=== PATIENT | female | born 2000 | race Caucasian/White ===

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

== ENCOUNTER 2019-01-04 22:24 | Emergency (ER) | payer MEDICAID ==
--- NOTE | 2019-01-04 22:30 | ER Document Report ---
ED Medical Screen (RME) - General Stated Complaint: ABDOMINAL PAIN Time Seen by Provider: 01/04/19 22:28 Primary Care Provider: JENNIFER NIÑO MD [EMERITUS] - Follow up as needed Notes: PT IN EXTREME PAIN, LEFT SIDE, HURTS TO BREATH, TALK WALK, CANNOT TOLERATE FEEDING TUBE, CLAMMY HX OF J AND G TUBE, GASTROPRESIS, CROHNS, I have greeted and performed a rapid initial assessment of this patient. A comprehensive ED assessment and evaluation of the patient, analysis of test results and completion of the medical decision making process will be conducted by additional ED providers. TRAVEL OUTSIDE OF THE [place] IN LAST 30 DAYS: No - Related Data Allergies/Adverse Reactions: chlorhexidine [Chlorhexidine] Allergy (Verified 01/05/19 00:34) Urticaria erythromycin base Allergy (Verified 01/05/19 00:34) lactose [Lactose] Allergy (Verified 01/05/19 00:34) Urticaria lactulose Allergy (Verified 01/05/19 00:34) melatonin Allergy (Verified 01/05/19 00:34) morphine Adverse Reaction (Verified 01/05/19 00:34) vancomycin [Vancomycin] Adverse Reaction (Verified 01/05/19 00:34) Amy Syndrome silk tape Allergy (Uncoded 01/05/19 00:34) Past Medical History Pulmonary Medical History: Reports: Hx Asthma Endocrine Medical History: Reports: Hx Hypothyroidism - Carolyn's Renal/ Medical History: Denies: Hx Peritoneal Dialysis GI Medical History: Reports: Hx Crohn's Disease, Hx Gastroesophageal Reflux Disease, Hx Ulcer - pyloric stenosis, chrons, Past Surgical History: Reports: Hx Abdominal Surgery - J tube placement, Hx Cholecystectomy, Hx Oral Surgery, Hx Urinary Tract Surgery - Stretched urethra, pediatric, Jtube placement - Immunizations Immunizations up to date: Yes Hx Diphtheria, Pertussis, Tetanus Vaccination: Yes Course - Laboratory Result Diagrams: 01/05/19 00:17 01/05/19 00:17 Laboratory results interpreted by me: 01/05/19 01/05/19 00:17 00:17 Hct 34.6 L RDW 14.5 H AST 53 H Doctor's Discharge - Discharge Referrals: JENNIFER NIÑO MD [EMERITUS] - Follow up as needed
[2019-01-04 22:54] LABS: APPEARANCE,URINE CLEAR; BILIRUBIN,URINE NEGATIVE (NEGATIVE); COLOR,URINE COLORLESS; GLUCOSE, URINE NEGATIVE (NEGATIVE); KETONES,URINE NEGATIVE (NEGATIVE); LEUKOCYTE ESTERASE,URINE NEGATIVE (NEGATIVE); NITRITE,URINE NEGATIVE (NEGATIVE); PROTEIN,URINE NEGATIVE (NEGATIVE); URINE SPECIFIC GRAVITY 1.001; UROBILINOGEN,URINE NEGATIVE mg/dL (<2.0)
[2019-01-05 00:29] LABS: ABSOLUTE EOSINOPHILS # (AUTO) 0.1 10^3/uL (0.0-0.6); ABSOLUTE MONOCYTES (AUTO) 0.7 10^3/uL (0.1-1.4); ABSOLUTE NEUT (AUTO) 5.2 10^3/uL (1.7-8.2); BASOPHILS % (AUTO) 0.6 % (0-2); EOSINOPHILS % (AUTO) 1.1 % (0-6); HEMATOCRIT 34.6 % (36.0-47.0); LYMPHOCYTES % (AUTO) 25.2 % (13-45); MEAN CORPUSCULAR HEMOGLOBIN 31.5 pg (27.0-33.4); MEAN CORPUSCULAR HGB CONC 34.7 g/dL (32.0-36.0); MEAN CORPUSCULAR VOLUME 91 fl (80-97); MONOCYTES % (AUTO) 8.8 % (3-13); PLATELET COUNT 289 10^3/uL (150-450); RED BLOOD COUNT 3.81 10^6/uL (3.72-5.28); RED CELL DISTRIBUTION WIDTH 14.5 % (11.5-14.0); SEGMENTED NEUTROPHILS % (AUTO) 64.3 % (42-78); TOTAL CELLS COUNTED % (AUTO) 100 %; WHITE BLOOD COUNT 8.1 10^3/uL (4.0-10.5)
[2019-01-05 00:41] LABS: ALANINE AMINOTRANSFERASE 18 U/L (5-35); ALBUMIN 4.6 g/dL (3.7-5.6); ALKALINE PHOSPHATASE 89 U/L (50-135); ANION GAP 10 (5-19); ASPARTATE AMINO TRANSFERASE 53 U/L (5-30); BILIRUBIN,DIRECT 0.3 mg/dL (0.0-0.4); BILIRUBIN,TOTAL 0.6 mg/dL (0.2-1.3); BLOOD UREA NITROGEN 12 mg/dL (7-20); CALCIUM 9.5 mg/dL (8.4-10.2); CARBON DIOXIDE 30 mmol/L (22-30); CHLORIDE 99 mmol/L (98-107); GLUCOSE 86 mg/dL (75-110); SODIUM 138.8 mmol/L (137-145); TOTAL PROTEIN 8.2 g/dL (6.3-8.2)
[2019-01-05 00:44] LABS: INTERNATIONAL RATION (INR) 0.92; PROTHROMBIN TIME 12.8 SEC (11.4-15.4)
[2019-01-05] MEDS ORDERED: HYDROMORPHONE HCL INJ/PF 2 MG/ML AMPULE IV ONE ×2 (00:54→03:10)
[2019-01-05] MEDS ORDERED: ONDANSETRON HCL INJ/PF 4 MG/2 ML SDV IV ONE ×2 (01:13→03:10)
[2019-01-05] MEDS ORDERED: ONDANSETRON HCL INJ/PF 4 MG/2 ML SDV ONE (01:14)
--- NOTE | 2019-01-05 03:33 | RADIOLOGY REPORT (SQ) ---
EXAM DESCRIPTION: CT ABDOMEN PELVIS WITH IV CONTRAST COMPLETED DATE/TME: 01/05/2019 00:33 CLINICAL HISTORY: 18 years, Female, abd pain, bloody stool, G-J tube, crohns Comparison: January 13, 2018 TECHNIQUE: Contiguous axial CT images of the abdomen and pelvis were obtained. Sagittal and coronal reformats were reviewed. This exam was performed according to our departmental dose-optimization program, which includes automated exposure control, adjustment of the mA and/or kV according to patient size and/or use of iterative reconstruction technique. FINDINGS: Lung bases: Clear. Liver:Unremarkable. No focal liver lesion. Gallbladder:Cholecystectomy clips seen in gallbladder fossa. Spleen:Unremarkable Pancreas: Pancreas is unremarkable. Adrenal glands:Within normal limits. Kidneys/ureters:Within normal limits Stomach/small bowel/colon: Gastrostomy tube terminates within the gastric lumen. Jejunostomy tube terminates in the mid jejunum. The balloon on the J-tube is partially inflated and positioned at the level of the abdominal wall musculature. Colon is unremarkable. Appendix: No evidence of appendicitis. Peritoneum: Small amount of pelvic fluid. Vascular structures: within normal limits Lymph nodes: No abnormal lymph nodes. Bladder:Unremarkable. Pelvic organs: No acute abnormality Bones: No acute osseous abnormality. Soft tissues: Unremarkable.. IMPRESSION: No acute intra-abdominal abnormality.
[2019-01-05] MEDS ORDERED: METRONIDAZOLE 500 MG/NS RTU 500 MG/100 ML RTUPB IV ONE (05:17)
[2019-01-05] MEDS ORDERED: HYDROCOD/ACETAMIN 7.5-325 MG/15 ML ORAL SOLN UDCUP PO ONE (05:27)
[2019-01-05] MEDS ORDERED: CIPROFLOXACIN 400 MG/D5W RTU 400 MG/200 ML RTUPB IV SCH ×2 (05:30→18:00)
--- NOTE | 2019-01-05 05:38 | PDOC CONSULTATION ---
History of Present Illness Admission Date/PCP: RAE ALCARAZ NP Patient complains of: pains around the J-tube History of Present Illness: GOLDY WALLACE is a 18 year old female with history of Crohn's Disease on Humira and gastroparesis. Has a G-tube and a J-tube. C/o pains around J-tube past few days with inability to tolerate regular rate of 75 ccs/hr thru the J-tube. Last dose of Humira was 2 days ago. Yesterday started more pains around the J-tube with difficulty getting comfortable with any position and more pains with walking straight up that she has to stoop with associated chills/clammy sensation which prompted her to go to the ED. She had a CT scan of abdomen/pelvis which was essentially normal and a WBC of 8,000. I was asked by ED physician Dr Barron because of pains and tenderness around the J-tube with work-up essentially normal. Patient and mother claim this is exactly the same situation she was in where she was noted to have abscess around the J-tybe catheter. This was only noted when the catheter was pulled out followed by pus coming out of the catheter tract. Mother claimed her WBC then was initially 8,000 then went up to 12,000. Past Medical History Pulmonary Medical History: Reports: Asthma Endocrine Medical History: Reports: Hypothyroidism - Carol[facility] GI Medical History: Reports: Crohn's Disease, Gastroesophageal Reflux Disease Hematology: Reports: Anemia Past Surgical History Past Surgical History: Reports: Cholecystectomy, Other - G-tube and J-tube pl acement for gastroparesis Social History Smoking Status: Never Smoker Family History Family History: Reviewed & Not Pertinent Parental Family History Reviewed: Yes Children Family History Reviewed: No Sibling(s) Family History Reviewed.: No Medication/Allergy Home Medications: Adalimumab [Humira(Cf) Pen] 40 mg SQ WE 11/25/18 Dicyclomine HCl [Bentyl 10 mg Capsule] 10 mg PEG PRN PRN 11/25/18 Lansoprazole [Prevacid 30 mg Odt Tablet] 30 mg PO BID 11/25/18 Levothyroxine Sodium [Synthroid 0.025 mg Tablet] 0.5 tab PEG DAILY 11/25/18 Midodrine HCl 2.5 mg PEG TID 11/25/18 Mupirocin [Bactroban 2% Ointment 22 gm] 1 applic TOP ASDIR PRN 11/25/18 Nut.tx.impaired Digest Fxn [Vivonex] 11/25/18 Ondansetron [Zofran Odt 4 mg Tablet] 4 mg PO PRN PRN 11/25/18 Promethazine HCl/Codeine [Prometh-Codein 6.25-10 mg/5 ml] 10 ml PEG BID PRN 11/25/18 Selenium [Selenimin] 50 mcg PEG DAILY 11/25/18 Zinc Oxide [Zinc Oxide 20% Ointment 28.35 gm] 1 applic TOP ASDIR PRN 11/25/18 Metronidazole [Flagyl 500 mg Tablet] 500 mg PO Q6H #40 tablet 11/26/18 Allergies/Adverse Reactions: chlorhexidine [Chlorhexidine] Allergy (Verified 01/05/19 00:34) Urticaria erythromycin base Allergy (Verified 01/05/19 00:34) lactose [Lactose] Allergy (Verified 01/05/19 00:34) Urticaria lactulose Allergy (Verified 01/05/19 00:34) melatonin Allergy (Verified 01/05/19 00:34) morphine Adverse Reaction (Verified 01/05/19 00:34) vancomycin [Vancomycin] Adverse Reaction (Verified 01/05/19 00:34) Amy Syndrome silk tape Allergy (Uncoded 01/05/19 00:34) Review of Systems Constitutional: PRESENT: as per HPI Gastrointestinal: PRESENT: abdominal pain - around the J-tube catheter Physical Exam Vital Signs: Temp Pulse Resp BP Pulse Ox 98.3 F 96 H 18 97/59 L 98 01/04/19 22:35 01/04/19 22:35 01/04/19 22:35 01/04/19 22:35 01/04/19 22:35 Intake & Output 01/03/19 01/04/19 01/05/19 06:59 06:59 06:59 Weight 53.977 kg General appearance: PRESENT: mild distress Head exam: PRESENT: atraumatic Eye exam: PRESENT: conjunctiva pink Mouth exam: PRESENT: moist Neck exam: PRESENT: full ROM Respiratory exam: PRESENT: clear to auscultation martine Cardiovascular exam: PRESENT: RRR Pulses: PRESENT: normal radial pulses Vascular exam: PRESENT: normal capillary refill GI/Abdominal exam: PRESENT: soft, tenderness - around the J-tube with some prominence around catheter. Has some granulation tissue around catheter Rectal exam: PRESENT: deferred Extremities exam: PRESENT: full ROM Musculoskeletal exam: PRESENT: ambulatory Neurological exam: PRESENT: alert, oriented to person, oriented to place, oriented to time, oriented to situation Psychiatric exam: PRESENT: appropriate affect Skin exam: PRESENT: normal color, warm Results Laboratory Results: 01/05/19 00:17 01/05/19 00:17 01/04/19 01/05/19 01/05/19 22:30 00:17 00:17 WBC 8.1 RBC 3.81 Hgb 12.0 Hct 34.6 L MCV 91 MCH 31.5 MCHC 34.7 RDW 14.5 H Plt Count 289 Seg Neutrophils % 64.3 Lymphocytes % 25.2 Monocytes % 8.8 Eosinophils % 1.1 Basophils % 0.6 Absolute Neutrophils 5.2 Absolute Lymphocytes 2.0 Absolute Monocytes 0.7 Absolute Eosinophils 0.1 Absolute Basophils 0.0 Sodium 138.8 Potassium 4.0 Chloride 99 Carbon Dioxide 30 Anion Gap 10 BUN 12 Creatinine 0.72 Est GFR ( Amer) > 60 Est GFR (Non-Af Amer) > 60 Glucose 86 Calcium 9.5 Total Bilirubin 0.6 AST 53 H ALT 18 Alkaline Phosphatase 89 Total Protein 8.2 Albumin 4.6 Urine Color COLORLESS Urine Appearance CLEAR Urine pH 8.0 Ur Specific [place] 1.001 Urine Protein NEGATIVE Urine Glucose (UA) NEGATIVE Urine Ketones NEGATIVE Urine Blood NEGATIVE Urine Nitrite NEGATIVE Ur Leukocyte Esterase NEGATIVE Urine WBC (Auto) 0 Blood Type Antibody Screen 01/05/19 00:17 WBC RBC Hgb Hct MCV MCH MCHC RDW Plt Count Seg Neutrophils % Lymphocytes % Monocytes % Eosinophils % Basophils % Absolute Neutrophils Absolute Lymphocytes Absolute Monocytes Absolute Eosinophils Absolute Basophils Sodium Potassium Chloride Carbon Dioxide Anion Gap BUN Creatinine Est GFR ( Amer) Est GFR (Non-Af Amer) Glucose Calcium Total Bilirubin AST ALT Alkaline Phosphatase Total Protein Albumin Urine Color Urine Appearance Urine pH Ur Specific [place] Urine Protein Urine Glucose (UA) Urine Ketones Urine Blood Urine Nitrite Ur Leukocyte Esterase Urine WBC (Auto) Blood Type O POSITIVE Antibody Screen NEGATIVE Impressions: Abdomen/Pelvis CT 01/05/19 00:33 IMPRESSION: No acute intra-abdominal abnormality. Assessment & Plan - Diagnosis (1) Developing abscess J-tube site Is this a current diagnosis for this admission?: Yes (2) pains around J-tube Is this a current diagnosis for this admission?: Yes (3) Crohn's disease Is this a current diagnosis for this admission?: Yes (4) Gastroparesis Is this a current diagnosis for this admission?: Yes - Time Time Spent: 30 to 50 Minutes - Plan Summary Plan Summary: [facility] her Chrons' Disease . They can change/evaluate the J-tube catheter for possible developing abscess. Patient on Humira and may have abnormal inflammatory response. Patient and mother feels patient has the same scenario when she had the abscess around her J-tube in 2017 and [facility].
[2019-01-05] MEDS ORDERED: PROMETHAZINE HCL INJ 25 MG/1 ML VIAL IV ONE (06:47)
--- NOTE | 2019-01-05 06:51 | ER Document Report ---
Entered by ANN ESPINAL SCRIBE 01/05/19 0059 Acting as scribe for:SHELLY RIVERA DO ED GI/ - General Stated Complaint: ABDOMINAL PAIN Time Seen by Provider: 01/04/19 22:28 Primary Care Provider: JENNIFER NIÑO MD [EMERITUS] - Follow up as needed Mode of Arrival: Ambulatory Notes: 18 year old female with history of Chrohn's disease status post G-J tube placement that presents to the emergency department today with complaints of abdominal pain. Mom and patient state that around x10 days ago the patient began having left lower quadrant abdominal pain located around the G-J tube. Mom states the patient was sent for an ultrasound to rule out intussusception x10 days ago but the ultrasound "did not show the area needed to rule out intussusception". Mom states they have tried magnesium citrate twice over the last x10 days which provided mild relief initially but no real change overall. Patient was started back on kira one week ago. Patient states she has noticed swelling around her G-J tube when trying to feed. Patient states the feeding goes into the tube without difficulty however she is unable to complete feeding secondary to pain. Patient states she has noticed blood in her tube intermittently as well as an odor coming from it. Patient states she is nauseated with chills but denies any dark black stool, fevers, or trauma to the abdomen. TRAVEL OUTSIDE OF THE [place] IN LAST 30 DAYS: No - Related Data Allergies/Adverse Reactions: chlorhexidine [Chlorhexidine] Allergy (Verified 01/05/19 00:34) Urticaria erythromycin base Allergy (Verified 01/05/19 00:34) lactose [Lactose] Allergy (Verified 01/05/19 00:34) Urticaria lactulose Allergy (Verified 01/05/19 00:34) melatonin Allergy (Verified 01/05/19 00:34) morphine Adverse Reaction (Verified 01/05/19 00:34) vancomycin [Vancomycin] Adverse Reaction (Verified 01/05/19 00:34) Amy Syndrome silk tape Allergy (Uncoded 01/05/19 00:34) Past Medical History - General Information source: Patient - Social History Smoking Status: Never Smoker Cigarette use (# per day): No Frequency of alcohol use: None Drug Abuse: None Lives with: Family Family History: Reviewed & Not Pertinent Pulmonary Medical History: Reports: Hx Asthma Endocrine Medical History: Reports: Hx Hypothyroidism - [facility] Medical History: Reports: Hx Crohn's Disease, Hx Gastroesophageal Reflux Disease, Hx Ulcer - pyloric stenosis Past Surgical History: Reports: Hx Abdominal Surgery - GJ tube placement, Hx Cholecystectomy, Hx Oral Surgery, Hx Urinary Tract Surgery - Stretched urethra, pediatric, Jtube placement - Immunizations Immunizations up to date: Yes Hx Diphtheria, Pertussis, Tetanus Vaccination: Yes Review of Systems - Review of Systems Constitutional: See HPI, Chills. denies: Fever EENT: No symptoms reported Cardiovascular: No symptoms reported Respiratory: No symptoms reported Gastrointestinal: See HPI, Abdomen distended, Abdominal pain, Diarrhea, Nausea. denies: Vomiting Genitourinary: No symptoms reported Female Genitourinary: No symptoms reported Musculoskeletal: No symptoms reported Skin: No symptoms reported Hematologic/Lymphatic: No symptoms reported Neurological/Psychological: No symptoms reported -: Yes All other systems reviewed and negative Physical Exam - Vital signs Vitals: Temp Pulse Resp BP Pulse Ox 98.3 F 96 H 18 97/59 L 98 01/04/19 22:35 01/04/19 22:35 01/04/19 22:35 01/04/19 22:35 01/04/19 22:35 - Notes Notes: PHYSICAL EXAM GENERAL: Alert, interacts well. No acute distress. HEAD: Normocephalic, atraumatic. EYES: Pupils equal, round, and reactive to light. Extraocular movements intact. ENT: Oral mucosa moist, tongue midline. NECK: Full range of motion. Supple. Trachea midline. LUNGS: Clear to auscultation bilaterally, no wheezes, rales, or rhonchi. No respiratory distress. HEART: Regular rate and rhythm. No murmurs, gallops, or rubs. ABDOMEN: Soft, mild suprapubic tenderness with palpation, severe tenderness with palpation surrounding the GJ tube with a small amount blood in the tube via backflow. Non-distended. Bowel sounds present in all 4 quadrants. No guarding, rigidity, or rebound. EXTREMITIES: Moves all 4 extremities spontaneously. No edema, radial and dorsalis pedis pulses 2/4 bilaterally. No cyanosis. NEUROLOGICAL: Alert and oriented x3. Normal speech. PSYCH: Normal affect, normal mood. SKIN: Warm, dry, normal turgor. No rashes or lesions noted. Pale. Course - Re-evaluation Re-evalutation: 01/05/19 05:26 CBC is unremarkable, coags normal, CMP grossly unremarkable, test negative, urinalysis unremarkable. There is no evidence of significant GI bleed. There is no anemia. There is a small amount of blood in the J-tube. Given the market tenderness palpation patient had on her physical examination I did perform a CT scan of the abdomen pelvis, patient was only able to get a small amount of Gastrografin in through the J-tube, she had to stop giving it to herself due to pain. CT scan of the abdomen pelvis shows gastrostomy tube terminating within the gastric lumen and a jejunostomy tube terminating in the mid jejunum, the balloon on the J-tube is partially inflated in position at the level of the abdominal wall musculature. Colon is unremarkable. Given the continuing pain that the patient has, the inability to tolerate her tube feeds and the difficulty with tolerating the Gastrografin through the G-tube I did have Dr. Youssef her surgeon on-call, and physically evaluate the patient. He is concerned that there is significant tenderness to palpation around the GJ tube insertion site and he is concerned that there may be a developing abscess at this point. He would like us to discuss the patient with her treating gastro enterologist and possibly the surgeon in place the tube. I spoke with Dr. Stein from [facility] who agrees with the concern for possible abscess at the insertion site, recommend speaking with the surgeon who placed the GJ tube at [facility]. Also recommend starting Cipro and Flagyl. Would prefer to transfer the patient back to the primary surgeon rather than accepting the patient to [facility] if the primary surgeon is available. I did call and put in a consult with the [facility] transfer line, they stated that they have no beds available and there is an extensive wait list however they are going to try and connect me to the surgeon so I can consult with him for discussion of keeping the patient here for IV antibiotics until they have a bed versus transferring to [facility]. 01/05/19 05:[address] Burciaga the surgeon on-call for [facility], states that they do not have any beds, agrees with giving IV antibiotics, suggest discussing with another surgeon, suggest discussing again with our local surgeon versus the other surgeons to follow her at [facility]. I do have a repeat phone call out to Dr. Stein. 01/05/19 06:[address] Stein who agrees that it is appropriate to transfer the patient to [facility] rather than keeping the patient here as she is quite complex and he would prefer to keep continuity of care. He does not admit there, recommends that I speak with the hospitalist team to arrange admission. 01/05/19 06:[address] Mccrary who agrees to admit the patient to his service. We are awaiting bed assignment and then [facility] will arrange transport. Family is aware of this plan. 01/05/19 06:49 Dr. Mccrary did request a lactic acid be added on. This is been added. - Vital Signs Vital signs: Temp Pulse Resp BP Pulse Ox 98.3 F 96 H 18 97/59 L 98 01/04/19 22:35 01/04/19 22:35 01/04/19 22:35 01/04/19 22:35 01/04/19 22:35 - Laboratory Result Diagrams: 01/05/19 00:17 01/05/19 00:17 Laboratory results interpreted by me: 01/05/19 01/05/19 00:17 00:17 Hct 34.6 L RDW 14.5 H AST 53 H - Consults Dr. Youssef Time consulted: 04:01 Reason for consultation: 01/05/19 04:01 Abdominal pain 01/05/19 04:[address] Youssef that patient is still having moderate pain despite negative CT scan and normal white blood cell count. Requested that he come to the patient to see and evaluate the patient, perform a repeat abdominal exam on this patient with continuing pain. Agrees to come and evaluate the patient. Consulted provider: will come to ER Discharge - Discharge Clinical Impression: Developing abscess J-tube site, pains around J-tube Crohn's disease Qualifiers: Gastrointestinal tract location: small intestine Digestive disease complication type: with abscess Qualified Code(s): K50.014 - Crohn's disease of small intestine with abscess Condition: Fair Disposition: [facility] Referrals: JENNIFER NIÑO MD [EMERITUS] - Follow up as needed I personally performed the services described in the documentation, reviewed and edited the documentation which was dictated to the scribe in my presence, and it accurately records my words and actions.
[2019-01-05] MEDS ORDERED: HYDROCOD/ACETAMIN 7.5-325 MG/15 ML ORAL SOLN UDCUP PO PRN (11:28)
[2019-01-05] MEDS: HYDROMORPHONE HCL INJ/PF 2 MG/ML AMPULE IV PRN ×3 (11:44→19:15)
[2019-01-05] MEDS ORDERED: DEXTROSE 5%-1/2 NORMAL SALINE 1,000 ML IV ONE (13:43)
[2019-01-05] MEDS ORDERED: ONDANSETRON HCL INJ/PF 4 MG/2 ML SDV IV PRN (16:27)
--- NOTE | 2019-01-05 19:59 | ER Document Report ---
Doctor's Note Notes: 01/05/19 19:59 Patient evaluated and is hemodynamically stable for transportation.
[2019-01-05 20:04] VITALS: BP 103/53
== END 2019-01-05 20:02 | disposition short-term general hospital (02) ==
LOC: ER 22:24
DX: K50.014 Crohn's disease of small intestine with abscess (principal); R10.9 Unspecified abdominal pain; R68.83 Chills (without fever); Z93.4 Other artificial openings of gastrointestinal tract status; Z88.3 Allergy status to other anti-infective agents; Z88.9 Allergy status to unspecified drugs, medicaments and biological substances; Z88.6 Allergy status to analgesic agent; Z90.49 Acquired absence of other specified parts of digestive tract
CPT/HCPCS: 96376; 99285; 96361; 96375; 96365; 96366; 96367; 86900; 86901; 36415; 87040; 86850; 85025; 85610; 81025; 80053; 81001; 83605; 74177; J1170; J2550; J2405; J0744

== ENCOUNTER → 2019-01-15 | Outpatient (CLI) | payer MEDICAID ==
[2019-01-15 14:14] LABS: HEMATOCRIT 31.8 % (36.0-47.0); HEMOGLOBIN 11.2 g/dL (12.0-15.5); MEAN CORPUSCULAR HEMOGLOBIN 31.8 pg (27.0-33.4); MEAN CORPUSCULAR HGB CONC 35.1 g/dL (32.0-36.0); MEAN CORPUSCULAR VOLUME 91 fl (80-97); PLATELET COUNT 366 10^3/uL (150-450); RED BLOOD COUNT 3.51 10^6/uL (3.72-5.28); RED CELL DISTRIBUTION WIDTH 13.7 % (11.5-14.0); WHITE BLOOD COUNT 4.1 10^3/uL (4.0-10.5)
== END ==
LOC: OD 13:35
PROVIDERS: ATTEND Nurse Practitioner Family
DX: K94.21 Gastrostomy hemorrhage (principal)
CPT/HCPCS: 36415; 85027

== ENCOUNTER → 2019-01-30 | Outpatient (CLI) | payer MEDICAID | LOC: OD 12:02 | PROVIDERS: ATTEND Nurse Practitioner Family | DX: E87.6 Hypokalemia (principal) | CPT/HCPCS: 36415; 84132 ==

== ENCOUNTER → 2019-02-02 | Outpatient (CLI) | payer MEDICAID ==
[2019-02-02 14:49] LABS: ARTERIAL BLOOD H2CO3 1.19 mmol/L (1.05-1.35); ARTERIAL BLOOD O2 SATURATION 97.8 % (94-98); ARTERIAL BLOOD PCO2 39.7 mmHg (35-45); ARTERIAL BLOOD PH 7.47 (7.35-7.45); ARTERIAL BLOOD PO2 98.6 mmHg (80-100); ARTERIAL BLOOD TOTAL CO2 29.2 mmol/L (21-25)
[2019-02-02 14:50] LABS: ARTERIAL BLOOD FIO2 ROOM AIR
[2019-02-02 15:23] LABS: POTASSIUM 3.7 mmol/L (3.6-5.0)
--- NOTE | 2019-02-03 23:47 | EKG REPORT ---
SEVERITY:- BORDERLINE ECG - SINUS RHYTHM PROBABLE LEFT ATRIAL ABNORMALITY CONSIDER RIGHT VENTRICULAR HYPERTROPHY : Confirmed by: Nikia Curry 03-Feb-2019 23:47:06
[2019-02-04 13:17] LABS: ANION GAP 9 (5-19); BLOOD UREA NITROGEN 9 mg/dL (7-20); CALCIUM 9.4 mg/dL (8.4-10.2); CARBON DIOXIDE 28 mmol/L (22-30); CHLORIDE 101 mmol/L (98-107); GLUCOSE 75 mg/dL (75-110); SODIUM 138.3 mmol/L (137-145)
== END ==
LOC: LAB 14:21
PROVIDERS: ATTEND Nurse Practitioner Family
DX: K50.111 Crohn's disease of large intestine with rectal bleeding (principal); E87.6 Hypokalemia
CPT/HCPCS: 36415; 80048; 82803; 84132; 93005; 93010

== ENCOUNTER 2019-02-07 11:21 | Day surgery (SDC) | payer MEDICAID ==
[~2019-02-07 11:21] MED LIST: ACETAMINOPHEN 325 MG TABLET PO PRN; CEFAZOLIN 1 GM/D5W RTU 1 GM/50 ML RTUPB IV PRN; CLINDAMYCIN 600 MG/D5W RTU 600 MG/50 ML RTUPB IV PRN
[2019-02-07] MEDS ORDERED: CLINDAMYCIN 600 MG/D5W RTU 600 MG/50 ML RTUPB IV ONE (11:38)
[2019-02-07] MEDS ORDERED: BUPIVACAINE HCL 0.5%-EPI 1:200000 INJ/PF 30 ML VIAL ONE (12:36)
[2019-02-07 12:49] LABS: HEMOGLOBIN 11.6 g/dL (12.0-15.5); MEAN CORPUSCULAR HEMOGLOBIN 31.8 pg (27.0-33.4); MEAN CORPUSCULAR HGB CONC 35.1 g/dL (32.0-36.0); MEAN CORPUSCULAR VOLUME 91 fl (80-97); PLATELET COUNT 230 10^3/uL (150-450); RED BLOOD COUNT 3.64 10^6/uL (3.72-5.28); RED CELL DISTRIBUTION WIDTH 13.2 % (11.5-14.0)
[2019-02-07] MEDS ORDERED: ONDANSETRON HCL INJ/PF 4 MG/2 ML SDV ONE (13:04)
[2019-02-07] MEDS ORDERED: MIDAZOLAM 2 MG/2 ML INJ ONE ×2 (13:05→15:40)
[2019-02-07] MEDS ORDERED: PROPOFOL INJ 200 MG/20 ML VIAL IV ONE (15:40)
[2019-02-07] MEDS ORDERED: FENTANYL CITRATE INJ/PF 100 MCG/2 ML AMPUL ONE (15:40)
[2019-02-07] MEDS ORDERED: DIPHENHYDRAMINE HCL 50 MG/ML VIAL IV PRN (16:09)
[2019-02-07] MEDS ORDERED: FENTANYL CITRATE INJ/PF 100 MCG/2 ML AMPUL IV PRN ×3 (16:09)
--- NOTE | 2019-02-07 16:52 | Operative Report ---
Nonrecallable Operative Report DATE OF SURGERY: 02/07/19 PREOPERATIVE DIAGNOSIS: gastroparesis POSTOPERATIVE DIAGNOSIS: gastroparesis OPERATION: dual lumen portacath placement SURGEON: NORIS OLIVA ANESTHESIA: Moderate Sedation TISSUE REMOVED OR ALTERED: none COMPLICATIONS: none ESTIMATED BLOOD LOSS: 2cc. INTRAOPERATIVE FINDINGS: see dictatin PROCEDURE: see dictation
[2019-02-07] MEDS ORDERED: OXYCODONE-ACETAMINOPHEN 5-325 MG TABLET PO PRN (16:54)
[2019-02-07] MEDS: FENTANYL CITRATE INJ/PF 100 MCG/2 ML AMPUL ONE ×2 (16:56→17:01)
--- NOTE | 2019-02-07 17:49 | OPERATIVE REPORT E ---
Operative Report NAME: GOLDY WALLACE : 2000 AGE: 18Y DATE OF SURGERY: 02/07/2019 ROOM: PREOPERATIVE DIAGNOSIS: GASTROPARESIS, CROHN DISEASE. POSTOPERATIVE DIAGNOSIS: GASTROPARESIS, CROHN DISEASE. OPERATION: DUAL LUMEN PORTACATH PLACEMENT LEFT CHEST. SURGEON: NORIS OLIVA M.D. PROCEDURE: The patient was brought to the operating room in awake, alert, and stable condition, and placed on the operating table in supine position and given IV sedation. The left neck and chest were prepped and draped in usual sterile manner for the procedure. After an appropriate timeout, the left subclavian area was anesthetized with 1% lidocaine with epinephrine. A left subclavian puncture was accomplished with a 16-gauge needle and a wire was placed into the subclavian vein into the vena cava via the subclavian vein. It was confirmed with fluoroscopy. After this, a dilator introducer was placed over the wire into the superior vena cava, also confirmed on fluoroscopy. The dual lumen Portacath catheter was then placed in through the tearaway introducer, which was torn away. Good position of the tip of the catheter was confirmed with fluoroscopy. The left chest wall was then again anesthetized with 1% lidocaine with epinephrine, and a transverse incision was made. A pocket was fashioned with Bovie cautery for the dual lumen port. The catheter was then tunneled from the subclavian stick site to the port site using the tunnel maker supplied with the kit. It was then attached to the port and placed into the subcutaneous pocket. It was confirmed in good position by fluoroscopy and then heparinized with heparinized saline solution. The subcutaneous tissue was then reapproximated over the port with interrupted 3-0 Vicryl suture, and the skin was reapproximated with intracuticular 4-0 Biosyn. Steri-Strips completed the procedure. Estimated blood loss was less than 5 mL. Sponge and needle counts were correct x2. The patient was then transferred to recovery in stable condition. DICTATING PHYSICIAN: NORIS OLIVA M.D. [id number] PHY#: [id number] ID: [id number] JOB#: [id number] ACCT: [id number] cc:NORIS OLIVA M.D. >
--- NOTE | 2019-02-07 18:45 | RADIOLOGY REPORT (SQ) ---
EXAM DESCRIPTION: CHEST SINGLE VIEW COMPLETED DATE/TIME: 02/07/2019 5:24 pm REASON FOR STUDY: portacath placement COMPARISON: 02/07/2019 EXAM PARAMETERS: NUMBER OF VIEWS: One view. TECHNIQUE: Single frontal radiographic view of the chest acquired. RADIATION DOSE: NA LIMITATIONS: None. FINDINGS: LUNGS AND PLEURA: No opacities, masses or pneumothorax. No pleural effusion. MEDIASTINUM AND HILAR STRUCTURES: No masses. Contour normal. HEART AND VASCULAR STRUCTURES: Heart normal in size. Normal vasculature. BONES: No acute findings. HARDWARE: Injection port on the left. Tip of the catheter is in the superior vena cava. OTHER: No other significant finding. IMPRESSION: Port-A-Cath placement. TECHNICAL DOCUMENTATION: JOB ID: [id number] [employer]- All Rights Reserved Reading location - IP/workstation name: [email or web address]
[2019-02-07 18:54] VITALS: BP 101/62
--- NOTE | 2019-02-08 08:30 | RADIOLOGY REPORT (SQ) ---
EXAM DESCRIPTION: FLUORO/CV PLACEMENT COMPLETE DATE/TIME: 02/07/2019 5:28 pm REASON FOR STUDY: PORT A CATH D64.9 ANEMIA, UNSPECIFIED K50.90 CROHN'S DISEASE, UNSPECIFIED, WITHO UT COMPLICATIONS FINDINGS: Please see combined report for performance of procedure and radiologic supervision and int erpretation. Total fluoro time 1.8 minutes IMPRESSION: Please see combined report for performance of procedure and radiologic supervision and i nterpretation. Reading location - IP/workstation name: [email or web address]
--- NOTE | 2019-02-13 07:40 | Discharge Summary ---
Discharge Summary (SDC) - Discharge Final Diagnosis: hemorrhoids Date of Surgery: 02/07/19 Discharge Date: 02/07/19 Condition: Good Forms: ASU Anesthesia D/C Instruction, Discharge POC-Surgical Service Treatment or Instructions: FOLLOW UP DIRECTED BY YOUR MD Referrals: NORIS OLIVA MD [ACTIVE STAFF] - Respiratory Treatments at Home: Deep Breathing/Coughing Discharge Activity: Activity As Tolerated, Balance Activity w/Rest, No Driving, Slowly Increase Activity Home Care Assistance: None Needed Report the Following to Your Physician Immediately: Shortness of Breath, Nausea, Vomiting, Increase in Pain, Fever over 101 Degrees, Unusual Bleeding, Redness, S welling, Warmth, Increased Soreness, Drainage-Yellow, Drainage-[place], Drainage- Green, Drainage-Foul Smelling, Large Clots, Numbness, Tingling Sensation, Wheezing, Seizure, IV Site Infection Signs, Urinary Infection Signs
== END 2019-02-07 18:45 | disposition home or self-care (01) ==
LOC: OROUT 11:21
PROVIDERS: ATTEND Surgery
DX: K50.90 Crohn's disease, unspecified, without complications (principal); K31.84 Gastroparesis; D64.9 Anemia, unspecified; J45.909 Unspecified asthma, uncomplicated; E03.9 Hypothyroidism, unspecified; R01.1 Cardiac murmur, unspecified; Z78.9 Other specified health status; Q79.6 Ehlers-Danlos syndromes; E06.3 Autoimmune thyroiditis; R00.0 Tachycardia, unspecified; Z87.19 Personal history of other diseases of the digestive system; Z79.899 Other long term (current) drug therapy; Z01.818 Encounter for other preprocedural examination
CPT/HCPCS: 36415; 36600; 532; 71045; 77001; 81025; 84132; 85027; C1788; J1642; J2250; J2405; J2704; J3010; J3490; Q9967

== ENCOUNTER → 2019-03-06 | Outpatient (CLI) | payer MEDICAID ==
[2019-03-06 16:24] LABS: ABSOLUTE BASOPHILS # (AUTO) 0.1 10^3/uL (0.0-0.2); ABSOLUTE EOSINOPHILS # (AUTO) 0.3 10^3/uL (0.0-0.6); ABSOLUTE LYMPHOCYTES (AUTO) 1.9 10^3/uL (0.5-4.7); ABSOLUTE MONOCYTES (AUTO) 0.6 10^3/uL (0.1-1.4); ABSOLUTE NEUT (AUTO) 4.8 10^3/uL (1.7-8.2); BASOPHILS % (AUTO) 1.3 % (0-2); EOSINOPHILS % (AUTO) 3.9 % (0-6); HEMATOCRIT 37.4 % (36.0-47.0); HEMOGLOBIN 12.8 g/dL (12.0-15.5); LYMPHOCYTES % (AUTO) 24.1 % (13-45); MEAN CORPUSCULAR HEMOGLOBIN 30.8 pg (27.0-33.4); MEAN CORPUSCULAR HGB CONC 34.2 g/dL (32.0-36.0); MEAN CORPUSCULAR VOLUME 90 fl (80-97); MONOCYTES % (AUTO) 8.2 % (3-13); PLATELET COUNT 315 10^3/uL (150-450); RED BLOOD COUNT 4.17 10^6/uL (3.72-5.28); RED CELL DISTRIBUTION WIDTH 12.9 % (11.5-14.0); SEGMENTED NEUTROPHILS % (AUTO) 62.5 % (42-78); TOTAL CELLS COUNTED % (AUTO) 100 %; WHITE BLOOD COUNT 7.8 10^3/uL (4.0-10.5)
[2019-03-06 16:48] LABS: ALANINE AMINOTRANSFERASE 27 U/L (5-35); ALBUMIN 4.7 g/dL (3.7-5.6); ALKALINE PHOSPHATASE 108 U/L (50-135); ANION GAP 10 (5-19); ASPARTATE AMINO TRANSFERASE 39 U/L (5-30); BILIRUBIN,DIRECT 0.2 mg/dL (0.0-0.4); BILIRUBIN,TOTAL 0.2 mg/dL (0.2-1.3); BLOOD UREA NITROGEN 8 mg/dL (7-20); CALCIUM 9.8 mg/dL (8.4-10.2); CARBON DIOXIDE 37 mmol/L (22-30); CHLORIDE 93 mmol/L (98-107); GLUCOSE 93 mg/dL (75-110); PHOSPHORUS 4.2 mg/dL (2.5-4.5); POTASSIUM 4.2 mmol/L (3.6-5.0); SODIUM 140.4 mmol/L (137-145); TOTAL PROTEIN 8.7 g/dL (6.3-8.2); TRIGLYCERIDES 207 mg/dL (<150)
== END ==
LOC: OD 16:03
PROVIDERS: ATTEND Nurse Practitioner Family
DX: E87.5 Hyperkalemia (principal); R73.09 Other abnormal glucose; E87.6 Hypokalemia; K50.111 Crohn's disease of large intestine with rectal bleeding; Z93.4 Other artificial openings of gastrointestinal tract status; Z95.828 Presence of other vascular implants and grafts
CPT/HCPCS: 36415; 80053; 83036; 83735; 84100; 84478; 85025

== ENCOUNTER 2019-03-23 23:05 | Emergency (ER) | payer MEDICAID ==
[2019-03-24] MEDS ORDERED: ONDANSETRON HCL INJ/PF 4 MG/2 ML SDV IV ONE ×2 (02:20→04:52)
[2019-03-24] MEDS ORDERED: HYDROMORPHONE HCL INJ/PF 2 MG/ML AMPULE IV PRN ×2 (02:20→03:04)
--- NOTE | 2019-03-24 03:07 | ER Document Report ---
ED General - General Chief Complaint: Abdominal Pain Stated Complaint: ABDOMINAL PAIN Time Seen by Provider: 03/24/19 02:01 Primary Care Provider: RAE ALCARAZ NP [Primary Care Provider] - Follow up as needed Notes: Patient is a 18-year-old female with a past medical history of Crohn's disease, connective tissue disorder, Carolyn's thyroiditis, severe gastroparesis, presents with approximately 5 days of progressively worsening generalized abdominal pain worsened by use of her J-tube. Patient states that she is still able to flush medicines through her J-tube including medications and believes that it is functioning but states that it has pulled back somewhat and that anytime she uses it is extremely painful. She also notes generalized, cramping, severe, abdominal pain. Mildly improved by her home medications, worsened by any use of the J-tube. Has a history of similar symptoms many times in the past including a recent hospitalization in January. Has not had fever or vomiting. Has had loose stools. TRAVEL OUTSIDE OF THE [place] IN LAST 30 DAYS: No - Related Data Allergies/Adverse Reactions: cefoxitin Allergy (Verified 02/14/19 18:44) chlorhexidine [Chlorhexidine] Allergy (Verified 02/07/19 11:52) Urticaria erythromycin base Allergy (Verified 02/07/19 11:52) lactose [Lactose] Allergy (Verified 02/07/19 11:52) Urticaria lactulose Allergy (Verified 02/07/19 11:52) melatonin Allergy (Verified 02/07/19 11:52) metoclopramide Allergy (Verified 02/14/19 18:44) morphine Adverse Reaction (Verified 02/07/19 11:52) vancomycin [Vancomycin] Adverse Reaction (Verified 02/07/19 11:52) Amy Syndrome silk tape Allergy (Uncoded 02/07/19 11:52) Past Medical History - General Information source: Patient - Social History Smoking Status: Never Smoker Frequency of alcohol use: None Drug Abuse: None Lives with: Family Family History: Reviewed & Not Pertinent Patient has suicidal ideation: No Patient has homicidal ideation: No - Past Medical History Cardiac Medical History: Denies: Hx Coronary Artery Disease, Hx Heart Attack, Hx Hypertension Pulmonary Medical History: Reports: Hx Asthma - A CHILD, Hx Pneumonia Denies: Hx Bronchitis, Hx COPD Neurological Medical History: Denies: Hx Cerebrovascular Accident, Hx Seizures Endocrine Medical History: Reports: Hx Hypothyroidism - Carolyn's Renal/ Medical History: Denies: Hx Peritoneal Dialysis GI Medical History: Reports: Hx Crohn's Disease, Hx Gastroesophageal Reflux Disease, Hx Ulcer - pyloric stenosis Musculoskeletal Medical History: 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 HENT: Negative for sore throat. Eyes: Negative for visual changes. Cardiovascular: Negative for chest pain. Respiratory: Negative for shortness of breath. Gastrointestinal: Positive for abdominal pain and nausea Genitourinary: Negative for dysuria. Musculoskeletal: Negative for back pain. Skin: Negative for rash. Neurological: Negative for headaches, weakness or numbness. 10 point ROS negative except as marked above and in HPI. Physical Exam - Vital signs Vitals: Temp Pulse Resp BP Pulse Ox 97.4 F 96 H 18 116/66 98 03/23/19 23:32 03/23/19 23:32 03/23/19 23:32 03/23/19 23:32 03/23/19 23:32 Interpretation: Normal Notes: PHYSICAL EXAMINATION: GENERAL: Appears moderately uncomfortable but in no acute distress HEAD: Atraumatic, normocephalic. EYES: Pupils equal round and reactive to light, extraocular movements intact, sclera anicteric, conjunctiva are normal. ENT: nares patent, oropharynx clear without exudates. Moist mucous membranes. NECK: Normal range of motion, supple without lymphadenopathy LUNGS: Breath sounds clear to auscultation bilaterally and equal. No wheezes rales or rhonchi. HEART: Regular rate and rhythm without murmurs ABDOMEN: Soft, diffuse generalized tenderness without localization, J-tube in place, normoactive bowel sounds. No guarding, no rebound. No masses appreciated. EXTREMITIES: Normal range of motion, no pitting or edema. No cyanosis. NEUROLOGICAL: No focal neurological deficits. Moves all extremities spontaneously and on command. PSYCH: Moderately anxious, tearful SKIN: Warm, Dry, normal turgor, no rashes or lesions noted. Course - Re-evaluation Re-evalutation: 03/24/19 03:06 Patient presents with a history of recurrent abdominal pain, particularly with putting flushes and medications through J-tube, has had similar issues repeatedly in the past including 2 visits to the emergency department within the past 2 to 3 months. She has a history of complicated G and J-tube change at and her current tube is a Tomlin catheter which is in place for the past 2 mon ths. On abdominal exam she has no focal tenderness rebound or guarding although is crying out in pain. Labs pending. Gastrografin will be administered through KUB to ensure that the J-tube is in appropriate location. 03/24/19 05:40 CT scan was obtained due to initial concern that there could have been a possible leak on KUB and CT is noted to be normal. I have discussed at length this patient's care with the GI physician on-call from [facility]. We have reviewed the patient's work-up today and he has advised adding Levsin, hydrocodone and Phenergan to the patient's regimen and discharge home. I am in agreement with this plan as the patient does not have any obvious diagnosis at this point that would benefit from hospitalization. At this time will discharge with return precautions and follow-up recommendations. Verbal discharge instructions given a the bedside and opportunity for questions given. Medication warnings reviewed. Patient is in agreement with this plan and has verbalized understanding of return precautions and the need for primary care follow-up in the next 24-72 hours. - Vital Signs Vital signs: Temp Pulse Resp BP Pulse Ox 97.7 F 97 H 18 118/78 95 03/24/19 00:24 03/24/19 00:24 03/23/19 23:32 03/24/19 00:24 03/24/19 00:24 - Laboratory Result Diagrams: 03/24/19 03:17 03/24/19 03:17 Laboratory results interpreted by me: 03/24/19 03/24/19 03:17 03:17 WBC 11.6 H Hct 34.2 L Potassium 3.5 L Chloride 96 L AST 45 H ALT 53 H - Diagnostic Test Radiology reviewed: Image reviewed, Reports reviewed Radiology results interpreted by me: 03/24/19 05:41 KUB: Gastrografin located within the jejunum Discharge - Discharge Clinical Impression: Gastroparesis, pains around J-tube, Chronic abdominal pain Crohn's disease Qualifiers: Gastrointestinal tract location: unspecified location Digestive disease complication type: without complication Qualified Code(s): K50.90 - Crohn's disease, unspecified, without complications Condition: Stable Disposition: HOME, SELF-CARE Additional Instructions: I have spoken to who is asked that you continue your current medications and we will also be adding Levsin and hydrocodone for pain relief. Please take as prescribed. He states that you have been approved for the new treatment and will see you in the office on the sixth. He does not advise admission at this time. The CT scan and x-rays show that your tube is in place without any complication or issues. Your labs are otherwise normal. Please return if you have worsening pain, fever greater than 101 F, persistent vomiting, or any other symptoms that are worrisome to you. Prescriptions: Hydrocodone Bit/Acetaminophen [Hydrocodon-Acetaminophen 5-325] 1 tab PO Q4HP PRN #6 tablet PRN Reason: Hyoscyamine Sulfate [Levsin 0.125 Tablet] 0.125 mg PO TID PRN #30 tablet PRN Reason: Promethazine HCl [Phenergan 25 mg Tablet] 1 - 2 tab PO Q6H PRN #15 tablet PRN Reason: Referrals: RAE ALCARAZ NP [Primary Care Provider] - Follow up as needed
[2019-03-24 03:30] LABS: ABSOLUTE BASOPHILS # (AUTO) 0.1 10^3/uL (0.0-0.2); ABSOLUTE EOSINOPHILS # (AUTO) 0.3 10^3/uL (0.0-0.6); ABSOLUTE LYMPHOCYTES (AUTO) 2.3 10^3/uL (0.5-4.7); ABSOLUTE MONOCYTES (AUTO) 0.9 10^3/uL (0.1-1.4); BASOPHILS % (AUTO) 0.6 % (0-2); HEMATOCRIT 34.2 % (36.0-47.0); HEMOGLOBIN 12.1 g/dL (12.0-15.5); LYMPHOCYTES % (AUTO) 19.5 % (13-45); MEAN CORPUSCULAR HEMOGLOBIN 30.9 pg (27.0-33.4); MEAN CORPUSCULAR HGB CONC 35.2 g/dL (32.0-36.0); MEAN CORPUSCULAR VOLUME 88 fl (80-97); MONOCYTES % (AUTO) 8.1 % (3-13); PLATELET COUNT 329 10^3/uL (150-450); RED BLOOD COUNT 3.91 10^6/uL (3.72-5.28); RED CELL DISTRIBUTION WIDTH 12.9 % (11.5-14.0); SEGMENTED NEUTROPHILS % (AUTO) 68.8 % (42-78); TOTAL CELLS COUNTED % (AUTO) 100 %; WHITE BLOOD COUNT 11.6 10^3/uL (4.0-10.5)
[2019-03-24 03:49] LABS: ALANINE AMINOTRANSFERASE 53 U/L (5-35); ALBUMIN 4.5 g/dL (3.7-5.6); ALKALINE PHOSPHATASE 105 U/L (50-135); ANION GAP 14 (5-19); ASPARTATE AMINO TRANSFERASE 45 U/L (5-30); BILIRUBIN,DIRECT 0.3 mg/dL (0.0-0.4); BILIRUBIN,TOTAL 0.3 mg/dL (0.2-1.3); BLOOD UREA NITROGEN 14 mg/dL (7-20); CALCIUM 9.5 mg/dL (8.4-10.2); CARBON DIOXIDE 30 mmol/L (22-30); CHLORIDE 96 mmol/L (98-107); GLUCOSE 83 mg/dL (75-110); POTASSIUM 3.5 mmol/L (3.6-5.0); SODIUM 139.9 mmol/L (137-145); TOTAL PROTEIN 8.1 g/dL (6.3-8.2)
[2019-03-24] MEDS ORDERED: METHYLPREDNISOLONE INJ 125 MG/2 ML SDV IV ONE (04:14)
[2019-03-24] MEDS ORDERED: ONDANSETRON HCL INJ/PF 4 MG/2 ML SDV ONE (04:17)
--- NOTE | 2019-03-24 04:38 | RADIOLOGY REPORT (SQ) ---
EXAM DESCRIPTION: XR ABDOMEN 1 VIEW (KUB) COMPLETED DATE/TME: 03/24/2019 02:20 CLINICAL HISTORY: 18 years Female, Abd Pain, J-Tube placement (Use Gastrografin) COMPARISON: 02/13/19 TECHNIQUE/LIMITATION: Targeted exam for enteric tube assessment. Reported 30 mL of Gastrografin administered by enteric tube. FINDINGS: Enteric tube tip associated with intraluminal contrast at the left paracentral abdomen. Small radiopaque material at the at the left paracentral upper pelvis; cannot exclude leakage/perforation. Consider further evaluation with noncontrast CT of the abdomen and pelvis. Right upper abdominal clips. IMPRESSION: Small radiopaque material at the at the left paracentral upper pelvis; cannot exclude leakage/perforation from this patient's known J-tube. Substantial intraluminal small bowel contrast is also identified. Consider further evaluation with noncontrast CT of the abdomen and pelvis.
[2019-03-24] MEDS ORDERED: HYDROCODONE/ACETAMINOPHEN 5-325 MG TABLET PO ONE (05:29)
[2019-03-24] MEDS ORDERED: HYOSCYAMINE SULFATE 0.125 MG TABLET PO ONE (05:29)
[2019-03-24] MEDS ORDERED: HYDROCODONE/ACETAMINOPHEN 5-325 MG (6 TAB/ER DISP) PO PRN (05:29)
--- NOTE | 2019-03-24 05:30 | RADIOLOGY REPORT (SQ) ---
EXAM DESCRIPTION: CT ABDOMEN PELVIS WITHOUT IV CONTRAST COMPLETED DATE/TME: 03/24/2019 00:00 CLINICAL HISTORY: 18 years Female, Pain, J-tube placement (Per Rad) Comparison: 02/15/19 Technique: No contrast. Previous J-tube administer contrast. Coronal and sagittal reformat. This exam was performed according to our departmental dose-optimization program, which includes automated exposure control, adjustment of the mA and/or kV according to patient size and/or use of iterative reconstruction technique.[facility]: Dose Right [facility]: CareDose [facility]: Dose Right [facility]: Teradose 4D [facility]: Contatta LIMITATIONS: None Findings: J-tube administered contrast is present throughout the small bowel and colon. No evidence of contrast extravasation. Percutaneous G tube appears uncomplicated. Cholecystectomy. Percutaneous J-tube catheter tip is at the level of the abdominal wall with moderate low attenuation surrounding fluid and fat inflammation obscuring the fat plane between the left rectus abdominis and left internal obliques. No drainable fluid collection/abscess. No ascites. No pneumoperitoneum. No bowel obstruction. Normal appendix. Unenhanced lower thorax, abdominopelvic structures, and musculoskeleton appear otherwise grossly unremarkable. Impression: 1. Jejunostomy with jejunal catheter tip at the level of the left paracentral abdominal musculature with surrounding low attenuation fluid-inflammation of the abdominal wall. 2. G-tube appears uncomplicated. 3. No intraperitoneal extravasation.
[2019-03-24] MEDS ORDERED: HYOSCYAMINE SULFATE 0.125 MG TABLET ONE (05:53)
[2019-03-24] MEDS ORDERED: PROMETHAZINE HCL 25 MG TABLET GT ONE (06:09)
[2019-03-24 06:36] VITALS: BP 145/72
== END 2019-03-24 06:35 | disposition home or self-care (01) ==
LOC: ER 23:05
DX: K31.84 Gastroparesis (principal); Z93.4 Other artificial openings of gastrointestinal tract status; G89.29 Other chronic pain; R10.9 Unspecified abdominal pain; K50.90 Crohn's disease, unspecified, without complications; Z88.6 Allergy status to analgesic agent; Z88.3 Allergy status to other anti-infective agents; Z90.49 Acquired absence of other specified parts of digestive tract
CPT/HCPCS: 96376; 99284; 96374; 96375; 36415; 84703; 85025; 80053; 74018; 74176; J3490 ×2; J1170; J2405

== ENCOUNTER → 2019-06-18 | Outpatient (CLI) | payer MEDICAID ==
--- NOTE | 2019-06-18 14:02 | RADIOLOGY REPORT (SQ) ---
EXAM DESCRIPTION: CHEST 2 VIEWS COMPLETED DATE/TIME: 06/18/2019 1:48 pm REASON FOR STUDY: ENCOUNTER FOR ADJUSTMENT AND MANAGEMENT OF VAD COMPARISON: 02/07 19 EXAM PARAMETERS: NUMBER OF VIEWS: two views TECHNIQUE: Digital Frontal and Lateral radiographic views of the chest acquired. RADIATION DOSE: NA LIMITATIONS: none FINDINGS: LUNGS AND PLEURA: No opacities, masses or pneumothorax. No pleural effusion. MEDIASTINUM AND HILAR STRUCTURES: No masses or contour abnormalities. HEART AND VASCULAR STRUCTURES: Heart normal size. No evidence for failure. BONES: No acute findings. HARDWARE: None in the chest. OTHER: No other significant finding. IMPRESSION: NO ACUTE RADIOGRAPHIC FINDING IN THE CHEST. TECHNICAL DOCUMENTATION: JOB ID: [id number] [employer]- All Rights Reserved Reading location - IP/workstation name: [email or web address]
== END ==
LOC: RAD 12:57
PROVIDERS: ATTEND Nurse Practitioner Family
DX: Z45.2 Encounter for adjustment and management of vascular access device (principal)
CPT/HCPCS: 71046

== ENCOUNTER → 2019-06-25 | Outpatient (CLI) | payer MEDICAID ==
[2019-06-25 16:08] LABS: ANION GAP 11 (5-19); BLOOD UREA NITROGEN 21 mg/dL (7-20); CALCIUM 9.3 mg/dL (8.4-10.2); CARBON DIOXIDE 32 mmol/L (22-30); CHLORIDE 93 mmol/L (98-107); GLUCOSE 97 mg/dL (75-110); POTASSIUM 3.7 mmol/L (3.6-5.0)
== END ==
LOC: OD 14:33
PROVIDERS: ATTEND Nurse Practitioner Family
DX: E16.2 Hypoglycemia, unspecified (principal); E87.6 Hypokalemia
CPT/HCPCS: 36415; 80048

== ENCOUNTER 2019-07-22 19:04 | Inpatient (IN) | payer MEDICAID ==
--- NOTE | 2019-07-22 19:15 | ER Document Report ---
ED Medical Screen (RME) - General Chief Complaint: Weakness Stated Complaint: WEAKNESS Time Seen by Provider: 07/22/19 19:11 Primary Care Provider: RAE ALCARAZ NP [Primary Care Provider] - Follow up as needed Mode of Arrival: Wheelchair Information source: Patient, Parent TRAVEL OUTSIDE OF THE [place] IN LAST 30 DAYS: No - HPI Notes: 07/22/19 19:14 Patient is a 18-year-old female with a history of Crohn's disease. Patient has a PICC line in place. Patient is currently receiving vancomycin for a C. difficile infection. Patient was contacted earlier today and told to return to the emergency department for further evaluation because she had a blood culture drawn from her PICC line which showed gram-negative rods. 07/22/19 19:29 Patient's mother states that patient has tolerated Pipracil and in the past. Patient's mother provides most of the history. Patient's mother states that patient was seen here last night and was contacted earlier today because of a positive blood culture that was drawn from her PICC line. Blood culture positive for gram-negative rods per report dated 07/22/2019. Patient states she has a history of Crohn's disease, Carl-Danlos syndrome, Carolyn's thyroiditis. I have treated and performed a rapid initial assessment of this patient. [place] to the ED assessment and evaluation of the patient, analysis of the test results, and completion of medical decision making process will be conducted by additional ED providers. - Related Data Allergies/Adverse Reactions: cefoxitin Allergy (Verified 02/14/19 18:44) chlorhexidine [Chlorhexidine] Allergy (Verified 02/07/19 11:52) Urticaria erythromycin base Allergy (Verified 02/07/19 11:52) lactose [Lactose] Allergy (Verified 02/07/19 11:52) Urticaria lactulose Allergy (Verified 02/07/19 11:52) melatonin Allergy (Verified 02/07/19 11:52) metoclopramide Allergy (Verified 02/14/19 18:44) morphine Adverse Reaction (Verified 02/07/19 11:52) vancomycin [Vancomycin] Adverse Reaction (Verified 02/07/19 11:52) Amy Syndrome silk tape Allergy (Uncoded 02/07/19 11:52) Past Medical History - Past Medical History Cardiac Medical History: Denies: Hx Coronary Artery Disease, Hx Heart Attack, Hx Hypertension Pulmonary Medical History: Reports: Hx Asthma - A CHILD, Hx Pneumonia Denies: Hx Bronchitis, Hx COPD Neurological Medical History: Denies: Hx Cerebrovascular Accident, Hx Seizures Endocrine Medical History: Reports: Hx Hypothyroidism - Carolyn's Renal/ Medical History: Denies: Hx Peritoneal Dialysis GI Medical History: Reports: Hx Crohn's Disease, Hx Gastroesophageal Reflux Disease, Hx Ulcer - pyloric stenosis Musculoskeltal Medical History: 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 Past Surgical History: Reports: Hx Abdominal Surgery - GJ tube placement, Hx Cholecystectomy, Hx Oral Surgery, Hx Urinary Tract Surgery - Stretched urethra, pediatric, Jtube placement, Other - G-tube and J-tube placement for gastroparesis - Immunizations Immunizations up to date: Yes Hx Diphtheria, Pertussis, Tetanus Vaccination: Yes Physical Exam - Vital signs Vitals: Temp Pulse Resp BP Pulse Ox 99.1 F 107 H 18 104/49 L 98 07/22/19 19:14 07/22/19 19:14 07/22/19 19:14 07/22/19 19:14 07/22/19 19:14 - General General appearance: Alert Notes: Patient appears fatigued and pale but is in no acute distress - Respiratory Respiratory status: No respiratory distress Chest status: Nontender Breath sounds: Normal - Cardiovascular Rhythm: Tachycardia Heart sounds: Normal auscultation Course - Vital Signs Vital signs: Temp Pulse Resp BP Pulse Ox 99.1 F 107 H 18 104/49 L 98 07/22/19 19:14 07/22/19 19:14 07/22/19 19:14 07/22/19 19:14 07/22/19 19:14 Doctor's Discharge - Discharge Referrals: RAE ALCARAZ, MANAGER [employer] [Primary Care Provider] - Follow up as needed
[2019-07-22] MEDS ORDERED: PIPERACILLIN/TAZOBACTAM 3.375 GM VIAL IV ONE (19:26)
[2019-07-22 19:50] LABS: ABSOLUTE LYMPHOCYTES (AUTO) 0.5 10^3/uL (0.5-4.7); ABSOLUTE MONOCYTES (AUTO) 0.2 10^3/uL (0.1-1.4); ABSOLUTE NEUT (AUTO) 3.6 10^3/uL (1.7-8.2); BASOPHILS % (AUTO) 0.5 % (0-2); EOSINOPHILS % (AUTO) 0.4 % (0-6); HEMATOCRIT 33.9 % (36.0-47.0); HEMOGLOBIN 11.8 g/dL (12.0-15.5); LYMPHOCYTES % (AUTO) 12.1 % (13-45); MEAN CORPUSCULAR HEMOGLOBIN 31.4 pg (27.0-33.4); MEAN CORPUSCULAR HGB CONC 34.9 g/dL (32.0-36.0); MEAN CORPUSCULAR VOLUME 90 fl (80-97); MONOCYTES % (AUTO) 4.2 % (3-13); PLATELET COUNT 235 10^3/uL (150-450); RED BLOOD COUNT 3.78 10^6/uL (3.72-5.28); RED CELL DISTRIBUTION WIDTH 14.2 % (11.5-14.0); SEGMENTED NEUTROPHILS % (AUTO) 82.8 % (42-78); TOTAL CELLS COUNTED % (AUTO) 100 %; WHITE BLOOD COUNT 4.3 10^3/uL (4.0-10.5)
[2019-07-22] MEDS: NORMAL SALINE 1000 ML 1,000 ML IV PRN ×2 (20:06→20:08)
[2019-07-22 20:13] LABS: ALBUMIN 4.2 g/dL (3.7-5.6); ALKALINE PHOSPHATASE 112 U/L (50-135); ANION GAP 8 (5-19); ASPARTATE AMINO TRANSFERASE 148 U/L (5-30); BILIRUBIN,DIRECT 0.2 mg/dL (0.0-0.4); BILIRUBIN,TOTAL 0.4 mg/dL (0.2-1.3); BLOOD UREA NITROGEN 8 mg/dL (7-20); CALCIUM 9.1 mg/dL (8.4-10.2); CARBON DIOXIDE 28 mmol/L (22-30); CHLORIDE 100 mmol/L (98-107); GLUCOSE 89 mg/dL (75-110)
--- NOTE | 2019-07-22 20:16 | ER Document Report ---
ED General - General Chief Complaint: Weakness Stated Complaint: WEAKNESS Time Seen by Provider: 07/22/19 20:16 Primary Care Provider: RAE ALCARAZ NP [Primary Care Provider] - Follow up as needed Mode of Arrival: Wheelchair Information source: Patient, Parent Notes: HISTORY OF PRESENT ILLNESS: Patient is a 18-year-old female with a past medical history of Crohn's disease, Carl-Danlos syndrome, and thyroiditis who presents with continued back and abdominal pain that is been going on chronically for "some time now." Patient also was called by this facility to return to the emergency department after she had positive blood cultures, both of which grew gram-negative rods. Patient had recent treatment for C. difficile colitis with vancomycin, and reports finishing that yesterday. Patient currently has PICC line in place. Location: Abdomen Onset: Chronic Alleviation: None Provocation: Movement Quality: Aching, bloating Radiation: None Severity: Severe Timing: Constant History of abdominal surgery: Yes Associated symptoms: Reports fevers prior to arrival, no cough or congestion, reports continued back and abdomen pain Last bowel movement: Today and normal for the patient Last menstrual period: Earlier this month REVIEW OF SYSTEMS: CONSTITUTIONAL : Positive for fever but no chills. Positive for recent treatment for C. difficile colitis. EENT: Denies eye, ear, throat, or mouth pain or symptoms. Denies nasal or sinus congestion. CARDIOVASCULAR: Denies chest pain. Denies swelling of the legs. RESPIRATORY: Denies cough, cold, or chest congestion. Denies shortness of breath or difficulty breathing. Denies wheezing. GASTROINTESTINAL: Positive for abdominal pain. Positive for nausea but no vomiting, positive for intermittent diarrhea. Denies constipation. GENITOURINARY: Denies difficulty urinating, painful urination, burning, patti quency, or blood in urine. FEMALE GENITOURINARY: Denies vaginal bleeding, abnormal or irregular periods. MUSCULOSKELETAL: Positive for back pain. Denies joint pain or swelling. SKIN: Denies rash or skin lesions. HEMATOLOGIC : Denies easy bruising or bleeding. LYMPHATIC: Denies swollen, enlarged glands. NEUROLOGICAL: Denies altered mental status or loss of consciousness. Denies headache. Denies weakness or paralysis or loss of use of either side. Denies problems with gait or speech. Denies sensory or motor loss. PSYCHIATRIC: Denies anxiety or stress or depression. All other systems reviewed and negative. PHYSICAL EXAMINATION: GENERAL: Frail-appearing, appears malnourished and in no acute distress. HEAD: Atraumatic, normocephalic. No scalp deformity, depression, or crepitance. EYES: Pupils are 3 mm and equal/round/reactive to light, extraocular movements intact, sclera anicteric, conjunctiva are normal. ENT: Nares patent bilaterally, oropharynx. Moist mucous membranes. No tonsil hypertrophy. NECK: Normal range of motion, supple without lymphadenopathy. LUNGS: Breath sounds present, equal, and clear to auscultation bilaterally. No wheezes, rales, or rhonchi. HEART: Regular rate and rhythm without murmurs, rubs, or gallops. 2+ peripheral pulses. Normal capillary refill. ABDOMEN: Soft, diffusely tender, nondistended. GJ tube in place. Hypoactive bowel sounds. No guarding, no rebound. No masses appreciated. BACK: Normal contour, no midline tenderness. Rectal exam deferred. GENITAL/PELVIC: Deferred. EXTREMITIES: Normal range of motion, no pitting or edema. No cyanosis. NEUROLOGICAL: No focal neurological deficits. Moves all extremities spontaneously and on command. PSYCH: Normal mood, normal affect. No suicidal thoughts/ideations. No homicidal thoughts/ideations. No hallucinations. SKIN: Warm, dry, normal turgor, no rashes or lesions noted. ASSESSMENT AND PLAN: This patient is a 18-year-old chronically ill-appearing female who presents with continued pain from chronic disease but also to positive blood culture results growing gram-negative rods. 1. Will obtain septic work-up and give the patient empiric antibiotics. 2. Will likely transfer to tertiary center. TRAVEL OUTSIDE OF THE [place] IN LAST 30 DAYS: No - HPI Onset: Just prior to arrival Onset/Duration: Gradual Quality of pain: Achy Severity: Moderate Pain Level: 3 Associated symptoms: Diarrhea, Nausea, Other - Abdominal pain Exacerbated by: Sitting, Standing, Movement, Walking Relieved by: Denies Similar symptoms previously: Yes Recently seen / treated by doctor: Yes - Related Data Allergies/Adverse Reactions: cefoxitin Allergy (Verified 02/14/19 18:44) chlorhexidine [Chlorhexidine] Allergy (Verified 02/07/19 11:52) Urticaria erythromycin base Allergy (Verified 02/07/19 11:52) lactose [Lactose] Allergy (Verified 02/07/19 11:52) Urticaria lactulose Allergy (Verified 02/07/19 11:52) melatonin Allergy (Verified 02/07/19 11:52) metoclopramide Allergy (Verified 02/14/19 18:44) morphine Adverse Reaction (Verified 02/07/19 11:52) vancomycin [Vancomycin] Adverse Reaction (Verified 02/07/19 11:52) Amy Syndrome silk tape Allergy (Uncoded 02/07/19 11:52) Past Medical History - General Information source: Patient, Parent - Social History Smoking Status: Never Smoker Chew tobacco use (# tins/day): No Frequency of alcohol use: None Drug Abuse: None Lives with: Family Family History: Reviewed & Not Pertinent Patient has suicidal ideation: No Patient has homicidal ideation: No - Past Medical History Cardiac Medical History: Reports: None Denies: Hx Coronary Artery Disease, Hx Heart Attack, Hx Hypertension Pulmonary Medical History: Reports: Hx Asthma - A CHILD, Hx Pneumonia Denies: Hx Bronchitis, Hx COPD EENT Medical History: Reports: None Neurological Medical History: Reports: None. Denies: Hx Cerebrovascular Accident, Hx Seizures Endocrine Medical History: Reports: Hx Hypothyroidism - Carolyn's Renal/ Medical History: Reports: None. 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 Skin Medical History: Reports None Psychiatric Medical History: Reports: None Traumatic Medical History: Reports: None Infectious Medical History: Reports: Hx C-Diff Past Surgical History: Reports: Hx Abdominal Surgery - GJ tube placement, Hx Cholecystectomy, Hx Oral Surgery, Hx Urinary Tract Surgery - Stretched urethra, pediatric, Jtube placement, Other - G-tube and J-tube placement for gastroparesis - Immunizations Immunizations up to date: Yes Hx Diphtheria, Pertussis, Tetanus Vaccination: Yes Review of Systems - Review of Systems Constitutional: No symptoms reported EENT: No symptoms reported Cardiovascular: No symptoms reported Respiratory: No symptoms reported Gastrointestinal: See HPI, Abdominal pain, Nausea, Poor appetite Genitourinary: No symptoms reported Female Genitourinary: No symptoms reported Musculoskeletal: See HPI, Back pain Skin: No symptoms reported Hematologic/Lymphatic: No symptoms reported Neurological/Psychological: No symptoms reported -: Yes All other systems reviewed and negative Physical Exam - Vital signs Vitals: Temp Pulse Resp BP Pulse Ox 99.1 F 107 H 18 104/49 L 98 07/22/19 19:14 07/22/19 19:14 07/22/19 19:14 07/22/19 19:14 07/22/19 19:14 Interpretation: Normal Course - Re-evaluation Re-evalutation: 07/23/19 00:18 Labs are grossly unremarkable. Patient has been empirically covered with vancomycin and Zosyn. She will be transferred to tertiary center who has accepted the patient. - Vital Signs Vital signs: Temp Pulse Resp BP Pulse Ox 99.1 F 107 H 15 89/48 L 99 07/22/19 19:14 07/22/19 19:14 07/23/19 00:01 07/23/19 00:01 07/23/19 00:01 - Laboratory Result Diagrams: 07/22/19 19:30 07/22/19 19:30 Laboratory results interpreted by me: 07/22/19 07/22/19 19:30 19:30 Hgb 11.8 L Hct 33.9 L RDW 14.2 H Lymph % (Auto) 12.1 L Seg Neutrophils % 82.8 H Sodium 135.7 L AST 148 H - Diagnostic Test Radiology reviewed: Reports reviewed - EKG Interpretation by Me EKG shows normal: Sinus rhythm Rate: Normal Rhythm: NSR [place]/QRS: No: Right axis deviation, Left axis deviation, RBBB, LBBB, IVCD, LAHB/LAFB, LPHB/LPFB, Bifasicular block Voltage: No: Increased voltage, Consistant with LVH, Decreased voltage, Throughout, Limb leads P Waves: No: DILAN, LAE, Absent, AV Dissociation, Other Heart block present: No: 1st Degree, Mobitz 1, Mobitz 2, CHB (3rd degree block) When compared to previous EKG there are: No significant change - Consults Dr. Salomon ([facility] [place]) Time consulted: 00:18 - will accept in transfer Discharge - Discharge Clinical Impression: Bacteremia, Positive blood culture Condition: Stable Disposition: [facility] Referrals: RAE ALCARAZ, COMMER[employer] L[employer]ATION ATTORNEY [Primary Care Provider] - Follow up as needed
[2019-07-22 20:22] LABS: INTERNATIONAL RATION (INR) 1.03; PROTHROMBIN TIME 13.5 SEC (11.4-15.4)
[2019-07-22] MEDS ORDERED: VANCOMYCIN HCL INJ 500 MG VIAL PEG ONE (20:58)
[2019-07-22] MEDS ORDERED: DIPHENHYDRAMINE HCL 50 MG/ML VIAL IV ONE (21:04)
--- NOTE | 2019-07-22 21:33 | RADIOLOGY REPORT (SQ) ---
XR CHEST 1 VIEW CLINICAL STATEMENT: + blood culture, tachycardia COMPARISON: 06/18/2019 FINDINGS: Cardiomediastinal silhouette is within normal limits. There is no focal lung consolidation or pleural effusion. No evidence of pulmonary edema or pneumothorax. Right arm PICC is in place. IMPRESSION: No acute cardiopulmonary disease.
[2019-07-22] MEDS ORDERED: FENTANYL CITRATE INJ/PF 100 MCG/2 ML AMPUL IV ONE (21:55)
[2019-07-22 22:34] LABS: APPEARANCE,URINE SLIGHTLY-CLOUDY; BILIRUBIN,URINE NEGATIVE (NEGATIVE); COLOR,URINE YELLOW; GLUCOSE, URINE NEGATIVE (NEGATIVE); KETONES,URINE NEGATIVE (NEGATIVE); LEUKOCYTE ESTERASE,URINE NEGATIVE (NEGATIVE); NITRITE,URINE NEGATIVE (NEGATIVE); PROTEIN,URINE NEGATIVE (NEGATIVE); URINE SPECIFIC GRAVITY 1.009; UROBILINOGEN,URINE NEGATIVE mg/dL (<2.0)
[2019-07-23] MEDS ORDERED: DEXTROSE 5%-LACTATED RINGERS 1,000 ML IV ONE (00:24)
--- NOTE | 2019-07-23 00:31 | EKG REPORT ---
SEVERITY:- NORMAL ECG - SINUS RHYTHM : Confirmed by: Ashley Toth MD 23-Jul-2019 00:31:06
[2019-07-23] MEDS ORDERED: FENTANYL CITRATE INJ/PF 100 MCG/2 ML AMPUL IV ONE ×3 (04:06→10:10)
[2019-07-23] MEDS ORDERED: ONDANSETRON HCL INJ/PF 4 MG/2 ML SDV IV ONE (06:58)
[2019-07-23] MEDS ORDERED: PIPERACILLIN/TAZOBACTAM 3.375 GM VIAL IV SCH ×2 (07:30→12:00)
[2019-07-23] MEDS ORDERED: DIPHENHYDRAMINE HCL 50 MG/ML VIAL IV ONE (08:49)
--- NOTE | 2019-07-23 09:56 | ER Document Report ---
Doctor's Note Notes: 07/23/19 09:54 Received this patient in signout from Dr. Oviedo, patient was pending possible transfer to [facility] with bacteremia. Briefly, complicated patient with history of enteral feeding, Crohn's, PICC line and current TPN. Was seen here late Monday night early Monday morning and had blood cultures drawn as part of her work-up. Was called back Monday afternoon and evening to come in due to positive blood culture showing gram-negative rods. Patient had fever here. Laboratory evaluation was unremarkable including white count and UA. Received a single dose of vancomycin and IV Zosyn. On signout was pending possible transfer. After investigation, there are no available beds and no beds in available in the near future at [facility]. We are going to proceed with admission to the hospital here, I have scheduled additional antibiotic doses. Cultures were obtained today. We will try and place 2 peripheral IVs and remove her PICC line and culture that. On reevaluation, she is comfortable, resting easily, clear breath sounds, benign abdomen, normal blood pressure and heart rate. I did speak with the patient's primary care provider who indicated that she tested positive for C. difficile on the . Of note, no current diarrhea. Apparently she was inadvertently prescribed IV vancomycin instead of oral vancomycin.
--- NOTE | 2019-07-23 09:58 | ER Document Report ---
Doctor's Note Notes: 07/23/19 09:57 Note that the patient has two record nukbers: They are [id number] and [id number]
[2019-07-23] MEDS: VANCOMYCIN HCL INJ 1000 MG VIAL IV SCH ×2 (09:59→10:49)
[2019-07-23] MEDS ORDERED: DEXTROSE 40% GEL 15 GM TUBE PO PRN ×2 (10:22)
[2019-07-23] MEDS ORDERED: GLUCAGON,HUMAN RECOMB 1 MG INJ SUBCUT PRN (10:22)
[2019-07-23] MEDS ORDERED: DEXTROSE 50%-WATER 25 GM/50 ML DISP.SYRIN IV PRN ×2 (10:22)
--- NOTE | 2019-07-23 10:37 | PDOC H&P ---
History of Present Illness Admission Date/PCP: 07/23/19 10:13 RAE ALCARAZ NP Patient complains of: Came in with fever and abdominal pain of 1 day duration History of Present Illness: GOLDY WALLACE is a 18 year old female history of Crohn's disease with PICC line, J-tube and G-tube came to the emergency room with complaints of abdominal pain loose stool yesterday does not have any loose stools for the last 18 hours. Came with complaints of high fever temperature is 103 this morning. Actually patient was called to come back to the ER because blood cultures coming back positive for gram-negative rods. Chest x-ray was negative the ER physician thinks source of infection probably from the PICC line PICC line is going to be removed and that she is getting 2 peripheral lines. Patient usually go to [facility] to prefer to go to [facility] but unfortunately [facility] is on diversion. I spoke to the transfer center in [place] they are going to make arrangements for the beds for her as soon as possible. In the meantime family reluctantly agreed to stay in the hospital here for further management. Past Medical History Cardiac Medical History: Reports: None Denies: Coronary Artery Disease, Myocardial Infarction, Hypertension Pulmonary Medical History: Reports: Asthma - A CHILD, Pneumonia Denies: Bronchitis, Chronic Obstructive Pulmonary Disease (COPD) EENT Medical History: Reports: None Neurological Medical History: Reports: None Denies: Seizures Endocrine Medical History: Reports: Hypothyroidism - Carolyn's Renal/ Medical History: Reports: None Malignancy Medical History: Reports: None GI Medical History: Reports: Crohn's Disease, Gastroesophageal Reflux Disease Musculoskeltal Medical History: 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 Skin Medical History: Reports: None Psychiatric Medical History: Reports: None Traumatic Medical History: Reports: None Hematology: Reports: Anemia - AUTO IMMUNE "" ANEMIA Infectious Medical History: Reports: Clostridium Difficile Past Surgical History Past Surgical History: Reports: Cholecystectomy, Other - G-tube and J-tube placement for gastroparesis Social History Lives with: Family Smoking Status: Never Smoker Frequency of Alcohol Use: None Hx Recreational Drug Use: No Hx Prescription Drug Abuse: No - Advance Directive Resuscitation Status: Full Code Family History Family History: Reviewed & Not Pertinent Parental Family History Reviewed: Yes - Mother has precancerous polyps in the colon dad has history of hypertension Children Family History Reviewed: No Sibling(s) Family History Reviewed.: No Medication/Allergy Home Medications: Adalimumab [Humira(Cf) Pen] 40 mg SQ SA 11/25/18 Lansoprazole [Prevacid 30 mg Odt Tablet] 30 mg PO BID 11/25/18 Levothyroxine Sodium [Synthroid 0.025 mg Tablet] 62.5 mcg PEG DAILY 11/25/18 Midodrine HCl 5 mg PEG TID 11/25/18 Mupirocin [Bactroban 2% Ointment 22 gm] 1 applic TOP ASDIR PRN 11/25/18 Ondansetron [Zofran Odt 4 mg Tablet] 8 mg PO TIDP PRN 11/25/18 Selenium [Selenimin] 50 mcg PEG DAILY 11/25/18 Zinc Oxide [Zinc Oxide 20% Ointment 28.35 gm] 1 applic TOP ASDIR PRN 11/25/18 Diphenhydramine HCl [Benadryl] 25 mg PEG DAILY 02/07/19 Promethazine HCl 6.25 mg PEG DAILY 02/07/19 Dicyclomine HCl 20 ml PO BIDP PRN 02/13/19 Potassium Chloride 40 meq PO ASDIR PRN 02/13/19 Acetaminophen [Tylenol 325 mg Tablet] 650 mg PEG Q4HP PRN tablet 02/17/19 Bisacodyl [Dulcolax 10 mg Supp.rect] 10 mg CA DAILYP PRN supp.rect 02/17/19 Docusate Sodium [Colace Udc 100 mg/10 ml Oral Soln] 100 mg PO BID #60 udc 02/17/19 Hydrocodone/Acetaminophen [Paron 7.5-325 mg Tablet] 1 tab PO Q4HP PRN #12 tablet 02/17/19 Metronidazole [Flagyl 250 mg Tablet] 250 mg PO Q8 #30 tablet 02/17/19 Promethazine HCl [Phenergan 6.25 mg/5 ml Syrup] 6.25 mg JT Q8HP PRN #75 ml 02/17/19 Hydrocodone Bit/Acetaminophen [Hydrocodon-Acetaminophen 5-325] 1 tab PO Q4HP PRN #6 tablet 03/24/19 Hyoscyamine Sulfate [Levsin 0.125 Tablet] 0.125 mg PO TID PRN #30 tablet 03/24/19 Promethazine HCl [Phenergan 25 mg Tablet] 1 - 2 tab PO Q6H PRN #15 tablet 03/24/19 Allergies/Adverse Reactions: cefoxitin Allergy (Verified 02/14/19 18:44) chlorhexidine [Chlorhexidine] Allergy (Verified 02/07/19 11:52) Urticaria erythromycin base Allergy (Verified 02/07/19 11:52) lactose [Lactose] Allergy (Verified 02/07/19 11:52) Urticaria lactulose Allergy (Verified 02/07/19 11:52) melatonin Allergy (Verified 02/07/19 11:52) metoclopramide Allergy (Verified 02/14/19 18:44) morphine Adverse Reaction (Verified 02/07/19 11:52) vancomycin [Vancomycin] Adverse Reaction (Verified 02/07/19 11:52) Amy Syndrome silk tape Allergy (Uncoded 02/07/19 11:52) Review of Systems Constitutional: PRESENT: chills, fatigue, fever(s), night sweats, weakness. ABSENT: headache(s) Eyes: PRESENT: visual disturbances Ears: PRESENT: hearing changes Nose, Mouth, and Throat: PRESENT: sore throat Cardiovascular: PRESENT: palpitations Respiratory: ABSENT: cough, hemoptysis Gastrointestinal: PRESENT: abdominal pain, diarrhea, nausea Musculoskeletal: ABSENT: joint swelling Integumentary: ABSENT: rash, wounds Neurological: ABSENT: abnormal gait, abnormal speech, confusion, dizziness, focal weakness, syncope Psychiatric: ABSENT: anxiety, depression, homidical ideation, suicidal ideation Physical Exam Vital Signs: Temp Pulse Resp BP Pulse Ox 101.2 F H 107 H 24 102/54 L 98 07/23/19 09:05 07/22/19 19:14 07/23/19 09:00 07/23/19 09:00 07/23/19 09:00 Intake & Output 07/22/19 07/23/19 07/24/19 06:59 06:59 06:59 Intake Total 1999 1000 Balance 1999 1000 Weight 54.431 kg General appearance: PRESENT: other - Moderate distress Head exam: PRESENT: atraumatic Eye exam: PRESENT: PERRLA Mouth exam: PRESENT: moist, tongue midline Neck exam: ABSENT: carotid bruit, JVD, lymphadenopathy, thyromegaly Respiratory exam: PRESENT: clear to auscultation martine. ABSENT: rales, rhonchi, wheezes Cardiovascular exam: PRESENT: tachycardia GI/Abdominal exam: PRESENT: other - And has a G-tube and J-tube. J-tube for medication use. Rectal exam: PRESENT: deferred Extremities exam: PRESENT: other - She has a PICC line in the right upper arm. Neurological exam: PRESENT: alert, awake, oriented to person, oriented to place, oriented to time, oriented to situation, CN II-XII grossly intact. ABSENT: motor sensory deficit Psychiatric exam: PRESENT: appropriate affect, normal mood. ABSENT: homicidal ideation, suicidal ideation Results Laboratory Results: 07/22/19 19:30 07/22/19 19:30 07/22/19 07/22/19 07/22/19 19:30 19:30 19:30 WBC 4.3 RBC 3.78 Hgb 11.8 L Hct 33.9 L MCV 90 MCH 31.4 MCHC 34.9 RDW 14.2 H Plt Count 235 Seg Neutrophils % 82.8 H Sodium 135.7 L Potassium 4.0 Chloride 100 Carbon Dioxide 28 Anion Gap 8 BUN 8 Creatinine 1.06 Est GFR ( Amer) > 60 Glucose 89 Lactic Acid 0.8 Calcium 9.1 Total Bilirubin 0.4 AST 148 H Alkaline Phosphatase 112 Total Protein 8.0 Albumin 4.2 Serum HCG, Qual Urine Color Urine Appearance Urine pH Ur Specific [place] Urine Protein Urine Glucose (UA) Urine Ketones Urine Blood Urine Nitrite Ur Leukocyte Esterase Urine WBC (Auto) Urine RBC (Auto) 07/22/19 07/22/19 19:30 22:16 WBC RBC Hgb Hct MCV MCH MCHC RDW Plt Count Seg Neutrophils % Sodium Potassium Chloride Carbon Dioxide Anion Gap BUN Creatinine Est GFR ( Amer) Glucose Lactic Acid Calcium Total Bilirubin AST Alkaline Phosphatase Total Protein Albumin Serum HCG, Qual NEGATIVE Urine Color YELLOW Urine Appearance SLIGHTLY-CLOUDY Urine pH 6.0 Ur Specific [place] 1.009 Urine Protein NEGATIVE Urine Glucose (UA) NEGATIVE Urine Ketones NEGATIVE Urine Blood NEGATIVE Urine Nitrite NEGATIVE Ur Leukocyte Esterase NEGATIVE Urine WBC (Auto) 1 Urine RBC (Auto) 1 Impressions: Chest X-Ray 07/22/19 19:23 IMPRESSION: No acute cardiopulmonary disease. Assessment and Plan - Diagnosis (1) Sepsis Is this a current diagnosis for this admission?: Yes Plan: 07/23/2019-patient was called to come back to the emergency room because of blood cultures coming back positive for gram-negative rods she has a fever of 103. Chest x-ray was normal PICC line is going to be removed in the ER today. Patient is opted to [facility] waiting for the bed availability. In the meantime we are going to put her in IMCU give IV fluids normal saline, IV Zosyn and IV vancomycin. GI prophylaxis DVT prophylaxis initiated. Blood cultures urine cultures are pending. (2) Positive blood culture Is this a current diagnosis for this admission?: Yes Plan: 07/23/2019-blood cultures came back positive for gram-negative rods started on IV vancomycin and Zosyn in the emergency room. Patient to repeat the blood cultures today. Patient is in contact isolation because of recent history of C. difficile. Any loose stools from yesterday. (3) Abdominal pain Qualifiers: Abdominal location: unspecified location Qualified Code(s): R10.9 - Unspecified abdominal pain Is this a current diagnosis for this admission?: Yes Plan: 07/23/2019-patient complaining of severe abdominal pain associated nausea loose stools yesterday CT abdominal was requested for further investigation. Abdominal pain most likely secondary to Crohn's disease and she has history of gastroparesis. (4) Crohn's disease Qualifiers: Gastrointestinal tract location: unspecified location Digestive disease complication type: without complication Qualified Code(s): K50.90 - Crohn's disease, unspecified, without complications Is this a current diagnosis for this admission?: No Plan: 10/2018-patient has history of Crohn's disease with a J-tube and G-tube. She is receiving TPN through the PICC line because of the possibility of infection of the PICC line TPN is on hold. (5) Gastroparesis Is this a current diagnosis for this admission?: No Plan: 07/23/2019-patient has history of gastroparesis most likely secondary to Crohn's disease. Denies any nausea at the time of admission. - Time Time Spent with patient: 25-34 minutes Medications reviewed and adjusted accordingly: Yes Anticipated discharge: Home
--- NOTE | 2019-07-23 12:19 | RADIOLOGY REPORT (SQ) ---
EXAM DESCRIPTION: CT ABD/PELVIS NO ORAL OR IV COMPLETED DATE/TIME: 07/23/2019 11:51 am REASON FOR STUDY: sepsis COMPARISON: CT of the abdomen and pelvis without contrast from 03/24/[address] of the abdomen and pe lvis with contrast from 07/22/2019. TECHNIQUE: CT scan of the abdomen and pelvis performed without intravenous or oral contrast. Images reviewed with lung, soft tissue, and bone windows. Reconstructed coronal and sagittal MPR images revi ewed. All images stored on PACS. All CT scanners at this facility use dose modulation, iterative reconstruction, and/or weight based d osing when appropriate to reduce radiation dose to as low as reasonably achievable (ALARA). [facility]: Dose Right [facility]: CareDose [facility]: Dose Right [facility]: Teradose 4D [facility]: Smart CompassMed RADIATION DOSE: CT Rad equipment meets quality standard of care and radiation dose reduction techniq ues were employed. CTDIvol: 4.8 mGy. DLP: 276 mGy-cm.mGy. LIMITATIONS: None. FINDINGS: LOWER CHEST: Mild bibasilar atelectasis. There is no basilar consolidation, pleural effus ion, cardiomegaly or pericardial effusion. NON-CONTRASTED LIVER, SPLEEN, ADRENALS: Evaluation is limited due to the absence of intravenous contr ast. The liver morphology is non cirrhotic. The spleen is normal in size. There is no abnormality of the adrenal glands. PANCREAS: There is no acute abnormality of the pancreas. GALLBLADDER: The gallbladder is surgically absent RIGHT KIDNEY AND URETER: Evaluation is limited due to the absence of intravenous contrast. There is no hydronephrosis, nephrolithiasis, hydroureter or ureterolithiasis LEFT KIDNEY AND URETER: Evaluation is limited due to the absence of intravenous contrast. There is n o hydronephrosis, nephrolithiasis, hydroureter or ureterolithiasis. AORTA AND RETROPERITONEUM: No aneurysmal dilatation of the abdominal aorta or retroperitoneal adenopa thy. BOWEL AND PERITONEAL CAVITY: There are gastrostomy and jejunostomy tubes in place. The bowel is norm al in caliber. There is no evidence of bowel wall thickening or obstruction. There is no pericoloni c or perienteric inflammation. There is trace amount of free fluid in the cul-de-sac ; the fluid tuyet sures less than 20 Hounsfield units. There is no mesenteric adenopathy, free intraperitoneal air, or portal venous gas. APPENDIX: Unable to identify the appendix but there is no pericecal inflammation to suggest an acute appendicitis PELVIS, BLADDER, AND ABDOMINAL WALL:Dominant follicle or cyst in the left adnexa. The uterus is norm al in size and contour. The urinary bladder is distended and normal in appearance. As stated above, there is a trace amount of free fluid in the cul-de-sac. There is no pelvic adenopathy. There is no abdominal wall mass or hernia. BONES: No significant findings. OTHER: No other finding. IMPRESSION: 1. No acute intra-abdominal abnormality. 2. Gastrostomy and jejunostomy tubes in place ; it was described on the prior CT report that the jej unostomy tube appeared to lie outside of the bowel lumen ; if there is concern for malposition of the tube a fluoroscopic-guided contrast injection could be performed. COMMENT: Quality ID # [id number]: Final reports with documentation of one or more dose reduction techniques (e.g., Automated exposure control, adjustment of the mA and/or kV according to patient size, use of iterative reconstruction technique) TECHNICAL DOCUMENTATION: JOB ID: [id number] [employer]- All Rights Reserved Reading location - IP/workstation name: [email or web address]
[2019-07-23] MEDS: NORMAL SALINE 1000 ML 1,000 ML IV PRN ×2 (15:53→20:59)
[2019-07-23] MEDS: PIPERACILLIN SODIUM/TAZOBACTAM 3.375 GM in NORMAL SALINE 100 ML IV SCH ×2 (15:59→20:59)
[2019-07-23] MEDS ORDERED: NORMAL SALINE 1000 ML 2,000 ML IV ONE (16:30)
[2019-07-23] MEDS ORDERED: ONDANSETRON HCL INJ/PF 4 MG/2 ML SDV IV PRN (16:30)
[2019-07-23] MEDS: HYDROMORPHONE HCL INJ/PF 2 MG/ML AMPULE IV PRN ×2 (17:23→21:12)
[2019-07-23] MEDS ORDERED: VANCOMYCIN HCL INJ 1000 MG VIAL IV SCH (18:00)
[2019-07-23] MEDS: FAMOTIDINE INJ/PF 20 MG/2 ML SDV IV SCH (21:12)
[2019-07-23] MEDS: DIPHENHYDRAMINE HCL 50 MG/ML VIAL IV PRN (22:08)
[2019-07-23] MEDS: VANCOMYCIN HCL 750 MG in DEXTROSE 5%-WATER 250 ML IV SCH (22:52)
[2019-07-23] MEDS: ONDANSETRON HCL INJ/PF 4 MG/2 ML SDV IV PRN (22:52)
[2019-07-24] MEDS: PROMETHAZINE HCL INJ 25 MG/1 ML VIAL IV PRN ×2 (02:21→22:49)
[2019-07-24] MEDS: HYDROMORPHONE HCL INJ/PF 2 MG/ML AMPULE IV PRN ×6 (02:21→23:23)
[2019-07-24] MEDS: PIPERACILLIN SODIUM/TAZOBACTAM 3.375 GM in NORMAL SALINE 100 ML IV SCH ×4 (02:22→20:06)
[2019-07-24 05:46] LABS: ABSOLUTE EOSINOPHILS # (AUTO) 0.1 10^3/uL (0.0-0.6); ABSOLUTE MONOCYTES (AUTO) 0.3 10^3/uL (0.1-1.4); ABSOLUTE NEUT (AUTO) 2.2 10^3/uL (1.7-8.2); EOSINOPHILS % (AUTO) 1.8 % (0-6); HEMATOCRIT 27.3 % (36.0-47.0); LYMPHOCYTES % (AUTO) 27.5 % (13-45); MEAN CORPUSCULAR HEMOGLOBIN 31.4 pg (27.0-33.4); MEAN CORPUSCULAR HGB CONC 34.6 g/dL (32.0-36.0); MEAN CORPUSCULAR VOLUME 91 fl (80-97); MONOCYTES % (AUTO) 8.2 % (3-13); PLATELET COUNT 161 10^3/uL (150-450); RED BLOOD COUNT 3.01 10^6/uL (3.72-5.28); RED CELL DISTRIBUTION WIDTH 13.9 % (11.5-14.0); SEGMENTED NEUTROPHILS % (AUTO) 61.5 % (42-78); TOTAL CELLS COUNTED % (AUTO) 100 %; WHITE BLOOD COUNT 3.5 10^3/uL (4.0-10.5)
[2019-07-24 05:54] LABS: HEMOGLOBIN 9.4 g/dL (12.0-15.5)
[2019-07-24 06:00] LABS: ALBUMIN 2.9 g/dL (3.7-5.6); ALKALINE PHOSPHATASE 97 U/L (50-135); ANION GAP 9 (5-19); ASPARTATE AMINO TRANSFERASE 72 U/L (5-30); BILIRUBIN,DIRECT 0.2 mg/dL (0.0-0.4); BILIRUBIN,TOTAL 0.5 mg/dL (0.2-1.3); BLOOD UREA NITROGEN 8 mg/dL (7-20); CALCIUM 8.1 mg/dL (8.4-10.2); CARBON DIOXIDE 20 mmol/L (22-30); CHLORIDE 105 mmol/L (98-107); TOTAL PROTEIN 5.9 g/dL (6.3-8.2)
[2019-07-24 06:05] LABS: GLUCOSE 59 mg/dL (75-110)
[2019-07-24] MEDS: ONDANSETRON HCL INJ/PF 4 MG/2 ML SDV IV PRN ×4 (07:35→21:06)
[2019-07-24] MEDS: NORMAL SALINE 1000 ML 1,000 ML IV PRN (07:35)
[2019-07-24] MEDS ORDERED: INFLUENZA QUAD (6MOS+) 2019-20 VAC 0.5 ML SYR IM ONE (08:00)
[2019-07-24] MEDS ORDERED: MIDODRINE HCL 5 MG TABLET PEG PRN (08:39)
--- NOTE | 2019-07-24 08:46 | PDOC PROGRESS REPORT ---
Subjective Progress Note for:: 07/24/19 Subjective:: 07/24/2019-continue generalized pain. Diarrhea. Reason For Visit: SEPSIS Physical Exam Vital Signs: Temp Pulse Resp BP Pulse Ox 98.5 F 86 20 114/62 99 07/24/19 04:00 07/24/19 07:17 07/24/19 07:17 07/24/19 07:17 07/24/19 07:17 Intake & Output 07/23/19 07/24/19 07/25/19 06:59 06:59 06:59 Intake Total 1999 5188 Output Total 1400 Balance 1999 3788 Weight 54.431 kg 60.6 kg General appearance: PRESENT: no acute distress, well-developed, well-nourished Neck exam: ABSENT: carotid bruit, JVD, lymphadenopathy, thyromegaly Respiratory exam: PRESENT: clear to auscultation martine. ABSENT: rales, rhonchi, wheezes Cardiovascular exam: PRESENT: RRR. ABSENT: diastolic murmur, rubs, systolic murmur Pulses: PRESENT: normal dorsalis pedis pul Vascular exam: PRESENT: normal capillary refill GI/Abdominal exam: PRESENT: hyperactive bowel sounds, soft, other - G and J-tube present. ABSENT: distended, guarding, mass, organolmegaly, rebound, tenderness Extremities exam: PRESENT: full ROM. ABSENT: calf tenderness, clubbing, pedal edema Neurological exam: PRESENT: alert, awake, oriented to person, oriented to place, oriented to time, oriented to situation, CN II-XII grossly intact. ABSENT: motor sensory deficit Psychiatric exam: PRESENT: appropriate affect, normal mood. ABSENT: homicidal ideation, suicidal ideation Skin exam: PRESENT: dry, intact, warm. ABSENT: cyanosis, rash Results Laboratory Results: 07/24/19 04:47 07/24/19 04:47 07/24/19 07/24/19 04:47 04:47 WBC 3.5 L RBC 3.01 L Hgb 9.4 L D Hct 27.3 L MCV 91 MCH 31.4 MCHC 34.6 RDW 13.9 Plt Count 161 Seg Neutrophils % 61.5 Sodium 134.4 L Potassium 4.0 Chloride 105 Carbon Dioxide 20 L Anion Gap 9 BUN 8 Creatinine 0.95 Est GFR ( Amer) > 60 Glucose 59 L Calcium 8.1 L Total Bilirubin 0.5 AST 72 H Alkaline Phosphatase 97 Total Protein 5.9 L Albumin 2.9 L Impressions: Chest X-Ray 07/22/19 19:23 IMPRESSION: No acute cardiopulmonary disease. Abdomen/Pelvis CT 07/23/19 00:00 IMPRESSION: 1. No acute intra-abdominal abnormality. 2. Gastrostomy and jejunostomy tubes in place ; it was described on the prior CT report that the jejunostomy tube appeared to lie outside of the bowel lumen ; if there is concern for malposition of the tube a fluoroscopic-guided contrast injection could be performed. Assessment and Plan - Diagnosis (1) Sepsis Is this a current diagnosis for this admission?: Yes (2) Positive blood culture Is this a current diagnosis for this admission?: Yes (3) Abdominal pain Qualifiers: Abdominal location: unspecified location Qualified Code(s): R10.9 - Unspecified abdominal pain Is this a current diagnosis for this admission?: Yes (4) Crohn's disease Qualifiers: Gastrointestinal tract location: unspecified location Digestive disease complication type: without complication Qualified Code(s): K50.90 - Crohn's disease, unspecified, without complications Is this a current diagnosis for this admission?: No (5) Gastroparesis Is this a current diagnosis for this admission?: No - Summary Assessment: 07/24/2019- Sepsis-patient was admitted yesterday to me a call back to the ER with positive blood cultures with gram-negative rods. She had a fever of 103 at that time. Chest x-ray showed a PICC line which was removed to tip cath cultured. Patient was placed on IV vancomycin and Zosyn. Patient also tested positive for C. difficile several weeks ago and was inadvertently put on IV vancomycin. At this time I have started p.o. vancomycin 250 mg per her J-tube every 6 hours. Awaiting stool for C. difficile. Await sensitivity on cultures. Positive blood cultures-see #1 Abdominal pain-Place patient on Dilaudid 1 mg IV every 3 hours as needed yesterday. Patient states pain has improved. Patient does have history of Crohn's and gastroparesis. Crohn's disease-patient will require nutrition in the form of PPN most likely until we can have negative blood cultures. Her PICC line was removed. We will reassess in the a.m. and if needed start TPN at that time. Gastroparesis-no nausea at this time. Patient does have PRN Zofran ordered. Hypoglycemia-I have added D5 to normal saline at 125 an hour. We will continue to follow - Time Time Spent with patient: 15-24 minutes - Inpatient Certification Based on my medical assessment, after consideration of the patient's comorbidities, presenting symptoms, or acuity I expect that the services needed warrant INPATIENT care.: Yes I certify that my determination is in accordance with my understanding of Medicare's requirements for reasonable and necessary INPATIENT services [42 CFR 412.3e].: Yes Medical Necessity: Other - IV fluids, IV advice, IV pain control
[2019-07-24] MEDS: DEXTROSE 5%-1/2 NORMAL SALINE 1,000 ML IV PRN ×2 (09:18→19:56)
[2019-07-24] MEDS: DIPHENHYDRAMINE HCL 50 MG/ML VIAL IV PRN ×2 (09:18→21:18)
[2019-07-24] MEDS: FAMOTIDINE INJ/PF 20 MG/2 ML SDV IV SCH ×2 (09:19→21:05)
[2019-07-24] MEDS ORDERED: ENOXAPARIN SODIUM INJ 40 MG/0.4 ML DISP.SYRIN SUBCUT SCH (10:00)
[2019-07-24] MEDS: VANCOMYCIN HCL 750 MG in DEXTROSE 5%-WATER 250 ML IV SCH ×2 (11:33→21:04)
[2019-07-24] MEDS: VANCOMYCIN HCL INJ 500 MG VIAL PO SCH ×3 (12:31→23:11)
[2019-07-25 00:05] VITALS: BP 105/46
--- NOTE | 2019-07-25 00:33 | PDOC TRANSFER SUMMARY ---
General Admission Date/PCP: 07/23/19 10:13 RAE ALCARAZ NP Admission Date: 07/23/19 Transfer Date: 07/25/19 Accepting Facility: [facility] Resuscitation Status: Full Code - Transfer Diagnosis (1) Sepsis Is this a current diagnosis for this admission?: Yes Diagnosis Summary: On 07/23/2019: GOLDY WALLACE is a 18 year old female history of Crohn's disease with PICC line, J-tube and G-tube came to the emergency room with complaints of abdominal pain loose stool yesterday does not have any loose stools for the last 18 hours. Came with complaints of high fever temperature is 103 this morning. Actually patient was called to come back to the ER because blood cultures coming back positive for gram-negative rods. Chest x-ray was negative the ER physician thinks source of infection probably from the PICC line PICC line is going to be removed and that she is getting 2 peripheral lines. Patient was treated with Zosyn and vancomycin. A sepsis protocol was initiated. (2) Positive blood culture Is this a current diagnosis for this admission?: Yes Diagnosis Summary: On 07/23/2019: The patient came to the ER with complaints of high fever temperature is 103 this morning. Actually patient was called to come back to the ER because blood cultures coming back positive for gram-negative rods. Chest x-ray was negative the ER physician thinks source of infection probably from the PICC line PICC line is going to be removed and that she is getting 2 peripheral lines. Patient was initiated on IV antibiotic therapy with Zosyn and vancomycin. (3) Abdominal pain Is this a current diagnosis for this admission?: Yes Diagnosis Summary: Patient's abdominal pain was treated with IV Dilaudid during her hospital course. (4) Crohn's disease Is this a current diagnosis for this admission?: No (5) Gastroparesis Is this a current diagnosis for this admission?: No - Transfer Medications Home Medications: Midodrine HCl 5 mg PEG TIDP PRN 11/25/18 Dicyclomine HCl 20 ml PO BIDP PRN 02/13/19 Levothyroxine Sodium [Synthroid 0.05 mg Tablet] 0.05 mg JT Q6AM 07/23/19 Transfer Medications: Current Medications Dextrose (Dextrose Inj 50% Syringe (25 Gm/50 Ml)) 12.5 gm IV PRN PRN; Protocol PRN Reason: FOR BG 50-69 IN ALERT PATIENT Stop: 08/22/19 10:21 Last Admin: 07/24/19 06:17 Dose: 12.5 gm Documented by: Dextrose (Dextrose Inj 50% Syringe (25 Gm/50 Ml)) 25 gm IV PRN PRN; Protocol PRN Reason: See Label Comments Stop: 08/22/19 10:21 Diphenhydramine HCl (Benadryl Inj 50 Mg/1 Ml Vial) 25 mg IV Q12HP PRN PRN Reason: PRIOR TO VANC Stop: 08/22/19 21:29 Last Admin: 07/24/19 21:18 Dose: 25 mg Documented by: Enoxaparin Sodium (Lovenox Inj 40 Mg/0.4 Ml Disp.Syrin) 40 mg SUBCUT DAILY ROSANNE Stop: 08/23/19 09:59 Last Admin: 07/24/19 09:19 Dose: 40 mg Documented by: Famotidine (Pepcid Inj/Pf 20 Mg/2 Ml Sdv) 20 mg IV Q12 ROSANNE Stop: 08/22/19 21:59 Last Admin: 07/24/19 21:05 Dose: 20 mg Documented by: Glucagon (Glucagen Inj 1 Mg Vial) 1 mg SUBCUT PRN PRN; Protocol PRN Reason: Evaluate for BG < 70 Stop: 08/22/19 10:21 Glucose (Glutose 40% Gel 15 Gm Tube) 15 gm PO PRN PRN; Protocol PRN Reason: For BG 50-69 in Alert Patient Stop: 08/22/19 10:21 Glucose (Glutose 40% Gel 15 Gm Tube) 30 gm PO PRN PRN; Protocol PRN Reason: FOR BG < 50 IN ALERT PATIENT Stop: 08/22/19 10:21 Hydromorphone HCl (Dilaudid Inj/Pf 2 Mg/Ml Ampule) 1 mg IV Q3HP PRN PRN Reason: FOR PAIN Stop: 07/30/19 15:52 Last Admin: 07/24/19 23:23 Dose: 1 mg Documented by: Piperacillin Sod/Tazobactam (Sod 3.375 gm/ Sodium Chloride) 100 mls @ 200 mls/hr IV Q6A ROSANNE Stop: 07/30/19 14:59 Last Infusion: 07/24/19 20:37 Dose: Infused Documented by: Vancomycin HCl 750 mg/ (Dextrose) 250 mls @ 166.667 mls/hr IV Q12 ROSANNE Stop: 07/30/19 21:59 Last Infusion: 07/24/19 22:42 Dose: Infused Documented by: Dextrose/Sodium Chloride (D5-1/2ns 1000 Ml Iv Soln) 1,000 mls @ 125 mls/hr IV CONTINUOUS PRN PRN Reason: THIS MED IS NOT "PRN" Stop: 08/23/19 08:26 Last Infusion: 07/24/19 22:42 Dose: 125 mls/hr Documented by: Levothyroxine Sodium (Synthroid 0.05 Mg Tablet) 0.05 mg JT Q6AM ROSANNE Stop: 08/24/19 05:59 Midodrine (Proamatine 5 Mg Tablet) 5 mg PEG TIDP PRN PRN Reason: LOW BLOOD PRESSURE Stop: 08/23/19 08:38 Ondansetron HCl (Zofran Inj/Pf 4 Mg/2 Ml Sdv) 4 mg IV Q4HP PRN PRN Reason: FOR NAUSEA/VOMITING Stop: 08/22/19 22:32 Last Admin: 07/24/19 21:06 Dose: 4 mg Documented by: Promethazine HCl (Phenergan Inj 25 Mg/1 Ml Vial) 12.5 mg IV Q4HP PRN PRN Reason: N/V NOT RELIEVED BY ZOFRAN Stop: 08/22/19 22:32 Last Admin: 07/24/19 22:49 Dose: 12.5 mg Documented by: Sodium Chloride (Saline Flush 2.5 Ml Monoject Prefil Syrin) 2.5 ml IV Q8 ROSANNE Stop: 08/22/19 13:59 Last Admin: 07/24/19 21:05 Dose: 2.5 ml Documented by: Vancomycin HCl (Vancocin Inj 500 Mg Vial) 250 mg PO Q6 ROSANNE Stop: 07/31/19 11:59 Last Admin: 07/24/19 23:11 Dose: 250 mg Documented by: - Allergies Allergies/Adverse Reactions: cefoxitin Allergy (Verified 02/14/19 18:44) chlorhexidine [Chlorhexidine] Allergy (Verified 02/07/19 11:52) Urticaria erythromycin base Allergy (Verified 02/07/19 11:52) lactose [Lactose] Allergy (Verified 02/07/19 11:52) Urticaria lactulose Allergy (Verified 02/07/19 11:52) melatonin Allergy (Verified 02/07/19 11:52) metoclopramide Allergy (Verified 02/14/19 18:44) morphine Adverse Reaction (Verified 02/07/19 11:52) vancomycin [Vancomycin] Adverse Reaction (Verified 02/07/19 11:52) Amy Syndrome silk tape Allergy (Uncoded 02/07/19 11:52) - Diet/Activity Discharge Diet: As Tolerated Discharge Activity: Activity As Tolerated Hospital Course Hospital Course: On 07/23/2019: GOLDY WALLACE is a 18 year old female history of Crohn's disease with PICC line, J-tube and G-tube came to the emergency room with complaints of abdominal pain loose stool yesterday does not have any loose stools for the last 18 hours. Came with complaints of high fever temperature is 103 this morning. Actually patient was called to come back to the ER because blood cultures coming back positive for gram-negative rods. Chest x-ray was negative the ER physician thinks source of infection probably from the PICC line PICC line is going to be removed and that she is getting 2 peripheral lines. Patient usually goes to [place] but unfortunately [place] was on diversion. Dr. Simon spoke to the transfer center in [place], and they are going to make arrangements for a bed for her as soon as possible. In the meantime family reluctantly agreed to stay in the hospital here for further management. On 07/24/2019: The patient's symptoms continued unchanged with generalized abdom inal pain and diarrhea. Late in the evening on 07/24/2019 a bed was available for the patient in [place] at the [facility]. Transfer arrangements were completed and the patient will be transferred as soon as possible. On 07/25/2019: Patient will be transferred to [facility] in stable condition. Physical Exam Vital Signs: Temp Pulse Resp BP Pulse Ox 97.4 F 79 18 118/59 L 99 07/24/19 19:50 07/24/19 19:50 07/24/19 19:50 07/24/19 19:50 07/24/19 19:50 Intake & Output 07/23/19 07/24/19 07/25/19 23:59 23:59 23:59 Intake Total 4838 4236 Output Total 3900 Balance 4838 336 Weight 60.6 kg General appearance: PRESENT: no acute distress, cooperative Head exam: PRESENT: atraumatic, normocephalic Eye exam: PRESENT: conjunctiva pink. ABSENT: conjunctival injection, scleral icterus Ear exam: PRESENT: normal external ear exam. ABSENT: bleeding, drainage Mouth exam: PRESENT: dry mucosa, neck supple Neck exam: ABSENT: thyromegaly, tracheal deviation Respiratory exam: PRESENT: clear to auscultation martine, symmetrical, unlabored Cardiovascular exam: PRESENT: RRR. ABSENT: clicks, gallop, rubs Vascular exam: PRESENT: normal capillary refill. ABSENT: pallor GI/Abdominal exam: PRESENT: normal bowel sounds, soft, tenderness - Generalized moderate tenderness on palpation Rectal exam: PRESENT: deferred Extremities exam: ABSENT: joint swelling, pedal edema Musculoskeletal exam: ABSENT: deformity, dislocation Neurological exam: PRESENT: alert, oriented to person, oriented to place, marianne ented to time, CN II-XII grossly intact Psychiatric exam: PRESENT: appropriate affect, normal mood Skin exam: PRESENT: dry, warm. ABSENT: jaundice Results Laboratory Results: 07/24/19 04:47 07/24/19 04:47 07/24/19 07/24/19 04:47 04:47 WBC 3.5 L RBC 3.01 L Hgb 9.4 L D Hct 27.3 L MCV 91 MCH 31.4 MCHC 34.6 RDW 13.9 Plt Count 161 Seg Neutrophils % 61.5 Sodium 134.4 L Potassium 4.0 Chloride 105 Carbon Dioxide 20 L Anion Gap 9 BUN 8 Creatinine 0.95 Est GFR ( Amer) > 60 Glucose 59 L Calcium 8.1 L Total Bilirubin 0.5 AST 72 H Alkaline Phosphatase 97 Total Protein 5.9 L Albumin 2.9 L Impressions: Chest X-Ray 07/22/19 19:23 IMPRESSION: No acute cardiopulmonary disease. Abdomen/Pelvis CT 07/23/19 00:00 IMPRESSION: 1. No acute intra-abdominal abnormality. 2. Gastrostomy and jejunostomy tubes in place ; it was described on the prior CT report that the jejunostomy tube appeared to lie outside of the bowel lumen ; if there is concern for malposition of the tube a fluoroscopic-guided contrast injection could be performed. Plan Discharge Plan: Transfer to [facility] via ground transport when bed available. Time Spent: Greater than 30 Minutes
[2019-07-25] MEDS ORDERED: LEVOTHYROXINE SODIUM 0.05 MG TABLET JT SCH (06:00)
== END 2019-07-25 00:59 | disposition short-term general hospital (02) | DRG 872 ==
LOC: ER 19:04 → EH 07-23 10:13 → 3N 07-23 15:43
PROVIDERS: ADMIT Internal Medicine; ATTEND Internal Medicine
DX: A41.9 Sepsis, unspecified organism (principal); K50.90 Crohn's disease, unspecified, without complications; E06.3 Autoimmune thyroiditis; K21.9 Gastro-esophageal reflux disease without esophagitis; K31.84 Gastroparesis; Z75.1 Person awaiting admission to adequate facility elsewhere; Z93.4 Other artificial openings of gastrointestinal tract status; Z93.1 Gastrostomy status
CPT/HCPCS: 36415; 71045; 74176; 80053; 81001; 82962; 83605; 84703; 85025; 85610; 87040; 87070; 87077; 87086; 87186; 93005; 93010; 96361; 96365; 96367; 96375; 99285; J1170; J1200; J1650; J2405; J2543; J2550; J3010; J3370; J3490; J7030; J7050; J7060; J7121; S0028

== ENCOUNTER 2019-08-19 00:58 | Emergency (ER) | payer MEDICAID ==
[2019-08-19] MEDS ORDERED: RINGERS SOLUTION,LACTATED 1,000 ML IV ONE (01:32)
--- NOTE | 2019-08-19 01:33 | ER Document Report ---
ED General - General Chief Complaint: Fever Stated Complaint: ABDOMINAL PAIN Time Seen by Provider: 08/19/19 01:06 Primary Care Provider: RAE ALCARAZ NP [Primary Care Provider] - Follow up as needed TRAVEL OUTSIDE OF THE [place] IN LAST 30 DAYS: No - HPI Notes: 19-year-old female with a history of chronic abdominal pain, Crohn's disease, on TPN who has a gastrostomy and jejunostomy tube presents with loose stools, back pain. Patient of note was discharged home from [facility] on Monday. Shortly after developed some loose stools, no blood. She had chronic diffuse and left lower quadrant abdominal pain that is unchanged when she was admitted. She and her mother state that during that admission she had a CT scan which showed a possible intussusception that subsequently had resolved on a repeat scan with contrast. She had a PICC line placed during that visit. She been seen several weeks ago at which time she had unexplained fever, had a PICC line pulmonary cultures drawn and was transferred. She now developed fever over 102 again at night, states she has some chills and increased back pain over her chronic back pain. Moderate intensity, gradual onset, nonradiating. No other modifying factors, no other associated symptoms, no other provocative or palliative factors. - Related Data Allergies/Adverse Reactions: adhesive Allergy (Verified 07/30/19 08:35) azithromycin Allergy (Verified 07/30/19 08:35) cefoxitin Allergy (Verified 07/30/19 08:35) chlorhexidine [Chlorhexidine] Allergy (Verified 07/30/19 08:35) Urticaria erythromycin base Allergy (Verified 07/30/19 08:35) lactose [Lactose] Allergy (Verified 07/30/19 08:35) Urticaria lactulose Allergy (Verified 07/30/19 08:35) melatonin Allergy (Verified 07/30/19 08:35) metoclopramide Allergy (Verified 07/30/19 08:35) morphine Adverse Reaction (Verified 07/30/19 08:35) vancomycin [Vancomycin] Adverse Reaction (Verified 07/30/19 08:35) Amy Syndrome silk tape Allergy (Uncoded 07/30/19 08:35) Past Medical History - Social History Smoking Status: Unknown if Ever Smoked Family History: Reviewed & Not Pertinent - Medical History Notes: Includes jejunostomy and gastrostomy tube, Crohn's disease, other medical problems as described. 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 Physical Exam - Vital signs Vitals: Resp Pulse Ox 14 100 08/19/19 01:30 08/19/19 01:30 - Notes Notes: General: Chronically ill in appearance HEENT: Normocephalic, atraumatic. Pupils equal round reactive to light. No JVD. Chest: No trauma. Respiratory: Good air exchange, normal excursion. Cardiac: Regular rhythm. No murmurs or gallops. Abdomen: Soft, nondistended, no guarding rigidity or rebound. Jejunostomy gastrostomy tube site clean dry and intact. Diffuse mild tenderness, more pronounced in the left lower quadrant. Back: No asymmetry or gross abnormality. Motor: Grossly normal power and tone. Neurologic: Alert, nonfocal. Cranial nerves II-12 are intact. Sensation intact. Vascular: Well perfused. Normal peripheral pulses. Skin: No petechiae or purpura. Course - Re-evaluation Re-evalutation: 08/19/19 01:31 19-year-old female the after mentioned symptoms, stated history of fever which is of concern given her underlying TPN use. Her abdominal pain appears to be chronic with an exam consistent with her baseline. Consider underlying bact eremia, pyelonephritis, less likely pneumonia, doubt intra-abdominal source such as abscess. Plan to proceed with serial exams, laboratory evaluation, cultures, reevaluate. 08/19/19 04:11 Labs reviewed, CBC unremarkable. Chemistries unremarkable. Urinalysis unremarkable. Patient does have tachypnea, tachycardia and fever, certainly concerning for line infection. There is been difficulty obtaining additional peripheral access in light of this we will leave her PICC line in this time. Family is requested transfer to [facility]. She has been transferred there in the past due to the increased available resources including ID and the complexity of her presentation. I spoken with Dr. Bowling and is accepted her in transfer. She has been treated with Zosyn and vancomycin, analgesics and antiemetics as well as IV fluid resuscitation. Patient evaluated just prior to transfer, pain improved. Heart rate is down to 106. Blood pressure stable. Transferred as discussed. - Vital Signs Vital signs: Temp Pulse Resp BP Pulse Ox 102.9 F H 120 H 18 101/54 L 99 08/19/19 03:16 08/19/19 03:16 08/19/19 03:16 08/19/19 03:01 08/19/19 03:16 - Laboratory Result Diagrams: 08/19/19 01:20 08/19/19 01:20 Laboratory results interpreted by me: 08/19/19 08/19/19 08/19/19 01:20 01:20 01:20 RBC 3.59 L Hgb 11.1 L Hct 32.0 L [place] % (Auto) 0.6 L Absolute Monos (auto) 0.0 L Seg Neutrophils % 81.0 H VBG pH Lactic Acid 4.3 H AST 56 H Alkaline Phosphatase 130 H 08/19/19 01:30 RBC Hgb Hct [place] % (Auto) Absolute Monos (auto) Seg Neutrophils % VBG pH 7.46 H Lactic Acid AST Alkaline Phosphatase Discharge - Discharge Clinical Impression: Sepsis Qualifiers: Sepsis type: sepsis due to unspecified organism Sepsis acute organ dysfunction status: unspecified Qualified Code(s): A41.9 - Sepsis, unspecified organism Condition: Serious Disposition: [facility] Referrals: RAE ALCARAZ NP [Primary Care Provider] - Follow up as needed
[2019-08-19] MEDS ORDERED: ACETAMINOPHEN SUSP 160 MG/5 ML ORAL SYRING GT ONE (01:34)
[2019-08-19] MEDS ORDERED: ONDANSETRON HCL INJ/PF 4 MG/2 ML SDV IV ONE (01:35)
[2019-08-19 01:46] LABS: ABSOLUTE EOSINOPHILS # (AUTO) 0.2 10^3/uL (0.0-0.6); ABSOLUTE LYMPHOCYTES (AUTO) 0.6 10^3/uL (0.5-4.7); ABSOLUTE NEUT (AUTO) 3.6 10^3/uL (1.7-8.2); BASOPHILS % (AUTO) 0.2 % (0-2); HEMOGLOBIN 11.1 g/dL (12.0-15.5); LYMPHOCYTES % (AUTO) 14.2 % (13-45); MEAN CORPUSCULAR HEMOGLOBIN 30.9 pg (27.0-33.4); MEAN CORPUSCULAR HGB CONC 34.6 g/dL (32.0-36.0); MEAN CORPUSCULAR VOLUME 89 fl (80-97); MONOCYTES % (AUTO) 0.6 % (3-13); PLATELET COUNT 259 10^3/uL (150-450); RED BLOOD COUNT 3.59 10^6/uL (3.72-5.28); RED CELL DISTRIBUTION WIDTH 13.2 % (11.5-14.0); TOTAL CELLS COUNTED % (AUTO) 100 %; WHITE BLOOD COUNT 4.4 10^3/uL (4.0-10.5)
[2019-08-19 02:04] LABS: VENOUS BLOOD BASE EXCESS 2.5 mmol/L; VENOUS BLOOD HCO3 26.2 mmol/L (20-32); VENOUS BLOOD PCO2 37.8 mmHg (35-63); VENOUS BLOOD PH 7.46 (7.30-7.42)
--- NOTE | 2019-08-19 02:06 | RADIOLOGY REPORT (SQ) ---
Chest single view on 08/19/2019 at 1:41 AM CLINICAL INDICATION: Fever COMPARISON: 07/22/2019 FINDINGS: Right-sided PICC line tip is near the cavoatrial junction. There are multiple wires projecting over the chest. The lungs are clear. Cardiac, hilar and mediastinal contours are within normal limits. Pulmonary vascularity is within normal limits. No bony abnormality is noted. IMPRESSION: No acute disease.
[2019-08-19 02:17] LABS: APPEARANCE,URINE CLEAR; BILIRUBIN,URINE NEGATIVE (NEGATIVE); COLOR,URINE STRAW; GLUCOSE, URINE NEGATIVE (NEGATIVE); KETONES,URINE NEGATIVE (NEGATIVE); LEUKOCYTE ESTERASE,URINE NEGATIVE (NEGATIVE); NITRITE,URINE NEGATIVE (NEGATIVE); PROTEIN,URINE NEGATIVE (NEGATIVE); URINE SPECIFIC GRAVITY 1.005; UROBILINOGEN,URINE NEGATIVE mg/dL (<2.0)
[2019-08-19 02:21] LABS: ALKALINE PHOSPHATASE 130 U/L (38-126); ANION GAP 13 (5-19); ASPARTATE AMINO TRANSFERASE 56 U/L (14-36); BILIRUBIN,DIRECT 0.2 mg/dL (0.0-0.4); BILIRUBIN,TOTAL 0.4 mg/dL (0.2-1.3); BLOOD UREA NITROGEN 7 mg/dL (7-20); CALCIUM 8.9 mg/dL (8.4-10.2); CARBON DIOXIDE 25 mmol/L (22-30); CHLORIDE 99 mmol/L (98-107); GLUCOSE 96 mg/dL (75-110); POTASSIUM 3.8 mmol/L (3.6-5.0); TOTAL PROTEIN 7.7 g/dL (6.3-8.2)
[2019-08-19] MEDS ORDERED: PIPERACILLIN/TAZOBACTAM 3.375 GM VIAL IV ONE (02:24)
[2019-08-19] MEDS ORDERED: VANCOMYCIN HCL INJ 1000 MG VIAL IV ONE (02:24)
[2019-08-19] MEDS ORDERED: DIPHENHYDRAMINE HCL 50 MG/ML VIAL IV ONE (02:26)
[2019-08-19] MEDS ORDERED: ACETAMINOPHEN 1,000 MG/100 ML RTUPB IV ONE (02:30)
[2019-08-19] MEDS ORDERED: HYDROMORPHONE HCL INJ/PF 2 MG/ML AMPULE IV ONE (03:04)
[2019-08-19] MEDS ORDERED: PROMETHAZINE HCL INJ 25 MG/1 ML VIAL IV ONE (03:23)
[2019-08-19 04:14] VITALS: BP 97/49
--- NOTE | 2019-08-19 07:49 | EKG REPORT ---
SEVERITY:- ABNORMAL ECG - SINUS TACHYCARDIA DIFFUSE NONSPECIFIC ST-T CHANGES : Confirmed by: Fredi Olmstead MD 19-Aug-2019 07:48:10
== END 2019-08-19 04:25 | disposition short-term general hospital (02) ==
LOC: ER 00:58
DX: A41.9 Sepsis, unspecified organism (principal); K50.90 Crohn's disease, unspecified, without complications; K31.84 Gastroparesis; R50.9 Fever, unspecified; R00.0 Tachycardia, unspecified; R06.82 Tachypnea, not elsewhere classified; M54.9 Dorsalgia, unspecified; R19.4 Change in bowel habit; Z93.4 Other artificial openings of gastrointestinal tract status; Z93.1 Gastrostomy status; Z91.018 Allergy to other foods; Z88.1 Allergy status to other antibiotic agents; Z88.3 Allergy status to other anti-infective agents; Z88.8 Allergy status to other drugs, medicaments and biological substances
CPT/HCPCS: 93005; 36415; 87040; 82962; 83690; 85025; 81025; 87077; 80053; 81001; 82803; 83605; 87150 ×26; 71045; 93010; J1200; J1170; J2550; J2405; J7120; J3370; J2543; J0131; 96361; 96365; 96367; 96375; 99285

== ENCOUNTER 2019-09-15 01:08 | Emergency (ER) | payer MEDICAID ==
[2019-09-15] MEDS ORDERED: NORMAL SALINE 1000 ML 1,000 ML IV ONE ×2 (01:30→05:53)
[2019-09-15] MEDS ORDERED: HYDROMORPHONE HCL INJ/PF 2 MG/ML AMPULE IV ONE ×2 (01:30→05:35)
[2019-09-15] MEDS ORDERED: ONDANSETRON HCL INJ/PF 4 MG/2 ML SDV IV ONE ×2 (01:30→05:35)
--- NOTE | 2019-09-15 01:37 | ER Document Report ---
ED General - General Stated Complaint: FEVER,ABDOMINAL AND LOWER BACK PAIN Time Seen by Provider: 09/15/19 01:13 Primary Care Provider: RAE ALCARAZ NP [Primary Care Provider] - Follow up as needed TRAVEL OUTSIDE OF THE [place] IN LAST 30 DAYS: No - HPI Notes: 19-year-old female with a complex medical history significant for Crohn's disease, abdominal surgeries, G-tube, J-tube, TPN line, Carl-Danlos syndrome, reported recent history of intussusception presents to the emergency department for evaluation of abdominal pain, nausea and fever as well as lower back pain. Patient's mother is in the room. She states that the symptoms have been present for the past 2 days. - Related Data Allergies/Adverse Reactions: cefoxitin Allergy (Verified 09/15/19 02:10) chlorhexidine [Chlorhexidine] Allergy (Verified 09/15/19 02:10) Urticaria erythromycin base Allergy (Verified 09/15/19 02:10) lactose [Lactose] Allergy (Verified 09/15/19 02:10) Urticaria lactulose Allergy (Verified 09/15/19 02:10) melatonin Allergy (Verified 09/15/19 02:10) metoclopramide Allergy (Verified 09/15/19 02:10) adhesive Adverse Reaction (Intermediate, Verified 09/15/19 02:10) morphine Adverse Reaction (Verified 09/15/19 02:10) vancomycin [Vancomycin] Adverse Reaction (Verified 09/15/19 02:10) Amy Syndrome silk tape Allergy (Uncoded 09/15/19 02:10) Past Medical History - General Information source: Patient, Parent - Social History Smoking Status: Never Smoker Family History: Reviewed & Not Pertinent - Past Medical History Cardiac Medical History: Denies: Hx Coronary Artery Disease, Hx Heart Attack, Hx Hypertension Pulmonary Medical History: Reports: Hx Asthma - A CHILD, Hx Pneumonia Denies: Hx Bronchitis, Hx COPD Neurological Medical History: Denies: Hx Cerebrovascular Accident, Hx Seizures Endocrine Medical History: Reports: Hx Hypothyroidism - Carolyn's Renal/ Medical History: Denies: Hx Peritoneal Dialysis GI Medical History: Reports: Hx Crohn's Disease, Hx Gastroesophageal Reflux Disease, Hx Ulcer - pyloric stenosis Musculoskeletal Medical History: 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 Infectious Medical History: Reports: Hx C-Diff Past Surgical History: Reports: Hx Abdominal Surgery - GJ tube placement, Hx Cholecystectomy, Hx Oral Surgery, Hx Urinary Tract Surgery - Stretched urethra, pediatric, Jtube placement, Other - G-tube and J-tube placement for gastroparesis - Immunizations Immunizations up to date: Yes Hx Diphtheria, Pertussis, Tetanus Vaccination: Yes Review of Systems - Review of Systems Constitutional: See HPI, Fever EENT: No symptoms reported Cardiovascular: No symptoms reported Respiratory: No symptoms reported Gastrointestinal: Abdominal pain, Nausea Genitourinary: No symptoms reported Female Genitourinary: No symptoms reported Musculoskeletal: Back pain Skin: No symptoms reported Hematologic/Lymphatic: No symptoms reported Neurological/Psychological: No symptoms reported -: Yes All other systems reviewed and negative Physical Exam - Vital signs Vitals: Temp Pulse Resp BP Pulse Ox 102.7 F H 109 H 17 114/77 98 09/15/19 01:08 09/15/19 01:08 09/15/19 01:08 09/15/19 01:08 09/15/19 01:08 - Notes Notes: PHYSICAL EXAMINATION: GENERAL: Thin appearing, positive pallor, appears to be in mild distress secondary to pain. HEAD: Atraumatic, normocephalic. EYES: Pupils equal round and reactive to light, extraocular movements intact, sclera anicteric, conjunctiva are normal. ENT: nares patent, oropharynx clear without exudates. Moist mucous membranes. NECK: Normal range of motion, supple without lymphadenopathy LUNGS: Breath sounds clear to auscultation bilaterally and equal. No wheezes rales or rhonchi. HEART: Regular rate and rhythm without murmurs ABDOMEN: Soft, mildly tender in all 4 quadrants to light palpation, normoactive bowel sounds. No guarding, no rebound. No masses appreciated. EXTREMITIES: Normal range of motion, no pitting or edema. No cyanosis. NEUROLOGICAL: No focal neurological deficits. Moves all extremities spontaneously and on command. PSYCH: Normal mood, normal affect. SKIN: Warm, Dry, normal turgor, no rashes or lesions noted. Course - Re-evaluation Re-evalutation: 09/15/19 06:26 Patient's temperature is gone up to 102.1 - Vital Signs Vital signs: Temp Pulse Resp BP Pulse Ox 102 F H 109 H 17 117/57 L 96 09/15/19 05:49 09/15/19 01:08 09/15/19 06:01 09/15/19 06:01 09/15/19 06:01 All signs reviewed by this MD. - Laboratory Result Diagrams: 09/15/19 01:50 09/15/19 01:50 Laboratory results interpreted by me: 09/15/19 09/15/19 01:50 05:11 Chloride 96 L AST 39 H Total Protein 9.5 H Urine Protein 30 H Urine Urobilinogen 4.0 H Urine Ascorbic Acid 40 H Labs reviewed by this MD. - Diagnostic Test Radiology reviewed: Reports reviewed - Consults dr. dru howard Time consulted: 06:26 Reason for consultation: 09/15/19 06:27 Patient has a history of sepsis and her infectious disease care team is at [facility] 09/15/19 06:[address] Howard at 0626 hrs. She accepted the patient for transfer to her facility. Discharge - Discharge Clinical Impression: Fever, Abdominal pain, History of sepsis Condition: Good Disposition: [facility] Referrals: RAE ALCARAZ, [employer] REPAIRER APPRENTICE [Primary Care Provider] - Follow up as needed
[2019-09-15 02:11] LABS: ABSOLUTE EOSINOPHILS # (AUTO) 0.1 10^3/uL (0.0-0.6); ABSOLUTE LYMPHOCYTES (AUTO) 1.4 10^3/uL (0.5-4.7); ABSOLUTE MONOCYTES (AUTO) 0.8 10^3/uL (0.1-1.4); ABSOLUTE NEUT (AUTO) 5.3 10^3/uL (1.7-8.2); BASOPHILS % (AUTO) 0.4 % (0-2); EOSINOPHILS % (AUTO) 1.7 % (0-6); HEMATOCRIT 36.4 % (36.0-47.0); HEMOGLOBIN 12.7 g/dL (12.0-15.5); LYMPHOCYTES % (AUTO) 18.5 % (13-45); MEAN CORPUSCULAR VOLUME 89 fl (80-97); MONOCYTES % (AUTO) 10.6 % (3-13); PLATELET COUNT 285 10^3/uL (150-450); RED CELL DISTRIBUTION WIDTH 13.5 % (11.5-14.0); SEGMENTED NEUTROPHILS % (AUTO) 68.8 % (42-78); TOTAL CELLS COUNTED % (AUTO) 100 %; WHITE BLOOD COUNT 7.7 10^3/uL (4.0-10.5)
[2019-09-15 02:44] LABS: ALBUMIN 4.8 g/dL (3.5-5.0); ALKALINE PHOSPHATASE 123 U/L (38-126); ANION GAP 16 (5-19); ASPARTATE AMINO TRANSFERASE 39 U/L (14-36); BILIRUBIN,DIRECT 0.3 mg/dL (0.0-0.4); BILIRUBIN,TOTAL 0.5 mg/dL (0.2-1.3); BLOOD UREA NITROGEN 10 mg/dL (7-20); CALCIUM 9.6 mg/dL (8.4-10.2); CARBON DIOXIDE 29 mmol/L (22-30); CHLORIDE 96 mmol/L (98-107); GLUCOSE 84 mg/dL (75-110); POTASSIUM 3.6 mmol/L (3.6-5.0); TOTAL PROTEIN 9.5 g/dL (6.3-8.2)
--- NOTE | 2019-09-15 03:46 | RADIOLOGY REPORT (SQ) ---
EXAM DESCRIPTION: CT ABDOMEN PELVIS WITH IV CONTRAST COMPLETED DATE/TME: 09/15/2019 01:31 CLINICAL HISTORY: 19 years Female, abdominal pain and fever Comparison: 07/23/19 Technique: IV contrast. Coronal and sagittal reformat. This exam was performed according to our departmental dose-optimization program, which includes automated exposure control, adjustment of the mA and/or kV according to patient size and/or use of iterative reconstruction technique. [facility]: Dose Right [facility]: CareDose [facility]: Dose Right [facility]: Teradose 4D [facility]: Anteryon LIMITATIONS: None Findings: Cholecystectomy. Percutaneous gastrostomy and jejunostomy tubes present not definitively characterized. Possible lead-central line motion artifact at the right atrium. Colonic fluid retention. No ascites.No pneumoperitoneum. Normal appendix. No bowel obstruction. No hydronephrosis or hydroureter. No renal/ureteral stone. No evidence of abdominal aortic aneurysm. No gross evidence of thecal sac/cord or nerve root compression. Inferior thorax, liver, gallbladder, pancreas, spleen, adrenals, renal system, gastrointestinal tract, pelvic organs, lymphatics, vasculature, and musculoskeleton appear otherwise unremarkable. IMPRESSION: No acute findings.
[2019-09-15 05:38] LABS: APPEARANCE,URINE CLEAR; BILIRUBIN,URINE NEGATIVE (NEGATIVE); COLOR,URINE YELLOW; GLUCOSE, URINE NEGATIVE (NEGATIVE); KETONES,URINE NEGATIVE (NEGATIVE); LEUKOCYTE ESTERASE,URINE NEGATIVE (NEGATIVE); NITRITE,URINE NEGATIVE (NEGATIVE); PROTEIN,URINE 30 mg/dL (NEGATIVE); URINE SPECIFIC GRAVITY > 1.060
[2019-09-15 08:11] VITALS: BP 104/46
== END 2019-09-15 08:15 | disposition short-term general hospital (02) ==
LOC: ER 01:08
DX: R50.9 Fever, unspecified (principal); R10.9 Unspecified abdominal pain; M54.5 Low back pain; K50.90 Crohn's disease, unspecified, without complications; Z93.1 Gastrostomy status; Z93.4 Other artificial openings of gastrointestinal tract status; Z88.3 Allergy status to other anti-infective agents; Z88.6 Allergy status to analgesic agent
CPT/HCPCS: 96376; 99285; 96361; 96374; 96375; 36415; 87040; 83690; 85025; 80053; 81001; 83605; 74177; J1170; J2405; J7030; J1642

== ENCOUNTER 2020-01-30 07:35 | Emergency (ER) | payer MEDICAID ==
--- NOTE | 2020-01-30 08:11 | ER Document Report ---
ED General - General Stated Complaint: ABDOMINAL PAIN Time Seen by Provider: 01/30/20 08:10 Primary Care Provider: RAE ALCARAZ NP [Primary Care Provider] - Follow up tomorrow TRAVEL OUTSIDE OF THE [place] IN LAST 30 DAYS: No - HPI Notes: 19-year-old female with a history of gastroparesis and Crohn's disease with a J- tube G-tube presents to the emergency room by private car for complaints of lower abdominal pain for the last week with new onset fever that started this morning of 102 F. patient states she does have some nausea but denies any vomiting diarrhea, dry cough, body aches. Patient reports she did have a telehealth appointment yesterday with her primary care and put her on oral antibiotics for redness around her G-tube that patient states was causing her some pain and had some "smelly discharge" from it. Patient has had 1 dose of oral Bactrim antibiotic from her PCP. denies any previous abdominal surgeries, no history of kidney stones. Denies fevers, chills, chest pain,palpitations, shortness of breath, dyspnea, vomiting, diarrhea, hematuria,blurred vision, double vision, loss of vision, speech changes, LH, dizziness, syncope, headaches, wheezing, ST, URI, neck pain, weakness, bowel or bladder dysfunction, saddle anesthesia, numbness or tingling in bilateral upper or lower extremities equally, muscle paralysis, weakness in bilateral upper or lower extremities equally or rash. - Related Data Allergies/Adverse Reactions: cefoxitin Allergy (Verified 09/15/19 02:10) chlorhexidine [Chlorhexidine] Allergy (Verified 09/15/19 02:10) Urticaria erythromycin base Allergy (Verified 09/15/19 02:10) lactose [Lactose] Allergy (Verified 09/15/19 02:10) Urticaria lactulose Allergy (Verified 09/15/19 02:10) melatonin Allergy (Verified 09/15/19 02:10) metoclopramide Allergy (Verified 09/15/19 02:10) adhesive Adverse Reaction (Intermediate, Verified 09/15/19 02:10) morphine Adverse Reaction (Verified 09/15/19 02:10) vancomycin [Vancomycin] Adverse Reaction (Verified 09/15/19 02:10) Amy Syndrome silk tape Allergy (Uncoded 09/15/19 02:10) Past Medical History - General Information source: Patient - Social History Smoking Status: Unknown if Ever Smoked Family History: Reviewed & Not Pertinent - Past Medical History Cardiac Medical History: Denies: Hx Coronary Artery Disease, Hx Heart Attack, Hx Hypertension Pulmonary Medical History: Reports: Hx Asthma - A CHILD, Hx Pneumonia Denies: Hx Bronchitis, Hx COPD Neurological Medical History: Denies: Hx Cerebrovascular Accident, Hx Seizures Endocrine Medical History: Reports: Hx Hypothyroidism - Carolyn's Renal/ Medical History: Denies: Hx Peritoneal Dialysis GI Medical History: Reports: Hx Crohn's Disease, Hx Gastroesophageal Reflux Disease, Hx Ulcer - pyloric stenosis Musculoskeletal Medical History: 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 Infectious Medical History: Reports: Hx C-Diff Past Surgical History: Reports: Hx Abdominal Surgery - GJ tube placement, Hx Cholecystectomy, Hx Oral Surgery, Hx Urinary Tract Surgery - Stretched urethra, pediatric, Jtube placement, Other - G-tube and J-tube placement for gastroparesis - Immunizations Immunizations up to date: Yes Hx Diphtheria, Pertussis, Tetanus Vaccination: Yes Review of Systems - Review of Systems Constitutional: No symptoms reported EENT: No symptoms reported Cardiovascular: No symptoms reported Respiratory: No symptoms reported Gastrointestinal: See HPI Genitourinary: No symptoms reported Female Genitourinary: No symptoms reported Musculoskeletal: No symptoms reported Skin: No symptoms reported Hematologic/Lymphatic: No symptoms reported Neurological/Psychological: No symptoms reported Physical Exam - Vital signs Vitals: Temp Pulse BP Pulse Ox 99.1 F 100 95/52 L 98 01/30/20 07:39 01/30/20 07:39 01/30/20 07:39 01/30/20 07:39 - Notes Notes: PHYSICAL EXAMINATION: reviewed vital signs by RN GENERAL: Well-appearing, well-nourished and in no acute distress. HEAD: Atraumatic, normocephalic. EYES: Pupils equal round and reactive to light, extraocular movements intact, conjunctiva are normal. ENT: Nares patent, oropharynx clear without exudates. Moist mucous membranes. NECK: Normal range of motion, supple without lymphadenopathy LUNGS: Breath sounds clear to auscultation bilaterally and equal. No wheezes rales or rhonchi. HEART: Regular rate and rhythm without murmurs ABDOMEN: Soft, tenderness to periumbilical left lower quadrant nondistended abdomen. No guarding, no rebound. No masses appreciated. No CVA tenderness appreciated. G-tube and J-tube without any erythema induration or warmth to touch. Female : deferred Musculoskeletal: Normal range of motion, no pitting or edema. No cyanosis. NEUROLOGICAL: Cranial nerves grossly intact. Normal speech, normal gait. Normal sensory, motor exams PSYCH: Normal mood, normal affect. SKIN: Warm, Dry, normal turgor, no rashes or lesions noted. Course - Re-evaluation Re-evalutation: 01/30/20 17:01 Afebrile vital stable no distress. Nurses notes reviewed. CBC negative for leukocytosis, CMP negative for hepatic or renal dysfunction, no electrolyte disturbances, CT abdomen pelvis with IV contrast negative for any acute fi ndings. Urinalysis unremarkable. Lactic is normal. Discussed the patient that blood cultures are pending. After performing a Medical Screening Examination, I estimate there is LOW risk for ACUTE APPENDICITIS, BOWEL OBSTRUCTION, ACUTE CHOLECYSTITIS, PERFORATED DIVERTICULITIS, INCARCERATED HERNIA, PANCREATITIS, PELVIC INFLAMMATORY DISEASE, PERFORATED ULCER, ECTOPIC , or TUBO- OVARIAN ABSCESS, thus I consider the discharge disposition reasonable. Also, there is no evidence or peritonitis, sepsis, or toxicity. I have reevaluated this patient multiple times and no significant life threatening changes are noted. The patient and I have discussed the diagnosis and risks, and we agree with discharging home with close follow-up with the understanding that symptoms and presentations can change. We also discussed returning to the Emergency Department immediately if new or worsening symptoms occur. We have discussed the symptoms which are most concerning (e.g., bloody stool, fever, changing or worsening pain, vomiting) that necessitate immediate return. - Vital Signs Vital signs: Temp Pulse Resp BP Pulse Ox 101.9 F H 100 23 H 120/76 98 01/30/20 10:00 01/30/20 07:39 01/30/20 11:00 01/30/20 11:00 01/30/20 11:01 - Laboratory Result Diagrams: 01/30/20 07:55 01/30/20 07:55 Laboratory results interpreted by me: 01/30/20 01/30/20 01/30/20 07:55 07:55 08:35 RBC 3.71 L Hgb 11.7 L Hct 32.8 L Lymph % (Auto) 11.8 L Seg Neutrophils % 79.6 H Sodium 133.2 L Lactic Acid 0.5 L Urine Ascorbic Acid 01/30/20 09:35 RBC Hgb Hct Lymph % (Auto) Seg Neutrophils % Sodium Lactic Acid Urine Ascorbic Acid 40 H Discharge - Discharge Clinical Impression: Abdominal pain, redness around G tube Condition: Stable Disposition: HOME, SELF-CARE Instructions: Abdominal Pain ([facility]) Additional Instructions: All of your labs today were normal. Urinalysis was normal. CT of your abdomen pelvis did not show any infection and was completely normal. Your chest x-ray was normal as well. You do have pending blood cultures, will call you with results if they are positive. Please continue taking your oral antibiotics as directed, clean around insertion site of the G-tube and J-tube. Please follow- up with your primary care provider within the next 24 hours. Return if you experience any worsening pain, fevers, vomiting, worsening symptoms. Return immediately for any new or worsening symptoms. Follow up with primary care provider, call tomorrow to make followup appointment. Referrals: RAE ALCARAZ NP [Primary Care Provider] - Follow up tomorrow
[2020-01-30 08:19] LABS: ABSOLUTE LYMPHOCYTES (AUTO) 0.5 10^3/uL (0.5-4.7); ABSOLUTE MONOCYTES (AUTO) 0.3 10^3/uL (0.1-1.4); ABSOLUTE NEUT (AUTO) 3.4 10^3/uL (1.7-8.2); BASOPHILS % (AUTO) 0.9 % (0-2); EOSINOPHILS % (AUTO) 0.7 % (0-6); HEMATOCRIT 32.8 % (36.0-47.0); HEMOGLOBIN 11.7 g/dL (12.0-15.5); LYMPHOCYTES % (AUTO) 11.8 % (13-45); MEAN CORPUSCULAR HEMOGLOBIN 31.4 pg (27.0-33.4); MEAN CORPUSCULAR HGB CONC 35.6 g/dL (32.0-36.0); MEAN CORPUSCULAR VOLUME 88 fl (80-97); PLATELET COUNT 201 10^3/uL (150-450); RED BLOOD COUNT 3.71 10^6/uL (3.72-5.28); RED CELL DISTRIBUTION WIDTH 12.3 % (11.5-14.0); SEGMENTED NEUTROPHILS % (AUTO) 79.6 % (42-78); TOTAL CELLS COUNTED % (AUTO) 100 %; WHITE BLOOD COUNT 4.3 10^3/uL (4.0-10.5)
[2020-01-30 08:38] LABS: ALKALINE PHOSPHATASE 87 U/L (38-126); ANION GAP 8 (5-19); ASPARTATE AMINO TRANSFERASE 36 U/L (14-36); BILIRUBIN,TOTAL 0.2 mg/dL (0.2-1.3); BLOOD UREA NITROGEN 13 mg/dL (7-20); CALCIUM 8.6 mg/dL (8.4-10.2); CARBON DIOXIDE 26 mmol/L (22-30); CHLORIDE 99 mmol/L (98-107); GLUCOSE 103 mg/dL (75-110); POTASSIUM 3.9 mmol/L (3.6-5.0); TOTAL PROTEIN 7.4 g/dL (6.3-8.2)
--- NOTE | 2020-01-30 09:04 | RADIOLOGY REPORT (SQ) ---
EXAM DESCRIPTION: CHEST SINGLE VIEW IMAGES COMPLETED DATE/TIME: 01/30/2020 8:54 am REASON FOR STUDY: fever COMPARISON: 08/19/2019. EXAM PARAMETERS: NUMBER OF VIEWS: One view. TECHNIQUE: Single frontal radiographic view of the chest acquired. RADIATION DOSE: NA LIMITATIONS: None. FINDINGS: LUNGS AND PLEURA: No opacities, masses or pneumothorax. No pleural effusion. MEDIASTINUM AND HILAR STRUCTURES: No masses. Contour normal. HEART AND VASCULAR STRUCTURES: Heart normal in size. Normal vasculature. BONES: No acute findings. HARDWARE: Central line. OTHER: No other significant finding. IMPRESSION: NO ACUTE RADIOGRAPHIC FINDING IN THE CHEST. TECHNICAL DOCUMENTATION: JOB ID: [id number] 2010 [employer]- All Rights Reserved Reading location - IP/workstation name: [email or web address]
[2020-01-30 09:52] LABS: APPEARANCE,URINE CLEAR; BILIRUBIN,URINE NEGATIVE (NEGATIVE); COLOR,URINE YELLOW; GLUCOSE, URINE NEGATIVE (NEGATIVE); KETONES,URINE NEGATIVE (NEGATIVE); LEUKOCYTE ESTERASE,URINE NEGATIVE (NEGATIVE); NITRITE,URINE NEGATIVE (NEGATIVE); PROTEIN,URINE NEGATIVE (NEGATIVE); URINE SPECIFIC GRAVITY 1.009; UROBILINOGEN,URINE NEGATIVE mg/dL (<2.0)
--- NOTE | 2020-01-30 10:32 | RADIOLOGY REPORT (SQ) ---
EXAM DESCRIPTION: CT ABD/PELVIS WITH IV ONLY IMAGES COMPLETED DATE/TIME: 01/30/2020 10:18 am REASON FOR STUDY: LLQ/periumbilical pain with hx of fever 102 COMPARISON: 09/15/2019. TECHNIQUE: CT scan of the abdomen and pelvis performed using helical scanning technique with dynamic intravenous contrast injection. No oral contrast. Images reviewed with lung, soft tissue, and bone windows. Reconstructed coronal and sagittal MPR images reviewed. Delayed images for evaluation of the urinary system also acquired. All images stored on PACS. All CT scanners at this facility use dose modulation, iterative reconstruction, and/or weight based d osing when appropriate to reduce radiation dose to as low as reasonably achievable (ALARA). [facility]: Dose Right [facility]: CareDose [facility]: Dose Right [facility]: Teradose 4D [facility]: [employer] Media CONTRAST TYPE AND DOSE: contrast/concentration: Isovue 350.00 mg/ml; Total Contrast Delivered: 61.0 ml; Total Saline Delivered: 65.0 ml RENAL FUNCTION: None required. The patient is less than 50 years old. RADIATION DOSE: CT Rad equipment meets quality standard of care and radiation dose reduction techniq ues were employed. CTDIvol: NaN - NaN mGy. DLP: 0 mGy-cm.. LIMITATIONS: None. FINDINGS: LOWER CHEST: No significant findings. No nodules or infiltrates. LIVER: Normal size. No masses. No dilated ducts. SPLEEN: Normal size. No focal lesions. PANCREAS: No masses. No significant calcifications. No adjacent inflammation or peripancreatic fluid collections. Pancreatic duct not dilated. GALLBLADDER: Surgically absent. ADRENAL GLANDS: No significant masses or asymmetry. RIGHT KIDNEY AND URETER: No solid masses. No significant calcifications. No hydronephrosis or hyd roureter. LEFT KIDNEY AND URETER: No solid masses. No significant calcifications. No hydronephrosis or hydr oureter. AORTA AND VESSELS: No aneurysm. No dissection. Renal arteries, SMA, celiac without stenosis. RETROPERITONEUM: No retroperitoneal adenopathy, hemorrhage or masses. BOWEL AND PERITONEAL CAVITY: Gastrostomy tube and jejunostomy tube. No masses or inflammatory change s. No free fluid or peritoneal masses. APPENDIX: Normal. PELVIS: No mass. Fluid in the endometrial cavity. Small ovarian cysts No free fluid. Normal bladde r. ABDOMINAL WALL: No masses. No hernias. BONES: No significant or acute findings. OTHER: No other significant finding. IMPRESSION: NO SIGNIFICANT OR ACUTE FINDING IN THE ABDOMEN OR PELVIS ON CT SCAN WITH IV CONTRAST. I NCIDENTAL SMALL OVARIAN CYSTS. TECHNICAL DOCUMENTATION: JOB ID: [id number] Quality ID # [id number]: Final reports with documentation of one or more dose reduction techniques (e.g., Au tomated exposure control, adjustment of the mA and/or kV according to patient size, use of iterative reconstruction technique) 2010 [employer]- All Rights Reserved Reading location - IP/workstation name: [email or web address]
[2020-01-30 11:08] VITALS: BP 120/76
== END 2020-01-30 11:15 | disposition home or self-care (01) ==
LOC: ER 07:35
DX: K94.20 Gastrostomy complication, unspecified (principal); R10.9 Unspecified abdominal pain; R10.30 Lower abdominal pain, unspecified; R50.9 Fever, unspecified; R11.0 Nausea; Z88.1 Allergy status to other antibiotic agents; Z88.8 Allergy status to other drugs, medicaments and biological substances; J45.909 Unspecified asthma, uncomplicated
CPT/HCPCS: 36415; 71045; 74177; 80053; 81001; 81025; 83605; 83690; 85025; 87040; 87077; 87150; 99284

== ENCOUNTER → 2020-03-27 | Outpatient (CLI) | payer MEDICAID ==
--- NOTE | 2020-03-27 16:10 | RADIOLOGY REPORT (SQ) ---
EXAM DESCRIPTION: CHEST PA/LATERAL IMAGES COMPLETED DATE/TIME: 03/27/2020 3:54 pm REASON FOR STUDY: PRESENCE OF OTHER VASCULAR IMPLANTS AND GRAFTS COMPARISON: AP view of the chest from 01/30/2020. EXAM PARAMETERS: NUMBER OF VIEWS: Two views. TECHNIQUE: PA and lateral views of the chest were obtained. RADIATION DOSE: NA. LIMITATIONS: None. FINDINGS: LUNGS AND PLEURA: No consolidation, pleural effusion or pneumothorax. MEDIASTINUM AND HILAR STRUCTURES: No mediastinal or hilar contour abnormality. HEART AND VASCULAR STRUCTURES: The cardiac silhouette and pulmonary vasculature are within normal kessler its. BONES: No acute findings. HARDWARE: The tip of the right-sided tunneled central venous catheter projects at the level of the ca voatrial junction. There is a gastrostomy tube in place. OTHER: No other finding. IMPRESSION: No acute cardiopulmonary process. TECHNICAL DOCUMENTATION: JOB ID: [id number] 2010 [employer]- All Rights Reserved Reading location - IP/workstation name: [email or web address]
== END ==
LOC: OD 15:40
PROVIDERS: ATTEND Nurse Practitioner Family
DX: Z48.812 Encounter for surgical aftercare following surgery on the circulatory system (principal); Z95.828 Presence of other vascular implants and grafts
CPT/HCPCS: 71046

== ENCOUNTER → 2020-04-07 | Outpatient (CLI) | payer MEDICAID ==
--- NOTE | 2020-04-07 19:49 | XCELERA REPORT ---
[address] [address] Transthoracic Echocardiogram Report Name: GOLDY WALLACE Age: 19 yrs Gender: Female : 2000 Patient Status: Preadmit Patient Location: Study Date: 04/07/2020 10:26 AM Height: 65 in Weight: 116 lb BSA: 1.6 m2 Reason For Study: ENDOCARDITIS Ordering Physician: RAE ALCARAZ Performed By: Leonidas Prabhakar Interpretation Summary No significant posterior pericardial effusion. No aortic root calcification, no enlargement. No aortic valvular disease, 3 cusps AV, No /, no AR, a thickening seen along commissure of the Non-coronary cusp adjacent to the Left cor. cusp, cannot r/o vegetation. Mild mitral annular calcification with normal anterior and posterior mitral leaflets, no stenosis, trace mitral regurgitation. No MVP. No left atrial enlargement. LV shows no LVH, no LV apical clot, LVEF is 65% with no L ventricular diastolic dysfunction. No segmental regional wall motion abnormality. There is no LV enlargement. No LVOT obstruction. No RV or RA enlargement, TAPSE suggests normal RE function. Within the RA, a 2.7mm freely mobile echogenic mass is seen, could be related to a central venous catheter or vegetation. Mild TR, no velocity captured to extrapolate RVSP. Trace pulm. regurgitation. No ASD. No typical L heart valvular vegetation seen. May consider TAMMIE to investigate the thickening on the L cor cusp commissure if positive blood culture. Correlate with patient if she has an indwell catheter in her central vein. MMode/2D Measurements & Calculations RVDd: 2.6 cm LVIDd: 4.0 cm FS: 43.9 % Ao root diam: 2.5 cm IVSd: 0.81 cm LVIDs: 2.3 cm EDV(Teich): Ao root area: LVPWd: 0.80 cm 71.3 ml ESV(Teich): 5.0 cm2 17.4 ml LA dimension: 3.0 cm EF(Teich): 75.6 % LVLd ap4: 7.2 cm SV(MOD-sp4): EDV(MOD-sp4): 51.0 ml 74.0 ml LVLs ap4: 5.9 cm ESV(MOD-sp4): 23.0 ml EF(MOD-sp4): 68.9 % Doppler Measurements & Calculations MV E max annika: MV P1/2t max annika: Ao V2 max: LV V1 max P.7 cm/sec 75.7 cm/sec 98.2 cm/sec 2.6 mmHg MV A max annika: MV P1/2t: 59.8 msec Ao max PG: LV V1 max: 59.0 cm/sec 3.9 mmHg 79.9 cm/sec MV E/A: 1.2 MVA(P1/2t): 3.7 cm2 MV dec slope: 370.8 cm/sec2 MV dec time: 0.14 sec PA V2 max: MV P1/2t-pr_phl: 85.9 cm/sec 59.8 msec PA max P.0 mmHg I WMSI = 1.00 % Normal = 100 Segments Size X - Cannot 1 - Normal 2 - 3 - Akinetic4 - 1-2 small Interpret Hypokinetic Dyskinetic 3-5 moderate 5 - 6-14 large Aneurysmal 15-16 diffuse : RAE ALCARAZ Andre
== END ==
LOC: SP 10:11
PROVIDERS: ATTEND Nurse Practitioner Family
DX: I33.0 Acute and subacute infective endocarditis (principal)
CPT/HCPCS: 93306

== ENCOUNTER 2020-05-04 22:10 | Inpatient (IN) | payer MEDICAID ==
[2020-05-04] MEDS ORDERED: FLUCONAZOLE 400 MG/NS RTU 400 MG/200 ML RTUPB IV ONE (23:23)
[2020-05-04] MEDS ORDERED: NORMAL SALINE 1000 ML 1,000 ML IV ONE (23:24)
--- NOTE | 2020-05-04 23:45 | ER Document Report ---
Entered by ANN ESPINAL SCRIBE 05/04/20 [id number] Acting as scribe for:DIANA NARANJO DO ED General - General Chief Complaint: Fever Stated Complaint: FEVER/PAIN CHEST NECK AND BACK/NAUSEA Time Seen by Provider: 05/04/20 22:57 Primary Care Provider: MARILIN NIÑO MD [Primary Care Provider] - Follow up as needed Mode of Arrival: Ambulatory Information source: Patient Notes: This 19 year old female patient presents to the emergency department today with complaints of fevers. This patient was tested for COVID and was positive in March, stating that she was "cleared by the health department on April 22". Patient has a very complicated medical history and has been in and out of the hospital most of her life. Patient was admitted to this facility from 04/18-05/01 for a "blood fungal infection". TRAVEL OUTSIDE OF THE [place] IN LAST 30 DAYS: No - Related Data Allergies/Adverse Reactions: cefoxitin Allergy (Verified 04/17/20 21:42) chlorhexidine [Chlorhexidine] Allergy (Verified 04/17/20 21:42) Urticaria erythromycin base Allergy (Verified 04/17/20 21:42) lactose [Lactose] Allergy (Verified 04/17/20 21:42) Urticaria lactulose Allergy (Verified 04/17/20 21:42) melatonin Allergy (Verified 04/17/20 21:42) metoclopramide Allergy (Verified 04/17/20 21:42) adhesive Adverse Reaction (Intermediate, Verified 04/17/20 21:42) morphine Adverse Reaction (Verified 04/17/20 21:42) vancomycin [Vancomycin] Adverse Reaction (Verified 04/17/20 21:42) Amy Syndrome silk tape Allergy (Uncoded 09/15/19 02:10) Past Medical History - General Information source: Patient - Social History Smoking Status: Never Smoker Cigarette use (# per day): No Chew tobacco use (# tins/day): No Drug Abuse: None Lives with: Family Family History: Reviewed & Not Pertinent, Hypertension, Other - Colonic polyposis Patient has homicidal ideation: No Pulmonary Medical History: Reports: Hx Asthma - Childhood asthma, Hx Pneumonia Endocrine Medical History: Reports: Hx Hypothyroidism - Carolyn's GI Medical History: Reports: Hx Crohn's Disease, Hx Gastroesophageal Reflux Disease, Hx Ulcer - pyloric stenosis Musculoskeletal Medical History: 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 Infectious Medical History: Reports: Hx C-Diff Past Surgical History: Reports: Hx Abdominal Surgery - G-tube and J tube placement for gastroparesis, Hx Cholecystectomy, Hx Oral Surgery, Hx Urinary Tract Surgery - Stretched urethra, pediatric, Hx Vascular Surgery - PICC line p lacement, Other - G-tube and J-tube placement for gastroparesis - Immunizations Immunizations up to date: Yes Hx Diphtheria, Pertussis, Tetanus Vaccination: Yes Review of Systems - Review of Systems Constitutional: See HPI, Fever EENT: No symptoms reported Cardiovascular: No symptoms reported Respiratory: No symptoms reported Gastrointestinal: No symptoms reported Genitourinary: No symptoms reported Female Genitourinary: No symptoms reported Musculoskeletal: No symptoms reported Skin: No symptoms reported Hematologic/Lymphatic: No symptoms reported Neurological/Psychological: No symptoms reported -: Yes All other systems reviewed and negative Physical Exam - Vital signs Vitals: Temp Pulse Resp BP Pulse Ox 99.2 F 119 H 16 111/67 99 05/04/20 22:13 05/04/20 22:13 05/04/20 22:13 05/04/20 22:13 05/04/20 22:13 - Notes Notes: Physical Exam: General: Alert, chronically ill appearing. HEENT: Normocephalic. Atraumatic. PERRL. Extraocular movements intact. Oropharynx clear. Dry mucous membranes. Neck: Supple. Non-tender. Respiratory: No respiratory distress. Decreased air movement bilaterally. Cardiovascular: Tachycardic, regular rhythm. Abdominal: Mild diffuse abdominal tenderness to palpation. No distension. Normal Bowel Sounds. Back: No gross abnormalities. Extremities: Moves all four extremities. Upper extremities: Normal inspection. Normal ROM. Lower extremities: Normal inspection. No edema. Normal ROM. Neurological: Normal cognition. AAOx4. Normal speech. Psychological: Normal affect. Normal Mood. Skin: Warm. Dry. Normal color. Course - Vital Signs Vital signs: Temp Pulse Resp BP Pulse Ox 101 F H 119 H 24 H 122/77 97 05/04/20 22:20 05/04/20 22:20 05/04/20 22:20 05/04/20 22:20 05/04/20 22:20 - Laboratory Result Diagrams: 05/04/20 23:17 05/05/20 00:02 Laboratory results interpreted by me: 05/04/20 05/05/20 05/05/20 23:17 00:02 00:34 Hct 35.8 L AST 55 H Alkaline Phosphatase 199 H Lipase 538.5 H Urine Ascorbic Acid 40 H - EKG Interpretation by Me EKG shows normal: Sinus rhythm Rate: Tachycardia Rhythm: NSR - Sinus Tachy nl axis Repol Ab no st elevation or depression my interpretation. Discharge - Discharge Clinical Impression: Acute febrile illness, Jejunostomy tube present Crohn's disease Qualifiers: Gastrointestinal tract location: unspecified location Digestive disease compli cation type: unspecified complication Qualified Code(s): K50.919 - Crohn's disease, unspecified, with unspecified complications Condition: Stable Disposition: ADMITTED INPATIENT Admitting Provider: Swathi (Hospitalist) Unit Admitted: Medical Floor Referrals: MARILIN NIÑO MD [Primary Care Provider] - Follow up as needed I personally performed the services described in the documentation, reviewed and edited the documentation which was dictated to the scribe in my presence, and it accurately records my words and actions.
[2020-05-04] MEDS ORDERED: HYDROMORPHONE HCL INJ/PF 2 MG/ML AMPULE IV ONE (23:52)
[2020-05-04] MEDS ORDERED: PROMETHAZINE HCL INJ 25 MG/1 ML VIAL IV ONE (23:53)
[2020-05-04 23:57] LABS: ABSOLUTE EOSINOPHILS # (AUTO) 0.2 10^3/uL (0.0-0.6); ABSOLUTE MONOCYTES (AUTO) 0.5 10^3/uL (0.1-1.4); ABSOLUTE NEUT (AUTO) 2.8 10^3/uL (1.7-8.2); BASOPHILS % (AUTO) 0.4 % (0-2); HEMATOCRIT 35.8 % (36.0-47.0); LYMPHOCYTES % (AUTO) 21.6 % (13-45); MEAN CORPUSCULAR HEMOGLOBIN 30.2 pg (27.0-33.4); MEAN CORPUSCULAR HGB CONC 34.3 g/dL (32.0-36.0); MEAN CORPUSCULAR VOLUME 88 fl (80-97); MONOCYTES % (AUTO) 10.9 % (3-13); PLATELET COUNT 255 10^3/uL (150-450); RED BLOOD COUNT 4.07 10^6/uL (3.72-5.28); RED CELL DISTRIBUTION WIDTH 13.3 % (11.5-14.0); SEGMENTED NEUTROPHILS % (AUTO) 62.1 % (42-78); TOTAL CELLS COUNTED % (AUTO) 100 %; WHITE BLOOD COUNT 4.5 10^3/uL (4.0-10.5)
--- NOTE | 2020-05-04 23:58 | RADIOLOGY REPORT (SQ) ---
EXAM DESCRIPTION: XR CHEST 1 VIEW COMPLETED DATE/TME: 05/04/2020 23:16 CLINICAL HISTORY: 19 years Female, fever COMPARISON: 03/27/20 NUMBER OF VIEWS/TECHNIQUE: 1/AP FINDINGS: Clear lung feliciano. Normal cardiac silhouette size. No pneumothorax. Stable bony thorax.Adequate appearing left subclavian central line. Cardiac/mediastinal hardware/clips/artifact. IMPRESSION: Interval line/tube modification.
[2020-05-04 23:59] LABS: HEMOGLOBIN 12.3 g/dL (12.0-15.5)
[2020-05-05 00:46] LABS: ALBUMIN 3.9 g/dL (3.5-5.0); ALKALINE PHOSPHATASE 199 U/L (38-126); ANION GAP 9 (5-19); ASPARTATE AMINO TRANSFERASE 55 U/L (14-36); BILIRUBIN,TOTAL 0.5 mg/dL (0.2-1.3); BLOOD UREA NITROGEN 11 mg/dL (7-20); CALCIUM 8.6 mg/dL (8.4-10.2); CARBON DIOXIDE 26 mmol/L (22-30); CHLORIDE 103 mmol/L (98-107); GLUCOSE 98 mg/dL (75-110); POTASSIUM 4.2 mmol/L (3.6-5.0); TOTAL PROTEIN 7.8 g/dL (6.3-8.2)
[2020-05-05 00:54] LABS: APPEARANCE,URINE SLIGHTLY-CLOUDY; BILIRUBIN,URINE NEGATIVE (NEGATIVE); COLOR,URINE YELLOW; GLUCOSE, URINE NEGATIVE (NEGATIVE); KETONES,URINE NEGATIVE (NEGATIVE); LEUKOCYTE ESTERASE,URINE NEGATIVE (NEGATIVE); NITRITE,URINE NEGATIVE (NEGATIVE); PROTEIN,URINE NEGATIVE (NEGATIVE); URINE SPECIFIC GRAVITY 1.021; UROBILINOGEN,URINE NEGATIVE mg/dL (<2.0)
[2020-05-05] MEDS ORDERED: MAGNESIUM HYDROXIDE SUSP 30 ML UDCUP JT PRN (02:26)
[2020-05-05] MEDS ORDERED: LEVALBUTEROL HCL NEB 1.25 MG/3 ML AMPUL NEB PRN (02:26)
[2020-05-05] MEDS ORDERED: ACETAMINOPHEN 325 MG TABLET JT PRN (02:33)
[2020-05-05] MEDS ORDERED: LORAZEPAM INJ 2 MG/1 ML VIAL IV PRN (02:33)
[2020-05-05] MEDS: HYDROMORPHONE HCL INJ/PF 2 MG/ML AMPULE IV PRN ×6 (03:05→23:18)
--- NOTE | 2020-05-05 05:51 | PDOC H&P ---
History of Present Illness Admission Date/PCP: 05/05/20 01:46 RAE ALCARAZ NP Patient complains of: Fever History of Present Illness: SHANI WALLACE is a 19 year old female who presented to the emergency room with an acute fever. She admits developing a fever, with chills, earlier in the day on 05/04/2020 with her temperature being as high as 102.5 F at home. Her fever has been accompanied by nausea and associated with generalized moderate to severe achy pain in her chest, neck and back. She expresses her belief that she is developing an infection around her jejunostomy tube site and this is the source of her fever, also she has a new IV access that she thinks may be infected. She denies other associated or accompanying signs and symptoms. She admits prior similar episodes, often associated with intravenous or GI access sites. She denies identification of any aggravating or ameliorating factors for her fever. She is noted to be on chronic TPN at home. In the emergency room she was found to have a temperature of 101 F and an essentially unremarkable evaluation with the exception of a modestly elevated serum lipase. Past Medical History Cardiac Medical History: Denies: Coronary Artery Disease, Myocardial Infarction, Hypertension Pulmonary Medical History: Reports: Asthma - Childhood asthma, Pneumonia Denies: Bronchitis, Chronic Obstructive Pulmonary Disease (COPD) EENT Medical History: Denies: Cataracts, Ears - Hearing aids Neurological Medical History: Denies: Multiple Sclerosis, Seizures Endocrine Medical History: Reports: Hypothyroidism - Carolyn's Denies: Diabetes Mellitus Type 1, Hyperthyroidism, Obesity Renal/ Medical History: Denies: Chronic Kidney Disease, Nephrolithiasis Malignancy Medical History: Reports: None GI Medical History: Reports: Crohn's Disease, Gastroesophageal Reflux Disease Denies: Cirrhosis, Hepatitis, Peptic Ulcer Disease, Ulcerative Colitis Musculoskeltal Medical History: 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 Denies: Gout Skin Medical History: Denies: Eczema, Psoriasis Psychiatric Medical History: Denies: Alcohol Dependency, Depression, Substance Abuse, Tobacco Dependency Traumatic Medical History: Reports: None Hematology: 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 Denies: Bleeding Tendencies Infectious Medical History: Reports: Clostridium Difficile, Other Infectious History Note: Patient had COVID-19 in March and has re-tested negative with the health department. Past Surgical History Past Surgical History: Reports: Cholecystectomy, Vascular Surgery - Numerous central venous access line placements, Other - G-tube and J-tube placement for gastroparesis Social History Information Source: Patient Lives with: Family Smoking Status: Never Smoker Electronic Cigarette use?: No Frequency of Alcohol Use: None Hx Recreational Drug Use: No Drugs: None Hx Prescription Drug Abuse: No - Advance Directive Resuscitation Status: Full Code Surrogate healthcare decision maker:: Shani Wallace (mother) Family History Family History: Hypertension, Other - Colonic polyposis Parental Family History Reviewed: Yes Children Family History Reviewed: No Sibling(s) Family History Reviewed.: Yes Medication/Allergy Home Medications: Dicyclomine HCl 20 ml GT BIDP PRN 02/13/19 Promethazine HCl [Phenergan 6.25 mg/5 ml Syrup] 40 mg JT Q6HP PRN 09/15/19 Sodium/Pot/Mag/Calc/Chlor/Acet [TPN Electrolytes II IV Soln] 20 ml IV ASDIR PRN 09/15/19 Tramadol HCl [Ultram] 50 mg PO BIDP PRN 01/30/20 Cetirizine HCl 10 ml GT DAILY 04/18/20 Diphenhydramine HCl [Benadryl Inj 50 mg/1 ml Vial] 25 mg IV BID 04/18/20 Hyoscyamine Sulfate 0.125 mg SL TIDP PRN 04/18/20 Lansoprazole [Prevacid 30 mg Odt Tablet] 30 mg PO BID 04/18/20 Levothyroxine Sodium [Tirosint-Kaelyn] 50 mcg PO DAILY 04/18/20 Mupirocin [Bactroban 2% Ointment 22 gm] 1 applic TP TID 04/18/20 Nystatin [Nystop] 1 applic TP TID 04/18/20 Ondansetron [Zofran Odt 4 mg Tablet] 4 mg SL Q8HP PRN 04/18/20 Sucralfate [Carafate Susp 1 gm/10 ml Udcup] 1 gm PO TID 04/18/20 Ascorbic Acid [Vitamin C 500 mg Tablet] 2,000 mg PO DAILY 10 Days 05/01/20 Oxycodone HCl/Acetaminophen [Percocet 5-325 mg Tablet] 1 - 2 tab PO Q6HP PRN #15 tablet 05/01/20 Zinc Sulfate [Zinc-220 Capsule] 220 mg PO DAILY #10 capsule 05/01/20 Allergies/Adverse Reactions: cefoxitin Allergy (Verified 04/17/20 21:42) chlorhexidine [Chlorhexidine] Allergy (Verified 04/17/20 21:42) Urticaria erythromycin base Allergy (Verified 04/17/20 21:42) lactose [Lactose] Allergy (Verified 04/17/20 21:42) Urticaria lactulose Allergy (Verified 04/17/20 21:42) melatonin Allergy (Verified 04/17/20 21:42) metoclopramide Allergy (Verified 04/17/20 21:42) adhesive Adverse Reaction (Intermediate, Verified 04/17/20 21:42) morphine Adverse Reaction (Verified 04/17/20 21:42) vancomycin [Vancomycin] Adverse Reaction (Verified 04/17/20 21:42) Amy Syndrome silk tape Allergy (Uncoded 09/15/19 02:10) Review of Systems Constitutional: PRESENT: as per HPI, chills, fever(s) Eyes: ABSENT: visual disturbances, other - Eye pain Ears: ABSENT: hearing changes, other - Ear pain Nose, Mouth, and Throat: ABSENT: headache(s), sore throat Cardiovascular: PRESENT: as per HPI, chest pain. ABSENT: palpitations Respiratory: ABSENT: cough, dyspnea Gastrointestinal: PRESENT: nausea. ABSENT: abdominal pain, constipation, diarrhea, vomiting Genitourinary: ABSENT: dysuria, hematuria Musculoskeletal: PRESENT: as per HPI, back pain, other - Generalized achiness of the chest, back and neck. Integumentary: ABSENT: pruritus, rash Neurological: ABSENT: confusion, convulsions, focal weakness, memory loss, syncope Psychiatric: ABSENT: anxiety, depression Endocrine: ABSENT: cold intolerance, heat intolerance Hematologic/Lymphatic: ABSENT: easy bleeding, easy bruising Allergic/Immunologic: ABSENT: seasonal rhinorrhea Physical Exam Vital Signs: Temp Pulse Resp BP Pulse Ox 101 F H 119 H 24 H 122/77 97 05/04/20 22:20 05/04/20 22:20 05/04/20 22:20 05/04/20 22:20 05/04/20 22:20 Intake & Output 05/03/20 05/04/20 05/05/20 23:59 23:59 23:59 Intake Total 200 Balance 200 Weight 53.07 kg General appearance: PRESENT: no acute distress, other - Passive-aggressive Head exam: PRESENT: atraumatic, normocephalic Eye exam: PRESENT: conjunctiva pink. ABSENT: conjunctival injection, scleral icterus Ear exam: PRESENT: normal external ear exam. ABSENT: bleeding, drainage Mouth exam: PRESENT: dry mucosa, neck supple Neck exam: ABSENT: thyromegaly, tracheal deviation Respiratory exam: PRESENT: clear to auscultation martine, symmetrical, unlabored Cardiovascular exam: PRESENT: RRR. ABSENT: clicks, gallop, rubs Pulses: PRESENT: normal radial pulses, normal dorsalis pedis pul Vascular exam: PRESENT: normal capillary refill. ABSENT: pallor GI/Abdominal exam: PRESENT: normal bowel sounds, soft, tenderness - Mild generalized tenderness with minimal palpation, dramatically tender in the area of her jejunostomy tube insertion. Rectal exam: PRESENT: deferred Extremities exam: ABSENT: joint swelling, pedal edema Musculoskeletal exam: ABSENT: deformity, dislocation Neurological exam: PRESENT: alert, oriented to person, oriented to place, oriented to time, oriented to situation, CN II-XII grossly intact. ABSENT: motor sensory deficit Psychiatric exam: PRESENT: appropriate affect, normal mood, other - Easily irritated, passive-aggressive Skin exam: PRESENT: dry, intact, warm. ABSENT: jaundice, rash, urticaria Results Laboratory Results: 05/04/20 23:17 05/05/20 00:02 05/04/20 05/04/20 05/04/20 23:17 23:17 23:17 WBC 4.5 RBC 4.07 Hgb 12.3 D Hct 35.8 L MCV 88 MCH 30.2 MCHC 34.3 RDW 13.3 Plt Count 255 Seg Neutrophils % 62.1 Sodium Cancelled Potassium Cancelled Chloride Cancelled Carbon Dioxide Cancelled Anion Gap Cancelled BUN Cancelled Creatinine Cancelled Est GFR ( Amer) Cancelled Est GFR (Non-Af Amer) Cancelled Glucose Cancelled Calcium Cancelled Magnesium Cancelled Total Bilirubin Cancelled AST Cancelled Alkaline Phosphatase Cancelled Total Protein Cancelled Albumin Cancelled Lipase Cancelled TSH Cancelled Urine Color Urine Appearance Urine pH Ur Specific Lester Urine Protein Urine Glucose (UA) Urine Ketones Urine Blood Urine Nitrite Ur Leukocyte Esterase Urine WBC (Auto) Urine RBC (Auto) 05/05/20 05/05/20 05/05/20 00:02 00:02 00:34 WBC RBC Hgb Hct MCV MCH MCHC RDW Plt Count Seg Neutrophils % Sodium 137.5 Potassium 4.2 Chloride 103 Carbon Dioxide 26 Anion Gap 9 BUN 11 Creatinine 0.73 Est GFR ( Amer) > 60 Est GFR (Non-Af Amer) Glucose 98 Calcium 8.6 Magnesium 1.7 Total Bilirubin 0.5 AST 55 H Alkaline Phosphatase 199 H Total Protein 7.8 Albumin 3.9 Lipase 538.5 H TSH 0.57 Urine Color YELLOW Urine Appearance SLIGHTLY-CLOUDY Urine pH 5.0 Ur Specific Lester 1.021 Urine Protein NEGATIVE Urine Glucose (UA) NEGATIVE Urine Ketones NEGATIVE Urine Blood NEGATIVE Urine Nitrite NEGATIVE Ur Leukocyte Esterase NEGATIVE Urine WBC (Auto) 0 Urine RBC (Auto) 1 Impressions: Chest X-Ray 05/04/20 23:16 IMPRESSION: Interval line/tube modification. Assessment and Plan - Diagnosis (1) Fever and chills Is this a current diagnosis for this admission?: Yes (2) Nausea Is this a current diagnosis for this admission?: Yes (3) Malaise Is this a current diagnosis for this admission?: Yes (4) Crohn's disease Qualifiers: Gastrointestinal tract location: unspecified location Digestive disease complication type: unspecified complication Qualified Code(s): K50.919 - Crohn's disease, unspecified, with unspecified complications Is this a current diagnosis for this admission?: Yes (5) Gastroparesis Is this a current diagnosis for this admission?: Yes - Plan Summary Summary: Patient will be admitted to the medical floor where she will receive routine supportive and symptomatic cares. Serial amylase and lipase levels will be obtained and if levels are climbing a CT scan of the abdomen pelvis would be appropriate to evaluate for possible acute pancreatitis. The patient was given an empiric dose of intravenous Diflucan in the emergency room. This will not be continued at this time. I have elected to await culture and sensitivity results prior to initiation of antibiotic therapy due to the patient's numerous antibiotic allergies and no obvious source of infection. If a fever greater than 101.5 F persists or evidence of a site of infection is found appropriate empiric antibiotic therapy can be initiated. Patient will use Dilaudid 0.5 to 2 mg IV every 3 hours as needed for pain. She will use Ativan 1 mg IV every 4 h ours as needed for anxiety or restlessness. She will be continued on total parenteral nutrition when her TPN feeding and administration information is available. She will be continued on her usual medications, as appropriate, as soon as her medication list has been verified and reconciled. - Time Time Spent with patient: Less than 15 minutes Medications reviewed and adjusted accordingly: Yes Anticipated discharge: Home - Inpatient Certification Based on my medical assessment, after consideration of the patient's comorbidities, presenting symptoms, or acuity I expect that the services needed warrant INPATIENT care.: Yes I certify that my determination is in accordance with my understanding of Medicare's requirements for reasonable and necessary INPATIENT services [42 CFR 412.3e].: Yes Medical Necessity: Significant Comorbidiites Make Outpatient Treatment Too Risky, Need Close Monitoring Due to Risk of Patient Decompensation, Need for Pain Control, Risk of Complication if Not Cared For in Hospital, Risk of Diagnosis Which Will Require Inpatient Eval/Care/Monitoring
[2020-05-05] MEDS: PROMETHAZINE HCL INJ 25 MG/1 ML VIAL IV PRN ×4 (06:11→23:17)
[2020-05-05] MEDS: HEPARIN SOD (PORCINE) 5,000 UNIT/ML 1 ML VIAL SUBCUT SCH ×3 (06:12→22:06)
[2020-05-05 07:45] LABS: APPEARANCE,URINE SLIGHTLY-CLOUDY; BILIRUBIN,URINE NEGATIVE (NEGATIVE); COLOR,URINE YELLOW; GLUCOSE, URINE NEGATIVE (NEGATIVE); KETONES,URINE 20 mg/dL (NEGATIVE); PROTEIN,URINE NEGATIVE (NEGATIVE); URINE SPECIFIC GRAVITY 1.019; UROBILINOGEN,URINE NEGATIVE mg/dL (<2.0)
[2020-05-05] MEDS: FAMOTIDINE INJ/PF 20 MG/2 ML SDV IV SCH ×2 (10:13→22:07)
[2020-05-05] MEDS: DOCUSATE SODIUM 100 MG/10 ML UDC JT SCH ×2 (10:20→17:45)
[2020-05-05] MEDS: DEXTROSE 5%-LACTATED RINGERS 1,000 ML IV PRN (10:34)
--- NOTE | 2020-05-05 14:34 | EKG REPORT ---
SEVERITY:- OTHERWISE NORMAL ECG - SINUS TACHYCARDIA : Confirmed by: Guero Lees MD 05-May-2020 14:33:26
[2020-05-06] MEDS: DEXTROSE 5%-LACTATED RINGERS 1,000 ML IV PRN (03:24)
[2020-05-06] MEDS: HYDROMORPHONE HCL INJ/PF 2 MG/ML AMPULE IV PRN ×4 (04:29→20:11)
[2020-05-06] MEDS: PROMETHAZINE HCL INJ 25 MG/1 ML VIAL IV PRN ×4 (04:29→20:11)
[2020-05-06] MEDS: HEPARIN SOD (PORCINE) 5,000 UNIT/ML 1 ML VIAL SUBCUT SCH ×3 (05:08→21:10)
[2020-05-06 05:50] LABS: ALBUMIN 3.4 g/dL (3.5-5.0); ALKALINE PHOSPHATASE 152 U/L (38-126); AMYLASE 176 U/L (30-110); ANION GAP 5 (5-19); ASPARTATE AMINO TRANSFERASE 45 U/L (14-36); BILIRUBIN,TOTAL 0.3 mg/dL (0.2-1.3); BLOOD UREA NITROGEN 4 mg/dL (7-20); CALCIUM 8.6 mg/dL (8.4-10.2); GLUCOSE 92 mg/dL (75-110); POTASSIUM 3.8 mmol/L (3.6-5.0); TOTAL PROTEIN 6.9 g/dL (6.3-8.2)
[2020-05-06 05:55] LABS: CARBON DIOXIDE 30 mmol/L (22-30); CHLORIDE 102 mmol/L (98-107)
[2020-05-06 06:23] LABS: HEMATOCRIT 27.2 % (36.0-47.0); MEAN CORPUSCULAR HEMOGLOBIN 30.1 pg (27.0-33.4); MEAN CORPUSCULAR HGB CONC 34.7 g/dL (32.0-36.0); MEAN CORPUSCULAR VOLUME 87 fl (80-97); PLATELET COUNT 169 10^3/uL (150-450); RED BLOOD COUNT 3.14 10^6/uL (3.72-5.28); RED CELL DISTRIBUTION WIDTH 12.7 % (11.5-14.0); WHITE BLOOD COUNT 4.7 10^3/uL (4.0-10.5)
[2020-05-06 06:27] LABS: HEMOGLOBIN 9.5 g/dL (12.0-15.5)
[2020-05-06] MEDS ORDERED: NAFCILLIN SODIUM INJ 2 GM VIAL IV SCH (07:45)
[2020-05-06] MEDS ORDERED: NAFCILLIN SODIUM 2 GM in DEXTROSE 5%-WATER 100 ML IV SCH (09:00)
[2020-05-06] MEDS: DOCUSATE SODIUM 100 MG/10 ML UDC JT SCH ×2 (09:09→19:52)
[2020-05-06] MEDS: CEFTRIAXONE 2 GM/D5W RTU 2 GM/50 ML RTUPB IV SCH (09:21)
[2020-05-06] MEDS: FAMOTIDINE INJ/PF 20 MG/2 ML SDV IV SCH ×2 (09:22→21:57)
[2020-05-06] MEDS ORDERED: FLUCONAZOLE 400 MG/NS RTU 400 MG/200 ML RTUPB IV SCH (10:00)
--- NOTE | 2020-05-06 11:21 | PDOC PROGRESS REPORT ---
Subjective Progress Note for:: 05/06/20 Subjective:: Patient still having some abdominal pain today. Requiring pain medications. She has some oozing from her J-tube site which is loose. Denies any chills. Did have fever earlier today. Blood cultures are now positive. Reason For Visit: FEVER AND CHILLS,NAUSEA,MALAISE Physical Exam Vital Signs: Temp Pulse Resp BP Pulse Ox 98.2 F 74 16 102/54 L 100 05/06/20 04:00 05/06/20 04:00 05/06/20 04:00 05/06/20 04:00 05/06/20 04:00 Intake & Output 05/05/20 05/06/20 05/07/20 06:59 06:59 06:59 Intake Total 200 1450 Output Total 600 Balance 200 850 Weight 58.7 kg 58 kg General appearance: PRESENT: no acute distress, hard of hearing Respiratory exam: ABSENT: tachypnea Cardiovascular exam: PRESENT: RRR. ABSENT: bradycardia, irregular rhythm, tachycardia Neurological exam: PRESENT: alert, awake Psychiatric exam: ABSENT: agitated Focused psych exam: ABSENT: pressured speech Skin exam: ABSENT: jaundice Additional comments: Exam done today via phone&tele given risk of provider exposure to infectious pathogen Results Laboratory Results: 05/06/20 06:05 05/06/20 05:00 05/06/20 05/06/20 05/06/20 05:00 05:00 06:05 WBC Cancelled 4.7 RBC Cancelled 3.14 L Hgb Cancelled 9.5 L D Hct Cancelled 27.2 L MCV Cancelled 87 MCH Cancelled 30.1 MCHC Cancelled 34.7 RDW Cancelled 12.7 Plt Count Cancelled 169 Sodium 137.2 Potassium 3.8 Chloride 102 Carbon Dioxide 30 Anion Gap 5 BUN 4 L Creatinine 0.68 Est GFR ( Amer) > 60 Glucose 92 Calcium 8.6 Magnesium 1.6 Total Bilirubin 0.3 AST 45 H Alkaline Phosphatase 152 H Total Protein 6.9 Albumin 3.4 L Amylase 176 H Lipase 694.6 H 05/05/20 16:51 Blood Blood Culture (PCR) - Final Staphylococcus Species 05/05/20 00:02 Blood Blood Culture (PCR) - Final Staphylococcus Species Impressions: Chest X-Ray 05/04/20 23:16 IMPRESSION: Interval line/tube modification. Assessment and Plan - Diagnosis (1) Coag negative Staphylococcus bacteremia Is this a current diagnosis for this admission?: Yes (2) COVID-19 in immunocompromised patient Is this a current diagnosis for this admission?: Yes (3) Jejunostomy tube leak Is this a current diagnosis for this admission?: Yes (4) Crohn's disease Qualifiers: Gastrointestinal tract location: unspecified location Digestive disease complication type: unspecified complication Qualified Code(s): K50.919 - Crohn's disease, unspecified, with unspecified complications Is this a current diagnosis for this admission?: Yes (5) Fever and chills Is this a current diagnosis for this admission?: Yes (6) Gastroparesis Is this a current diagnosis for this admission?: Yes (7) On total parenteral nutrition Is this a current diagnosis for this admission?: Yes - Plan Summary Summary: 05/06/2020 Patient's blood cultures have become positive for coagulase-negative Staphylococcus. Suspected sites of infection include loose J-tube or possibly from around the site of the Luna catheter placement. Given that this coagulase-negative staph, central venous catheter removal is not indicated and I will administer ceftriaxone IV 2 g daily via Luna catheter to complete a 14-day duration. We will await sensitivities of blood culture. We will repeat blood cultures after 2 days of IV antibiotics. I have asked surgery to evaluate loose J-tube which is having some drainage There is no purulence around the site of the Luna catheter. Dietitian will be consulted and TPN will be initiated Pain control as needed Patient's candidal infection from the prior admission seems to have completely resolved at this point. I will discontinue antifungals. - Time Time Spent with patient: Less than 15 minutes
--- NOTE | 2020-05-06 11:50 | PDOC CONSULTATION ---
Consultation Consult Date: 05/06/20 Provider Consulted: ELAINE YOUNG Consult reason:: oosing around jejunostomy tube History of Present Illness Admission Date/PCP: 05/05/20 01:46 RAE ALCARAZ NP History of Present Illness: GOLDY WALLACE is a 19 year old female admitted for fever noted to have some oozing around the jejunostomy tube. The she had a jejunostomy and gastrostomy tube placed for gastroparesis. These were placed several months ago. Past Medical History Cardiac Medical History: Denies: Coronary Artery Disease, Myocardial Infarction, Hypertension Pulmonary Medical History: Reports: Asthma - Childhood asthma, Pneumonia Denies: Bronchitis, Chronic Obstructive Pulmonary Disease (COPD) EENT Medical History: Denies: Cataracts, Ears - Hearing aids Neurological Medical History: Denies: Multiple Sclerosis, Seizures Endocrine Medical History: Reports: Hypothyroidism - Carolyn's Denies: Diabetes Mellitus Type 1, Hyperthyroidism, Obesity Renal/ Medical History: Denies: Chronic Kidney Disease, Nephrolithiasis Malignancy Medical History: Reports: None GI Medical History: Reports: Crohn's Disease, Gastroesophageal Reflux Disease Denies: Cirrhosis, Hepatitis, Peptic Ulcer Disease, Ulcerative Colitis Musculoskeltal Medical History: 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 Denies: Gout Skin Medical History: Denies: Eczema, Psoriasis Psychiatric Medical History: Denies: Alcohol Dependency, Depression, Substance Abuse, Tobacco Dependency Traumatic Medical History: Reports: None Hematology: 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 Denies: Bleeding Tendencies Infectious Medical History: Reports: Clostridium Difficile, Other Past Surgical History Past Surgical History: Reports: Cholecystectomy, Vascular Surgery - Numerous central venous access line placements, Other - G-tube and J-tube placement for gastroparesis Social History Lives with: Family Smoking Status: Never Smoker Electronic Cigarette use?: No Frequency of Alcohol Use: None Hx Recreational Drug Use: No Drugs: None Hx Prescription Drug Abuse: No - Advance Directive Resuscitation Status: Full Code Family History Family History: Hypertension, Other - Colonic polyposis Parental Family History Reviewed: Yes Children Family History Reviewed: No Sibling(s) Family History Reviewed.: No Medication/Allergy Home Medications: Dicyclomine HCl 20 ml GT BIDP PRN 02/13/19 Promethazine HCl [Phenergan 6.25 mg/5 ml Syrup] 40 mg JT Q6HP PRN 09/15/19 Sodium/Pot/Mag/Calc/Chlor/Acet [TPN Electrolytes II IV Soln] 20 ml IV ASDIR PRN 09/15/19 Tramadol HCl [Ultram] 50 mg PO BIDP PRN 01/30/20 Cetirizine HCl 10 ml GT DAILY 04/18/20 Diphenhydramine HCl [Benadryl Inj 50 mg/1 ml Vial] 25 mg IV BID 04/18/20 Hyoscyamine Sulfate 0.125 mg SL TIDP PRN 04/18/20 Lansoprazole [Prevacid 30 mg Odt Tablet] 30 mg PO BID 04/18/20 Levothyroxine Sodium [Tirosint-Kaelyn] 50 mcg PO DAILY 04/18/20 Mupirocin [Bactroban 2% Ointment 22 gm] 1 applic TP TID 04/18/20 Nystatin [Nystop] 1 applic TP TID 04/18/20 Ondansetron [Zofran Odt 4 mg Tablet] 4 mg SL Q8HP PRN 04/18/20 Sucralfate [Carafate Susp 1 gm/10 ml Udcup] 1 gm PO TID 04/18/20 Ascorbic Acid [Vitamin C 500 mg Tablet] 2,000 mg PO DAILY 10 Days 05/01/20 Zinc Sulfate [Zinc-220 Capsule] 220 mg PO DAILY #10 capsule 05/01/20 Allergies/Adverse Reactions: cefoxitin Allergy (Verified 04/17/20 21:42) chlorhexidine [Chlorhexidine] Allergy (Verified 04/17/20 21:42) Urticaria erythromycin base Allergy (Verified 04/17/20 21:42) lactose [Lactose] Allergy (Verified 04/17/20 21:42) Urticaria lactulose Allergy (Verified 04/17/20 21:42) melatonin Allergy (Verified 04/17/20 21:42) metoclopramide Allergy (Verified 04/17/20 21:42) adhesive Adverse Reaction (Intermediate, Verified 04/17/20 21:42) morphine Adverse Reaction (Verified 04/17/20 21:42) vancomycin [Vancomycin] Adverse Reaction (Verified 04/17/20 21:42) Amy Syndrome silk tape Allergy (Uncoded 09/15/19 02:10) Review of Systems Constitutional: PRESENT: as per HPI Gastrointestinal: PRESENT: other - Mild abdominal pains. Oozing around jejunostomy tube primarily on the dressing Physical Exam Vital Signs: Temp Pulse Resp BP Pulse Ox 98.2 F 74 16 102/54 L 100 05/06/20 04:00 05/06/20 04:00 05/06/20 04:00 05/06/20 04:00 05/06/20 04:00 Intake & Output 05/05/20 05/06/20 05/07/20 06:59 06:59 06:59 Intake Total 200 1450 Output Total 600 Balance 200 850 Weight 58.7 kg 58 kg General appearance: PRESENT: no acute distress GI/Abdominal exam: PRESENT: other - Has hypertrophic granulation tissue around the J-tube with small amount of bloody drainage. J-tube itself appears to be functioning well. Results Laboratory Results: 05/06/20 06:05 05/06/20 05:00 05/06/20 05/06/20 05/06/20 05:00 05:00 06:05 WBC Cancelled 4.7 RBC Cancelled 3.14 L Hgb Cancelled 9.5 L D Hct Cancelled 27.2 L MCV Cancelled 87 MCH Cancelled 30.1 MCHC Cancelled 34.7 RDW Cancelled 12.7 Plt Count Cancelled 169 Sodium 137.2 Potassium 3.8 Chloride 102 Carbon Dioxide 30 Anion Gap 5 BUN 4 L Creatinine 0.68 Est GFR ( Amer) > 60 Glucose 92 Calcium 8.6 Magnesium 1.6 Total Bilirubin 0.3 AST 45 H Alkaline Phosphatase 152 H Total Protein 6.9 Albumin 3.4 L Amylase 176 H Lipase 694.6 H 05/05/20 16:51 Blood Blood Culture (PCR) - Final Staphylococcus Species 05/05/20 00:02 Blood Blood Culture (PCR) - Final Staphylococcus Species Impressions: Chest X-Ray 05/04/20 23:16 IMPRESSION: Interval line/tube modification. Assessment & Plan - Diagnosis (1) Hypertrophic granulation tissue around J Is this a current diagnosis for this admission?: Yes - Time Time Spent: 30 to 50 Minutes - Plan Summary Plan Summary: 19-year-old female post gastrostomy and J-tube placement for gastroparesis. Admitted yesterday for fever and noted to have oozing around the J-tube. Noted to have hypertrophic granulation tissue around the J-tube. J-tube itself appears to be functioning well. Impression is hypertrophic granulation tissue around the J-tube. The plan is to cauterize the granulation tissue with silver nitrate 3 times a day. Nurses were informed about this plan as well as the patient and and her mother. Surgery will sign off and call for any other questions.
[2020-05-06] MEDS: DEXTROSE 5%-NORMAL SALINE 1,000 ML IV PRN ×2 (15:19→21:57)
[2020-05-06] MEDS: SILVER NITRATE APPLICATOR 1 APPLIC STICK..EA. 10/PACKAGE TOP SCH ×3 (15:29→20:13)
--- NOTE | 2020-05-07 00:19 | CDI QUERY ---
CDI Query CDI Review: We are seeking further clarification of documentation to reflect the severity of illness of your patient. Per Surgical Consult Note: admitted for fever noted to have some oozing around the jejunostomy tube. Hypertrophic granulation tissue around the J-tube Per Progress Note: 05/05/20 16:51 Blood Blood Culture (PCR) - Final Staphylococcus Species 05/05/20 00:02 Blood Blood Culture (PCR) - Final Staphylococcus Species Coag negative Staphylococcus bacteremia COVID-19 in immunocompromised patient Vitals from H&P Notes: 05/04/20 22:20 Temp Pulse Resp BP Pulse Ox 101 F H 119 H 24 H 122/77 97 Based on your medical judgement, can you further clarify in the Progress Notes Sepsis due to Jejunostomy tube Sepsis due to COVID-19 in immunocompromised patient Sepsis due to unknown cause Sepsis ruled out Unable to determine Thank you for your consideration. GREG SalmeronN RN [employer] Supervisor Physician Advisor
[2020-05-07] MEDS: HYDROMORPHONE HCL INJ/PF 2 MG/ML AMPULE IV PRN ×5 (01:45→21:24)
[2020-05-07] MEDS: PROMETHAZINE HCL INJ 25 MG/1 ML VIAL IV PRN ×5 (01:45→21:24)
[2020-05-07 05:30] LABS: HEMATOCRIT 26.8 % (36.0-47.0); HEMOGLOBIN 9.5 g/dL (12.0-15.5); MEAN CORPUSCULAR HEMOGLOBIN 30.5 pg (27.0-33.4); MEAN CORPUSCULAR HGB CONC 35.3 g/dL (32.0-36.0); MEAN CORPUSCULAR VOLUME 87 fl (80-97); PLATELET COUNT 179 10^3/uL (150-450); RED CELL DISTRIBUTION WIDTH 12.6 % (11.5-14.0); WHITE BLOOD COUNT 4.8 10^3/uL (4.0-10.5)
[2020-05-07] MEDS: HEPARIN SOD (PORCINE) 5,000 UNIT/ML 1 ML VIAL SUBCUT SCH ×3 (06:10→21:25)
[2020-05-07] MEDS: FAMOTIDINE INJ/PF 20 MG/2 ML SDV IV SCH ×2 (10:37→21:25)
[2020-05-07] MEDS: CEFTRIAXONE 2 GM/D5W RTU 2 GM/50 ML RTUPB IV SCH (10:54)
[2020-05-07] MEDS: SILVER NITRATE APPLICATOR 1 APPLIC STICK..EA. 10/PACKAGE TOP SCH ×3 (10:56→18:33)
[2020-05-07] MEDS: DOCUSATE SODIUM 100 MG/10 ML UDC JT SCH ×2 (10:56→18:34)
--- NOTE | 2020-05-07 17:53 | PDOC PROGRESS REPORT ---
Subjective Progress Note for:: 05/07/20 Subjective:: Patient still c/o abdominal pain. Reason For Visit: FEVER AND CHILLS,NAUSEA,MALAISE Physical Exam Vital Signs: Temp Pulse Resp BP Pulse Ox 98.6 F 81 17 101/59 L 96 05/07/20 11:23 05/07/20 11:23 05/07/20 11:23 05/07/20 11:23 05/07/20 11:23 Intake & Output 05/06/20 05/07/20 05/08/20 06:59 06:59 06:59 Intake Total 1450 713 Output Total 600 Balance 850 713 Weight 58 kg 58.2 kg General appearance: PRESENT: cooperative Respiratory exam: ABSENT: tachypnea Cardiovascular exam: PRESENT: RRR. ABSENT: irregular rhythm, tachycardia Neurological exam: PRESENT: alert, awake, oriented to person, oriented to place, oriented to time, oriented to situation Additional comments: in person physical exam deferred given risk of exposure to infectious pathogen. Assessment done via phone and with tele monitor. Results Laboratory Results: 05/07/20 04:50 05/06/20 05:00 05/07/20 05/07/20 04:50 04:50 WBC 4.8 RBC 3.10 L Hgb 9.5 L Hct 26.8 L MCV 87 MCH 30.5 MCHC 35.3 RDW 12.6 Plt Count 179 Amylase 192 H Lipase 671.3 H 05/05/20 00:02 Blood Blood Culture (PCR) - Final Staphylococcus Species 05/05/20 16:53 Blood Blood Culture (PCR) - Final Staphylococcus Species 05/05/20 16:51 Blood Blood Culture (PCR) - Final Staphylococcus Species Impressions: Chest X-Ray 05/04/20 23:16 IMPRESSION: Interval line/tube modification. Assessment and Plan - Diagnosis (1) Coag negative Staphylococcus bacteremia Is this a current diagnosis for this admission?: Yes (2) COVID-19 in immunocompromised patient Is this a current diagnosis for this admission?: Yes (3) Jejunostomy tube leak Is this a current diagnosis for this admission?: Yes (4) Crohn's disease Qualifiers: Gastrointestinal tract location: unspecified location Digestive disease complication type: unspecified complication Qualified Code(s): K50.919 - C rohn's disease, unspecified, with unspecified complications Is this a current diagnosis for this admission?: Yes (5) Fever and chills Is this a current diagnosis for this admission?: Yes (6) Gastroparesis Is this a current diagnosis for this admission?: Yes (7) On total parenteral nutrition Is this a current diagnosis for this admission?: Yes - Plan Summary Summary: 05/06/2020 Patient's blood cultures have become positive for coagulase-negative Staphylococcus. Suspected sites of infection include loose J-tube or possibly from around the site of the Luna catheter placement. Given that this coagulase-negative staph, central venous catheter removal is not indicated and I will administer ceftriaxone IV 2 g daily via Luna catheter to complete a 14-day duration. We will await sensitivities of blood culture. We will repeat blood cultures after 2 days of IV antibiotics. I have asked surgery to evaluate loose J-tube which is having some drainage There is no purulence around the site of the Luna catheter. Dietitian will be consulted and TPN will be initiated Pain control as needed Patient's candidal infection from the prior admission seems to have completely resolved at this point. I will discontinue antifungals. 05/07/2020 Continue ceftriaxone 2 g daily. Order placed for discharge planning to set patient up for outpatient therapy. Patient will require about 14 days of therapy. I have sent repeat blood cultures this afternoon. If negative at 24-hour nick, will likely discharge. Luna cath already in place. Continue COVID isolation Surgery has evaluated patient's leaky J-tube and notes hypertrophic granulation tissue around J-tube but G-tube is functioning well. Has recommended chemical cauterization with silver nitrate. Incentive spirometer Ambulation within room encouraged - Time Time Spent with patient: Less than 15 minutes
[2020-05-07] MEDS: DEXTROSE 5%-NORMAL SALINE 1,000 ML IV PRN (21:24)
[2020-05-08] MEDS: PROMETHAZINE HCL INJ 25 MG/1 ML VIAL IV PRN ×3 (02:44→13:03)
[2020-05-08] MEDS: HYDROMORPHONE HCL INJ/PF 2 MG/ML AMPULE IV PRN ×3 (02:44→13:05)
[2020-05-08] MEDS: HEPARIN SOD (PORCINE) 5,000 UNIT/ML 1 ML VIAL SUBCUT SCH ×2 (05:16→13:02)
[2020-05-08] MEDS: DEXTROSE 5%-NORMAL SALINE 1,000 ML IV PRN (08:14)
[2020-05-08] MEDS: DOCUSATE SODIUM 100 MG/10 ML UDC JT SCH ×2 (09:32→17:15)
[2020-05-08] MEDS: FAMOTIDINE INJ/PF 20 MG/2 ML SDV IV SCH (10:00)
[2020-05-08] MEDS: CEFTRIAXONE 2 GM/D5W RTU 2 GM/50 ML RTUPB IV SCH (10:00)
[2020-05-08] MEDS: SILVER NITRATE APPLICATOR 1 APPLIC STICK..EA. 10/PACKAGE TOP SCH ×3 (10:01→17:15)
[2020-05-08] MEDS ORDERED: DIPHENHYDRAMINE HCL 50 MG/ML VIAL IV ONE (10:15)
--- NOTE | 2020-05-08 16:52 | PDOC DISCHARGE SUMMARY ---
Impression - Admit/DC Date/PCP Admission Date/Primary Care Provider: 05/05/20 01:46 RAE ALCARAZ NP Discharge Date: 05/08/20 - Discharge Diagnosis (1) Coag negative Staphylococcus bacteremia Is this a current diagnosis for this admission?: Yes (2) COVID-19 in immunocompromised patient Is this a current diagnosis for this admission?: Yes (3) Jejunostomy tube leak Is this a current diagnosis for this admission?: Yes (4) Crohn's disease Is this a current diagnosis for this admission?: Yes (5) Fever and chills Is this a current diagnosis for this admission?: Yes (6) Gastroparesis Is this a current diagnosis for this admission?: Yes (7) On total parenteral nutrition Is this a current diagnosis for this admission?: Yes - Assessment Summary: 05/06/2020 Patient's blood cultures have become positive for coagulase-negative Staphylococcus. Suspected sites of infection include loose J-tube or possibly from around the site of the Luna catheter placement. Given that this coagulase-negative staph, central venous catheter removal is not indicated and I will administer ceftriaxone IV 2 g daily via Luna catheter to complete a 14-day duration. We will await sensitivities of blood culture. We will repeat blood cultures after 2 days of IV antibiotics. I have asked surgery to evaluate loose J-tube which is having some drainage There is no purulence around the site of the Luna catheter. Dietitian will be consulted and TPN will be initiated Pain control as needed Patient's candidal infection from the prior admission seems to have completely resolved at this point. I will discontinue antifungals. 05/07/2020 Continue ceftriaxone 2 g daily. Order placed for discharge planning to set patient up for outpatient therapy. Patient will require about 14 days of therapy. I have sent repeat blood cultures this afternoon. If negative at 24-hour nick, will likely discharge. Luna cath already in place. Continue COVID isolation Surgery has evaluated patient's leaky J-tube and notes hypertrophic granulation tissue around J-tube but G-tube is functioning well. Has recommended chemical cauterization with silver nitrate. Incentive spirometer Ambulation within room encouraged - Additional Information Resuscitation Status: Full Code Discharge Diet: Other (Comments) - TPN Referrals: MARILIN NIÑO MD [EMERITUS] - Follow up as needed Home Medications: Dicyclomine HCl 20 ml GT BIDP PRN 02/13/19 Promethazine HCl [Phenergan 6.25 mg/5 ml Syrup] 40 mg JT Q6HP PRN 09/15/19 Sodium/Pot/Mag/Calc/Chlor/Acet [TPN Electrolytes II IV Soln] 20 ml IV ASDIR PRN 09/15/19 Tramadol HCl [Ultram] 50 mg PO BIDP PRN 01/30/20 Cetirizine HCl 10 ml GT DAILY 04/18/20 Diphenhydramine HCl [Benadryl Inj 50 mg/1 ml Vial] 25 mg IV BID 04/18/20 Hyoscyamine Sulfate 0.125 mg SL TIDP PRN 04/18/20 Lansoprazole [Prevacid 30 mg Odt Tablet] 30 mg PO BID 04/18/20 Levothyroxine Sodium [Tirosint-Kaelyn] 50 mcg PO DAILY 04/18/20 Mupirocin [Bactroban 2% Ointment 22 gm] 1 applic TP TID 04/18/20 Nystatin [Nystop] 1 applic TP TID 04/18/20 Ondansetron [Zofran Odt 4 mg Tablet] 4 mg SL Q8HP PRN 04/18/20 Sucralfate [Carafate Susp 1 gm/10 ml Udcup] 1 gm PO TID 04/18/20 Ascorbic Acid [Vitamin C 500 mg Tablet] 2,000 mg PO DAILY 10 Days 05/01/20 Zinc Sulfate [Zinc-220 Capsule] 220 mg PO DAILY #10 capsule 05/01/20 History of Present Illiness History of Present Illness: According to admitting provider: GOLDY WALLACE is a 19 year old female who presented to the emergency room with an acute fever. She admits developing a fever, with chills, earlier in the day on 05/04/2020 with her temperature being as high as 102.5 F at home. Her fever has been accompanied by nausea and associated with generalized moderate to severe achy pain in her chest, neck and back. She expresses her belief that she is developing an infection around her jejunostomy tube site and this is the source of her fever, also she has a new IV access that she thinks may be infected. She denies other associated or accompanying signs and symptoms. She admits prior similar episodes, often associated with intravenous or GI access sites. She denies identification of any aggravating or ameliorating factors for her fever. She is noted to be on chronic TPN at home. In the emergency room she was found to have a temperature of 101 F and an essentially unremarkable evaluation with the exception of a modestly elevated serum lipase. Hospital Course Hospital Course: 05/06/2020 Patient's blood cultures have become positive for coagulase-negative Staphylo coccus. Suspected sites of infection include loose J-tube or possibly from around the site of the Luna catheter placement. Given that this coagulase-negative staph, central venous catheter removal is not indicated and I will administer ceftriaxone IV 2 g daily via Luna catheter to complete a 14-day duration. We will await sensitivities of blood culture. We will repeat blood cultures after 2 days of IV antibiotics. I have asked surgery to evaluate loose J-tube which is having some drainage There is no purulence around the site of the Luna catheter. Dietitian will be consulted and TPN will be initiated Pain control as needed Patient's candidal infection from the prior admission seems to have completely resolved at this point. I will discontinue antifungals. 05/07/2020 Continue ceftriaxone 2 g daily. Order placed for discharge planning to set patient up for outpatient therapy. Patient will require about 14 days of therapy. I have sent repeat blood cultures this afternoon. If negative at 24-hour nick, will likely discharge. Luna cath already in place. Continue COVID isolation Surgery has evaluated patient's leaky J-tube and notes hypertrophic granulation tissue around J-tube but G-tube is functioning well. Has recommended chemical cauterization with silver nitrate. Incentive spirometer Ambulation within room encouraged 05/08/2020 Patient blood culture is negative at the 24-hour nick. I will go ahead and discharge patient with plans for 14 days of antibiotic therapy. Ceftriaxone 2 g daily until May 22, 2020. I have coordinated with discharge planning who has set patient up for antibiotic therapy which will be delivered to patient's home today. Patient will also be giving TPN delivery as well today. Patient will be retested for COVID-19 to see if the infection has resolved and she will follow-up for results with medical records. Patient given prescription for silver nitrate to apply to the J tube site. Physical Exam Vital Signs: Temp Pulse Resp BP Pulse Ox 97.8 F 77 15 110/62 98 05/08/20 11:39 05/08/20 14:00 05/08/20 11:39 05/08/20 11:39 05/08/20 11:39 Intake & Output 05/07/20 05/08/20 05/09/20 06:59 06:59 06:59 Intake Total 713 1050 1050 Balance 713 1050 1050 Weight 58.2 kg 58.2 kg General appearance: PRESENT: no acute distress, cooperative Results Laboratory Results: WBC 4.8 10^3/uL (4.0-10.5) 05/07/20 04:50 RBC 3.10 10^6/uL (3.72-5.28) L 05/07/20 04:50 Hgb 9.5 g/dL (12.0-15.5) L 05/07/20 04:50 Hct 26.8 % (36.0-47.0) L 05/07/20 04:50 MCV 87 fl (80-97) 05/07/20 04:50 MCH 30.5 pg (27.0-33.4) 05/07/20 04:50 MCHC 35.3 g/dL (32.0-36.0) 05/07/20 04:50 RDW 12.6 % (11.5-14.0) 05/07/20 04:50 Plt Count 179 10^3/uL (150-450) 05/07/20 04:50 Lymph % (Auto) 21.6 % (13-45) 05/04/20 23:17 [place] % (Auto) 10.9 % (3-13) 05/04/20 23:17 Eos % (Auto) 5.0 % (0-6) 05/04/20 23:17 Baso % (Auto) 0.4 % (0-2) 05/04/20 23:17 Absolute Neuts (auto) 2.8 10^3/uL (1.7-8.2) 05/04/20 23:17 Absolute Lymphs (auto) 1.0 10^3/uL (0.5-4.7) 05/04/20 23:17 Absolute Monos (auto) 0.5 10^3/uL (0.1-1.4) 05/04/20 23:17 Absolute Eos (auto) 0.2 10^3/uL (0.0-0.6) 05/04/20 23:17 Absolute Basos (auto) 0.0 10^3/uL (0.0-0.2) 05/04/20 23:17 Seg Neutrophils % 62.1 % (42-78) 05/04/20 23:17 Platelet Estimate Cancelled 05/06/20 05:00 Sodium 137.2 mmol/L (137-145) 05/06/20 05:00 Potassium 3.8 mmol/L (3.6-5.0) 05/06/20 05:00 Chloride 102 mmol/L (98-107) 05/06/20 05:00 Carbon Dioxide 30 mmol/L (22-30) 05/06/20 05:00 Anion Gap 5 (5-19) 05/06/20 05:00 BUN 4 mg/dL (7-20) L 05/06/20 05:00 Creatinine 0.68 mg/dL (0.52-1.25) 05/06/20 05:00 Est GFR ( Amer) > 60 (>60) 05/06/20 05:00 Est GFR (Non-Af Amer) Cancelled 05/04/20 23:17 Est GFR (MDRD) Non-Af > 60 (>60) 05/06/20 05:00 Glucose 92 mg/dL (75-110) 05/06/20 05:00 Calcium 8.6 mg/dL (8.4-10.2) 05/06/20 05:00 Magnesium 1.6 mg/dL (1.6-2.3) 05/06/20 05:00 Total Bilirubin 0.3 mg/dL (0.2-1.3) 05/06/20 05:00 Direct Bilirubin 0.0 mg/dL (0.0-0.4) 05/06/20 05:00 Neonat Total Bilirubin Not Reportable 05/06/20 05:00 Neonat Direct Bilirubin Not Reportable 05/06/20 05:00 Neonat Indirect Bili Not Reportable 05/06/20 05:00 AST 45 U/L (14-36) H 05/06/20 05:00 ALT 28 U/L (<35) 05/06/20 05:00 Alkaline Phosphatase 152 U/L (38-126) H 05/06/20 05:00 Total Protein 6.9 g/dL (6.3-8.2) 05/06/20 05:00 Albumin 3.4 g/dL (3.5-5.0) L 05/06/20 05:00 Amylase 192 U/L (30-110) H 05/07/20 04:50 Lipase 671.3 U/L (23-300) H 05/07/20 04:50 EGFR Cancelled 05/04/20 23:17 TSH 0.57 uIU/mL (0.47-4.68) 05/05/20 00:02 Urine Color YELLOW 05/05/20 07:00 Urine Appearance SLIGHTLY-CLOUDY 05/05/20 07:00 Urine pH 5.0 (5.0-9.0) 05/05/20 07:00 Ur Specific [place] 1.019 05/05/20 07:00 Urine Protein NEGATIVE mg/dL (NEGATIVE) 05/05/20 07:00 Urine Glucose (UA) NEGATIVE mg/dL (NEGATIVE) 05/05/20 07:00 Urine Ketones 20 mg/dL (NEGATIVE) H 05/05/20 07:00 Urine Blood NEGATIVE (NEGATIVE) 05/05/20 07:00 Urine Nitrite NEGATIVE (NEGATIVE) 05/05/20 00:34 Urine Nitrite (Reflex) NEGATIVE (NEGATIVE) 05/05/20 07:00 Urine Bilirubin NEGATIVE (NEGATIVE) 05/05/20 07:00 Urine Urobilinogen NEGATIVE mg/dL (<2.0) 05/05/20 07:00 Ur Leukocyte Esterase NEGATIVE (NEGATIVE) 05/05/20 00:34 Leukocyte Esterase Rfl NEGATIVE (NEGATIVE) 05/05/20 07:00 Urine WBC (Auto) 0 /HPF 05/05/20 00:34 Urine RBC (Auto) 0 /HPF 05/05/20 07:00 Urine WBC (Reflex) 1 /HPF 05/05/20 07:00 Squamous Epi Cells Auto 3 /HPF 05/05/20 07:00 Urine Mucus (Auto) FEW /LPF 05/05/20 07:00 Urine Ascorbic Acid 40 (NEGATIVE) H 05/05/20 07:00 Urine HCG, Qual NEGATIVE (NEGATIVE) 05/05/20 00:34 Slides for Path Review Cancelled 05/06/20 05:00 Impressions: Chest X-Ray 05/04/20 23:16 IMPRESSION: Interval line/tube modification. Plan Time Spent: Less than 30 Minutes Stroke Is this a Stroke Patient?: No Acute Heart Failure - Is this a Heart Failure Patient?: No
[2020-05-08 16:56] VITALS: BP 103/47
== END 2020-05-08 18:25 | disposition home health service (06) | DRG 872 ==
LOC: ER 22:10 → EH 05-05 01:46 → 4S 05-05 02:35 → 3N 05-05 09:29
PROVIDERS: ADMIT Emergency Medicine; ATTEND Internal Medicine
DX: R78.81 Bacteremia (principal); K94.19 Other complications of enterostomy; K50.90 Crohn's disease, unspecified, without complications; D89.9 Disorder involving the immune mechanism, unspecified; Y83.2 Surgical operation with anastomosis, bypass or graft as the cause of abnormal reaction of the patient, or of later complication, without mention of misadventure at the time of the procedure; D64.89 Other specified anemias; E06.3 Autoimmune thyroiditis; K21.9 Gastro-esophageal reflux disease without esophagitis; B95.8 Unspecified staphylococcus as the cause of diseases classified elsewhere; K31.84 Gastroparesis; R50.9 Fever, unspecified; K63.89 Other specified diseases of intestine; Z88.6 Allergy status to analgesic agent; Z88.1 Allergy status to other antibiotic agents; Z88.3 Allergy status to other anti-infective agents; Z88.8 Allergy status to other drugs, medicaments and biological substances; Z91.048 Other nonmedicinal substance allergy status; Z79.899 Other long term (current) drug therapy
CPT/HCPCS: 36415; 71045; 80053; 81001; 81025; 82150; 83690; 83735; 84443; 85027; 87040; 87070; 87077; 87150; 87186; 93005; 93010; 96365; 99285; J0696; J1170; J1200; J1450; J1642; J1644; J2550; J3490; J7030; J7042; J7121; S0028

== ENCOUNTER 2020-05-17 14:50 | Inpatient (IN) | payer MEDICAID ==
--- NOTE | 2020-05-17 15:18 | ER Document Report ---
ED Medical Screen (RME) - General Chief Complaint: Abnormal Lab Results Stated Complaint: FAST HEART RATE,FEVER Time Seen by Provider: 05/17/20 15:13 Primary Care Provider: JENNIFER NIÑO MD [Primary Care Provider] - Follow up as needed Mode of Arrival: Ambulatory Information source: Patient, Parent Notes: Patient is a 1-year-old female was brought into emergency room by mom with complaint of elevated temperatures and recent history of positive blood cultures. Patient was released from the hospital a week ago this past Monday on 08 May she has had a central line in because she receives 24 hours a day TPN. She was recently just released from the hospital at that time on the and it was found that she had a positive culture at the time before discharge they put her on Rocephin awaiting the outcome of the cultures and sensitivities. She has been receiving Rocephin daily since then. And had been doing well until couple of days ago when she started spiking fevers again. Last night she spiked a fever up to 100.0. Her primary care doctor felt that she needed to return to the ER for evaluation of that port which most likely is contaminated and there is supposed to be a culture and sensitivity back currently that will be used to treat the cultures that are positive. Physical examination: Patient is a frail-appearing 19-year-old female who is in no apparent distress on examination setting. Lungs: Bilateral breath sounds breath sounds increased clear auscultation. Cardiac: Regular rate and rhythm no murmurs noted. Abdomen: Bowel sounds present all 4 quads. Patient has a central line on the left side of the chest difficult to evaluate at this time. I have greeted and performed a rapid initial assessment of this patient. A comprehensive ED assessment and evaluation of the patient, analysis of test results and completion of the medical decision making process will be conducted by additional ED providers. Dictation of this chart was performed using voice recognition software; therefore, there may be some unintended grammatical errors. TRAVEL OUTSIDE OF THE [place] IN LAST 30 DAYS: No - Related Data Allergies/Adverse Reactions: cefoxitin Allergy (Verified 05/17/20 15:01) chlorhexidine [Chlorhexidine] Allergy (Verified 05/17/20 15:01) Urticaria erythromycin base Allergy (Verified 05/17/20 15:01) lactose [Lactose] Allergy (Verified 05/17/20 15:01) Urticaria lactulose Allergy (Verified 05/17/20 15:01) melatonin Allergy (Verified 05/17/20 15:01) metoclopramide Allergy (Verified 05/17/20 15:01) adhesive Adverse Reaction (Intermediate, Verified 05/17/20 15:01) morphine Adverse Reaction (Verified 05/17/20 15:01) vancomycin [Vancomycin] Adverse Reaction (Verified 05/17/20 15:01) Amy Syndrome silk tape Allergy (Uncoded 05/17/20 15:01) Past Medical History - Social History Chew tobacco use (# tins/day): No Frequency of alcohol use: None Drug Abuse: None - Past Medical History Cardiac Medical History: Denies: Hx Coronary Artery Disease, Hx Heart Attack, Hx Hypertension Pulmonary Medical History: Reports: Hx Asthma - Childhood asthma, Hx Pneumonia Denies: Hx Bronchitis, Hx COPD Neurological Medical History: Denies: Hx Cerebrovascular Accident, Hx Seizures Endocrine Medical History: Reports: Hx Hypothyroidism - Carolyn's. Denies: Hx Diabetes Mellitus Type 1, Hx Hyperthyroidism Renal/ Medical History: Denies: Hx Peritoneal Dialysis GI Medical History: Reports: Hx Crohn's Disease, Hx Gastroesophageal Reflux Disease, Hx Ulcer - pyloric stenosis. 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 Denies: Hx Hepatitis Past Surgical History: Reports: Hx Abdominal Surgery - G-tube and J tube placement for gastroparesis, Hx Cholecystectomy, Hx Oral Surgery, Hx Urinary Tract Surgery - Stretched urethra, pediatric, Hx Vascular Surgery - Numerous luis f tral venous access line placements, Other - G-tube and J-tube placement for gastroparesis - Immunizations Immunizations up to date: Yes Hx Diphtheria, Pertussis, Tetanus Vaccination: Yes Physical Exam - Vital signs Vitals: Temp Pulse Resp BP Pulse Ox 98.2 F 96 16 105/65 100 05/17/20 14:56 05/17/20 14:56 05/17/20 14:56 05/17/20 14:56 05/17/20 14:56 Course - Vital Signs Vital signs: Temp Pulse Resp BP Pulse Ox 98.2 F 96 16 105/65 100 05/17/20 14:56 05/17/20 14:56 05/17/20 14:56 05/17/20 14:56 05/17/20 14:56 Doctor's Discharge - Discharge Referrals: JENNIFER NIÑO MD [Primary Care Provider] - Follow up as needed
[2020-05-17 16:55] LABS: ABSOLUTE BASOPHILS # (AUTO) 0.1 10^3/uL (0.0-0.2); ABSOLUTE EOSINOPHILS # (AUTO) 1.1 10^3/uL (0.0-0.6); ABSOLUTE MONOCYTES (AUTO) 0.6 10^3/uL (0.1-1.4); ABSOLUTE NEUT (AUTO) 4.7 10^3/uL (1.7-8.2); BASOPHILS % (AUTO) 0.6 % (0-2); EOSINOPHILS % (AUTO) 12.8 % (0-6); HEMATOCRIT 34.4 % (36.0-47.0); HEMOGLOBIN 11.9 g/dL (12.0-15.5); LYMPHOCYTES % (AUTO) 24.2 % (13-45); MEAN CORPUSCULAR HEMOGLOBIN 30.2 pg (27.0-33.4); MEAN CORPUSCULAR HGB CONC 34.6 g/dL (32.0-36.0); MEAN CORPUSCULAR VOLUME 87 fl (80-97); MONOCYTES % (AUTO) 7.2 % (3-13); PLATELET COUNT 332 10^3/uL (150-450); RED BLOOD COUNT 3.95 10^6/uL (3.72-5.28); RED CELL DISTRIBUTION WIDTH 13.2 % (11.5-14.0); SEGMENTED NEUTROPHILS % (AUTO) 55.2 % (42-78); TOTAL CELLS COUNTED % (AUTO) 100 %; WHITE BLOOD COUNT 8.4 10^3/uL (4.0-10.5)
[2020-05-17 17:22] LABS: ALBUMIN 4.6 g/dL (3.5-5.0); ALKALINE PHOSPHATASE 161 U/L (38-126); ANION GAP 11 (5-19); ASPARTATE AMINO TRANSFERASE 58 U/L (14-36); BILIRUBIN,TOTAL 0.3 mg/dL (0.2-1.3); BLOOD UREA NITROGEN 11 mg/dL (7-20); CALCIUM 9.2 mg/dL (8.4-10.2); CARBON DIOXIDE 27 mmol/L (22-30); CHLORIDE 99 mmol/L (98-107); GLUCOSE 90 mg/dL (75-110); POTASSIUM 4.6 mmol/L (3.6-5.0); TOTAL PROTEIN 9.1 g/dL (6.3-8.2)
[2020-05-17] MEDS ORDERED: NORMAL SALINE 1000 ML 1,000 ML IV ONE (17:33)
--- NOTE | 2020-05-17 19:21 | EKG REPORT ---
SEVERITY:- OTHERWISE NORMAL ECG - SINUS TACHYCARDIA : Confirmed by: Nikia Curry 17-May-2020 19:21:15
[2020-05-17 19:31] LABS: APPEARANCE,URINE CLEAR; BILIRUBIN,URINE NEGATIVE (NEGATIVE); COLOR,URINE STRAW; GLUCOSE, URINE NEGATIVE (NEGATIVE); KETONES,URINE NEGATIVE (NEGATIVE); LEUKOCYTE ESTERASE,URINE NEGATIVE (NEGATIVE); NITRITE,URINE NEGATIVE (NEGATIVE); PROTEIN,URINE NEGATIVE (NEGATIVE); URINE SPECIFIC GRAVITY 1.005; UROBILINOGEN,URINE NEGATIVE mg/dL (<2.0)
[2020-05-17] MEDS ORDERED: HYDROMORPHONE HCL INJ/PF 2 MG/ML AMPULE IV ONE (20:50)
[2020-05-17] MEDS ORDERED: DIPHENHYDRAMINE HCL 50 MG/ML VIAL IV ONE (20:51)
[2020-05-17] MEDS ORDERED: VANCOMYCIN HCL INJ 1000 MG VIAL IV ONE (20:51)
--- NOTE | 2020-05-17 22:02 | ER Document Report ---
ED General - General Chief Complaint: Abnormal Lab Results Stated Complaint: FAST HEART RATE,FEVER Time Seen by Provider: 05/17/20 15:13 Mode of Arrival: Ambulatory TRAVEL OUTSIDE OF THE [place] IN LAST 30 DAYS: No - HPI Notes: 19-year-old female history of Crohn's, eating disorder NOS, [place] with chronic TPN, G-tube, and J-tube presents with positive blood cultures taken at home. Patient was admitted and discharged approximately 1 week ago for infection that was attributed to her tunnel catheter. She was on antibiotics in the hospital and was discharged with home antibiotics (ceftriaxone) and home nursing. Decision was made to see if the catheter can be salvaged that was not removed during her previous admission. Patient had measured fever yesterday and has been feeling all over pain aching that she has had several times before when she has had infections. Patient denies any change in her chronic abdominal pain, vomiting, change in bowel movements, chest pain, shortness of breath, cough, urinary symptoms, vaginal symptoms - Related Data Allergies/Adverse Reactions: cefoxitin Allergy (Verified 05/17/20 15:01) chlorhexidine [Chlorhexidine] Allergy (Verified 05/17/20 15:01) Urticaria erythromycin base Allergy (Verified 05/17/20 15:01) lactose [Lactose] Allergy (Verified 05/17/20 15:01) Urticaria lactulose Allergy (Verified 05/17/20 15:01) melatonin Allergy (Verified 05/17/20 15:01) metoclopramide Allergy (Verified 05/17/20 15:01) adhesive Adverse Reaction (Intermediate, Verified 05/17/20 15:01) morphine Adverse Reaction (Verified 05/17/20 15:01) vancomycin [Vancomycin] Adverse Reaction (Verified 05/17/20 15:01) Amy Syndrome silk tape Allergy (Uncoded 05/17/20 15:01) Past Medical History - General Information source: Patient, Parent, [facility] Records - Social History Smoking Status: Never Smoker Chew tobacco use (# tins/day): No Frequency of alcohol use: None Drug Abuse: None Family History: Hypertension, Other - Colonic polyposis Patient has homicidal ideation: No - Past Medical History Cardiac Medical History: Denies: Hx Coronary Artery Disease, Hx Heart Attack, Hx Hypertension Pulmonary Medical History: Reports: Hx Asthma - Childhood asthma, Hx Pneumonia Denies: Hx Bronchitis, Hx COPD Neurological Medical History: Denies: Hx Cerebrovascular Accident, Hx Seizures Endocrine Medical History: Reports: Hx Hypothyroidism - Carolyn's. Denies: Hx Diabetes Mellitus Type 1, Hx Hyperthyroidism Renal/ Medical History: Denies: Hx Peritoneal Dialysis GI Medical History: Reports: Hx Crohn's Disease, Hx Gastroesophageal Reflux Disease, Hx Ulcer - pyloric stenosis. 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 Denies: Hx Hepatitis Past Surgical History: Reports: Hx Abdominal Surgery - G-tube and J tube placement for gastroparesis, Hx Cholecystectomy, Hx Oral Surgery, Hx Urinary Tract Surgery - Stretched urethra, pediatric, Hx Vascular Surgery - Numerous central venous access line placements, Other - G-tube and J-tube placement for gastroparesis - Immunizations Immunizations up to date: Yes Hx Diphtheria, Pertussis, Tetanus Vaccination: Yes Review of Systems - Review of Systems Notes: REVIEW OF SYSTEMS: CONSTITUTIONAL : + fever, chills, or sweats. EENT: Denies recent cold/sinus symptoms, denies throat pain CARDIOVASCULAR: Denies chest pain, GRACIELA RESPIRATORY: Denies cough, denies shortness of breath. GASTROINTESTINAL: +abdominal pain, +nausea -vomiting. GENITOURINARY: Denies difficulty urinating, painful urination. FEMALE GENITOURINARY: Denies abnormal vaginal bleeding, vaginal discharge. MUSCULOSKELETAL: Denies neck pain, +back pain. SKIN: Denies rash or skin lesions. HEMATOLOGIC : Denies easy bruising or bleeding. LYMPHATIC: Denies swollen, enlarged glands. NEUROLOGICAL: Denies headache, denies change in gait. PSYCHIATRIC: Denies anxiety or stress or depression. Physical Exam - Vital signs Vitals: Temp Pulse Resp BP Pulse Ox 98.2 F 96 16 105/65 100 05/17/20 14:56 05/17/20 14:56 05/17/20 14:56 05/17/20 14:56 05/17/20 14:56 - Notes Notes: PHYSICAL EXAMINATION: GENERAL: Chronically ill-appearing young adult female lying in stretcher in no acute distress HEAD: Atraumatic, normocephalic. EYES: Pupils equal round and appropriate constriction, sclera anicteric, conjunctiva are normal. ENT: nares patent, moist mucous membranes. NECK: Normal range of motion, supple without lymphadenopathy LUNGS: Breath sounds clear to auscultation bilaterally and equal. No wheezes rales or rhonchi. HEART: Regular rate and rhythm without murmurs CHEST: Left chest tunneled catheter with normal overlying skin, nontender ABDOMEN: Soft, nontender, no guarding, no masses, no CVAT, G-tube and J-tube present EXTREMITIES: Normal range of motion, no pitting or edema. No cyanosis. BACK: Endorses discomfort over paraspinal lower back diffusely and sacrum but no focal tenderness, no midline spinal tenderness, no CVA tenderness, no deformities NEUROLOGICAL: Awake, alert, conversing appropriately, moves all extremities spontaneously. PSYCH: Normal mood, normal affect. SKIN: Warm, Dry, normal turgor, no rashes or lesions noted. Course - Re-evaluation Re-evalutation: 05/17/20 22:02 Measured fever and positive cultures with chronic indwelling line and home TPN highly concerning for bacteremia. Patient well-appearing, no other signs of other sources of infection, no urinary no [employer] symptoms and back pain is similar to her chronic back pain without any midline symptoms or neuro deficits or symptoms. Will send COVID test, as per hospitalist patient was positive at the beginning of the month. No respiratory symptoms. Patient has felt nauseous but no vomiting and is not significantly dehydrated clinically. Gave vancomycin as per her most recent cultures available and analgesia for her diffuse chronic pain to facilitate patient care. Discussed case with hospitalist who has accepted patient to medicine floor. - Vital Signs Vital signs: Temp Pulse Resp BP Pulse Ox 97.8 F 76 19 113/71 99 05/18/20 06:11 05/18/20 06:11 05/18/20 10:01 05/18/20 10:01 05/18/20 11:01 - Laboratory Result Diagrams: 05/17/20 16:40 05/17/20 16:40 Laboratory results interpreted by me: 05/17/20 05/17/20 16:40 16:40 Hgb 11.9 L Hct 34.4 L Eos % (Auto) 12.8 H Absolute Eos (auto) 1.1 H AST 58 H ALT 41 H Alkaline Phosphatase 161 H Total Protein 9.1 H - EKG Interpretation by Me Additional EKG results interpreted by me: 05/17/20 16:00 Hr 101, sinus tachycardia, no significant ST elevations or depressions, QTc 441 Discharge - Discharge Clinical Impression: Bacteremia Fever Qualifiers: Fever type: unspecified Qualified Code(s): R50.9 - Fever, unspecified Central line complication Qualifiers: Encounter type: sequela Qualified Code(s): T82.9XXS - Unspecified complication of cardiac and vascular prosthetic device, implant and graft, sequela Disposition: ADMITTED INPATIENT Admitting Provider: Swathi (Hospitalist) Unit Admitted: Medical Floor
[2020-05-18] MEDS ORDERED: HYDROMORPHONE HCL INJ/PF 2 MG/ML AMPULE IV PRN ×2 (03:14→04:12)
[2020-05-18] MEDS ORDERED: ACETAMINOPHEN 325 MG TABLET PO PRN (03:14)
[2020-05-18] MEDS ORDERED: GUAIFENESIN SYRP 200 MG/10 ML UDC PO PRN (03:14)
[2020-05-18] MEDS ORDERED: MAGNESIUM HYDROXIDE SUSP 30 ML UDCUP PO PRN (03:14)
[2020-05-18] MEDS ORDERED: MAG HYDROX/AL HYDROX/SIMETH SUSP 30 ML UDCUP PO PRN (03:14)
[2020-05-18] MEDS ORDERED: PROMETHAZINE HCL INJ 25 MG/1 ML VIAL IV PRN (03:14)
[2020-05-18] MEDS ORDERED: LORAZEPAM INJ 2 MG/1 ML VIAL IV PRN (03:14)
[2020-05-18] MEDS ORDERED: LINEZOLID 600 MG/300 ML RTUPB IV SCH ×2 (04:00→18:00)
[2020-05-18] MEDS: DEXTROSE 5%-LACTATED RINGERS 1,000 ML IV PRN ×3 (04:49→20:19)
[2020-05-18] MEDS ORDERED: LINEZOLID 600 MG/300 ML RTUPB IV ONE (05:02)
[2020-05-18] MEDS: HEPARIN SOD (PORCINE) 5,000 UNIT/ML 1 ML VIAL SUBCUT SCH ×3 (06:15→22:40)
--- NOTE | 2020-05-18 08:12 | PDOC H&P ---
History of Present Illness Admission Date/PCP: 05/17/20 22:29 RAE ALCARAZ NP Patient complains of: Fever History of Present Illness: SHANI WALLACE is a 19 year old female who presented the emergency room with a one-day history of fever. She admits developing a fever yesterday which has been persistent, accompanied by chills, malaise and ague, and associated with palpitations (rapid heartbeat). She denies other associated or accompanying signs and symptoms. She admits prior similar episodes due to infected IV and enteral access catheters. She was recently discharged from the hospital on IV Rocephin administered by home health for a suspected tunnel catheter infection. A blood culture was obtained 4 days ago and the results were growth present and 1 of 2 bottles reported as a coagulase-negative Staphylococcus epidermidis resistant to Rocephin, with the other blood culture bottles showing no growth. She has not identified any aggravating or ameliorating factors for her fever. In the emergency room she was found to have an unremarkable evaluation, however due to the positive blood culture and the patient's report of fever she was admitted to the hospital for further evaluation and treatment. Past Medical History Cardiac Medical History: Denies: Coronary Artery Disease, Myocardial Infarction, Hypertension Pulmonary Medical History: Reports: Asthma - Childhood asthma, Pneumonia Denies: Bronchitis, Chronic Obstructive Pulmonary Disease (COPD) EENT Medical History: Denies: Cataracts, Ears - Hearing aids Neurological Medical History: Denies: Multiple Sclerosis, Seizures Endocrine Medical History: Reports: Hypothyroidism - Carolyn's Denies: Diabetes Mellitus Type 1, Hyperthyroidism Renal/ Medical History: Denies: Chronic Kidney Disease, Nephrolithiasis Malignancy Medical History: Reports: None GI Medical History: Reports: Crohn's Disease, Gastroesophageal Reflux Disease, Other - Chronic abdominal pain Denies: Cirrhosis, Hepatitis, Ulcerative Colitis Musculoskeltal Medical History: 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 Denies: Gout Skin Medical History: Reports: Other - Ehler Danlos syndrome Denies: Eczema, Psoriasis Psychiatric Medical History: Denies: Alcohol Dependency, Depression, Substance Abuse, Tobacco Dependency Traumatic Medical History: Reports: None Hematology: 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 Denies: Bleeding Tendencies Infectious Medical History: Reports: Clostridium Difficile Past Surgical History Past Surgical History: Reports: Cholecystectomy, Vascular Surgery - Numerous central venous access line placements, Other - G-tube and J-tube placement for gastroparesis Social History Information Source: Patient Lives with: Family Smoking Status: Never Smoker Electronic Cigarette use?: No Frequency of Alcohol Use: None Hx Recreational Drug Use: No Drugs: None Hx Prescription Drug Abuse: No - Advance Directive Resuscitation Status: Full Code Surrogate healthcare decision maker:: Shani Wallace (mother) Family History Family History: Hypertension, Other - Colonic polyposis Parental Family History Reviewed: Yes Children Family History Reviewed: No Sibling(s) Family History Reviewed.: Yes Medication/Allergy Home Medications: Dicyclomine HCl 20 ml GT BIDP PRN 02/13/19 Promethazine HCl [Phenergan 6.25 mg/5 ml Syrup] 40 mg JT Q6HP PRN 09/15/19 Sodium/Pot/Mag/Calc/Chlor/Acet [TPN Electrolytes II IV Soln] 20 ml IV ASDIR PRN 09/15/19 Tramadol HCl [Ultram] 50 mg PO BIDP PRN 01/30/20 Cetirizine HCl 10 ml GT DAILY 04/18/20 Diphenhydramine HCl [Benadryl Inj 50 mg/1 ml Vial] 25 mg IV BID 04/18/20 Hyoscyamine Sulfate 0.125 mg SL TIDP PRN 04/18/20 Lansoprazole [Prevacid 30 mg Odt Tablet] 30 mg PO BID 04/18/20 Levothyroxine Sodium [Tirosint-Kaelyn] 50 mcg PO DAILY 04/18/20 Mupirocin [Bactroban 2% Ointment 22 gm] 1 applic TP TID 04/18/20 Nystatin [Nystop] 1 applic TP TID 04/18/20 Ondansetron [Zofran Odt 4 mg Tablet] 4 mg SL Q8HP PRN 04/18/20 Sucralfate [Carafate Susp 1 gm/10 ml Udcup] 1 gm PO TID 04/18/20 Ascorbic Acid [Vitamin C 500 mg Tablet] 2,000 mg PO DAILY 10 Days 05/01/20 Ceftriaxone 2 gm/D5w RTU [Rocephin RTU 2 gm/D5w 50 ml Premix Bag] 2 gm IV DAILY 14 Days rtupb 05/08/20 Silver Nitrate Applicator [Silver Nitrate Applicator 10 Stick/Package] 1 applic TOP TID #2 packet 05/08/20 Allergies/Adverse Reactions: cefoxitin Allergy (Verified 05/17/20 15:01) chlorhexidine [Chlorhexidine] Allergy (Verified 05/17/20 15:01) Urticaria erythromycin base Allergy (Verified 05/17/20 15:01) lactose [Lactose] Allergy (Verified 05/17/20 15:01) Urticaria lactulose Allergy (Verified 05/17/20 15:01) melatonin Allergy (Verified 05/17/20 15:01) metoclopramide Allergy (Verified 05/17/20 15:01) adhesive Adverse Reaction (Intermediate, Verified 05/17/20 15:01) morphine Adverse Reaction (Verified 05/17/20 15:01) vancomycin [Vancomycin] Adverse Reaction (Verified 05/17/20 15:01) Amy Syndrome silk tape Allergy (Uncoded 05/17/20 15:01) Review of Systems Constitutional: PRESENT: as per HPI, chills, fever(s) Eyes: ABSENT: visual disturbances, other - Eye pain Ears: ABSENT: hearing changes, other - Ear pain Nose, Mouth, and Throat: ABSENT: headache(s), sore throat Cardiovascular: PRESENT: palpitations. ABSENT: chest pain, dyspnea on exertion, edema, orthropnea Respiratory: ABSENT: cough, dyspnea Gastrointestinal: PRESENT: abdominal pain - Chronic. ABSENT: constipation, diarrhea, nausea, vomiting Genitourinary: ABSENT: dysuria, hematuria Musculoskeletal: ABSENT: back pain, joint swelling, muscle weakness Integumentary: ABSENT: pruritus, rash Neurological: ABSENT: confusion, convulsions, focal weakness, memory loss, syncope Endocrine: ABSENT: cold intolerance, heat intolerance Hematologic/Lymphatic: ABSENT: easy bleeding, easy bruising Allergic/Immunologic: ABSENT: seasonal rhinorrhea Physical Exam Vital Signs: Temp Pulse Resp BP Pulse Ox 97.6 F 75 14 101/54 L 100 05/17/20 22:02 05/17/20 22:02 05/17/20 22:02 05/17/20 22:02 05/17/20 22:02 Intake & Output 05/15/20 05/16/20 05/17/20 23:59 23:59 23:59 Intake Total 1000 Balance 1000 Weight 54.431 kg General appearance: PRESENT: no acute distress, cooperative Head exam: PRESENT: atraumatic, normocephalic Eye exam: PRESENT: conjunctiva pink. ABSENT: conjunctival injection, scleral icterus Ear exam: PRESENT: normal external ear exam. ABSENT: bleeding, drainage Mouth exam: PRESENT: dry mucosa, neck supple Neck exam: ABSENT: thyromegaly, tracheal deviation Respiratory exam: PRESENT: clear to auscultation martine, symmetrical, unlabored Cardiovascular exam: PRESENT: RRR. ABSENT: clicks, gallop, rubs Pulses: PRESENT: normal radial pulses, normal dorsalis pedis pul Vascular exam: PRESENT: normal capillary refill, pallor GI/Abdominal exam: PRESENT: normal bowel sounds, soft, tenderness Rectal exam: PRESENT: deferred Extremities exam: ABSENT: joint swelling, pedal edema Musculoskeletal exam: ABSENT: deformity, dislocation Neurological exam: PRESENT: alert, oriented to person, oriented to place, oriented to time, oriented to situation, CN II-XII grossly intact. ABSENT: motor sensory deficit Psychiatric exam: PRESENT: normal mood, other - Passive-aggressive affect Skin exam: PRESENT: dry, intact, warm. ABSENT: jaundice, rash, urticaria Results Laboratory Results: 05/17/20 16:40 05/17/20 16:40 05/17/20 05/17/20 05/17/20 16:40 16:40 16:40 WBC 8.4 RBC 3.95 Hgb 11.9 L Hct 34.4 L MCV 87 MCH 30.2 MCHC 34.6 RDW 13.2 Plt Count 332 Seg Neutrophils % 55.2 Sodium 137.3 Potassium 4.6 Chloride 99 Carbon Dioxide 27 Anion Gap 11 BUN 11 Creatinine 0.75 Est GFR ( Amer) > 60 Glucose 90 Lactic Acid 0.7 Calcium 9.2 Total Bilirubin 0.3 AST 58 H Alkaline Phosphatase 161 H Total Protein 9.1 H Albumin 4.6 Urine Color Urine Appearance Urine pH Ur Specific [place] Urine Protein Urine Glucose (UA) Urine Ketones Urine Blood Urine Nitrite Ur Leukocyte Esterase Urine WBC (Auto) Urine RBC (Auto) 05/17/20 19:05 WBC RBC Hgb Hct MCV MCH MCHC RDW Plt Count Seg Neutrophils % Sodium Potassium Chloride Carbon Dioxide Anion Gap BUN Creatinine Est GFR ( Amer) Glucose Lactic Acid Calcium Total Bilirubin AST Alkaline Phosphatase Total Protein Albumin Urine Color STRAW Urine Appearance CLEAR Urine pH 8.0 Ur Specific [place] 1.005 Urine Protein NEGATIVE Urine Glucose (UA) NEGATIVE Urine Ketones NEGATIVE Urine Blood NEGATIVE Urine Nitrite NEGATIVE Ur Leukocyte Esterase NEGATIVE Urine WBC (Auto) 0 Urine RBC (Auto) 0 Assessment and Plan - Diagnosis (1) Positive blood culture Is this a current diagnosis for this admission?: Yes (2) Fever and chills Is this a current diagnosis for this admission?: Yes (3) Crohn's disease Qualifiers: Gastrointestinal tract location: unspecified location Digestive disease complication type: unspecified complication Qualified Code(s): K50.919 - Crohn's disease, unspecified, with unspecified complications Is this a current diagnosis for this admission?: Yes (4) Gastroparesis Is this a current diagnosis for this admission?: Yes (5) Abdominal pain Qualifiers: Abdominal location: generalized Qualified Code(s): R10.84 - Generalized abdominal pain Is this a current diagnosis for this admission?: Yes - Plan Summary Summary: Patient will be admitted to the medical floor where she will receive routine supportive and symptomatic cares. She will be treated with IV antibiotics utilizing Zyvox 600 mg every 12 hours. She will receive Dilaudid 0.5 to 2 mg IV every 3 hours as needed for pain. She will use Ativan 1 mg IV every 4 hours as needed for anxiety or restlessness. Her usual home medications will be resumed, as appropriate, once her medication list has been verified and rec onciled. Her usual home TPN feedings will be continued with consultation by the registered dietitian. Further evaluations and consultations will be left to her daytime hospitalist as they are not of an emergent nature. - Time Time Spent with patient: Less than 15 minutes Medications reviewed and adjusted accordingly: Yes Anticipated Discharge Disposition: Home with Home Health Anticipated Discharge: Other - Uncertain
[2020-05-18] MEDS ORDERED: VANCOMYCIN HCL INJ 1000 MG VIAL IV SCH (08:15)
[2020-05-18] MEDS: DIPHENHYDRAMINE HCL 50 MG/ML VIAL IV SCH ×2 (09:10→20:18)
[2020-05-18] MEDS: FAMOTIDINE 20 MG TABLET PO SCH ×5 (09:10→22:40)
[2020-05-18] MEDS: PROMETHAZINE HCL INJ 25 MG/1 ML VIAL IV PRN ×2 (09:46→16:07)
[2020-05-18] MEDS: HYDROMORPHONE HCL INJ/PF 2 MG/ML AMPULE IV PRN ×3 (09:47→20:18)
[2020-05-18] MEDS: DOCUSATE SODIUM 100 MG CAPSULE PO SCH ×2 (09:59→18:07)
[2020-05-18] MEDS ORDERED: VANCOMYCIN HCL 1,000 MG in DEXTROSE 5%-WATER 250 ML IV SCH (10:00)
--- NOTE | 2020-05-18 19:38 | PDOC PROGRESS REPORT ---
Subjective Progress Note for:: 05/18/20 Subjective:: No complaints offered at the time of exam Reason For Visit: POSITIVE BLOOD CULTURE (1 OF 2), FEVER AND CHILLS Physical Exam Vital Signs: Temp Pulse Resp BP Pulse Ox 97.8 F 76 12 98/51 L 99 05/18/20 06:11 05/18/20 06:11 05/18/20 19:01 05/18/20 19:01 05/18/20 19:01 Intake & Output 05/17/20 05/18/20 05/19/20 06:59 06:59 06:59 Intake Total 1030 1250 Balance 1030 1250 Weight 54.431 kg General appearance: PRESENT: no acute distress, cooperative, thin Head exam: PRESENT: atraumatic, normocephalic Eye exam: PRESENT: conjunctiva pink Mouth exam: PRESENT: moist, tongue midline Neck exam: ABSENT: JVD Respiratory exam: PRESENT: clear to auscultation martine, symmetrical, unlabored Cardiovascular exam: PRESENT: RRR, +S1, +S2 Vascular exam: PRESENT: normal capillary refill GI/Abdominal exam: PRESENT: hypoactive bowel sounds, soft, other - PEG and PEJ tube insertion sites free of erythema/exudate. ABSENT: distended, tenderness Rectal exam: PRESENT: deferred Extremities exam: ABSENT: calf tenderness Neurological exam: PRESENT: alert, awake, oriented to person, oriented to place, oriented to time, oriented to situation, CN II-XII grossly intact Psychiatric exam: ABSENT: agitated, anxious Skin exam: PRESENT: dry, normal color, warm Results Laboratory Results: 05/17/20 16:40 05/17/20 16:40 05/17/20 05/18/20 05/18/20 19:05 03:40 08:44 Lactic Acid < 0.5 L < 0.5 L Urine Color STRAW Urine Appearance CLEAR Urine pH 8.0 Ur Specific [place] 1.005 Urine Protein NEGATIVE Urine Glucose (UA) NEGATIVE Urine Ketones NEGATIVE Urine Blood NEGATIVE Urine Nitrite NEGATIVE Ur Leukocyte Esterase NEGATIVE Urine WBC (Auto) 0 Urine RBC (Auto) 0 05/18/20 15:50 Lactic Acid < 0.5 L Urine Color Urine Appearance Urine pH Ur Specific [place] Urine Protein Urine Glucose (UA) Urine Ketones Urine Blood Urine Nitrite Ur Leukocyte Esterase Urine WBC (Auto) Urine RBC (Auto) Assessment and Plan - Diagnosis (1) Positive blood culture Is this a current diagnosis for this admission?: Yes Plan: Patient had a positive blood culture (outpatient) Blood culture 05/11/20 16:40: NG at 24 hours Blood culture 05/17/20 21:00: Pending Urine culture 05/17/20: NG at 1 day Continue vancomycin 1000 mg IV q8h (2) Fever and chills Is this a current diagnosis for this admission?: Yes Plan: As noted above (3) Crohn's disease Qualifiers: Gastrointestinal tract location: unspecified location Digestive disease complication type: unspecified complication Qualified Code(s): K50.919 - Crohn's disease, unspecified, with unspecified complications Is this a current diagnosis for this admission?: Yes Plan: She is currently on no treatment (4) Abdominal pain Qualifiers: Abdominal location: generalized Qualified Code(s): R10.84 - Generalized abdominal pain Is this a current diagnosis for this admission?: Yes Plan: Continue opioid analgesics and antiemetics (5) Gastroparesis Is this a current diagnosis for this admission?: Yes Plan: Patient has a gastrostomy tube which is clamped. She states that she can tolerate absolutely nothing in her stomach Patient has a J-tube however she states that she also has nausea when medicatio ns are giving via J-tube and that she cannot tolerate tube feedings To new current IV fluids (D5 LR) - Plan Summary Summary: Patient will be admitted to the medical floor where she will receive routine supportive and symptomatic cares. She will be treated with IV antibiotics utilizing Zyvox 600 mg every 12 hours. She will receive Dilaudid 0.5 to 2 mg IV every 3 hours as needed for pain. She will use Ativan 1 mg IV every 4 hours as needed for anxiety or restlessness. Her usual home medications will be resumed, as appropriate, once her medication list has been verified and reconciled. Her usual home TPN feedings will be continued with consultation by the registered dietitian. Further evaluations and consultations will be left to her daytime hospitalist as they are not of an emergent nature. - Time Time Spent with patient: 25-34 minutes Medications reviewed and adjusted accordingly: Yes Anticipated Discharge Disposition: Home, Self Care Anticipated Discharge: Other
[2020-05-18] MEDS: VANCOMYCIN HCL 1,000 MG in DEXTROSE 5%-WATER 250 ML IV SCH (22:39)
[2020-05-19] MEDS: PROMETHAZINE HCL INJ 25 MG/1 ML VIAL IV PRN ×4 (01:57→21:49)
[2020-05-19] MEDS: HYDROMORPHONE HCL INJ/PF 2 MG/ML AMPULE IV PRN ×4 (02:00→21:07)
[2020-05-19] MEDS: HEPARIN SOD (PORCINE) 5,000 UNIT/ML 1 ML VIAL SUBCUT SCH ×3 (05:25→21:07)
[2020-05-19] MEDS: DIPHENHYDRAMINE HCL 50 MG/ML VIAL IV SCH ×3 (05:27→21:07)
[2020-05-19] MEDS: VANCOMYCIN HCL 1,000 MG in DEXTROSE 5%-WATER 250 ML IV SCH ×3 (05:38→21:37)
[2020-05-19 07:25] LABS: HEMATOCRIT 26.9 % (36.0-47.0); MEAN CORPUSCULAR HGB CONC 34.5 g/dL (32.0-36.0); MEAN CORPUSCULAR VOLUME 87 fl (80-97); PLATELET COUNT 233 10^3/uL (150-450); RED BLOOD COUNT 3.08 10^6/uL (3.72-5.28); RED CELL DISTRIBUTION WIDTH 13.3 % (11.5-14.0); WHITE BLOOD COUNT 5.1 10^3/uL (4.0-10.5)
[2020-05-19 07:50] LABS: ANION GAP 6 (5-19); BLOOD UREA NITROGEN 4 mg/dL (7-20); CALCIUM 8.4 mg/dL (8.4-10.2); CARBON DIOXIDE 26 mmol/L (22-30); CHLORIDE 104 mmol/L (98-107); GLUCOSE 102 mg/dL (75-110); POTASSIUM 3.8 mmol/L (3.6-5.0)
[2020-05-19 07:54] LABS: HEMOGLOBIN 9.3 g/dL (12.0-15.5)
[2020-05-19] MEDS: FAMOTIDINE 20 MG TABLET PO SCH ×6 (08:04→23:14)
[2020-05-19] MEDS ORDERED: PHARMACY COMMUNICATION ORDER MC SCH (09:30)
[2020-05-19] MEDS: DEXTROSE 5%-LACTATED RINGERS 1,000 ML IV PRN ×2 (14:12→20:15)
[2020-05-19] MEDS: DOCUSATE SODIUM 100 MG CAPSULE PO SCH ×2 (17:52→18:00)
[2020-05-19] MEDS: LEVOTHYROXINE SODIUM 0.05 MG TABLET PEG SCH (17:54)
--- NOTE | 2020-05-19 18:16 | PDOC PROGRESS REPORT ---
Subjective Subjective:: Patient moved for positive blood cultures in setting of indwelling long-term IV for chronic TPN. Long discussion with patient and her mother regarding previous course of events that led her to this point. Mother and patient are highly concerned that patient is missing doses of her antibiotics and other medications as her IV has recently blown and her Luna catheter has not been accessed since admission when it was used a few times for meds. They requested that we use this line to provide the patient with her necessary medications including antibiotics rather than waiting for an IV to be placed given nurses have been unable to get an effective IV in this patient after many attempts over several hours today. I discussed with nursing to start using the patient's long-term IV again at least until we get ID opinion on whether this line should be removed or not. No other than chronic nausea and generalized fatigue and weakness, patient has no new complaints. Blood cultures from admission are negative and urine cultures negative. Reason For Visit: POSITIVE BLOOD CULTURE (1 OF 2), FEVER AND CHILLS Physical Exam Vital Signs: Temp Pulse Resp BP Pulse Ox 98.2 F 78 18 102/55 L 99 05/19/20 14:58 05/19/20 14:58 05/19/20 14:58 05/19/20 14:58 05/19/20 14:58 Intake & Output 05/18/20 05/19/20 05/20/20 06:59 06:59 06:59 Intake Total 1030 3500 250 Balance 1030 3500 250 Weight 54.431 kg 54.2 kg General appearance: PRESENT: no acute distress, well-developed, well-nourished Head exam: PRESENT: atraumatic, normocephalic Eye exam: PRESENT: conjunctiva pink Mouth exam: PRESENT: moist Respiratory exam: PRESENT: clear to auscultation martine. ABSENT: rales, rhonchi, wheezes Cardiovascular exam: PRESENT: RRR. ABSENT: diastolic murmur, rubs, systolic murmur GI/Abdominal exam: PRESENT: normal bowel sounds, soft. ABSENT: distended, guarding, mass, organolmegaly, rebound, tenderness Neurological exam: PRESENT: alert, awake, oriented to person, oriented to place, oriented to time, oriented to situation Psychiatric exam: PRESENT: appropriate affect, normal mood Skin exam: PRESENT: dry, intact, warm Results Laboratory Results: 05/19/20 07:03 05/19/20 07:03 05/19/20 05/19/20 07:03 07:03 WBC 5.1 RBC 3.08 L Hgb 9.3 L D Hct 26.9 L MCV 87 MCH 30.0 MCHC 34.5 RDW 13.3 Plt Count 233 Sodium 135.9 L Potassium 3.8 Chloride 104 Carbon Dioxide 26 Anion Gap 6 BUN 4 L Creatinine 0.63 Est GFR ( Amer) > 60 Glucose 102 Calcium 8.4 05/17/20 19:05 Clean Catch Midstream Urine Culture - Final NO GROWTH 2 DAYS Assessment and Plan - Diagnosis (1) Positive blood culture Is this a current diagnosis for this admission?: Yes Plan: Patient had a positive blood culture (outpatient) Blood culture 05/11/20 16:40: NG at 24 hours Blood culture 05/17/20 21:00: No growth Urine culture 05/17/20: NG Continue vancomycin 1000 mg IV q8h 05/19/2020 Infectious disease consult placed Okay to use long-term IV as unable to get IV access after many hours and multiple attempts by nursing; patient will continue getting her IV antibiotics through that line unless ID states otherwise in her consult (2) Abdominal pain Qualifiers: Abdominal location: generalized Qualified Code(s): R10.84 - Generalized abdominal pain Is this a current diagnosis for this admission?: Yes Plan: Opioid analgesics and antiemetics (3) Crohn's disease Qualifiers: Gastrointestinal tract location: unspecified location Digestive disease complication type: unspecified complication Qualified Code(s): K50.919 - Crohn's disease, unspecified, with unspecified complications Is this a current diagnosis for this admission?: Yes Plan: Followed by GI outpatient (4) Gastroparesis Is this a current diagnosis for this admission?: Yes Plan: gastrostomy tube which is clamped. She states that she can tolerate absolutely nothing in her stomach -J-tube however she states that she also has nausea when medications are giving via J-tube and that she cannot tolerate tube feedings -IV fluids (D5 LR) - Plan Summary Summary: Patient will be admitted to the medical floor where she will receive routine supportive and symptomatic cares. She will be treated with IV antibiotics utilizing Zyvox 600 mg every 12 hours. She will receive Dilaudid 0.5 to 2 mg IV every 3 hours as needed for pain. She will use Ativan 1 mg IV every 4 hours as needed for anxiety or restlessness. Her usual home medications will be resumed, as appropriate, once her medication list has been verified and reconciled. Her usual home TPN feedings will be continued with consultation by the registered dietitian. Further evaluations and consultations will be left to her daytime hospitalist as they are not of an emergent nature. - Time Time Spent with patient: 25-34 minutes Medications reviewed and adjusted accordingly: Yes Anticipated Discharge Disposition: Home with Home Health Anticipated Discharge: within 72 hours - Inpatient Certification Based on my medical assessment, after consideration of the patient's comorbidities, presenting symptoms, or acuity I expect that the services needed warrant INPATIENT care.: Yes I certify that my determination is in accordance with my understanding of Medicare's requirements for reasonable and necessary INPATIENT services [42 CFR 412.3e].: Yes Medical Necessity: Significant Comorbidiites Make Outpatient Treatment Too Risky, Need Close Monitoring Due to Risk of Patient Decompensation, Need for IV Antibiotics, Risk of Complication if Not Cared For in Hospital, Risk of Diagnosis Which Will Require Inpatient Eval/Care/Monitoring
[2020-05-19 21:29] LABS: VANCOMYCIN,TROUGH 35.3 ug/mL (5.0-20.0)
[2020-05-20] MEDS: PROMETHAZINE HCL INJ 25 MG/1 ML VIAL IV PRN ×4 (02:03→18:11)
[2020-05-20] MEDS: HYDROMORPHONE HCL INJ/PF 2 MG/ML AMPULE IV PRN ×5 (02:03→19:59)
[2020-05-20 06:12] LABS: HEMATOCRIT 29.9 % (36.0-47.0); HEMOGLOBIN 10.4 g/dL (12.0-15.5); MEAN CORPUSCULAR HEMOGLOBIN 30.5 pg (27.0-33.4); MEAN CORPUSCULAR HGB CONC 34.9 g/dL (32.0-36.0); MEAN CORPUSCULAR VOLUME 88 fl (80-97); PLATELET COUNT 240 10^3/uL (150-450); RED BLOOD COUNT 3.41 10^6/uL (3.72-5.28); RED CELL DISTRIBUTION WIDTH 13.6 % (11.5-14.0); WHITE BLOOD COUNT 6.3 10^3/uL (4.0-10.5)
[2020-05-20] MEDS: DIPHENHYDRAMINE HCL 50 MG/ML VIAL IV SCH ×3 (06:12→21:44)
[2020-05-20] MEDS: HEPARIN SOD (PORCINE) 5,000 UNIT/ML 1 ML VIAL SUBCUT SCH ×2 (06:12→16:15)
[2020-05-20] MEDS: DEXTROSE 5%-LACTATED RINGERS 1,000 ML IV PRN ×3 (06:17→16:30)
[2020-05-20] MEDS: VANCOMYCIN HCL 1,000 MG in DEXTROSE 5%-WATER 250 ML IV SCH (07:03)
[2020-05-20] MEDS: FAMOTIDINE 20 MG TABLET PO SCH ×4 (08:00→21:44)
[2020-05-20] MEDS: DOCUSATE SODIUM 100 MG CAPSULE PO SCH ×2 (10:00→21:45)
[2020-05-20] MEDS: LEVOTHYROXINE SODIUM 0.05 MG TABLET PEG SCH (11:57)
--- NOTE | 2020-05-20 17:17 | Progress Note ---
Provider Note Provider Note: [facility] ID Telephone Advice Consultation Chart reviewed. Patient is a 19-year-old female with Crohn's Disease who had a gastrostomy and J tube placed. She also has a Luna catheter for TPN which was last exchanged on 04/18 after she had Caroline tropicalis fungemia in March 2020. She was treated at that time and recovered without complications. In May 05, she had CoNS bacteremia associated to the catheter and she was recommended 14 days of ceftriaxone with EOT 05/20 (MSSE and Staphylococcus capitis). She was receiving ceftriaxone but spiked a fever at home and outside cultures grew MRSE (per notes, culture report not available). Cultures on admission 05/17 are negative without adequate antibiotic coverage as linezolid was started after cultures were done and now vancomycin. She has been afebrile and HD stable. She is difficult to stick for peripheral lines, for which the catheter will be accessed. ID consulted for recommendations. PMH: Crohn's Disease Gastroparesis Asthma Carolyn's Thyroiditis Pyloric Stenosis GERD C diff infection Caroline fungemia 03/2020 PSH: G tube J tube Cholecystectomy ALlergies: cefoxitin Allergy (Verified 05/17/20 15:01) chlorhexidine [Chlorhexidine] Allergy (Verified 05/17/20 15:01) Urticaria erythromycin base Allergy (Verified 05/17/20 15:01) actose [Lactose] Allergy (Verified 05/17/20 15:01) Urticaria lactulose Allergy (Verified 05/17/20 15:01) melatonin Allergy (Verified 05/17/20 15:01) metoclopramide Allergy (Verified 05/17/20 15:01) adhesive Adverse Reaction (Intermediate, Verified 05/17/20 15:01) morphine Adverse Reaction (Verified 05/17/20 15:01) vancomycin [Vancomycin] Adverse Reaction (Verified 05/17/20 15:01) Amy Syndrome silk tape Allergy (Uncoded 05/17/20 15:01) Medications: Dicyclomine HCl 20 ml GT BIDP PRN 02/13/19 Promethazine HCl [Phenergan 6.25 mg/5 ml Syrup] 40 mg JT Q6HP PRN 09/15/19 Sodium/Pot/Mag/Calc/Chlor/Acet [TPN Electrolytes II IV Soln] 20 ml IV ASDIR PRN 09/15/19 Tramadol HCl [Ultram] 50 mg PO BIDP PRN 01/30/20 Cetirizine HCl 10 ml GT DAILY 04/18/20 Diphenhydramine HCl [Benadryl Inj 50 mg/1 ml Vial] 25 mg IV BID 04/18/20 Hyoscyamine Sulfate 0.125 mg SL TIDP PRN 04/18/20 Lansoprazole [Prevacid 30 mg Odt Tablet] 30 mg PO BID 04/18/20 Levothyroxine Sodium [Tirosint-Kaelyn] 50 mcg PO DAILY 04/18/20 Mupirocin [Bactroban 2% Ointment 22 gm] 1 applic TP TID 04/18/20 Nystatin [Nystop] 1 applic TP TID 04/18/20 Ondansetron [Zofran Odt 4 mg Tablet] 4 mg SL Q8HP PRN 04/18/20 Sucralfate [Carafate Susp 1 gm/10 ml Udcup] 1 gm PO TID 04/18/20 Ascorbic Acid 2,000 gm JT DAILY 05/18/20 Vital Signs: Temp Pulse Resp BP Pulse Ox 97.8 F 64 16 98/46 L 92 05/20/20 08:00 05/20/20 08:00 05/20/20 08:00 05/20/20 08:00 05/20/20 08:00 Intake & Output 05/19/20 05/20/20 05/21/20 06:59 06:59 06:59 Intake Total 3500 2950 1128 Balance 3500 2950 1128 Weight 54.2 kg 49.7 kg Weight/Height Weight 49.7 kg Height 5 ft 5 in Laboratories: 05/20/20 05:29 05/19/20 20:45 MCV 88 fl (80-97) 05/20/20 05:29 MCH 30.5 pg (27.0-33.4) 05/20/20 05:29 MCHC 34.9 g/dL (32.0-36.0) 05/20/20 05:29 RDW 13.6 % (11.5-14.0) 05/20/20 05:29 Seg Neutrophils % 55.2 % (42-78) 05/17/20 16:40 Chloride 104 mmol/L (98-107) 05/19/20 07:03 Carbon Dioxide 26 mmol/L (22-30) 05/19/20 07:03 Anion Gap 6 (5-19) 05/19/20 07:03 Est GFR ( Amer) > 60 (>60) 05/19/20 20:45 Glucose 102 mg/dL (75-110) 05/19/20 07:03 Lactic Acid < 0.5 mmol/L (0.7-2.1) L 05/18/20 15:50 Calcium 8.4 mg/dL (8.4-10.2) 05/19/20 07:03 Total Bilirubin 0.3 mg/dL (0.2-1.3) 05/17/20 16:40 AST 58 U/L (14-36) H 05/17/20 16:40 Alkaline Phosphatase 161 U/L (38-126) H 05/17/20 16:40 Total Protein 9.1 g/dL (6.3-8.2) H 05/17/20 16:40 Albumin 4.6 g/dL (3.5-5.0) 05/17/20 16:40 Urine Color STRAW 05/17/20 19:05 Urine Appearance CLEAR 05/17/20 19:05 Urine pH 8.0 (5.0-9.0) 05/17/20 19:05 Ur Specific [place] 1.005 05/17/20 19:05 Urine Protein NEGATIVE mg/dL (NEGATIVE) 05/17/20 19:05 Urine Glucose (UA) NEGATIVE mg/dL (NEGATIVE) 05/17/20 19:05 Urine Ketones NEGATIVE mg/dL (NEGATIVE) 05/17/20 19:05 Urine Blood NEGATIVE (NEGATIVE) 05/17/20 19:05 Urine Nitrite NEGATIVE (NEGATIVE) 05/17/20 19:05 Ur Leukocyte Esterase NEGATIVE (NEGATIVE) 05/17/20 19:05 Urine WBC (Auto) 0 /HPF 05/17/20 19:05 Urine RBC (Auto) 0 /HPF 05/17/20 19:05 Microbiology: Blood cultures 05/05/20 MSSE 05/05 Staoh capitis (peripheral) 05/05 Staph capitis (line) 05/07 Negative 05/17 Negative to date 05/20 In process Assessment and Recommendations: Patient evaluated for catheter related bacteremia. She was previously treated for Candidemia for 14 days with removal of catheter. She is definitely at risk of recurrent fungemia due to TPN and Crohn's disease. There is no evidence of that so far. She did spike a fever prior to admission and blood cultures grew MRSE. This is the 2nd time she grows CoNS from blood cultures since the catheter was exchanged, and this happened while on ceftriaxone for oxacillin susceptible Staphylococcus capitis. For CoNS bacteremia we can salvage the catheter if we do 14 days of systemic antibiotic therapy together with lock therapy. Blood cultures from admission are negative, and this was before vancomycin or linezolid, if this was a true CLABSI due to MRSE, cultures would've been positive. There are 2 options at this point: we could complete the 2 weeks of therapy already established for Staphylococcus capitis with EOT 05/20 and do surveillance cultures off antibiotics 4 days and 7 days post antibiotic therapy or we can remove the catheter and observe. A TTE would be recommended before this to rule out any vascular complications from this. Would wait until cultures are finalized to make sure she is not fungemic again as Caroline may take few more days to grow. Please call if questions. Linn Krishnamurthy MD [facility] ID [phone]
--- NOTE | 2020-05-20 18:44 | PDOC PROGRESS REPORT ---
Subjective Progress Note for:: 05/20/20 Subjective:: Patient moved for positive blood cultures in setting of indwelling long-term IV for chronic TPN. Long discussion with patient and her mother regarding previous course of events that led her to this point. Mother and patient are highly concerned that patient is missing doses of her antibiotics and other medications as her IV has recently blown and her Luna catheter has not been accessed since admission when it was used a few times for meds. They requested that we use this line to provide the patient with her necessary medications including antibiotics rather than waiting for an IV to be placed given nurses have been unable to get an effective IV in this patient after many attempts over several hours today. I discussed with nursing to start using the patient's long-term IV again at least until we get ID opinion on whether this line should be removed or not. No other than chronic nausea and generalized fatigue and weakness, patient has no new complaints. Blood cultures from admission are negative and urine cultures negative. 05/20/2020 I had another long discussion with the patient and her mother today regarding her clinical course and all the events that led up to this admission. I have ordered blood cultures to be drawn 1 peripherally and 1 through her Luna catheter that is still in place. Mother states that home health did not draw a culture from her line and I agreed that this would be recommended if we are intending to hopefully keep this line in place rather than pull it. Infectious disease been consulted but has not commented on anything yet. We will continue current antibiotics and we will continue using patient's central access. Reason For Visit: POSITIVE BLOOD CULTURE (1 OF 2), FEVER AND CHILLS Physical Exam Vital Signs: Temp Pulse Resp BP Pulse Ox 97.8 F 64 16 98/46 L 92 05/20/20 08:00 05/20/20 08:00 05/20/20 08:00 05/20/20 08:00 05/20/20 08:00 Intake & Output 05/19/20 05/20/20 05/21/20 06:59 06:59 06:59 Intake Total 3500 2950 1128 Balance 3500 2950 1128 Weight 54.2 kg 49.7 kg General appearance: PRESENT: no acute distress, well-developed, well-nourished Head exam: PRESENT: atraumatic, normocephalic Eye exam: PRESENT: conjunctiva pink Mouth exam: PRESENT: moist Respiratory exam: PRESENT: clear to auscultation martine. ABSENT: rales, rhonchi, wheezes Cardiovascular exam: PRESENT: RRR. ABSENT: diastolic murmur, rubs, systolic murmur GI/Abdominal exam: PRESENT: normal bowel sounds, soft, tenderness - Chronic mild tenderness. ABSENT: distended, guarding, mass, organolmegaly, rebound Extremities exam: ABSENT: pedal edema Neurological exam: PRESENT: alert, awake, oriented to person, oriented to place, oriented to time, oriented to situation Skin exam: PRESENT: dry, intact, warm, other - Central line and left chest well- appearing with some mild skin irritation adjacent to this from the tape that was used to attach it Results Laboratory Results: 05/20/20 05:29 05/19/20 20:45 05/19/20 05/20/20 20:45 05:29 WBC 6.3 RBC 3.41 L Hgb 10.4 L Hct 29.9 L MCV 88 MCH 30.5 MCHC 34.9 RDW 13.6 Plt Count 240 Creatinine 0.63 Est GFR ( Amer) > 60 Assessment and Plan - Diagnosis (1) Positive blood culture Is this a current diagnosis for this admission?: Yes Plan: Patient had a positive blood culture (outpatient) Blood culture 05/11/20 16:40: NG at 24 hours Blood culture 05/17/20 21:00: No growth Urine culture 05/17/20: NG Continue vancomycin 1000 mg IV q8h 05/19/2020 Infectious disease consult placed Okay to use long-term IV as unable to get IV access after many hours and multiple attempts by nursing; patient will continue getting her IV antibiotics through that line unless ID states otherwise in her consult 05/20/2020 Home health blood culture 1/2 growing coag negative staph with different sensitivities from prior culture Blood culture on admission no growth to date Blood culture 1/2 drawn peripherally today and blood culture 2/2 drawn from central line today, follow-up results (2) Abdominal pain Qualifiers: Abdominal location: generalized Qualified Code(s): R10.84 - Generalized abdominal pain Is this a current diagnosis for this admission?: Yes (3) Crohn's disease Qualifiers: Gastrointestinal tract location: unspecified location Digestive disease complication type: unspecified complication Qualified Code(s): K50.919 - Crohn's disease, unspecified, with unspecified complications Is this a current diagnosis for this admission?: Yes (4) Gastroparesis Is this a current diagnosis for this admission?: Yes - Plan Summary Summary: Patient will be admitted to the medical floor where she will receive routine supportive and symptomatic cares. She will be treated with IV antibiotics uti lizing Zyvox 600 mg every 12 hours. She will receive Dilaudid 0.5 to 2 mg IV every 3 hours as needed for pain. She will use Ativan 1 mg IV every 4 hours as needed for anxiety or restlessness. Her usual home medications will be resumed, as appropriate, once her medication list has been verified and reconciled. Her usual home TPN feedings will be continued with consultation by the registered dietitian. Further evaluations and consultations will be left to her daytime hospitalist as they are not of an emergent nature. - Time Time Spent with patient: 15-24 minutes Medications reviewed and adjusted accordingly: Yes Anticipated Discharge Disposition: Home, Self Care Anticipated Discharge Timeframe: within 72 hours - Inpatient Certification Based on my medical assessment, after consideration of the patient's comorbidities, presenting symptoms, or acuity I expect that the services needed warrant INPATIENT care.: Yes I certify that my determination is in accordance with my understanding of Medicare's requirements for reasonable and necessary INPATIENT services [42 CFR 412.3e].: Yes Medical Necessity: Need for IV Antibiotics, Risk of Complication if Not Cared For in Hospital, Risk of Diagnosis Which Will Require Inpatient Eval/Care/Monitoring
[2020-05-21] MEDS: DEXTROSE 5%-LACTATED RINGERS 1,000 ML IV PRN ×3 (00:07→14:35)
[2020-05-21] MEDS: PROMETHAZINE HCL INJ 25 MG/1 ML VIAL IV PRN ×5 (00:08→20:13)
[2020-05-21] MEDS: HEPARIN SOD (PORCINE) 5,000 UNIT/ML 1 ML VIAL SUBCUT SCH ×3 (00:08→14:34)
[2020-05-21] MEDS: HYDROMORPHONE HCL INJ/PF 2 MG/ML AMPULE IV PRN ×6 (00:08→20:12)
[2020-05-21] MEDS: DIPHENHYDRAMINE HCL 50 MG/ML VIAL IV SCH ×3 (06:18→22:31)
[2020-05-21] MEDS: FAMOTIDINE 20 MG TABLET PO SCH ×4 (07:46→22:29)
[2020-05-21 08:11] LABS: HEMOGLOBIN 8.6 g/dL (12.0-15.5); MEAN CORPUSCULAR HEMOGLOBIN 30.2 pg (27.0-33.4); MEAN CORPUSCULAR HGB CONC 34.5 g/dL (32.0-36.0); MEAN CORPUSCULAR VOLUME 87 fl (80-97); PLATELET COUNT 219 10^3/uL (150-450); RED BLOOD COUNT 2.86 10^6/uL (3.72-5.28); RED CELL DISTRIBUTION WIDTH 13.3 % (11.5-14.0); WHITE BLOOD COUNT 4.8 10^3/uL (4.0-10.5)
[2020-05-21 08:44] LABS: VANCOMYCIN,TROUGH 9.9 ug/mL (5.0-20.0)
[2020-05-21] MEDS: DOCUSATE SODIUM 100 MG CAPSULE PO SCH ×2 (09:13→17:08)
[2020-05-21] MEDS: LEVOTHYROXINE SODIUM 0.05 MG TABLET PEG SCH (09:16)
[2020-05-21] MEDS ORDERED: VANCOMYCIN HCL 1,000 MG in DEXTROSE 5%-WATER 250 ML IV ONE (10:00)
--- NOTE | 2020-05-21 15:02 | PDOC PROGRESS REPORT ---
Subjective Progress Note for:: 05/21/20 Subjective:: Patient moved for positive blood cultures in setting of indwelling long-term IV for chronic TPN. Long discussion with patient and her mother regarding previous course of events that led her to this point. Mother and patient are highly concerned that patient is missing doses of her antibiotics and other medications as her IV has recently blown and her Luna catheter has not been accessed since admission when it was used a few times for meds. They requested that we use this line to provide the patient with her necessary medications including antibiotics rather than waiting for an IV to be placed given nurses have been unable to get an effective IV in this patient after many attempts over several hours today. I discussed with nursing to start using the patient's long-term IV again at least until we get ID opinion on whether this line should be removed or not. No other than chronic nausea and generalized fatigue and weakness, patient has no new complaints. Blood cultures from admission are negative and urine cultures negative. 05/20/2020 I had another long discussion with the patient and her mother today regarding her clinical course and all the events that led up to this admission. I have ordered blood cultures to be drawn 1 peripherally and 1 through her Luna catheter that is still in place. Mother states that home health did not draw a culture from her line and I agreed that this would be recommended if we are intending to hopefully keep this line in place rather than pull it. Infectious disease been consulted but has not commented on anything yet. We will continue current antibiotics and we will continue using patient's central access. 05/21/2020 Long discussion with patient and mother again today regarding the plan going forward based on Dr. Krishnamurthy's infectious disease consult note. They would like to proceed with line salvage and surveillance blood cultures on 2 separate future occasions. We will continue current course IV antibiotics and follow-up on the most recent cultures. WBC is dropping now which may be consistent with resolving infection/inflammation versus dilutional effect. Patient has no new complaints today. We will plan to restart TPN when most recent cultures are negative for 48 hours and previous cultures are consistently negative of both bacteria and fungus. Reason For Visit: POSITIVE BLOOD CULTURE (1 OF 2), FEVER AND CHILLS Physical Exam Vital Signs: Temp Pulse Resp BP Pulse Ox 97.8 F 81 12 117/66 100 05/21/20 11:24 05/21/20 11:24 05/21/20 11:24 05/21/20 11:24 05/21/20 11:24 Intake & Output 05/20/20 05/21/20 05/22/20 06:59 06:59 06:59 Intake Total 2950 3378 1251 Balance 2950 3378 1251 Weight 49.7 kg 53.3 kg General appearance: PRESENT: no acute distress, well-developed, well-nourished Head exam: PRESENT: atraumatic, normocephalic Eye exam: PRESENT: conjunctiva pink Mouth exam: PRESENT: moist Respiratory exam: PRESENT: clear to auscultation martine. ABSENT: rales, rhonchi, wheezes Cardiovascular exam: PRESENT: RRR. ABSENT: diastolic murmur, rubs, systolic murmur GI/Abdominal exam: PRESENT: normal bowel sounds, soft, tenderness - Chronic minimal abdominal pain at baseline. ABSENT: distended, guarding, mass, organolmegaly, rebound Neurological exam: PRESENT: alert, awake, oriented to person, oriented to place, oriented to time, oriented to situation Psychiatric exam: PRESENT: appropriate affect, normal mood Skin exam: PRESENT: dry, intact, warm Results Laboratory Results: 05/21/20 07:45 05/21/20 07:45 05/21/20 05/21/20 07:45 07:45 WBC 4.8 RBC 2.86 L Hgb 8.6 L Hct 25.0 L MCV 87 MCH 30.2 MCHC 34.5 RDW 13.3 Plt Count 219 Creatinine 0.69 Est GFR ( Amer) > 60 Assessment and Plan - Diagnosis (1) Positive blood culture Is this a current diagnosis for this admission?: Yes Plan: Patient had a positive blood culture (outpatient) Blood culture 05/11/20 16:40: NG at 24 hours Blood culture 05/17/20 21:00: No growth Urine culture 05/17/20: NG Continue vancomycin 1000 mg IV q8h 05/19/2020 Infectious disease consult placed Okay to use long-term IV as unable to get IV access after many hours and multiple attempts by nursing; patient will continue getting her IV antibiotics through that line unless ID states otherwise in her consult 05/20/2020 Home health blood culture 1/2 growing coag negative staph with different sensitivities from prior culture Blood culture on admission no growth to date Blood culture 1/2 drawn peripherally today and blood culture 2/2 drawn from central line today, follow-up results 05/21/[address] Krishnamurthy: "For CoNS bacteremia we can salvage the catheter if we do 14 days of systemic antibiotic therapy together with lock therapy. Blood cultures from admission are negative, and this was before vancomycin or linezolid, if this was a true CLABSI due to MRSE, cultures would've been positive"....."complete the 2 weeks of therapy already established for Staphylococcus capitis with EOT 05/20 and do surveillance cultures off antibiotics 4 days and 7 days post antibiotic therapy" Discussed options with patient line salvage is what they would like to do given the patient has had multiple recent procedures involving line removal and placement Plan to stop antibiotics today and redraw blood cultures on 05/25 and 05/28. Patient and mother must follow-up with PCP and infectious disease in order to have these blood cultures interpreted and have the results discussed with them (2) Abdominal pain Qualifiers: Abdominal location: generalized Qualified Code(s): R10.84 - Generalized abdominal pain Is this a current diagnosis for this admission?: Yes (3) Crohn's disease Qualifiers: Gastrointestinal tract location: unspecified location Digestive disease complication type: unspecified complication Qualified Code(s): K50.919 - Crohn's disease, unspecified, with unspecified complications Is this a current diagnosis for this admission?: Yes (4) Gastroparesis Is this a current diagnosis for this admission?: Yes - Plan Summary Summary: Patient will be admitted to the medical floor where she will receive routine supportive and symptomatic cares. She will be treated with IV antibiotics utilizing Zyvox 600 mg every 12 hours. She will receive Dilaudid 0.5 to 2 mg IV every 3 hours as needed for pain. She will use Ativan 1 mg IV every 4 hours as needed for anxiety or restlessness. Her usual home medications will be resumed, as appropriate, once her medication list has been verified and reconciled. Her usual home TPN feedings will be continued with consultation by the registered dietitian. Further evaluations and consultations will be left to her daytime hospitalist as they are not of an emergent nature. - Time Time Spent with patient: 15-24 minutes Medications reviewed and adjusted accordingly: Yes Anticipated Discharge Disposition: Home, Self Care Anticipated Discharge Timeframe: within 72 hours - Inpatient Certification Based on my medical assessment, after consideration of the patient's comorbidities, presenting symptoms, or acuity I expect that the services needed warrant INPATIENT care.: Yes I certify that my determination is in accordance with my understanding of Medicare's requirements for reasonable and necessary INPATIENT services [42 CFR 412.3e].: Yes Medical Necessity: Significant Comorbidiites Make Outpatient Treatment Too Risky, Need Close Monitoring Due to Risk of Patient Decompensation, Need for IV Antibiotics, Risk of Complication if Not Cared For in Hospital, Risk of Diagnosis Which Will Require Inpatient Eval/Care/Monitoring
[2020-05-21] MEDS ORDERED: VANCOMYCIN HCL 750 MG in DEXTROSE 5%-WATER 250 ML IV SCH (22:00)
[2020-05-22] MEDS: HYDROMORPHONE HCL INJ/PF 2 MG/ML AMPULE IV PRN ×6 (00:22→22:50)
[2020-05-22] MEDS: PROMETHAZINE HCL INJ 25 MG/1 ML VIAL IV PRN ×4 (00:22→22:50)
[2020-05-22] MEDS: HEPARIN SOD (PORCINE) 5,000 UNIT/ML 1 ML VIAL SUBCUT SCH ×4 (00:23→22:51)
--- NOTE | 2020-05-22 02:31 | XCELERA REPORT ---
[address] [address] Transthoracic Echocardiogram Report Name: GOLDY WALLACE Age: 19 yrs Gender: Female : 2000 Patient Status: Inpatient Patient Location: [address] [place], [place] [address] Study Date: 05/21/2020 08:46 AM Height: 65 in Weight: 117 lb BSA: 1.6 m2 Procedure: A two-dimensional transthoracic echocardiogram with color flow and Doppler was performed. Study Quality: Fair. Reason For Study: ENDOCARDITIS History: ENDOCARDITIS. Ordering Physician: AMIRA OQUENDO Performed By: Rachel Stone Interpretation Summary The left ventricle is normal in size. There is normal left ventricular wall thickness. LV EF is > than 65% Left ventricular systolic function is normal. Doppler measurements suggest normal left ventricular diastolic function The left ventricular wall motion is normal. There is no thrombus. No ASD ,VSD , or PFO seen. The right ventricle is normal in size and function. The right atrium is normal. The left atrial size is normal. There is no evidence of mitral valve prolapse. There is no vegetation seen on the mitral valve. There is no mitral valve stenosis. There is no mitral regurgitation noted. There is no aortic valvular vegetation. There is no aortic valve stenosis There is no LVOT obstruction. No aortic regurgitation is present. There is no tricuspid valve vegetation. There is no tricuspid stenosis. No tricuspid regurgitation. Tricuspid regurgitation jet envelope not well defined to measure RV systolic pressure accurately. There is no vegetation on the pulmonic valve. There is no pulmonic valvular stenosis. There is no pulmonic valvular regurgitation. The aortic root is normal size. The inferior vena cava appeared small and collapsed with respiration (RAP 0-5 mmHg) There is no pericardial effusion. MMode/2D Measurements & Calculations RVDd: 1.9 cm LVIDd: 4.9 cm FS: 31.4 % Ao root diam: 2.1 cm IVSd: 0.76 cm LVIDs: 3.4 cm EDV(Teich): 114.8 ml Ao root area: 3.3 cm2 LVPWd: 0.69 cm ESV(Teich): 47.0 ml EF(Teich): 59.1 % Doppler Measurements & Calculations MV E max annika: MV dec slope: Ao V2 max: LV V1 max P.4 cm/sec 337.0 cm/sec2 132.2 cm/sec 4.7 mmHg MV A max annika: MV dec time: 0.24 sec Ao max PG: LV V1 max: 61.1 cm/sec 7.0 mmHg 108.1 cm/sec MV E/A: 1.3 PA V2 max: PI end-d annika: 91.1 cm/sec 71.2 cm/sec PA max P.3 mmHg Left Ventricle The left ventricle is normal in size. There is normal left ventricular wall thickness. LV EF is > than 65%. Left ventricular systolic function is normal. Doppler measurements suggest normal left ventricular diastolic function. The left ventricular wall motion is normal. There is no thrombus. No ASD ,VSD , or PFO seen. Right Ventricle The right ventricle is normal in size and function. Atria The right atrium is normal. The left atrial size is normal. Mitral Valve There is no evidence of mitral valve prolapse. There is no vegetation seen on the mitral valve. There is no mitral valve stenosis. There is no mitral regurgitation noted. Aortic Valve There is no aortic valvular vegetation. There is no aortic valve stenosis. There is no LVOT obstruction. No aortic regurgitation is present. Tricuspid Valve There is no tricuspid valve vegetation. There is no tricuspid stenosis. No tricuspid regurgitation. Tricuspid regurgitation jet envelope not well defined to measure RV systolic pressure accurately. Pulmonic Valve There is no vegetation on the pulmonic valve. There is no pulmonic valvular stenosis. There is no pulmonic valvular regurgitation. Great Vessels The aortic root is normal size. The inferior vena cava appeared small and collapsed with respiration (RAP 0-5 mmHg). Effusions There is no pericardial effusion. : AMIRA OQUENDO Lakshmi
[2020-05-22] MEDS ORDERED: DEXTROSE 10%-WATER 1,000 ML IV PRN (08:04)
[2020-05-22] MEDS ORDERED: AMINO ACIDS 5 %/DEXTROSE 20 % 1,000 ML IV PRN (08:04)
[2020-05-22] MEDS ORDERED: DEXTROSE 40% GEL 15 GM TUBE PO PRN ×2 (08:04)
[2020-05-22] MEDS ORDERED: DEXTROSE 50%-WATER 25 GM/50 ML DISP.SYRIN IV PRN ×2 (08:04)
[2020-05-22] MEDS ORDERED: GLUCAGON,HUMAN RECOMB 1 MG INJ IM PRN (08:04)
[2020-05-22] MEDS: INSULIN REG, HUMAN 100 UNIT/ML 3 ML VIAL SUBCUT SCH ×3 (08:15→17:26)
[2020-05-22] MEDS: FAMOTIDINE 20 MG TABLET PO SCH (08:43)
[2020-05-22] MEDS: DEXTROSE 5%-LACTATED RINGERS 1,000 ML IV PRN ×4 (08:51→23:25)
[2020-05-22 10:18] LABS: HEMATOCRIT 26.6 % (36.0-47.0); HEMOGLOBIN 9.1 g/dL (12.0-15.5); MEAN CORPUSCULAR HEMOGLOBIN 29.9 pg (27.0-33.4); MEAN CORPUSCULAR HGB CONC 34.2 g/dL (32.0-36.0); MEAN CORPUSCULAR VOLUME 87 fl (80-97); PLATELET COUNT 226 10^3/uL (150-450); RED BLOOD COUNT 3.04 10^6/uL (3.72-5.28); RED CELL DISTRIBUTION WIDTH 13.8 % (11.5-14.0); WHITE BLOOD COUNT 4.6 10^3/uL (4.0-10.5)
[2020-05-22 10:26] LABS: INTERNATIONAL RATION (INR) 1.09; PROTHROMBIN TIME 14.3 SEC (11.4-15.4)
[2020-05-22] MEDS: LEVOTHYROXINE SODIUM 0.05 MG TABLET PEG SCH (12:30)
[2020-05-22] MEDS: DIPHENHYDRAMINE HCL 50 MG/ML VIAL IV SCH ×2 (13:06→22:52)
[2020-05-22] MEDS: DOCUSATE SODIUM 100 MG CAPSULE PO SCH ×2 (13:14→17:26)
--- NOTE | 2020-05-22 16:20 | PDOC PROGRESS REPORT ---
Subjective Progress Note for:: 05/22/20 Subjective:: Patient moved for positive blood cultures in setting of indwelling long-term IV for chronic TPN. Long discussion with patient and her mother regarding previous course of events that led her to this point. Mother and patient are highly concerned that patient is missing doses of her antibiotics and other medications as her IV has recently blown and her Luna catheter has not been accessed since admission when it was used a few times for meds. They requested that we use this line to provide the patient with her necessary medications including antibiotics rather than waiting for an IV to be placed given nurses have been unable to get an effective IV in this patient after many attempts over several hours today. I discussed with nursing to start using the patient's long-term IV again at least until we get ID opinion on whether this line should be removed or not. No other than chronic nausea and generalized fatigue and weakness, patient has no new complaints. Blood cultures from admission are negative and urine cultures negative. 05/20/2020 I had another long discussion with the patient and her mother today regarding her clinical course and all the events that led up to this admission. I have ordered blood cultures to be drawn 1 peripherally and 1 through her Luna catheter that is still in place. Mother states that home health did not draw a culture from her line and I agreed that this would be recommended if we are intending to hopefully keep this line in place rather than pull it. Infectious disease been consulted but has not commented on anything yet. We will continue current antibiotics and we will continue using patient's central access. 05/21/2020 Long discussion with patient and mother again today regarding the plan going forward based on Dr. Krishnamurthy's infectious disease consult note. They would like to proceed with line salvage and surveillance blood cultures on 2 separate future occasions. We will continue current course IV antibiotics and follow-up on the most recent cultures. WBC is dropping now which may be consistent with resolving infection/inflammation versus dilutional effect. Patient has no new complaints today. We will plan to restart TPN when most recent cultures are negative for 48 hours and previous cultures are consistently negative of both bacteria and fungus. 05/22/2020 Patient seems to be doing well today. I had another long discussion with the patient and her mother as I have had on many previous days. I told Dr. Krishnamurthy would like the patient to be off antibiotics and to have surveillance blood cultures done on days 3 and 7 being off antibiotics. I have ordered blood cultures for day 3. Blood cultures from 05/20 show no growth after 48 hours. Prior cultures from this admission all show no growth as well. The goal of the surveillance blood cultures is to preserve the patient's line which the patient and the mother absolutely want to do. I also noted the patient has a history of recurrently high lipase and amylase as well as rather high triglycerides. It is possible that the patient has recurrent acute pancreatitis due to hypertriglyceridemia. Given that she cannot take any nutrition or medications orally, she would need to be put on a PCSK9 inhibitor injection which can be prohibitively expensive in my experience with this drug. I told them they should look into getting this drug approved through PCP prior authorization or contacting the drug ornamental ironworker to see if they can get this for free. Patient needs to be referred to an aluminum boats assembler at discharge to follow-up on hypertriglyceridemia. This may be a source of recurrent abdominal pain and fevers outside of her usual bacteremia/fungemia/inflammatory bowel disease. Vancomycin has been discontinued as of yesterday. Reason For Visit: POSITIVE BLOOD CULTURE (1 OF 2), FEVER AND CHILLS Physical Exam Vital Signs: Temp Pulse Resp BP Pulse Ox 97.8 F 68 15 98/47 L 98 05/22/20 11:43 05/22/20 11:43 05/22/20 11:43 05/22/20 11:43 05/22/20 11:43 Intake & Output 05/21/20 05/22/20 05/23/20 06:59 06:59 06:59 Intake Total 3378 2250 1000 Balance 3378 2250 1000 Weight 53.3 kg 58.1 kg General appearance: PRESENT: no acute distress, well-developed, well-nourished Head exam: PRESENT: atraumatic, normocephalic Eye exam: PRESENT: conjunctiva pink Mouth exam: PRESENT: moist Respiratory exam: PRESENT: clear to auscultation martine. ABSENT: rales, rhonchi, wheezes Cardiovascular exam: PRESENT: RRR. ABSENT: diastolic murmur, rubs, systolic murmur GI/Abdominal exam: PRESENT: normal bowel sounds, soft, tenderness - Chronic mild epigastric tenderness. ABSENT: distended, guarding, mass, organolmegaly, rebound Neurological exam: PRESENT: alert, awake, oriented to person, oriented to place, oriented to time, oriented to situation Psychiatric exam: PRESENT: appropriate affect, normal mood Skin exam: PRESENT: dry, intact, warm Results Laboratory Results: 05/22/20 09:20 05/21/20 07:45 05/22/20 05/22/20 09:20 09:20 WBC 4.6 RBC 3.04 L Hgb 9.1 L Hct 26.6 L MCV 87 MCH 29.9 MCHC 34.2 RDW 13.8 Plt Count 226 Magnesium 1.6 Triglycerides 184 H Assessment and Plan - Diagnosis (1) Positive blood culture Is this a current diagnosis for this admission?: Yes Plan: Patient had a positive blood culture (outpatient) Blood culture 05/11/20 16:40: NG at 24 hours Blood culture 05/17/20 21:00: No growth Urine culture 05/17/20: NG Continue vancomycin 1000 mg IV q8h 05/19/2020 Infectious disease consult placed Okay to use long-term IV as unable to get IV access after many hours and multiple attempts by nursing; patient will continue getting her IV antibiotics through that line unless ID states otherwise in her consult 05/20/2020 Home health blood culture 1/2 growing coag negative staph with different sensitivities from prior culture Blood culture on admission no growth to date Blood culture 1/2 drawn peripherally today and blood culture 2/2 drawn from central line today, follow-up results 05/21/[address] Krishnamurthy: "For CoNS bacteremia we can salvage the catheter if we do 14 days of systemic antibiotic therapy together with lock therapy. Blood cultures from admission are negative, and this was before vancomycin or linezolid, if this was a true CLABSI due to MRSE, cultures would've been positive"....."complete the 2 weeks of therapy already established for Staphylococcus capitis with EOT 05/20 and do surveillance cultures off antibiotics 4 days and 7 days post antibiotic therapy" Discussed options with patient line salvage is what they would like to do given the patient has had multiple recent procedures involving line removal and placement Plan to stop antibiotics today and redraw blood cultures on 05/25 and 05/28. Patient and mother must follow-up with PCP and infectious disease in order to have these blood cultures interpreted and have the results discussed with them 05/22/2020 Day 1 off of antibiotics; blood cultures have been ordered for day 3 and they will need to be ordered for day 7 in the future as well either here or outpatient Please have all results of blood cultures forwarded to Dr. Krishnamurthy after the patient is discharged Attempting line salvage through the surveillance cultures as noted above, all cultures drawn during this admission are still negative TPN started back today, patient remains afebrile and cultures remain negative, could be discharged on May 24, day 3 off antibiotics, after cultures are drawn (2) Abdominal pain Qualifiers: Abdominal location: generalized Qualified Code(s): R10.84 - Generalized abdominal pain Is this a current diagnosis for this admission?: Yes Plan: Opioid analgesics and antiemetics (3) Crohn's disease Qualifiers: Gastrointestinal tract location: unspecified location Digestive disease complication type: unspecified complication Qualified Code(s): K50.919 - Crohn's disease, unspecified, with unspecified complications Is this a current diagnosis for this admission?: Yes (4) Gastroparesis Is this a current diagnosis for this admission?: Yes (5) Hypertriglyceridemia Is this a current diagnosis for this admission?: Yes Plan: Unclear etiology, needs referral to endocrinology outpatient Needs evaluation for PCSK9 inhibitor eligibility May be a cause of recurrent pancreatitis (6) Elevated amylase and lipase Is this a current diagnosis for this admission?: Yes Plan: Possibly has recurrent pancreatitis due to hypertriglyceridemia - Plan Summary Summary: Patient will be admitted to the medical floor where she will receive routine supportive and symptomatic cares. She will be treated with IV antibiotics utilizing Zyvox 600 mg every 12 hours. She will receive Dilaudid 0.5 to 2 mg IV every 3 hours as needed for pain. She will use Ativan 1 mg IV every 4 hours as needed for anxiety or restlessness. Her usual home medications will be resumed, as appropriate, once her medication list has been verified and reconciled. Her usual home TPN feedings will be continued with consultation by the registered dietitian. Further evaluations and consultations will be left to her daytime hospitalist as they are not of an emergent nature. - Time Time Spent with patient: 15-24 minutes Medications reviewed and adjusted accordingly: Yes Anticipated Discharge Disposition: Home, Self Care Anticipated Discharge Timeframe: within 48 hours - Inpatient Certification Based on my medical assessment, after consideration of the patient's comorbidities, presenting symptoms, or acuity I expect that the services needed warrant INPATIENT care.: Yes I certify that my determination is in accordance with my understanding of Medicare's requirements for reasonable and necessary INPATIENT services [42 CFR 412.3e].: Yes Medical Necessity: Significant Comorbidiites Make Outpatient Treatment Too Risky, Need Close Monitoring Due to Risk of Patient Decompensation, Risk of Complication if Not Cared For in Hospital, Risk of Diagnosis Which Will Require Inpatient Eval/Care/Monitoring
[2020-05-22 23:36] LABS: VANCOMYCIN,TROUGH < 5.0 ug/mL (5.0-20.0)
[2020-05-23] MEDS: INSULIN REG, HUMAN 100 UNIT/ML 3 ML VIAL SUBCUT SCH ×4 (01:39→18:22)
[2020-05-23] MEDS: PROMETHAZINE HCL INJ 25 MG/1 ML VIAL IV PRN ×4 (03:43→18:29)
[2020-05-23] MEDS: HYDROMORPHONE HCL INJ/PF 2 MG/ML AMPULE IV PRN ×5 (03:44→21:48)
[2020-05-23] MEDS: DEXTROSE 5%-LACTATED RINGERS 1,000 ML IV PRN ×3 (06:02→18:42)
[2020-05-23 06:58] LABS: ALBUMIN 3.1 g/dL (3.5-5.0); ALKALINE PHOSPHATASE 103 U/L (38-126); ASPARTATE AMINO TRANSFERASE 88 U/L (14-36); BILIRUBIN,TOTAL 0.2 mg/dL (0.2-1.3); CALCIUM 8.4 mg/dL (8.4-10.2); GLUCOSE 85 mg/dL (75-110); PHOSPHORUS 4.6 mg/dL (2.5-4.5); POTASSIUM 4.1 mmol/L (3.6-5.0); TOTAL PROTEIN 6.6 g/dL (6.3-8.2)
[2020-05-23] MEDS: HEPARIN SOD (PORCINE) 5,000 UNIT/ML 1 ML VIAL SUBCUT SCH ×3 (07:01→21:48)
[2020-05-23 07:04] LABS: CARBON DIOXIDE 33 mmol/L (22-30); CHLORIDE 101 mmol/L (98-107)
[2020-05-23 07:05] LABS: BLOOD UREA NITROGEN < 2 mg/dL (7-20)
[2020-05-23 07:06] LABS: ANION GAP 4 (5-19)
[2020-05-23] MEDS: LEVOTHYROXINE SODIUM 0.05 MG TABLET PEG SCH (10:01)
[2020-05-23] MEDS: DOCUSATE SODIUM 100 MG CAPSULE PO SCH (10:07)
--- NOTE | 2020-05-23 10:46 | PDOC PROGRESS REPORT ---
Subjective Progress Note for:: 05/23/20 Subjective:: 19 year old female who presented the emergency room with a one-day history of fever. She admits developing a fever yesterday which has been persistent, accompanied by chills, malaise and ague, and associated with palpitations (rapid heartbeat). She denies other associated or accompanying signs and symptoms. She admits prior similar episodes due to infected IV and enteral access catheters. She was recently discharged from the hospital on IV Rocephin administered by home health for a suspected tunnel catheter infection. A blood culture was obtained 4 days ago and the results were growth present and 1 of 2 bottles reported as a coagulase-negative Staphylococcus epidermidis resistant to Rocephin, with the other blood culture bottles showing no growth. She has not identified any aggravating or ameliorating factors for her fever. In the emergency room she was found to have an unremarkable evaluation, however due to the positive blood culture and the patient's report of fever she was admitted to the hospital for further evaluation and treatment. 05/18/20-No complaints offered at the time of exam 05/19-Patient moved for positive blood cultures in setting of indwelling long- term IV for chronic TPN. Long discussion with patient and her mother regarding previous course of events that led her to this point. Mother and patient are highly concerned that patient is missing doses of her antibiotics and other medications as her IV has recently blown and her Luna catheter has not been accessed since admission when it was used a few times for meds. They requested that we use this line to provide the patient with her necessary medications including antibiotics rather than waiting for an IV to be placed given nurses have been unable to get an effective IV in this patient after many attempts over several hours today. I discussed with nursing to start using the patient's long-term IV again at least until we get ID opinion on whether this line should be removed or not. No other than chronic nausea and generalized fatigue and weakness, patient has no new complaints. Blood cultures from admission are negative and urine cultures negative. 05/20/2020 I had another long discussion with the patient and her mother today regarding her clinical course and all the events that led up to this admission. I have ordered blood cultures to be drawn 1 peripherally and 1 through her Luna catheter that is still in place. Mother states that home health did not draw a culture from her line and I agreed that this would be recommended if we are intending to hopefully keep this line in place rather than pull it. Infectious disease been consulted but has not commented on anything yet. We will continue current antibiotics and we will continue using patient's central access. 05/21/2020 Long discussion with patient and mother again today regarding the plan going forward based on Dr. Krishnamurthy's infectious disease consult note. They would like to proceed with line salvage and surveillance blood cultures on 2 separate future occasions. We will continue current course IV antibiotics and follow-up on the most recent cultures. WBC is dropping now which may be consistent with resolving infection/inflammation versus dilutional effect. Patient has no new complaints today. We will plan to restart TPN when most recent cultures are negative for 48 hours and previous cultures are consistently negative of both bacteria and fungus. 05/22/2020 Patient seems to be doing well today. I had another long discussion with the patient and her mother as I have had on many previous days. I told Dr. Krishnamurthy would like the patient to be off antibiotics and to have surveillance blood cultures done on days 3 and 7 being off antibiotics. I have ordered blood cultures for day 3. Blood cultures from 05/20 show no growth after 48 hours. Prior cultures from this admission all show no growth as well. The goal of the surveillance blood cultures is to preserve the patient's line which the patient and the mother absolutely want to do. I also noted the patient has a history of recurrently high lipase and amylase as well as rather high triglycerides. It is possible that the patient has recurrent acute pancreatitis due to hypertriglyceridemia. Given that she cannot take any nutrition or medications orally, she would need to be put on a PCSK9 inhibitor injection which can be prohibitively expensive in my experience with this drug. I told them they should look into getting this drug approved through PCP prior authorization or contacting the drug drafting instructor to see if they can get this for free. Patient needs to be referred to an ammonia still operator at discharge to follow-up on hypertriglyceridemia. This may be a source of recurrent abdominal pain and fevers outside of her usual bacteremia/fungemia/inflammatory bowel disease. Vancomycin has been discontinued as of yesterday. 05/23/2020-patient is comfortably in the bed communicating well. Not in distress. Mom is at bedside. Explained to her the plan of care today. Plan is to cont inue the present management and off the antibiotics at this time. Latest blood cultures are negative plan is to repeat the blood cultures tomorrow. Family is in agreement. Reason For Visit: POSITIVE BLOOD CULTURE (1 OF 2), FEVER AND CHILLS Physical Exam Vital Signs: Temp Pulse Resp BP Pulse Ox 97.9 F 75 15 107/45 L 99 05/23/20 07:59 05/23/20 07:59 05/23/20 07:59 05/23/20 07:59 05/23/20 07:59 Intake & Output 05/22/20 05/23/20 05/24/20 06:59 06:59 06:59 Intake Total 2250 3072 Balance 2250 3072 Weight 58.1 kg 54.3 kg General appearance: PRESENT: no acute distress, thin Head exam: PRESENT: atraumatic Eye exam: PRESENT: conjunctiva pale, PERRLA Ear exam: PRESENT: normal external ear exam Mouth exam: PRESENT: neck supple Teeth exam: PRESENT: poor dentation Neck exam: ABSENT: carotid bruit, JVD, lymphadenopathy, thyromegaly Respiratory exam: PRESENT: clear to auscultation martine, other - Patient has Luna catheter on the left side of the chest.. ABSENT: rales, rhonchi, wheezes Cardiovascular exam: PRESENT: RRR. ABSENT: diastolic murmur, rubs, systolic murmur GI/Abdominal exam: PRESENT: normal bowel sounds, soft. ABSENT: distended, guarding, mass, organolmegaly, rebound, tenderness Rectal exam: PRESENT: deferred Extremities exam: PRESENT: full ROM. ABSENT: calf tenderness, clubbing, pedal edema Neurological exam: PRESENT: alert, awake, oriented to person, oriented to place, oriented to time, oriented to situation, CN II-XII grossly intact. ABSENT: motor sensory deficit Psychiatric exam: PRESENT: appropriate affect, normal mood. ABSENT: homicidal ideation, suicidal ideation Results Laboratory Results: 05/22/20 09:20 05/23/20 03:30 05/22/20 05/22/20 05/23/20 09: 22:50 03:30 Sodium 137.7 Potassium 4.1 Chloride 101 Carbon Dioxide 33 H Anion Gap 4 L BUN < 2 L Creatinine 0.71 0.71 Est GFR ( Amer) > 60 > 60 Glucose 85 Calcium 8.4 Phosphorus 4.6 H Magnesium 1.6 Total Bilirubin 0.2 AST 88 H Alkaline Phosphatase 103 Total Protein 6.6 Albumin 3.1 L Prealbumin 12.0 L Triglycerides 184 H 05/17/20 21:00 Blood Blood Culture - Final NO GROWTH IN 5 DAYS 05/17/20 16:40 Blood Blood Culture - Final NO GROWTH IN 5 DAYS Assessment and Plan - Diagnosis (1) Positive blood culture Is this a current diagnosis for this admission?: Yes Plan: Patient had a positive blood culture (outpatient) Blood culture 05/11/20 16:40: NG at 24 hours Blood culture 05/17/20 21:00: No growth Urine culture 05/17/20: NG Continue vancomycin 1000 mg IV q8h 05/19/2020 Infectious disease consult placed Okay to use long-term IV as unable to get IV access after many hours and multiple attempts by nursing; patient will continue getting her IV antibiotics through that line unless ID states otherwise in her consult 05/20/2020 Home health blood culture 1/2 growing coag negative staph with different sensitivities from prior culture Blood culture on admission no growth to date Blood culture 1/2 drawn peripherally today and blood culture 2/2 drawn from central line today, follow-up results 05/21/[address] Krishnamurthy: "For CoNS bacteremia we can salvage the catheter if we do 14 days of systemic antibiotic therapy together with lock therapy. Blood cultures from admission are negative, and this was before vancomycin or linezolid, if this was a true CLABSI due to MRSE, cultures would've been positive"....."complete the 2 weeks of therapy already established for Staphylococcus capitis with EOT 05/20 and do surveillance cultures off antibiotics 4 days and 7 days post antibiotic therapy" Discussed options with patient line salvage is what they would like to do given the patient has had multiple recent procedures involving line removal and placement Plan to stop antibiotics today and redraw blood cultures on 05/25 and 05/28. Patient and mother must follow-up with PCP and infectious disease in order to have these blood cultures interpreted and have the results discussed with them 05/22/2020 Day 1 off of antibiotics; blood cultures have been ordered for day 3 and they will need to be ordered for day 7 in the future as well either here or outpatient Please have all results of blood cultures forwarded to Dr. Krishnamurthy after the patient is discharged Attempting line salvage through the surveillance cultures as noted above, all cultures drawn during this admission are still negative TPN started back today, patient remains afebrile and cultures remain negative, could be discharged on May 24, day 3 off antibiotics, after cultures are drawn 05/23/2020-patient is afebrile temp is 97.9 today. Antibiotics are on hold. Repeat blood cultures are pending for tomorrow. Plan is to repeat the blood cultures and again. In the meantime we will continue the present david price. Blood cultures from 05/17 and 05/20 came back negative so far. (2) Abdominal pain Qualifiers: Abdominal location: generalized Qualified Code(s): R10.84 - Generalized abdominal pain Is this a current diagnosis for this admission?: Yes Plan: Opioid analgesics and antiemetics 05/23/2020-patient denies any abdominal pains at the time of my examination. Plan is to continue antiemetics and opioid medications. (3) Gastroparesis Is this a current diagnosis for this admission?: Yes Plan: gastrostomy tube which is clamped. She states that she can tolerate absolutely nothing in her stomach -J-tube however she states that she also has nausea when medications are giving via J-tube and that she cannot tolerate tube feedings -IV fluids (D5 LR) 05/23/2020-patient is receiving TPN through the Luna catheter. Plan is to continue antiemetics at this time. (4) Hypertriglyceridemia Is this a current diagnosis for this admission?: Yes Plan: Unclear etiology, needs referral to endocrinology outpatient Needs evaluation for PCSK9 inhibitor eligibility May be a cause of recurrent pancreatitis (5) Elevated amylase and lipase Is this a current diagnosis for this admission?: Yes Plan: Possibly has recurrent pancreatitis due to hypertriglyceridemia (6) Crohn's disease Qualifiers: Gastrointestinal tract location: unspecified location Digestive disease complication type: unspecified complication Qualified Code(s): K50.919 - Crohn's disease, unspecified, with unspecified complications Is this a current diagnosis for this admission?: No Plan: Followed by GI outpatient - Plan Summary Summary: Patient will be admitted to the medical floor where she will receive routine supportive and symptomatic cares. She will be treated with IV antibiotics utilizing Zyvox 600 mg every 12 hours. She will receive Dilaudid 0.5 to 2 mg IV every 3 hours as needed for pain. She will use Ativan 1 mg IV every 4 hours as needed for anxiety or restlessness. Her usual home medications will be resumed, as appropriate, once her medication list has been verified and reconciled. Her usual home TPN feedings will be continued with consultation by the registered dietitian. Further evaluations and consultations will be left to her daytime hospitalist as they are not of an emergent nature. - Time Anticipated Discharge Disposition: Home, Self Care Anticipated Discharge Timeframe: within 72 hours
[2020-05-23] MEDS: DOCUSATE SODIUM 100 MG/10 ML UDC PO SCH ×2 (11:03→18:25)
[2020-05-23] MEDS: DIPHENHYDRAMINE HCL 50 MG/ML VIAL IV SCH ×2 (11:03→21:58)
[2020-05-23] MEDS: AMINO ACIDS 5 %/DEXTROSE 20 % 1,000 ML IV PRN (19:39)
[2020-05-24] MEDS: INSULIN REG, HUMAN 100 UNIT/ML 3 ML VIAL SUBCUT SCH ×4 (01:32→18:25)
[2020-05-24] MEDS: PROMETHAZINE HCL INJ 25 MG/1 ML VIAL IV PRN ×4 (01:44→18:27)
[2020-05-24] MEDS: HYDROMORPHONE HCL INJ/PF 2 MG/ML AMPULE IV PRN ×6 (01:45→21:30)
[2020-05-24] MEDS: DEXTROSE 5%-LACTATED RINGERS 1,000 ML IV PRN ×4 (01:45→21:23)
[2020-05-24] MEDS: HEPARIN SOD (PORCINE) 5,000 UNIT/ML 1 ML VIAL SUBCUT SCH ×3 (05:20→21:23)
[2020-05-24 05:51] LABS: ABSOLUTE LYMPHOCYTES (AUTO) 1.8 10^3/uL (0.5-4.7); ABSOLUTE MONOCYTES (AUTO) 0.5 10^3/uL (0.1-1.4); ABSOLUTE NEUT (AUTO) 1.4 10^3/uL (1.7-8.2); BASOPHILS % (AUTO) 0.8 % (0-2); EOSINOPHILS % (AUTO) 22.1 % (0-6); HEMATOCRIT 29.2 % (36.0-47.0); HEMOGLOBIN 9.9 g/dL (12.0-15.5); LYMPHOCYTES % (AUTO) 37.7 % (13-45); MEAN CORPUSCULAR HEMOGLOBIN 29.8 pg (27.0-33.4); MEAN CORPUSCULAR VOLUME 88 fl (80-97); MONOCYTES % (AUTO) 10.1 % (3-13); PLATELET COUNT 235 10^3/uL (150-450); RED BLOOD COUNT 3.33 10^6/uL (3.72-5.28); RED CELL DISTRIBUTION WIDTH 13.6 % (11.5-14.0); SEGMENTED NEUTROPHILS % (AUTO) 29.3 % (42-78); TOTAL CELLS COUNTED % (AUTO) 100 %; WHITE BLOOD COUNT 4.7 10^3/uL (4.0-10.5)
[2020-05-24 06:19] LABS: ALBUMIN 3.4 g/dL (3.5-5.0); ALKALINE PHOSPHATASE 101 U/L (38-126); ANION GAP 6 (5-19); ASPARTATE AMINO TRANSFERASE 69 U/L (14-36); BILIRUBIN,TOTAL 0.2 mg/dL (0.2-1.3); BLOOD UREA NITROGEN 6 mg/dL (7-20); CALCIUM 8.9 mg/dL (8.4-10.2); CARBON DIOXIDE 30 mmol/L (22-30); CHLORIDE 100 mmol/L (98-107); GLUCOSE 74 mg/dL (75-110); PHOSPHORUS 4.5 mg/dL (2.5-4.5); POTASSIUM 4.1 mmol/L (3.6-5.0); TOTAL PROTEIN 6.9 g/dL (6.3-8.2)
[2020-05-24 06:25] LABS: PREALBUMIN 13.2 mg/dL (17.6-36.0)
[2020-05-24] MEDS: LEVOTHYROXINE SODIUM 0.05 MG TABLET PEG SCH (09:56)
[2020-05-24] MEDS: DIPHENHYDRAMINE HCL 50 MG/ML VIAL IV SCH ×2 (09:56→19:52)
--- NOTE | 2020-05-24 10:07 | PDOC PROGRESS REPORT ---
Subjective Progress Note for:: 05/24/20 Subjective:: 19 year old female who presented the emergency room with a one-day history of fever. She admits developing a fever yesterday which has been persistent, accompanied by chills, malaise and ague, and associated with palpitations (rapid heartbeat). She denies other associated or accompanying signs and symptoms. She admits prior similar episodes due to infected IV and enteral access catheters. She was recently discharged from the hospital on IV Rocephin administered by home health for a suspected tunnel catheter infection. A blood culture was obtained 4 days ago and the results were growth present and 1 of 2 bottles reported as a coagulase-negative Staphylococcus epidermidis resistant to Rocephin, with the other blood culture bottles showing no growth. She has not identified any aggravating or ameliorating factors for her fever. In the emergency room she was found to have an unremarkable evaluation, however due to the positive blood culture and the patient's report of fever she was admitted to the hospital for further evaluation and treatment. 05/18/20-No complaints offered at the time of exam 05/19-Patient moved for positive blood cultures in setting of indwelling long- term IV for chronic TPN. Long discussion with patient and her mother regarding previous course of events that led her to this point. Mother and patient are highly concerned that patient is missing doses of her antibiotics and other medications as her IV has recently blown and her Luna catheter has not been accessed since admission when it was used a few times for meds. They requested that we use this line to provide the patient with her necessary medications including antibiotics rather than waiting for an IV to be placed given nurses have been unable to get an effective IV in this patient after many attempts over several hours today. I discussed with nursing to start using the patient's long-term IV again at least until we get ID opinion on whether this line should be removed or not. No other than chronic nausea and generalized fatigue and weakness, patient has no new complaints. Blood cultures from admission are negative and urine cultures negative. 05/20/2020 I had another long discussion with the patient and her mother today regarding her clinical course and all the events that led up to this admission. I have ordered blood cultures to be drawn 1 peripherally and 1 through her Luna catheter that is still in place. Mother states that home health did not draw a culture from her line and I agreed that this would be recommended if we are intending to hopefully keep this line in place rather than pull it. Infectious disease been consulted but has not commented on anything yet. We will continue current antibiotics and we will continue using patient's central access. 05/21/2020 Long discussion with patient and mother again today regarding the plan going forward based on Dr. Krishnamurthy's infectious disease consult note. They would like to proceed with line salvage and surveillance blood cultures on 2 separate future occasions. We will continue current course IV antibiotics and follow-up on the most recent cultures. WBC is dropping now which may be consistent with resolving infection/inflammation versus dilutional effect. Patient has no new complaints today. We will plan to restart TPN when most recent cultures are negative for 48 hours and previous cultures are consistently negative of both bacteria and fungus. 05/22/2020 Patient seems to be doing well today. I had another long discussion with the patient and her mother as I have had on many previous days. I told Dr. Krishnamurthy would like the patient to be off antibiotics and to have surveillance blood cultures done on days 3 and 7 being off antibiotics. I have ordered blood cultures for day 3. Blood cultures from 05/20 show no growth after 48 hours. Prior cultures from this admission all show no growth as well. The goal of the surveillance blood cultures is to preserve the patient's line which the patient and the mother absolutely want to do. I also noted the patient has a history of recurrently high lipase and amylase as well as rather high triglycerides. It is possible that the patient has recurrent acute pancreatitis due to hypertriglyceridemia. Given that she cannot take any nutrition or medications orally, she would need to be put on a PCSK9 inhibitor injection which can be prohibitively expensive in my experience with this drug. I told them they should look into getting this drug approved through PCP prior authorization or contacting the drug hydraulic pile hammer operator to see if they can get this for free. Patient needs to be referred to an welding equipment sales representative at discharge to follow-up on hypertriglyceridemia. This may be a source of recurrent abdominal pain and fevers outside of her usual bacteremia/fungemia/inflammatory bowel disease. Vancomycin has been discontinued as of yesterday. 05/23/2020-patient is comfortably in the bed communicating well. Not in distress. Mom is at bedside. Explained to her the plan of care today. Plan is to cont inue the present management and off the antibiotics at this time. Latest blood cultures are negative plan is to repeat the blood cultures tomorrow. Family is in agreement. 05/24/2020-patient is comfortably in the bed communicating well. Patient's mom at bedside. No concerns expressed by the family. Afebrile. WBC count is 4700 T- max is 97.3. Plan is to repeat the blood cultures, cultures from the Luna cath requested. Presently patient is not on IV antibiotic therapy. Reason For Visit: POSITIVE BLOOD CULTURE (1 OF 2), FEVER AND CHILLS Physical Exam Vital Signs: Temp Pulse Resp BP Pulse Ox 97.5 F 81 12 98/51 L 100 05/24/20 08:00 05/24/20 08:00 05/24/20 08:00 05/24/20 08:00 05/24/20 08:00 Intake & Output 05/23/20 05/24/20 05/25/20 06:59 06:59 06:59 Intake Total 3072 3000 1000 Balance 3072 3000 1000 Weight 54.3 kg 54.6 kg General appearance: PRESENT: no acute distress, cooperative, thin Head exam: PRESENT: atraumatic Eye exam: PRESENT: conjunctiva pale, PERRLA Ear exam: PRESENT: normal external ear exam Mouth exam: PRESENT: neck supple Neck exam: ABSENT: carotid bruit, JVD, lymphadenopathy, thyromegaly Respiratory exam: PRESENT: clear to auscultation martine, other - Luna catheter present on the left upper chest.. ABSENT: rales, rhonchi, wheezes Pulses: PRESENT: normal dorsalis pedis pul GI/Abdominal exam: PRESENT: other - Feeding tube present in the lt side of the abdomen. Rectal exam: PRESENT: deferred Extremities exam: PRESENT: full ROM. ABSENT: calf tenderness, clubbing, pedal edema Neurological exam: PRESENT: alert, awake, oriented to person, oriented to place, oriented to time, oriented to situation, CN II-XII grossly intact. ABSENT: motor sensory deficit Psychiatric exam: PRESENT: appropriate affect, normal mood. ABSENT: homicidal ideation, suicidal ideation Results Laboratory Results: 05/24/20 05:10 05/24/20 05:10 05/24/20 05/24/20 05:10 05:10 WBC 4.7 RBC 3.33 L Hgb 9.9 L Hct 29.2 L MCV 88 MCH 29.8 MCHC 34.0 RDW 13.6 Plt Count 235 Seg Neutrophils % 29.3 L Sodium 136.3 L Potassium 4.1 Chloride 100 Carbon Dioxide 30 Anion Gap 6 BUN 6 L Creatinine 0.73 Est GFR ( Amer) > 60 Glucose 74 L Calcium 8.9 Phosphorus 4.5 Total Bilirubin 0.2 AST 69 H Alkaline Phosphatase 101 Total Protein 6.9 Albumin 3.4 L Prealbumin 13.2 L Assessment and Plan - Diagnosis (1) Positive blood culture Is this a current diagnosis for this admission?: Yes Plan: Patient had a positive blood culture (outpatient) Blood culture 05/11/20 16:40: NG at 24 hours Blood culture 05/17/20 21:00: No growth Urine culture 05/17/20: NG Continue vancomycin 1000 mg IV q8h 05/19/2020 Infectious disease consult placed Okay to use long-term IV as unable to get IV access after many hours and multiple attempts by nursing; patient will continue getting her IV antibiotics through that line unless ID states otherwise in her consult 05/20/2020 Home health blood culture 1/2 growing coag negative staph with different sensitivities from prior culture Blood culture on admission no growth to date Blood culture 1/2 drawn peripherally today and blood culture 2/2 drawn from central line today, follow-up results 05/21/[address] Krishnamurthy: "For CoNS bacteremia we can salvage the catheter if we do 14 days of systemic antibiotic therapy together with lock therapy. Blood cultures from admission are negative, and this was before vancomycin or linezolid, if this was a true CLABSI due to MRSE, cultures would've been positive"....."complete the 2 weeks of therapy already established for Staphylococcus capitis with EOT 05/20 and do surveillance cultures off antib iotics 4 days and 7 days post antibiotic therapy" Discussed options with patient line salvage is what they would like to do given the patient has had multiple recent procedures involving line removal and placement Plan to stop antibiotics today and redraw blood cultures on 05/25 and 05/28. Patient and mother must follow-up with PCP and infectious disease in order to have these blood cultures interpreted and have the results discussed with them 05/22/2020 Day 1 off of antibiotics; blood cultures have been ordered for day 3 and they will need to be ordered for day 7 in the future as well either here or outpatient Please have all results of blood cultures forwarded to Dr. Krishnamurthy after the patient is discharged Attempting line salvage through the surveillance cultures as noted above, all cultures drawn during this admission are still negative TPN started back today, patient remains afebrile and cultures remain negative, could be discharged on May 24, day 3 off antibiotics, after cultures are drawn 05/23/2020-patient is afebrile temp is 97.9 today. Antibiotics are on hold. Repeat blood cultures are pending for tomorrow. Plan is to repeat the blood cultures and again. In the meantime we will continue the present management. Blood cultures from 05/17 and 05/20 came back negative so far. 05/24/20-temp is 97.3 today with a WBC count of 4700. No acute events in the last 24 hours. Plan is to repeat the peripheral blood cultures and with cultures from the Luna catheter port.. (2) Abdominal pain Qualifiers: Abdominal location: generalized Qualified Code(s): R10.84 - Generalized abdominal pain Is this a current diagnosis for this admission?: Yes Plan: Opioid analgesics and antiemetics 05/23/2020-patient denies any abdominal pains at the time of my examination. Plan is to continue antiemetics and opioid medications. (3) Gastroparesis Is this a current diagnosis for this admission?: Yes Plan: gastrostomy tube which is clamped. She states that she can tolerate absolutely nothing in her stomach -J-tube however she states that she also has nausea when medications are giving via J-tube and that she cannot tolerate tube feedings -IV fluids (D5 LR) 05/23/2020-patient is receiving TPN via the J-tube. 220-patient is receiving TPN via J-tube. Family is requesting Benadryl 25 mg IV twice daily with TPN infusion. (4) Hypertriglyceridemia Is this a current diagnosis for this admission?: Yes Plan: Unclear etiology, needs referral to endocrinology outpatient Needs evaluation for PCSK9 inhibitor eligibility May be a cause of recurrent pancreatitis (5) Elevated amylase and lipase Is this a current diagnosis for this admission?: Yes Plan: Possibly has recurrent pancreatitis due to hypertriglyceridemia (6) Crohn's disease Qualifiers: Gastrointestinal tract location: unspecified location Digestive disease complication type: unspecified complication Qualified Code(s): K50.919 - Crohn's disease, unspecified, with unspecified complications Is this a current diagnosis for this admission?: No Plan: Followed by GI outpatient - Plan Summary Summary: Patient will be admitted to the medical floor where she will receive routine supportive and symptomatic cares. She will be treated with IV antibiotics utilizing Zyvox 600 mg every 12 hours. She will receive Dilaudid 0.5 to 2 mg IV every 3 hours as needed for pain. She will use Ativan 1 mg IV every 4 hours as needed for anxiety or restlessness. Her usual home medications will be resumed, as appropriate, once her medication list has been verified and reconciled. Her usual home TPN feedings will be continued with consultation by the registered dietitian. Further evaluations and consultations will be left to her daytime hospitalist as they are not of an emergent nature. - Time Anticipated Discharge Disposition: Home with Home Health Anticipated Discharge Timeframe: within 72 hours
[2020-05-24] MEDS: DOCUSATE SODIUM 100 MG/10 ML UDC PO SCH ×2 (15:02→18:25)
[2020-05-24] MEDS: AMINO ACIDS 5 %/DEXTROSE 20 % 1,000 ML IV PRN (19:57)
[2020-05-25] MEDS: INSULIN REG, HUMAN 100 UNIT/ML 3 ML VIAL SUBCUT SCH ×3 (01:19→12:22)
[2020-05-25] MEDS: DIPHENHYDRAMINE HCL 50 MG/ML VIAL IV SCH ×3 (01:20→17:57)
[2020-05-25] MEDS: HYDROMORPHONE HCL INJ/PF 2 MG/ML AMPULE IV PRN ×6 (01:33→21:04)
[2020-05-25] MEDS: PROMETHAZINE HCL INJ 25 MG/1 ML VIAL IV PRN ×4 (01:33→21:04)
[2020-05-25] MEDS ORDERED: HYDROMORPHONE HCL INJ/PF 2 MG/ML AMPULE IV PRN ×2 (03:57)
[2020-05-25] MEDS: HEPARIN SOD (PORCINE) 5,000 UNIT/ML 1 ML VIAL SUBCUT SCH ×3 (06:50→21:07)
[2020-05-25] MEDS: DEXTROSE 5%-LACTATED RINGERS 1,000 ML IV PRN ×3 (06:50→19:20)
[2020-05-25 07:44] LABS: HEMATOCRIT 27.5 % (36.0-47.0); HEMOGLOBIN 9.4 g/dL (12.0-15.5); MEAN CORPUSCULAR HEMOGLOBIN 29.9 pg (27.0-33.4); MEAN CORPUSCULAR VOLUME 88 fl (80-97); PLATELET COUNT 212 10^3/uL (150-450); RED BLOOD COUNT 3.13 10^6/uL (3.72-5.28); RED CELL DISTRIBUTION WIDTH 13.7 % (11.5-14.0); WHITE BLOOD COUNT 4.5 10^3/uL (4.0-10.5)
[2020-05-25 08:09] LABS: ALBUMIN 3.2 g/dL (3.5-5.0); ALKALINE PHOSPHATASE 93 U/L (38-126); ANION GAP 5 (5-19); ASPARTATE AMINO TRANSFERASE 49 U/L (14-36); BILIRUBIN,TOTAL 0.3 mg/dL (0.2-1.3); BLOOD UREA NITROGEN 7 mg/dL (7-20); CALCIUM 8.8 mg/dL (8.4-10.2); CARBON DIOXIDE 32 mmol/L (22-30); CHLORIDE 101 mmol/L (98-107); GLUCOSE 99 mg/dL (75-110); PHOSPHORUS 4.3 mg/dL (2.5-4.5); POTASSIUM 4.1 mmol/L (3.6-5.0); TOTAL PROTEIN 6.7 g/dL (6.3-8.2); TRIGLYCERIDES 170 mg/dL (<150)
[2020-05-25 08:12] LABS: INTERNATIONAL RATION (INR) 1.01; PROTHROMBIN TIME 13.5 SEC (11.4-15.4)
[2020-05-25 08:16] LABS: PREALBUMIN 12.5 mg/dL (17.6-36.0)
[2020-05-25] MEDS: MAGNESIUM OXIDE 400 MG TABLET PO SCH ×2 (10:07→17:58)
[2020-05-25] MEDS: LEVOTHYROXINE SODIUM 0.05 MG TABLET PEG SCH (10:07)
[2020-05-25] MEDS: FAT EMULSIONS 250 ML IV SCH (10:07)
[2020-05-25] MEDS: DOCUSATE SODIUM 100 MG/10 ML UDC PO SCH ×2 (10:08→19:19)
--- NOTE | 2020-05-25 11:07 | PDOC PROGRESS REPORT ---
Subjective Progress Note for:: 05/25/20 Subjective:: 19 year old female who presented the emergency room with a one-day history of fever. She admits developing a fever yesterday which has been persistent, accompanied by chills, malaise and ague, and associated with palpitations (rapid heartbeat). She denies other associated or accompanying signs and symptoms. She admits prior similar episodes due to infected IV and enteral access catheters. She was recently discharged from the hospital on IV Rocephin administered by home health for a suspected tunnel catheter infection. A blood culture was obtained 4 days ago and the results were growth present and 1 of 2 bottles reported as a coagulase-negative Staphylococcus epidermidis resistant to Rocephin, with the other blood culture bottles showing no growth. She has not identified any aggravating or ameliorating factors for her fever. In the emergency room she was found to have an unremarkable evaluation, however due to the positive blood culture and the patient's report of fever she was admitted to the hospital for further evaluation and treatment. 05/18/20-No complaints offered at the time of exam 05/19-Patient moved for positive blood cultures in setting of indwelling long- term IV for chronic TPN. Long discussion with patient and her mother regarding previous course of events that led her to this point. Mother and patient are highly concerned that patient is missing doses of her antibiotics and other medications as her IV has recently blown and her Luna catheter has not been accessed since admission when it was used a few times for meds. They requested that we use this line to provide the patient with her necessary medications including antibiotics rather than waiting for an IV to be placed given nurses have been unable to get an effective IV in this patient after many attempts over several hours today. I discussed with nursing to start using the patient's long-term IV again at least until we get ID opinion on whether this line should be removed or not. No other than chronic nausea and generalized fatigue and weakness, patient has no new complaints. Blood cultures from admission are negative and urine cultures negative. 05/20/2020 I had another long discussion with the patient and her mother today regarding her clinical course and all the events that led up to this admission. I have ordered blood cultures to be drawn 1 peripherally and 1 through her Luna catheter that is still in place. Mother states that home health did not draw a culture from her line and I agreed that this would be recommended if we are intending to hopefully keep this line in place rather than pull it. Infectious disease been consulted but has not commented on anything yet. We will continue current antibiotics and we will continue using patient's central access. 05/21/2020 Long discussion with patient and mother again today regarding the plan going forward based on Dr. Krishnamurthy's infectious disease consult note. They would like to proceed with line salvage and surveillance blood cultures on 2 separate future occasions. We will continue current course IV antibiotics and follow-up on the most recent cultures. WBC is dropping now which may be consistent with resolving infection/inflammation versus dilutional effect. Patient has no new complaints today. We will plan to restart TPN when most recent cultures are negative for 48 hours and previous cultures are consistently negative of both bacteria and fungus. 05/22/2020 Patient seems to be doing well today. I had another long discussion with the patient and her mother as I have had on many previous days. I told Dr. Krishnamurthy would like the patient to be off antibiotics and to have surveillance blood cultures done on days 3 and 7 being off antibiotics. I have ordered blood cultures for day 3. Blood cultures from 05/20 show no growth after 48 hours. Prior cultures from this admission all show no growth as well. The goal of the surveillance blood cultures is to preserve the patient's line which the patient and the mother absolutely want to do. I also noted the patient has a history of recurrently high lipase and amylase as well as rather high triglycerides. It is possible that the patient has recurrent acute pancreatitis due to hypertriglyceridemia. Given that she cannot take any nutrition or medications orally, she would need to be put on a PCSK9 inhibitor injection which can be prohibitively expensive in my experience with this drug. I told them they should look into getting this drug approved through PCP prior authorization or contacting the drug inlayer silver to see if they can get this for free. Patient needs to be referred to an home builder at discharge to follow-up on hypertriglyceridemia. This may be a source of recurrent abdominal pain and fevers outside of her usual bacteremia/fungemia/inflammatory bowel disease. Vancomycin has been discontinued as of yesterday. 05/23/2020-patient is comfortably in the bed communicating well. Not in distress. Mom is at bedside. Explained to her the plan of care today. Plan is to cont inue the present management and off the antibiotics at this time. Latest blood cultures are negative plan is to repeat the blood cultures tomorrow. Family is in agreement. 05/24/2020-patient is comfortably in the bed communicating well. Patient's mom at bedside. No concerns expressed by the family. Afebrile. WBC count is 4700 T- max is 97.3. Plan is to repeat the blood cultures, cultures from the Luna cath requested. Presently patient is not on IV antibiotic therapy. 05/25/20-patient is comfortably in the bed communicating well. No complaints concerns expressed by patient mom is at bedside no complaints expressed by her either. Repeat peripheral blood cultures, blood cultures from the Luna catheter was done yesterday. Patient is afebrile WBC count is 4500. Reason For Visit: POSITIVE BLOOD CULTURE (1 OF 2), FEVER AND CHILLS Physical Exam Vital Signs: Temp Pulse Resp BP Pulse Ox 97.9 F 79 12 99/59 L 97 05/25/20 07:52 05/25/20 07:52 05/25/20 07:52 05/25/20 07:52 05/25/20 07:52 Intake & Output 05/24/20 05/25/20 05/26/20 06:59 06:59 06:59 Intake Total 3000 4000 674 Output Total 1800 Balance 3000 2200 674 Weight 54.6 kg 54.2 kg General appearance: PRESENT: no acute distress, thin Head exam: PRESENT: atraumatic Eye exam: PRESENT: conjunctiva pale, PERRLA Ear exam: PRESENT: normal external ear exam Mouth exam: PRESENT: neck supple Teeth exam: PRESENT: poor dentation Neck exam: ABSENT: carotid bruit, JVD, lymphadenopathy, thyromegaly Cardiovascular exam: PRESENT: RRR. ABSENT: diastolic murmur, rubs, systolic murmur GI/Abdominal exam: PRESENT: normal bowel sounds, soft, other - She has a j-tube in place.. ABSENT: distended, guarding, mass, organolmegaly, rebound, tenderness Rectal exam: PRESENT: deferred Extremities exam: PRESENT: full ROM. ABSENT: calf tenderness, clubbing, pedal edema Neurological exam: PRESENT: alert, awake, oriented to person, oriented to place, oriented to time, oriented to situation, CN II-XII grossly intact. ABSENT: motor sensory deficit Psychiatric exam: PRESENT: appropriate affect, normal mood. ABSENT: homicidal ideation, suicidal ideation Results Laboratory Results: 05/25/20 06:50 05/25/20 06:50 05/25/20 05/25/20 06:50 06:50 WBC 4.5 RBC 3.13 L Hgb 9.4 L Hct 27.5 L MCV 88 MCH 29.9 MCHC 34.0 RDW 13.7 Plt Count 212 Sodium 137.7 Potassium 4.1 Chloride 101 Carbon Dioxide 32 H Anion Gap 5 BUN 7 Creatinine 0.76 Est GFR ( Amer) > 60 Glucose 99 Calcium 8.8 Phosphorus 4.3 Magnesium 1.6 Total Bilirubin 0.3 AST 49 H Alkaline Phosphatase 93 Total Protein 6.7 Albumin 3.2 L Prealbumin 12.5 L Triglycerides 170 H Assessment and Plan - Diagnosis (1) Positive blood culture Is this a current diagnosis for this admission?: Yes Plan: Patient had a positive blood culture (outpatient) Blood culture 05/11/20 16:40: NG at 24 hours Blood culture 05/17/20 21:00: No growth Urine culture 05/17/20: NG Continue vancomycin 1000 mg IV q8h 05/19/2020 Infectious disease consult placed Okay to use long-term IV as unable to get IV access after many hours and multiple attempts by nursing; patient will continue getting her IV antibiotics through that line unless ID states otherwise in her consult 05/20/2020 Home health blood culture 1/2 growing coag negative staph with different sensitivities from prior culture Blood culture on admission no growth to date Blood culture 1/2 drawn peripherally today and blood culture 2/2 drawn from central line today, follow-up results 05/21/[address] Krishnamurthy: "For CoNS bacteremia we can salvage the catheter if we do 14 days of systemic antibiotic therapy together with lock therapy. Blood cultures from admission are negative, and this was before vancomycin or linezolid, if this was a true CLABSI due to MRSE, cultures would've been positive"....."complete the 2 weeks of therapy already established for Staphylococcus capitis with EOT 05/20 and do surveillance cultures off antibiotics 4 days and 7 days post antibiotic therapy" Discussed options with patient line salvage is what they would like to do given the patient has had multiple recent procedures involving line removal and placement Plan to stop antibiotics today and redraw blood cultures on 8/3 and 05/28. Patient and mother must follow-up with PCP and infectious disease in order to have these blood cultures interpreted and have the results discussed with them 05/22/2020 Day 1 off of antibiotics; blood cultures have been ordered for day 3 and they will need to be ordered for day 7 in the future as well either here or outpatient Please have all results of blood cultures forwarded to Dr. Krishnamurthy after the patient is discharged Attempting line salvage through the surveillance cultures as noted above, all cultures drawn during this admission are still negative TPN started back today, patient remains afebrile and cultures remain negative, could be discharged on May 24, day 3 off antibiotics, after cultures are drawn 05/23/2020-patient is afebrile temp is 97.9 today. Antibiotics are on hold. Repeat blood cultures are pending for tomorrow. Plan is to repeat the blood cultures and again. In the meantime we will continue the present management. Blood cultures from 05/17 and 05/20 came back negative so far. 05/24/20-temp is 97.3 today with a WBC count of 4700. No acute events in the last 24 hours. Plan is to repeat the peripheral blood cultures and with cultures from the Luna catheter port.. 05/25/2020-patient is off the antibiotics, afebrile, WBC count is within normal limits repeat peripheral blood cultures, cultures from the Luna catheter is pending. (2) Abdominal pain Qualifiers: Abdominal location: generalized Qualified Code(s): R10.84 - Generalized abdominal pain Is this a current diagnosis for this admission?: Yes Plan: Opioid analgesics and antiemetics 05/23/2020-patient denies any abdominal pains at the time of my examination. Plan is to continue antiemetics and opioid medications. 05/25/20-patient is complaining of occasional abdominal pains not severe at this time. Patient is receiving the J-tube feedings. (3) Gastroparesis Is this a current diagnosis for this admission?: Yes Plan: gastrostomy tube which is clamped. She states that she can tolerate absolutely nothing in her stomach -J-tube however she states that she also has nausea when medications are giving via J-tube and that she cannot tolerate tube feedings -IV fluids (D5 LR) 05/23/2020-patient is receiving TPN via the J-tube. 05/24/20-patient is receiving TPN via J-tube. Family is requesting Benadryl 25 mg IV twice daily with TPN infusion. (4) Hypertriglyceridemia Is this a current diagnosis for this admission?: Yes Plan: Unclear etiology, needs referral to endocrinology outpatient Needs evaluation for PCSK9 inhibitor eligibility May be a cause of recurrent pancreatitis (5) Elevated amylase and lipase Is this a current diagnosis for this admission?: Yes Plan: Possibly has recurrent pancreatitis due to hypertriglyceridemia (6) Crohn's disease Qualifiers: Gastrointestinal tract location: unspecified location Digestive disease complication type: unspecified complication Qualified Code(s): K50.919 - Crohn's disease, unspecified, with unspecified complications Is this a current diagnosis for this admission?: No Plan: Followed by GI outpatient - Plan Summary Summary: Patient will be admitted to the medical floor where she will receive routine supportive and symptomatic cares. She will be treated with IV antibiotics utilizing Zyvox 600 mg every 12 hours. She will receive Dilaudid 0.5 to 2 mg IV every 3 hours as needed for pain. She will use Ativan 1 mg IV every 4 hours as needed for anxiety or restlessness. Her usual home medications will be resumed, as appropriate, once her medication list has been verified and reconciled. Her usual home TPN feedings will be continued with consultation by the registered dietitian. Further evaluations and consultations will be left to her daytime hospitalist as they are not of an emergent nature. - Time Anticipated Discharge Disposition: Home, Self Care Anticipated Discharge Timeframe: within 72 hours
[2020-05-25] MEDS: AMINO ACIDS 5 %/DEXTROSE 20 % 1,000 ML IV PRN (15:14)
[2020-05-25] MEDS: INSULIN REG, HUMAN 100 UNIT/ML 3 ML VIAL (PYX) SUBCUT SCH (18:56)
[2020-05-26] MEDS: INSULIN REG, HUMAN 100 UNIT/ML 3 ML VIAL (PYX) SUBCUT SCH ×4 (00:50→18:35)
[2020-05-26] MEDS: PROMETHAZINE HCL INJ 25 MG/1 ML VIAL IV PRN ×4 (01:07→21:41)
[2020-05-26] MEDS: DEXTROSE 5%-LACTATED RINGERS 1,000 ML IV PRN ×3 (01:07→20:43)
[2020-05-26] MEDS: HYDROMORPHONE HCL INJ/PF 2 MG/ML AMPULE IV PRN ×6 (01:07→21:41)
[2020-05-26] MEDS: DIPHENHYDRAMINE HCL 50 MG/ML VIAL IV SCH ×3 (01:09→18:00)
[2020-05-26] MEDS: HEPARIN SOD (PORCINE) 5,000 UNIT/ML 1 ML VIAL SUBCUT SCH ×3 (06:44→21:41)
[2020-05-26] MEDS: AMINO ACIDS 5 %/DEXTROSE 20 % 1,000 ML IV PRN (09:15)
[2020-05-26] MEDS: DOCUSATE SODIUM 100 MG/10 ML UDC PO SCH ×2 (09:15→18:01)
[2020-05-26] MEDS: LEVOTHYROXINE SODIUM 0.05 MG TABLET PEG SCH (09:15)
[2020-05-26] MEDS: MAGNESIUM OXIDE 400 MG TABLET PO SCH ×2 (09:15→18:00)
--- NOTE | 2020-05-26 17:29 | PDOC PROGRESS REPORT ---
Subjective Progress Note for:: 05/26/20 Subjective:: Patient moved for positive blood cultures in setting of indwelling long-term IV for chronic TPN. Long discussion with patient and her mother regarding previous course of events that led her to this point. Mother and patient are highly concerned that patient is missing doses of her antibiotics and other medications as her IV has recently blown and her Luna catheter has not been accessed since admission when it was used a few times for meds. They requested that we use this line to provide the patient with her necessary medications including antibiotics rather than waiting for an IV to be placed given nurses have been unable to get an effective IV in this patient after many attempts over several hours today. I discussed with nursing to start using the patient's long-term IV again at least until we get ID opinion on whether this line should be removed or not. No other than chronic nausea and generalized fatigue and weakness, patient has no new complaints. Blood cultures from admission are negative and urine cultures negative. 05/20/2020 I had another long discussion with the patient and her mother today regarding her clinical course and all the events that led up to this admission. I have ordered blood cultures to be drawn 1 peripherally and 1 through her Luna catheter that is still in place. Mother states that home health did not draw a culture from her line and I agreed that this would be recommended if we are intending to hopefully keep this line in place rather than pull it. Infectious disease been consulted but has not commented on anything yet. We will continue current antibiotics and we will continue using patient's central access. 05/21/2020 Long discussion with patient and mother again today regarding the plan going forward based on Dr. Krishnamurthy's infectious disease consult note. They would like to proceed with line salvage and surveillance blood cultures on 2 separate future occasions. We will continue current course IV antibiotics and follow-up on the most recent cultures. WBC is dropping now which may be consistent with resolving infection/inflammation versus dilutional effect. Patient has no new complaints today. We will plan to restart TPN when most recent cultures are negative for 48 hours and previous cultures are consistently negative of both bacteria and fungus. 05/22/2020 Patient seems to be doing well today. I had another long discussion with the patient and her mother as I have had on many previous days. I told Dr. Krishnamurthy would like the patient to be off antibiotics and to have surveillance blood cultures done on days 3 and 7 being off antibiotics. I have ordered blood cultures for day 3. Blood cultures from 05/20 show no growth after 48 hours. Prior cultures from this admission all show no growth as well. The goal of the surveillance blood cultures is to preserve the patient's line which the patient and the mother absolutely want to do. I also noted the patient has a history of recurrently high lipase and amylase as well as rather high triglycerides. It is possible that the patient has recurrent acute pancreatitis due to hypertriglyceridemia. Given that she cannot take any nutrition or medications orally, she would need to be put on a PCSK9 inhibitor injection which can be prohibitively expensive in my experience with this drug. I told them they should look into getting this drug approved through PCP prior authorization or contacting the drug port steward to see if they can get this for free. Patient needs to be referred to an [facility] business at discharge to follow-up on hypertriglyceridemia. This may be a source of recurrent abdominal pain and fevers outside of her usual bacteremia/fungemia/inflammatory bowel disease. Vancomycin has been discontinued as of yesterday. 05/23/2020-patient is comfortably in the bed communicating well. Not in distress. Mom is at bedside. Explained to her the plan of care today. Plan is to continue the present management and off the antibiotics at this time. Latest blood cultures are negative plan is to repeat the blood cultures tomorrow. Family is in agreement. 05/24/2020-patient is comfortably in the bed communicating well. Patient's mom at bedside. No concerns expressed by the family. Afebrile. WBC count is 4700 T- max is 97.3. Plan is to repeat the blood cultures, cultures from the Luna cath requested. Presently patient is not on IV antibiotic therapy. 05/25/20-patient is comfortably in the bed communicating well. No complaints concerns expressed by patient mom is at bedside no complaints expressed by her either. Repeat peripheral blood cultures, blood cultures from the Luna catheter was done yesterday. Patient is afebrile WBC count is 4500. 05/26/2020 Patient without any new complaints, states she feels well overall. They are planning to stay until when the patient's day 7 culture will be drawn. All current cultures drawn here are no growth to date. They were told by previous physician they could stay until and now they would very much like to do so. Labs and vitals appear stable. She has no new complaints Reason For Visit: POSITIVE BLOOD CULTURE (1 OF 2), FEVER AND CHILLS Physical Exam Vital Signs: Temp Pulse Resp BP Pulse Ox 98.2 F 83 16 113/53 L 99 05/26/20 15:51 05/26/20 15:51 05/26/20 15:51 05/26/20 15:51 05/26/20 15:51 Intake & Output 05/25/20 05/26/20 05/27/20 06:59 06:59 06:59 Intake Total 4000 2890 1000 Output Total 1800 1500 Balance 2200 1390 1000 Weight 54.2 kg 54.2 kg General appearance: PRESENT: no acute distress, well-developed, well-nourished Head exam: PRESENT: atraumatic, normocephalic Eye exam: PRESENT: conjunctiva pink Mouth exam: PRESENT: moist Respiratory exam: PRESENT: clear to auscultation martine. ABSENT: rales, rhonchi, wheezes Cardiovascular exam: PRESENT: RRR. ABSENT: diastolic murmur, rubs, systolic murmur GI/Abdominal exam: PRESENT: normal bowel sounds, soft. ABSENT: distended, guarding, mass, organolmegaly, rebound, tenderness Neurological exam: PRESENT: alert, awake, oriented to person, oriented to place, oriented to time, oriented to situation Psychiatric exam: PRESENT: appropriate affect, normal mood Skin exam: PRESENT: dry, intact, warm Results Laboratory Results: 05/25/20 06:50 05/25/20 06:50 Assessment and Plan - Diagnosis (1) Positive blood culture Is this a current diagnosis for this admission?: Yes Plan: Patient had a positive blood culture (outpatient) Blood culture 05/11/20 16:40: NG at 24 hours Blood culture 05/17/20 21:00: No growth Urine culture 05/17/20: NG Continue vancomycin 1000 mg IV q8h 05/19/2020 Infectious disease consult placed Okay to use long-term IV as unable to get IV access after many hours and multiple attempts by nursing; patient will continue getting her IV antibiotics through that line unless ID states otherwise in her consult 05/20/2020 Home health blood culture 1/2 growing coag negative staph with different sensitivities from prior culture Blood culture on admission no growth to date Blood culture 1/2 drawn peripherally today and blood culture 2/2 drawn from central line today, follow-up results 05/21/[address] Krishnamurthy: "For CoNS bacteremia we can salvage the catheter if we do 14 days of systemic antibiotic therapy together with lock therapy. Blood cultures from admission are negative, and this was before vancomycin or linezolid, if this was a true CLABSI due to MRSE, cultures would've been positive"....."complete the 2 weeks of therapy already established for Staphylococcus capitis with EOT 05/20 and do surveillance cultures off antibiotics 4 days and 7 days post antibiotic therapy" Discussed options with patient line salvage is what they would like to do given the patient has had multiple recent procedures involving line removal and placement Plan to stop antibiotics today and redraw blood cultures on 05/25 and 05/28. Pat ient and mother must follow-up with PCP and infectious disease in order to have these blood cultures interpreted and have the results discussed with them 05/22/2020 Day 1 off of antibiotics; blood cultures have been ordered for day 3 and they will need to be ordered for day 7 in the future as well either here or outpatient Please have all results of blood cultures forwarded to Dr. Krishnamurthy after the patient is discharged Attempting line salvage through the surveillance cultures as noted above, all cultures drawn during this admission are still negative TPN started back today, patient remains afebrile and cultures remain negative, could be discharged on May 24, day 3 off antibiotics, after cultures are drawn 05/23/2020-patient is afebrile temp is 97.9 today. Antibiotics are on hold. R epeat blood cultures are pending for tomorrow. Plan is to repeat the blood cultures and again. In the meantime we will continue the present management. Blood cultures from 05/17 and 05/20 came back negative so far. 05/24/20-temp is 97.3 today with a WBC count of 4700. No acute events in the last 24 hours. Plan is to repeat the peripheral blood cultures and with cultures from the Luna catheter port.. 05/25/2020-patient is off the antibiotics, afebrile, WBC count is within normal limits repeat peripheral blood cultures, cultures from the Luna catheter is pending. 05/26/2020 All current cultures drawn this admission showed no growth 1 more set of cultures to be drawn on and this can be followed up outpatient Needs follow-up with ID outpatient (2) Abdominal pain Qualifiers: Abdominal location: generalized Qualified Code(s): R10.84 - Generalized abdominal pain Is this a current diagnosis for this admission?: Yes (3) Crohn's disease Qualifiers: Gastrointestinal tract location: unspecified location Digestive disease complication type: unspecified complication Qualified Code(s): K50.919 - Crohn's disease, unspecified, with unspecified complications Is this a current diagnosis for this admission?: No (4) Gastroparesis Is this a current diagnosis for this admission?: Yes (5) Hypertriglyceridemia Is this a current diagnosis for this admission?: Yes (6) Elevated amylase and lipase Is this a current diagnosis for this admission?: Yes - Plan Summary Summary: Patient will be admitted to the medical floor where she will receive routine supportive and symptomatic cares. She will be treated with IV antibiotics utilizing Zyvox 600 mg every 12 hours. She will receive Dilaudid 0.5 to 2 mg IV every 3 hours as needed for pain. She will use Ativan 1 mg IV every 4 hours as needed for anxiety or restlessness. Her usual home medications will be resumed, as appropriate, once her medication list has been verified and reconciled. Her usual home TPN feedings will be continued with consultation by the registered dietitian. Further evaluations and consultations will be left to her daytime hospitalist as they are not of an emergent nature. - Time Time Spent with patient: 15-24 minutes Medications reviewed and adjusted accordingly: Yes Anticipated Discharge Disposition: Home, Self Care Anticipated Discharge Timeframe: within 72 hours - Inpatient Certification Based on my medical assessment, after consideration of the patient's comorbidities, presenting symptoms, or acuity I expect that the services needed warrant INPATIENT care.: Yes I certify that my determination is in accordance with my understanding of Medicare's requirements for reasonable and necessary INPATIENT services [42 CFR 412.3e].: Yes Medical Necessity: Significant Comorbidiites Make Outpatient Treatment Too Risky, Need Close Monitoring Due to Risk of Patient Decompensation, Risk of Comp lication if Not Cared For in Hospital, Risk of Diagnosis Which Will Require Inpatient Eval/Care/Monitoring
[2020-05-27] MEDS: INSULIN REG, HUMAN 100 UNIT/ML 3 ML VIAL (PYX) SUBCUT SCH ×4 (00:11→17:38)
[2020-05-27] MEDS: DIPHENHYDRAMINE HCL 50 MG/ML VIAL IV SCH ×3 (01:03→17:21)
[2020-05-27] MEDS: HYDROMORPHONE HCL INJ/PF 2 MG/ML AMPULE IV PRN ×6 (01:55→20:35)
[2020-05-27] MEDS: PROMETHAZINE HCL INJ 25 MG/1 ML VIAL IV PRN ×4 (01:55→20:36)
[2020-05-27] MEDS: HEPARIN SOD (PORCINE) 5,000 UNIT/ML 1 ML VIAL SUBCUT SCH ×3 (05:39→22:33)
[2020-05-27] MEDS: AMINO ACIDS 5 %/DEXTROSE 20 % 1,000 ML IV PRN ×3 (06:03→22:33)
[2020-05-27] MEDS: DEXTROSE 5%-LACTATED RINGERS 1,000 ML IV PRN ×3 (09:13→22:39)
[2020-05-27] MEDS: DOCUSATE SODIUM 100 MG/10 ML UDC PO SCH ×2 (11:00→17:39)
[2020-05-27] MEDS: LEVOTHYROXINE SODIUM 0.05 MG TABLET PEG SCH (11:00)
[2020-05-27] MEDS: MAGNESIUM OXIDE 400 MG TABLET PO SCH ×2 (11:00→17:21)
--- NOTE | 2020-05-27 13:12 | PDOC PROGRESS REPORT ---
Subjective Progress Note for:: 05/27/20 Subjective:: Patient moved for positive blood cultures in setting of indwelling long-term IV for chronic TPN. Long discussion with patient and her mother regarding previous course of events that led her to this point. Mother and patient are highly concerned that patient is missing doses of her antibiotics and other medications as her IV has recently blown and her Luna catheter has not been accessed since admission when it was used a few times for meds. They requested that we use this line to provide the patient with her necessary medications including antibiotics rather than waiting for an IV to be placed given nurses have been unable to get an effective IV in this patient after many attempts over several hours today. I discussed with nursing to start using the patient's long-term IV again at least until we get ID opinion on whether this line should be removed or not. No other than chronic nausea and generalized fatigue and weakness, patient has no new complaints. Blood cultures from admission are negative and urine cultures negative. 05/20/2020 I had another long discussion with the patient and her mother today regarding her clinical course and all the events that led up to this admission. I have ordered blood cultures to be drawn 1 peripherally and 1 through her Luna catheter that is still in place. Mother states that home health did not draw a culture from her line and I agreed that this would be recommended if we are intending to hopefully keep this line in place rather than pull it. Infectious disease been consulted but has not commented on anything yet. We will continue current antibiotics and we will continue using patient's central access. 05/21/2020 Long discussion with patient and mother again today regarding the plan going forward based on Dr. Krishnamurthy's infectious disease consult note. They would like to proceed with line salvage and surveillance blood cultures on 2 separate future occasions. We will continue current course IV antibiotics and follow-up on the most recent cultures. WBC is dropping now which may be consistent with resolving infection/inflammation versus dilutional effect. Patient has no new complaints today. We will plan to restart TPN when most recent cultures are negative for 48 hours and previous cultures are consistently negative of both bacteria and fungus. 05/22/2020 Patient seems to be doing well today. I had another long discussion with the patient and her mother as I have had on many previous days. I told Dr. Krishnamurthy would like the patient to be off antibiotics and to have surveillance blood cultures done on days 3 and 7 being off antibiotics. I have ordered blood cultures for day 3. Blood cultures from 05/20 show no growth after 48 hours. Prior cultures from this admission all show no growth as well. The goal of the surveillance blood cultures is to preserve the patient's line which the patient and the mother absolutely want to do. I also noted the patient has a history of recurrently high lipase and amylase as well as rather high triglycerides. It is possible that the patient has recurrent acute pancreatitis due to hypertriglyceridemia. Given that she cannot take any nutrition or medications orally, she would need to be put on a PCSK9 inhibitor injection which can be prohibitively expensive in my experience with this drug. I told them they should look into getting this drug approved through PCP prior authorization or contacting the drug warehouse receiver to see if they can get this for free. Patient needs to be referred to an dental assistant instructor at discharge to follow-up on hypertriglyceridemia. This may be a source of recurrent abdominal pain and fevers outside of her usual bacteremia/fungemia/inflammatory bowel disease. Vancomycin has been discontinued as of yesterday. 05/23/2020-patient is comfortably in the bed communicating well. Not in distress. Mom is at bedside. Explained to her the plan of care today. Plan is to continue the present management and off the antibiotics at this time. Latest blood cultures are negative plan is to repeat the blood cultures tomorrow. Family is in agreement. 05/24/2020-patient is comfortably in the bed communicating well. Patient's mom at bedside. No concerns expressed by the family. Afebrile. WBC count is 4700 T- max is 97.3. Plan is to repeat the blood cultures, cultures from the Luna cath requested. Presently patient is not on IV antibiotic therapy. 05/25/20-patient is comfortably in the bed communicating well. No complaints concerns expressed by patient mom is at bedside no complaints expressed by her either. Repeat peripheral blood cultures, blood cultures from the Luna catheter was done yesterday. Patient is afebrile WBC count is 4500. 05/26/2020 Patient without any new complaints, states she feels well overall. They are planning to stay until when the patient's day 7 culture will be drawn. All current cultures drawn here are no growth to date. They were told by previous physician they could stay until and now they would very much like to do so. Labs and vitals appear stable. She has no new complaints Reason For Visit: POSITIVE BLOOD CULTURE (1 OF 2), FEVER AND CHILLS Physical Exam Vital Signs: Temp Pulse Resp BP Pulse Ox 97.9 F 79 16 108/49 L 99 05/27/20 07:17 05/27/20 07:17 05/27/20 07:17 05/27/20 07:17 05/27/20 07:17 Intake & Output 05/26/20 05/27/20 05/28/20 06:59 06:59 06:59 Intake Total 2890 2200 434 Output Total 1500 Balance 1390 2200 434 Weight 54.2 kg 54.2 kg 54.2 kg General appearance: PRESENT: no acute distress, well-developed, well-nourished Head exam: PRESENT: atraumatic, normocephalic Eye exam: PRESENT: conjunctiva pink Mouth exam: PRESENT: moist Respiratory exam: PRESENT: clear to auscultation martine. ABSENT: rales, rhonchi, wheezes Cardiovascular exam: PRESENT: RRR. ABSENT: diastolic murmur, rubs, systolic murmur GI/Abdominal exam: PRESENT: normal bowel sounds, soft. ABSENT: distended, guarding, mass, organolmegaly, rebound, tenderness Neurological exam: PRESENT: alert, awake, oriented to person, oriented to place, oriented to time, oriented to situation Skin exam: PRESENT: dry, intact, warm Results Laboratory Results: 05/25/20 06:50 05/25/20 06:50 Assessment and Plan - Diagnosis (1) Positive blood culture Is this a current diagnosis for this admission?: Yes Plan: Patient had a positive blood culture (outpatient) Blood culture 05/11/20 16:40: NG at 24 hours Blood culture 05/17/20 21:00: No growth Urine culture 05/17/20: NG Continue vancomycin 1000 mg IV q8h 05/19/2020 Infectious disease consult placed Okay to use long-term IV as unable to get IV access after many hours and multiple attempts by nursing; patient will continue getting her IV antibiotics through that line unless ID states otherwise in her consult 05/20/2020 Home health blood culture / growing coag negative staph with different sensitivities from prior culture Blood culture on admission no growth to date Blood culture 1/2 drawn peripherally today and blood culture 2/2 drawn from central line today, follow-up results 05/21/[address] Krishnamurthy: "For CoNS bacteremia we can salvage the catheter if we do 14 days of systemic antibiotic therapy together with lock therapy. Blood cultures from admission are negative, and this was before vancomycin or linezolid, if this was a true CLABSI due to MRSE, cultures would've been positive"....."complete the 2 weeks of therapy already established for Staphylococcus capitis with EOT 05/20 and do surveillance cultures off antibiotics 4 days and 7 days post antibiotic therapy" Discussed options with patient line salvage is what they would like to do given the patient has had multiple recent procedures involving line removal and placement Plan to stop antibiotics today and redraw blood cultures on 05/25 and 05/28. Patient and mother must follow-up with PCP and infectious disease in order to have these blood cultures interpreted and have the results discussed with them 05/22/2020 Day 1 off of antibiotics; blood cultures have been ordered for day 3 and they will need to be ordered for day 7 in the future as well either here or outpatient Please have all results of blood cultures forwarded to Dr. Krishnamurthy after the patient is discharged Attempting line salvage through the surveillance cultures as noted above, all cultures drawn during this admission are still negative TPN started back today, patient remains afebrile and cultures remain negative, could be discharged on May 24, day 3 off antibiotics, after cultures are drawn 05/23/2020-patient is afebrile temp is 97.9 today. Antibiotics are on hold. Repeat blood cultures are pending for tomorrow. Plan is to repeat the blood cultures and again. In the meantime we will continue the present management. Blood cultures from 05/17 and 05/20 came back negative so far. 05/24/20-temp is 97.3 today with a WBC count of 4700. No acute events in the last 24 hours. Plan is to repeat the peripheral blood cultures and with cultures from the Luna catheter port.. 05/25/2020-patient is off the antibiotics, afebrile, WBC count is within normal limits repeat peripheral blood cultures, cultures from the Luna catheter is pending. 05/26/2020 All current cultures drawn this admission showed no growth 1 more set of cultures to be drawn on and this can be followed up outpatient Needs follow-up with ID outpatient 05/27/2020 All cultures remain negative We will draw final culture tomorrow morning and then patient can be discharged thereafter, results must be given to her by PCP and/or ID outpatient and patient/mother understand this (2) Abdominal pain Qualifiers: Abdominal location: generalized Qualified Code(s): R10.84 - Generalized abdominal pain Is this a current diagnosis for this admission?: Yes Plan: Opioid analgesics and antiemetics 05/23/2020-patient denies any abdominal pains at the time of my examination. Plan is to continue antiemetics and opioid medications. 05/25/20-patient is complaining of occasional abdominal pains not severe at this time. Patient is receiving the J-tube feedings. 05/26/2020 Patient is using too much Dilaudid and using it too frequently. Reduced dosing to 0.5 mg IV. (3) Crohn's disease Qualifiers: Gastrointestinal tract location: unspecified location Digestive disease complication type: unspecified complication Qualified Code(s): K50.919 - Crohn's disease, unspecified, with unspecified complications Is this a current diagnosis for this admission?: No (4) Gastroparesis Is this a current diagnosis for this admission?: Yes (5) Hypertriglyceridemia Is this a current diagnosis for this admission?: Yes (6) Elevated amylase and lipase Is this a current diagnosis for this admission?: Yes - Plan Summary Summary: Patient will be admitted to the medical floor where she will receive routine supportive and symptomatic cares. She will be treated with IV antibiotics utilizing Zyvox 600 mg every 12 hours. She will receive Dilaudid 0.5 to 2 mg IV every 3 hours as needed for pain. She will use Ativan 1 mg IV every 4 hours as needed for anxiety or restlessness. Her usual home medications will be resumed, as appropriate, once her medication list has been verified and reconciled. Her usual home TPN feedings will be continued with consultation by the registered dietitian. Further evaluations and consultations will be left to her daytime h ospitalist as they are not of an emergent nature. - Time Time Spent with patient: 15-24 minutes Medications reviewed and adjusted accordingly: Yes Anticipated Discharge Disposition: Home, Self Care Anticipated Discharge Timeframe: within 24 hours - Inpatient Certification Based on my medical assessment, after consideration of the patient's comorbidities, presenting symptoms, or acuity I expect that the services needed warrant INPATIENT care.: Yes I certify that my determination is in accordance with my understanding of Medicare's requirements for reasonable and necessary INPATIENT services [42 CFR 412.3e].: Yes Medical Necessity: Significant Comorbidiites Make Outpatient Treatment Too [place], Need Close Monitoring Due to Risk of Patient Decompensation, Risk of Complication if Not Cared For in Hospital, Risk of Diagnosis Which Will Require Inpatient Eval/Care/Monitoring
[2020-05-28] MEDS: HYDROMORPHONE HCL INJ/PF 2 MG/ML AMPULE IV PRN ×4 (00:44→14:11)
[2020-05-28] MEDS: PROMETHAZINE HCL INJ 25 MG/1 ML VIAL IV PRN ×4 (00:45→14:41)
[2020-05-28] MEDS: INSULIN REG, HUMAN 100 UNIT/ML 3 ML VIAL (PYX) SUBCUT SCH ×3 (00:54→11:43)
[2020-05-28] MEDS: DIPHENHYDRAMINE HCL 50 MG/ML VIAL IV SCH ×2 (01:53→10:06)
[2020-05-28] MEDS: HEPARIN SOD (PORCINE) 5,000 UNIT/ML 1 ML VIAL SUBCUT SCH ×2 (05:40→14:14)
[2020-05-28 05:42] LABS: ALBUMIN 3.3 g/dL (3.5-5.0); ALKALINE PHOSPHATASE 102 U/L (38-126); ANION GAP 6 (5-19); ASPARTATE AMINO TRANSFERASE 114 U/L (14-36); BILIRUBIN,TOTAL 0.2 mg/dL (0.2-1.3); BLOOD UREA NITROGEN 14 mg/dL (7-20); CALCIUM 8.9 mg/dL (8.4-10.2); CARBON DIOXIDE 30 mmol/L (22-30); CHLORIDE 101 mmol/L (98-107); GLUCOSE 103 mg/dL (75-110); PHOSPHORUS 4.6 mg/dL (2.5-4.5); POTASSIUM 4.4 mmol/L (3.6-5.0); TOTAL PROTEIN 6.6 g/dL (6.3-8.2)
[2020-05-28 05:49] LABS: PREALBUMIN 16.9 mg/dL (17.6-36.0)
[2020-05-28] MEDS: DOCUSATE SODIUM 100 MG/10 ML UDC PO SCH (10:00)
[2020-05-28] MEDS: DEXTROSE 5%-LACTATED RINGERS 1,000 ML IV PRN (10:32)
[2020-05-28] MEDS: MAGNESIUM OXIDE 400 MG TABLET PO SCH ×2 (11:29)
[2020-05-28] MEDS: LEVOTHYROXINE SODIUM 0.05 MG TABLET PEG SCH (11:30)
[2020-05-28] MEDS: FAT EMULSIONS 250 ML IV SCH (11:36)
--- NOTE | 2020-05-28 13:38 | PDOC DISCHARGE SUMMARY ---
Impression - Admit/DC Date/PCP Admission Date/Primary Care Provider: 05/17/20 22:29 RAE ALCARAZ NP Discharge Date: 05/28/20 - Discharge Diagnosis (1) Positive blood culture Is this a current diagnosis for this admission?: Yes (2) Abdominal pain Is this a current diagnosis for this admission?: Yes (3) Crohn's disease Is this a current diagnosis for this admission?: No (4) Gastroparesis Is this a current diagnosis for this admission?: Yes (5) Hypertriglyceridemia Is this a current diagnosis for this admission?: Yes (6) Elevated amylase and lipase Is this a current diagnosis for this admission?: Yes - Assessment Summary: Patient will be admitted to the medical floor where she will receive routine supportive and symptomatic cares. She will be treated with IV antibiotics utilizing Zyvox 600 mg every 12 hours. She will receive Dilaudid 0.5 to 2 mg IV every 3 hours as needed for pain. She will use Ativan 1 mg IV every 4 hours as needed for anxiety or restlessness. Her usual home medications will be resumed, as appropriate, once her medication list has been verified and reconciled. Her usual home TPN feedings will be continued with consultation by the registered dietitian. Further evaluations and consultations will be left to her daytime hospitalist as they are not of an emergent nature. - Additional Information Resuscitation Status: Full Code Discharge Diet: Other (Comments) - TPN Discharge Activity: Activity As Tolerated, Balance Activity w/Rest Referrals: RAE ALCARAZ NP [Primary Care Provider] - Home Medications: Dicyclomine HCl 20 ml GT BIDP PRN 02/13/19 Promethazine HCl [Phenergan 6.25 mg/5 ml Syrup] 40 mg JT Q6HP PRN 09/15/19 Sodium/Pot/Mag/Calc/Chlor/Acet [TPN Electrolytes II IV Soln] 20 ml IV ASDIR PRN 09/15/19 Tramadol HCl [Ultram] 50 mg PO BIDP PRN 01/30/20 Cetirizine HCl 10 ml GT DAILY 04/18/20 Diphenhydramine HCl [Benadryl Inj 50 mg/1 ml Vial] 25 mg IV BID 04/18/20 Hyoscyamine Sulfate 0.125 mg SL TIDP PRN 04/18/20 Lansoprazole [Prevacid 30 mg Odt Tablet] 30 mg PO BID 04/18/20 Levothyroxine Sodium [Tirosint-Kaelyn] 50 mcg PO DAILY 04/18/20 Mupirocin [Bactroban 2% Ointment 22 gm] 1 applic TP TID 04/18/20 Nystatin [Nystop] 1 applic TP TID 04/18/20 Ondansetron [Zofran Odt 4 mg Tablet] 4 mg SL Q8HP PRN 04/18/20 Sucralfate [Carafate Susp 1 gm/10 ml Udcup] 1 gm PO TID 04/18/20 Silver Nitrate Applicator [Silver Nitrate Applicator 10 Stick/Package] 1 applic TOP TID #2 packet 05/08/20 Ascorbic Acid 2,000 gm JT DAILY 05/18/20 History of Present Illiness History of Present Illness: Per Admitting Physician: "GOLDY WALLACE is a 19 year old female who presented the emergency room with a one-day history of fever. She admits developing a fever yesterday which has been persistent, accompanied by chills, malaise and ague, and associated with palpitations (rapid heartbeat). She denies other associated or accompanying signs and symptoms. She admits prior similar episodes due to infected IV and enteral access catheters. She was recently discharged from the hospital on IV Rocephin administered by home health for a suspected tunnel catheter infection. A blood culture was obtained 4 days ago and the results were growth present and 1 of 2 bottles reported as a coagulase-negative Staphylococcus epidermidis resistant to Rocephin, with the other blood culture bottles showing no growth. She has not identified any aggravating or ameliorating factors for her fever. In the emergency room she was found to have an unremarkable evaluation, however due to the positive blood culture and the patient's report of fever she was admitted to the hospital for further evaluation and treatment." Hospital Course Hospital Course: Patient admitted for positive blood cultures in setting of indwelling long-term IV for chronic TPN. Long discussion with patient and her mother regarding previous course of events that led her to this point. Mother and patient are highly concerned that patient is missing doses of her antibiotics and other medications as her IV has recently blown and her Luna catheter has not been accessed since admission when it was used a few times for meds. They requested that we use this line to provide the patient with her necessary medications including antibiotics rather than waiting for an IV to be placed given nurses have been unable to get an e ffective IV in this patient after many attempts over several hours today. I discussed with nursing to start using the patient's long-term IV again at least until we get ID opinion on whether this line should be removed or not. No other than chronic nausea and generalized fatigue and weakness, patient has no new complaints. Blood cultures from admission are negative and urine cultures negative. 05/20/2020 I had another long discussion with the patient and her mother today regarding her clinical course and all the events that led up to this admission. I have ordered blood cultures to be drawn 1 peripherally and 1 through her Luna catheter that is still in place. Mother states that home health did not draw a culture from her line and I agreed that this would be recommended if we are i ntending to hopefully keep this line in place rather than pull it. Infectious disease been consulted but has not commented on anything yet. We will continue current antibiotics and we will continue using patient's central access. 05/21/2020 Long discussion with patient and mother again today regarding the plan going forward based on Dr. Krishnamurthy's infectious disease consult note. They would like to proceed with line salvage and surveillance blood cultures on 2 separate future occasions. We will continue current course IV antibiotics and follow-up on the most recent cultures. WBC is dropping now which may be consistent with resolving infection/inflammation versus dilutional effect. Patient has no new complaints today. We will plan to restart TPN when most recent cultures are negative for 48 hours and previous cultures are consistently negative of both bacteria and fungus. 05/22/2020 Patient seems to be doing well today. I had another long discussion with the patient and her mother as I have had on many previous days. I told Dr. Krishnamurthy would like the patient to be off antibiotics and to have surveillance blood cultures done on days 3 and 7 being off antibiotics. I have ordered blood cultures for day 3. Blood cultures from 05/20 show no growth after 48 hours. Prior cultures from this admission all show no growth as well. The goal of the surveillance blood cultures is to preserve the patient's line which the patient and the mother absolutely want to do. I also noted the patient has a history of recurrently high lipase and amylase as well as rather high triglycerides. It is possible that the patient has recurrent acute pancreatitis due to hypertriglyceridemia. Given that she cannot take any nutrition or medications orally, she would need to be put on a PCSK9 inhibitor injection which can be prohibitively expensive in my experience with this drug. I told them they should look into getting this drug approved through PCP prior authorization or contacting the drug lead coater to see if they can get this for free. Patient needs to be referred to an pest control specialist at discharge to follow-up on hypertriglyceridemia. This may be a source of recurrent abdominal pain and fevers outside of her usual bacteremia/fungemia/inflammatory bowel disease. Vancomycin has been discontinued as of yesterday. 05/23/2020-patient is comfortably in the bed communicating well. Not in distress. Mom is at bedside. Explained to her the plan of care today. Plan is to continue the present management and off the antibiotics at this time. Latest blood cultures are negative plan is to repeat the blood cultures tomorrow. Family is in agreement. 05/24/2020-patient is comfortably in the bed communicating well. Patient's mom at bedside. No concerns expressed by the family. Afebrile. WBC count is 4700 T- max is 97.3. Plan is to repeat the blood cultures, cultures from the Luna cath requested. Presently patient is not on IV antibiotic therapy. 05/25/20-patient is comfortably in the bed communicating well. No complaints concerns expressed by patient mom is at bedside no complaints expressed by her either. Repeat peripheral blood cultures, blood cultures from the Luna catheter was done yesterday. Patient is afebrile WBC count is 4500. 05/26/2020 Patient without any new complaints, states she feels well overall. They are planning to stay until when the patient's day 7 culture will be drawn. All current cultures drawn here are no growth to date. They were told by previous physician they could stay until and now they would very much like to do so. Labs and vitals appear stable. She has no new complaints At discharge, all blood cultures remain negative and patient has been afebrile since admission. Per infectious disease recommendations, patient will be monitored off of antibiotics and her final blood culture has been drawn overnight. Patient will need to follow-up with Dr. Krishnamurthy and infectious disease as well as her PCP and GI physician. These physicians will discussed her culture results with her. She will resume her home medications including TPN at discharge. (1) Positive blood culture Is this a current diagnosis for this admission?: Yes Plan: Patient had a positive blood culture (outpatient) Blood culture 05/11/20 16:40: NG at 24 hours Blood culture 05/17/20 21:00: No growth Urine culture 05/17/20: NG Continue vancomycin 1000 mg IV q8h 05/19/2020 Infectious disease consult placed Okay to use long-term IV as unable to get IV access after many hours and multiple attempts by nursing; patient will continue getting her IV antibiotics through that line unless ID states otherwise in her consult 05/20/2020 Home health blood culture 1/2 growing coag negative staph with different sensitivities from prior culture Blood culture on admission no growth to date Blood culture 1/2 drawn peripherally today and blood culture 2/2 drawn from central line today, follow-up results 05/21/[address] Krishnamurthy: "For CoNS bacteremia we can salvage the catheter if we do 14 days of systemic antibiotic therapy together with lock therapy. Blood cultures from admission are negative, and this was before vancomycin or linezolid, if this was a true CLABSI due to MRSE, cultures would've been positive"....."complete the 2 weeks of therapy already established for Staphylococcus capitis with EOT 05/20 and do surveillance cultures off antibiotics 4 days and 7 days post antibiotic therapy" Discussed options with patient line salvage is what they would like to do given the patient has had multiple recent procedures involving line removal and placement Plan to stop antibiotics today and redraw blood cultures on 05/25 and 05/28. Patient and mother must follow-up with PCP and infectious disease in order to have these blood cultures interpreted and have the results discussed with them 05/22/2020 Day 1 off of antibiotics; blood cultures have been ordered for day 3 and they will need to be ordered for day 7 in the future as well either here or outpatient Please have all results of blood cultures forwarded to Dr. Krishnamurthy after the pat ient is discharged Attempting line salvage through the surveillance cultures as noted above, all cultures drawn during this admission are still negative TPN started back today, patient remains afebrile and cultures remain negative, could be discharged on May 24, day 3 off antibiotics, after cultures are drawn 05/23/2020-patient is afebrile temp is 97.9 today. Antibiotics are on hold. Repeat blood cultures are pending for tomorrow. Plan is to repeat the blood cultures and again. In the meantime we will continue the present management. Blood cultures from 05/17 and 05/20 came back negative so far. 05/24/20-temp is 97.3 today with a WBC count of 4700. No acute events in the last 24 hours. Plan is to repeat the peripheral blood cultures and with cultures from the Luna catheter port.. 05/25/2020-patient is off the antibiotics, afebrile, WBC count is within normal limits repeat peripheral blood cultures, cultures from the Luna catheter is pending. 05/26/2020 All current cultures drawn this admission showed no growth 1 more set of cultures to be drawn on and this can be followed up outpatient Needs follow-up with ID outpatient 05/27/2020 All cultures remain negative We will draw final culture tomorrow morning and then patient can be discharged thereafter, results must be given to her by PCP and/or ID outpatient and patient/mother understand this (2) Abdominal pain Qualifiers: Abdominal location: generalized Qualified Code(s): R10.84 - Generalized abdominal pain Is this a current diagnosis for this admission?: Yes Plan: Opioid analgesics and antiemetics 05/23/2020-patient denies any abdominal pains at the time of my examination. Plan is to continue antiemetics and opioid medications. 05/25/20-patient is complaining of occasional abdominal pains not severe at this time. Patient is receiving the J-tube feedings. 05/26/2020 Patient is using too much Dilaudid and using it too frequently. Reduced dosing to 0.5 mg IV. (3) Crohn's disease Qualifiers: Gastrointestinal tract location: unspecified location Digestive disease complication type: unspecified complication Qualified Code(s): K50.919 - Crohn's disease, unspecified, with unspecified complications Is this a current diagnosis for this admission?: No (4) Gastroparesis Is this a current diagnosis for this admission?: Yes (5) Hypertriglyceridemia Is this a current diagnosis for this admission?: Yes (6) Elevated amylase and lipase Is this a current diagnosis for this admission?: Yes Physical Exam Vital Signs: Temp Pulse Resp BP Pulse Ox 98.4 F 97 16 118/57 L 98 05/28/20 12:00 05/28/20 12:00 05/28/20 12:00 05/28/20 12:00 05/28/20 12:00 Intake & Output 05/27/20 05/28/20 05/29/20 06:59 06:59 06:59 Intake Total 2200 2319 1000 Balance 2200 2319 1000 Weight 54.2 kg 54.2 kg General appearance: PRESENT: no acute distress, well-developed, well-nourished Head exam: PRESENT: atraumatic, normocephalic Eye exam: PRESENT: conjunctiva pink Mouth exam: PRESENT: moist Respiratory exam: PRESENT: clear to auscultation martine. ABSENT: rales, rhonchi, wheezes Cardiovascular exam: PRESENT: RRR. ABSENT: diastolic murmur, rubs, systolic murmur GI/Abdominal exam: PRESENT: normal bowel sounds, soft. ABSENT: distended, guarding, mass, organolmegaly, rebound, tenderness Neurological exam: PRESENT: alert, awake, oriented to person, oriented to place, oriented to time, oriented to situation. ABSENT: motor sensory deficit Psychiatric exam: PRESENT: appropriate affect, normal mood Skin exam: PRESENT: dry, intact, warm Results Laboratory Results: WBC 4.5 10^3/uL (4.0-10.5) 05/25/20 06:50 RBC 3.13 10^6/uL (3.72-5.28) L 05/25/20 06:50 Hgb 9.4 g/dL (12.0-15.5) L 05/25/20 06:50 Hct 27.5 % (36.0-47.0) L 05/25/20 06:50 MCV 88 fl (80-97) 05/25/20 06:50 MCH 29.9 pg (27.0-33.4) 05/25/20 06:50 MCHC 34.0 g/dL (32.0-36.0) 05/25/20 06:50 RDW 13.7 % (11.5-14.0) 05/25/20 06:50 Plt Count 212 10^3/uL (150-450) 05/25/20 06:50 Lymph % (Auto) 37.7 % (13-45) 05/24/20 05:10 Gaines % (Auto) 10.1 % (3-13) 05/24/20 05:10 Eos % (Auto) 22.1 % (0-6) H 05/24/20 05:10 Baso % (Auto) 0.8 % (0-2) 05/24/20 05:10 Absolute Neuts (auto) 1.4 10^3/uL (1.7-8.2) L 05/24/20 05:10 Absolute Lymphs (auto) 1.8 10^3/uL (0.5-4.7) 05/24/20 05:10 Absolute Monos (auto) 0.5 10^3/uL (0.1-1.4) 05/24/20 05:10 Absolute Eos (auto) 1.0 10^3/uL (0.0-0.6) H 05/24/20 05:10 Absolute Basos (auto) 0.0 10^3/uL (0.0-0.2) 05/24/20 05:10 Seg Neutrophils % 29.3 % (42-78) L 05/24/20 05:10 PT 13.5 SEC (11.4-15.4) 05/25/20 07:45 INR 1.01 05/25/20 07:45 INR (Anticoag Therapy) Cancelled 05/25/20 06:50 Sodium 136.5 mmol/L (137-145) L 05/28/20 03:59 Potassium 4.4 mmol/L (3.6-5.0) 05/28/20 03:59 Chloride 101 mmol/L (98-107) 05/28/20 03:59 Carbon Dioxide 30 mmol/L (22-30) 05/28/20 03:59 Anion Gap 6 (5-19) 05/28/20 03:59 BUN 14 mg/dL (7-20) 05/28/20 03:59 Creatinine 0.80 mg/dL (0.52-1.25) 05/28/20 03:59 Est GFR ( Amer) > 60 (>60) 05/28/20 03:59 Est GFR (MDRD) Non-Af > 60 (>60) 05/28/20 03:59 Glucose 103 mg/dL (75-110) 05/28/20 03:59 POC Glucose 106 mg/dL (70-110) 05/28/20 11:06 Lactic Acid < 0.5 mmol/L (0.7-2.1) L 05/18/20 15:50 Calcium 8.9 mg/dL (8.4-10.2) 05/28/20 03:59 Phosphorus 4.6 mg/dL (2.5-4.5) H 05/28/20 03:59 Magnesium 1.6 mg/dL (1.6-2.3) 05/25/20 06:50 Total Bilirubin 0.2 mg/dL (0.2-1.3) 05/28/20 03:59 Direct Bilirubin 0.0 mg/dL (0.0-0.4) 05/28/20 03:59 Neonat Total Bilirubin Not Reportable 05/28/20 03:59 Neonat Direct Bilirubin Not Reportable 05/28/20 03:59 Neonat Indirect Bili Not Reportable 05/28/20 03:59 AST 114 U/L (14-36) H 05/28/20 03:59 ALT 79 U/L (<35) H 05/28/20 03:59 Alkaline Phosphatase 102 U/L (38-126) 05/28/20 03:59 Total Protein 6.6 g/dL (6.3-8.2) 05/28/20 03:59 Albumin 3.3 g/dL (3.5-5.0) L 05/28/20 03:59 Prealbumin 16.9 mg/dL (17.6-36.0) L 05/28/20 03:59 Triglycerides 170 mg/dL (<150) H 05/25/20 06:50 Urine Color STRAW 05/17/20 19:05 Urine Appearance CLEAR 05/17/20 19:05 Urine pH 8.0 (5.0-9.0) 05/17/20 19:05 Ur Specific [place] 1.005 05/17/20 19:05 Urine Protein NEGATIVE mg/dL (NEGATIVE) 05/17/20 19:05 Urine Glucose (UA) NEGATIVE mg/dL (NEGATIVE) 05/17/20 19:05 Urine Ketones NEGATIVE mg/dL (NEGATIVE) 05/17/20 19:05 Urine Blood NEGATIVE (NEGATIVE) 05/17/20 19:05 Urine Nitrite NEGATIVE (NEGATIVE) 05/17/20 19:05 Urine Bilirubin NEGATIVE (NEGATIVE) 05/17/20 19:05 Urine Urobilinogen NEGATIVE mg/dL (<2.0) 05/17/20 19:05 Ur Leukocyte Esterase NEGATIVE (NEGATIVE) 05/17/20 19:05 Urine WBC (Auto) 0 /HPF 05/17/20 19:05 Urine RBC (Auto) 0 /HPF 05/17/20 19:05 Squamous Epi Cells Auto <1 /HPF 05/17/20 19:05 Urine Mucus (Auto) RARE /LPF 05/17/20 19:05 Urine Ascorbic Acid NEGATIVE (NEGATIVE) 05/17/20 19:05 Urine HCG, Qual NEGATIVE (NEGATIVE) 05/17/20 19:05 Time Trough Drawn 2250 05/22/20 22:50 Vancomycin Trough < 5.0 ug/mL (5.0-20.0) L 05/22/20 22:50 Plan Time Spent: Greater than 30 Minutes Stroke Is this a Stroke Patient?: No Acute Heart Failure - Is this a Heart Failure Patient?: No
[2020-05-28] MEDS: AMINO ACIDS 5 %/DEXTROSE 20 % 1,000 ML IV PRN (14:42)
[2020-05-28 16:05] VITALS: BP 113/56
== END 2020-05-28 16:50 | disposition home health service (06) | DRG 872 ==
LOC: ER 14:50 → EH 22:29 → 4S 05-18 19:50
PROVIDERS: ADMIT Emergency Medicine; ATTEND Internal Medicine
DX: R78.81 Bacteremia (principal); K50.90 Crohn's disease, unspecified, without complications; Q79.60 Ehlers-Danlos syndrome, unspecified; K31.84 Gastroparesis; E78.1 Pure hyperglyceridemia; E06.3 Autoimmune thyroiditis; K21.9 Gastro-esophageal reflux disease without esophagitis; D89.89 Other specified disorders involving the immune mechanism, not elsewhere classified; D63.8 Anemia in other chronic diseases classified elsewhere; Z79.899 Other long term (current) drug therapy; Z88.6 Allergy status to analgesic agent; Z88.1 Allergy status to other antibiotic agents; Z88.3 Allergy status to other anti-infective agents; Z88.8 Allergy status to other drugs, medicaments and biological substances; Z91.048 Other nonmedicinal substance allergy status; Z93.1 Gastrostomy status
CPT/HCPCS: 36415; 80048; 80053; 80202; 81001; 81025; 82565; 82962; 83605; 83735; 84100; 84134; 84478; 85025; 85027; 85610; 87040; 87077; 87086; 87150; 93005; 93010; 93306; 96361; 96365; 96375; 99284; J1170; J1200; J1642; J1644; J2020; J2550; J3370; J3490; J7030; J7060; J7121

== ENCOUNTER 2020-06-26 21:25 | Inpatient (IN) | payer MEDICAID ==
[2020-06-26] MEDS ORDERED: NORMAL SALINE 1000 ML 1,000 ML IV ONE (21:51)
[2020-06-26] MEDS ORDERED: ONDANSETRON HCL INJ/PF 4 MG/2 ML SDV IV ONE (21:51)
--- NOTE | 2020-06-26 21:53 | ER Document Report ---
ED Medical Screen (RME) - General Chief Complaint: Fever Stated Complaint: FEVER Time Seen by Provider: 06/26/20 21:43 Primary Care Provider: JENNIFER NIÑO MD [Primary Care Provider] - Follow up as needed Notes: 19-year-old female history of Crohn's, eating disorder NOS, Ehler Danlos with chronic TPN, G-tube, and J-tube presents with fever that started today. She also reports all over body pain. She denies any vomiting, diarrhea, cough, congestion. Patient appears sickly, she is very pale, she is alert and answering all questions appropriately. She has a very complex medical history. I have greeted and performed a rapid initial assessment of this patient. A comprehensive ED assessment and evaluation of the patient, analysis of test results and completion of the medical decision making process will be conducted by additional ED providers. I have specifically instructed the patient or family members with the patient to immediately return to any nursing staff should anything change in the patient's condition or with their chief complaint. TRAVEL OUTSIDE OF THE [place] IN LAST 30 DAYS: No - Related Data Allergies/Adverse Reactions: cefoxitin Allergy (Verified 05/17/20 15:01) chlorhexidine [Chlorhexidine] Allergy (Verified 05/17/20 15:01) Urticaria erythromycin base Allergy (Verified 05/17/20 15:01) lactose [Lactose] Allergy (Verified 05/17/20 15:01) Urticaria lactulose Allergy (Verified 05/17/20 15:01) melatonin Allergy (Verified 05/17/20 15:01) metoclopramide Allergy (Verified 05/17/20 15:01) adhesive Adverse Reaction (Intermediate, Verified 05/17/20 15:01) morphine Adverse Reaction (Verified 05/17/20 15:01) vancomycin [Vancomycin] Adverse Reaction (Verified 05/17/20 15:01) Amy Syndrome silk tape Allergy (Uncoded 05/17/20 15:01) Home Medications: levothyroxine. phenergen Past Medical History - Social History Chew tobacco use (# tins/day): No Frequency of alcohol use: None Drug Abuse: None - Past Medical History Cardiac Medical History: Denies: Hx Coronary Artery Disease, Hx Heart Attack, Hx Hypertension Pulmonary Medical History: Reports: Hx Asthma - Childhood asthma, Hx Pneumonia Denies: Hx Bronchitis, Hx COPD Neurological Medical History: Denies: Hx Cerebrovascular Accident, Hx Seizures Endocrine Medical History: Reports: Hx Hypothyroidism - Carolyn's. Denies: Hx Diabetes Mellitus Type 1, Hx Hyperthyroidism Renal/ Medical History: Denies: Hx Peritoneal Dialysis GI Medical History: Reports: Hx Crohn's Disease, Hx Gastroesophageal Reflux Disease, Hx Ulcer - pyloric stenosis. 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 Denies: Hx Hepatitis Past Surgical History: Reports: Hx Abdominal Surgery - G-tube and J tube placement for gastroparesis, Hx Cholecystectomy, Hx Oral Surgery, Hx Urinary Tract Surgery - Stretched urethra, pediatric, Hx Vascular Surgery - Numerous central venous access line placements, Other - G-tube and J-tube placement for gastroparesis - Immunizations Immunizations up to date: Yes Hx Diphtheria, Pertussis, Tetanus Vaccination: Yes Physical Exam - Vital signs Vitals: Temp Pulse Resp BP Pulse Ox 100.4 F 126 H 20 143/81 H 97 06/26/20 21:50 06/26/20 21:50 06/26/20 21:50 06/26/20 21:50 06/26/20 21:50 Course - Vital Signs Vital signs: Temp Pulse Resp BP Pulse Ox 100.4 F 126 H 20 143/81 H 97 06/26/20 21:50 06/26/20 21:50 06/26/20 21:50 06/26/20 21:50 06/26/20 21:50 Doctor's Discharge - Discharge Referrals: JENNIFER NIÑO MD [Primary Care Provider] - Follow up as needed
--- NOTE | 2020-06-26 22:33 | RADIOLOGY REPORT (SQ) ---
EXAM DESCRIPTION: XR CHEST 1 VIEW COMPLETED DATE/TME: 06/26/2020 21:50 CLINICAL HISTORY: 19 years, Female, fever EXAM DESCRIPTION: CLINICAL HISTORY: fever COMPARISON: 05/04/2020 FINDINGS: Single view of the chest is submitted. Central catheter tip is within the mid to distal SVC. Cardiac silhouette is normal. There is atelectasis at the left lung base. No other focal parenchymal or pleural disease. There is no significant pulmonary vascular engorgement. IMPRESSION: Left lung base atelectasis.
[2020-06-26 22:55] LABS: ABSOLUTE BASOPHILS # (AUTO) 0.1 10^3/uL (0.0-0.2); ABSOLUTE EOSINOPHILS # (AUTO) 0.1 10^3/uL (0.0-0.6); ABSOLUTE LYMPHOCYTES (AUTO) 0.6 10^3/uL (0.5-4.7); ABSOLUTE MONOCYTES (AUTO) 0.5 10^3/uL (0.1-1.4); ABSOLUTE NEUT (AUTO) 7.9 10^3/uL (1.7-8.2); BASOPHILS % (AUTO) 0.6 % (0-2); EOSINOPHILS % (AUTO) 0.8 % (0-6); HEMATOCRIT 32.1 % (36.0-47.0); HEMOGLOBIN 11.1 g/dL (12.0-15.5); LYMPHOCYTES % (AUTO) 6.5 % (13-45); MEAN CORPUSCULAR HEMOGLOBIN 30.2 pg (27.0-33.4); MEAN CORPUSCULAR HGB CONC 34.6 g/dL (32.0-36.0); MEAN CORPUSCULAR VOLUME 87 fl (80-97); PLATELET COUNT 287 10^3/uL (150-450); RED BLOOD COUNT 3.67 10^6/uL (3.72-5.28); RED CELL DISTRIBUTION WIDTH 15.5 % (11.5-14.0); SEGMENTED NEUTROPHILS % (AUTO) 86.1 % (42-78); TOTAL CELLS COUNTED % (AUTO) 100 %; WHITE BLOOD COUNT 9.2 10^3/uL (4.0-10.5)
[2020-06-26 22:56] LABS: VENOUS BLOOD HCO3 25.1 mmol/L (20-32); VENOUS BLOOD PCO2 38.4 mmHg (35-63); VENOUS BLOOD PH 7.43 (7.30-7.42)
[2020-06-26 23:01] LABS: INTERNATIONAL RATION (INR) 0.98; PROTHROMBIN TIME 13.2 SEC (11.4-15.4)
[2020-06-26 23:06] LABS: APPEARANCE,URINE CLEAR; BILIRUBIN,URINE NEGATIVE (NEGATIVE); COLOR,URINE STRAW; GLUCOSE, URINE NEGATIVE (NEGATIVE); KETONES,URINE NEGATIVE (NEGATIVE); PROTEIN,URINE NEGATIVE (NEGATIVE); URINE SPECIFIC GRAVITY 1.004; UROBILINOGEN,URINE NEGATIVE mg/dL (<2.0)
[2020-06-26 23:09] LABS: ALBUMIN 4.2 g/dL (3.5-5.0); ALKALINE PHOSPHATASE 116 U/L (38-126); ANION GAP 10 (5-19); ASPARTATE AMINO TRANSFERASE 42 U/L (14-36); BILIRUBIN,DIRECT 0.3 mg/dL (0.0-0.4); BILIRUBIN,TOTAL 0.5 mg/dL (0.2-1.3); BLOOD UREA NITROGEN 8 mg/dL (7-20); CALCIUM 8.7 mg/dL (8.4-10.2); CARBON DIOXIDE 27 mmol/L (22-30); CHLORIDE 98 mmol/L (98-107); GLUCOSE 104 mg/dL (75-110); POTASSIUM 4.1 mmol/L (3.6-5.0)
[2020-06-27] MEDS ORDERED: NORMAL SALINE IV ONE (00:24)
--- NOTE | 2020-06-27 00:39 | ER Document Report ---
ED General - General Chief Complaint: Fever Stated Complaint: FEVER Time Seen by Provider: 06/26/20 21:43 Primary Care Provider: JENNIFER NIÑO MD [Primary Care Provider] - Follow up as needed Mode of Arrival: Ambulatory Information source: Patient Notes: This 19 year old female who presented the emergency room with a history of fever and chills with rigor which began this afternoon. Patient has had a history of similar episodes in the past due to persistent IV access for TPN. She was admitted in the hospital in May and grew a coagulase negative staph epididymis resistant to Rocephin. She was treated with vancomycin and linezolid. Tonight she has similar symptoms of tachycardia, body aches and pains with chills and fever of 103 at home prior to coming to the emergency department. She has a history of Crohn's, eating disorder, Ehler Danlos with chronic TPN, G-tube, and J-tube and a history of new episode of fever that started today. TRAVEL OUTSIDE OF THE [place] IN LAST 30 DAYS: No - Related Data Allergies/Adverse Reactions: cefoxitin Allergy (Verified 05/17/20 15:01) chlorhexidine [Chlorhexidine] Allergy (Verified 05/17/20 15:01) Urticaria erythromycin base Allergy (Verified 05/17/20 15:01) lactose [Lactose] Allergy (Verified 05/17/20 15:01) Urticaria lactulose Allergy (Verified 05/17/20 15:01) melatonin Allergy (Verified 05/17/20 15:01) metoclopramide Allergy (Verified 05/17/20 15:01) adhesive Adverse Reaction (Intermediate, Verified 05/17/20 15:01) morphine Adverse Reaction (Verified 05/17/20 15:01) vancomycin [Vancomycin] Adverse Reaction (Verified 05/17/20 15:01) Amy Syndrome silk tape Allergy (Uncoded 05/17/20 15:01) Home Medications: levothyroxine. phenergen Past Medical History - Social History Smoking Status: Never Smoker Chew tobacco use (# tins/day): No Frequency of alcohol use: None Drug Abuse: None Family History: Hypertension, Other - Colonic polyposis - Past Medical History Cardiac Medical History: Denies: Hx Coronary Artery Disease, Hx Heart Attack, Hx Hypertension Pulmonary Medical History: Reports: Hx Asthma - Childhood asthma, Hx Pneumonia Denies: Hx Bronchitis, Hx COPD Neurological Medical History: Denies: Hx Cerebrovascular Accident, Hx Seizures Endocrine Medical History: Reports: Hx Hypothyroidism - Carolyn's. Denies: Hx Diabetes Mellitus Type 1, Hx Hyperthyroidism Renal/ Medical History: Denies: Hx Peritoneal Dialysis GI Medical History: Reports: Hx Crohn's Disease, Hx Gastroesophageal Reflux Disease, Hx Ulcer - pyloric stenosis. 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 Denies: Hx Hepatitis Past Surgical History: Reports: Hx Abdominal Surgery - G-tube and J tube placement for gastroparesis, Hx Cholecystectomy, Hx Oral Surgery, Hx Urinary Tract Surgery - Stretched urethra, pediatric, Hx Vascular Surgery - Numerous central venous access line placements, Other - G-tube and J-tube placement for gastroparesis - Immunizations Immunizations up to date: Yes Hx Diphtheria, Pertussis, Tetanus Vaccination: Yes Review of Systems - Review of Systems Notes: Constitutional: + fever and chills HENT: Negative for sore throat. Eyes: Negative for visual changes. Cardiovascular: Negative for chest pain. Respiratory: Negative for shortness of breath. Gastrointestinal: Negative for abdominal pain, vomiting or diarrhea. Genitourinary: Negative for dysuria. Musculoskeletal: Negative for back pain. Skin: Negative for rash. Neurological: Negative for headaches, weakness or numbness. 10 point ROS negative except as marked above and in HPI. Physical Exam - Vital signs Vitals: Temp Pulse Resp BP Pulse Ox 100.4 F 126 H 20 143/81 H 97 06/26/20 21:50 06/26/20 21:50 06/26/20 21:50 06/26/20 21:50 06/26/20 21:50 - Notes Notes: PHYSICAL EXAMINATION: Physical Exam: General: Pale, weak 19-year-old female curled up complaining of chills and body aches and pains HEENT: NC/AT, pupils equal round and reactive to light, MM moist,nares clear, oropharynx clear, airway patent Neck: supple, no adenopathy, no masses. Good range of motion Lungs: clear, no wheezing, no rales no rhonchi CVS: Tachycardic rate and rhythm no murmur gallop or rub Abdomen: Soft, active, nontender, no masses, no hepatosplenomegaly Ext: No edema, clubbing or cyanosis. Neuro: Alert and responsive, moving all 4 extremities on command, cranial nerves intact, no focal findings Skin: Intact no open lesions, no rash Course - Re-evaluation Re-evalutation: 06/27/20 00:59 I have discussed the patient with the hospitalist, Dr. Echevarria, he will admit the patient to the hospital for further evaluation and treatment. - Vital Signs Vital signs: Temp Pulse Resp BP Pulse Ox 100.4 F 126 H 20 143/81 H 100 06/26/20 21:50 06/26/20 21:50 06/26/20 21:50 06/26/20 21:50 06/27/20 00:12 - Laboratory Result Diagrams: 06/26/20 22:32 06/26/20 22:32 Laboratory results interpreted by me: 06/26/20 06/26/20 06/26/20 22:32 22:32 22:32 RBC 3.67 L Hgb 11.1 L Hct 32.1 L RDW 15.5 H Lymph % (Auto) 6.5 L Seg Neutrophils % 86.1 H VBG pH 7.43 H Sodium 134.8 L AST 42 H Urine Ascorbic Acid 06/26/20 22:32 RBC Hgb Hct RDW Lymph % (Auto) Seg Neutrophils % VBG pH Sodium AST Urine Ascorbic Acid 20 H 06/27/20 00:43 I have reviewed laboratory data and used this information for the treatment decisions regarding the patient. - Diagnostic Test Radiology reviewed: Image reviewed, Reports reviewed Radiology results interpreted by me: 06/27/20 00:57 Chest x-ray: No acute infiltrate, no acute cardiopulmonary disease - EKG Interpretation by Ia Rate: Tachycardia - EKG interpreted by Dr. Lake: Sinus tachycardia, rate 114, QT interval normal, normal axis , no acute ST or T wave abnormalities, no ischemic findings, similar to previous electrocardiogram. Critical Care Note - Critical Care Note Total time excluding time spent on procedures (mins): 60 - Critical care time spent obtaining history from patient or surrogate, discussions with consultants, development of treatment plan with patient or surrogate, evaluation of patient's response to treatment, examination of patient, ordering and performing treatments and interventions, ordering and review of laboratory studies, re- evaluation of patient's condition, ordering and review of radiographic studies and review of old charts Discharge - Discharge Clinical Impression: Bacteremia, Acute febrile illness, Fever and chills, On total parenteral nutrition (TPN), SIRS (systemic inflammatory response syndrome) Crohn's disease Qualifiers: Gastrointestinal tract location: unspecified location Digestive disease complication type: without complication Qualified Code(s): K50.90 - Crohn's disease, unspecified, without complications Condition: Good Disposition: ADMITTED INPATIENT Admitting Provider: Swathi (Hospitalist) Unit Admitted: Medical Floor Referrals: JENNIFER NIÑO MD [Primary Care Provider] - Follow up as needed
[2020-06-27] MEDS ORDERED: LINEZOLID 600 MG/300 ML RTUPB IV ONE ×2 (00:57→01:45)
[2020-06-27] MEDS ORDERED: HYDROMORPHONE HCL INJ/PF 2 MG/ML AMPULE IV ONE (01:08)
[2020-06-27] MEDS ORDERED: PROCHLORPERAZINE EDISYLATE INJ 10 MG/2 ML VIAL IV ONE (01:22)
[2020-06-27] MEDS ORDERED: DEXTROSE 40% GEL 15 GM TUBE PO PRN ×2 (01:50)
[2020-06-27] MEDS ORDERED: DEXTROSE 50%-WATER 25 GM/50 ML DISP.SYRIN IV PRN ×2 (01:50)
[2020-06-27] MEDS ORDERED: GLUCAGON,HUMAN RECOMB 1 MG INJ SUBCUT PRN (01:50)
[2020-06-27] MEDS ORDERED: LORAZEPAM INJ 2 MG/1 ML VIAL IV PRN (02:00)
[2020-06-27] MEDS: DEXTROSE 5%-LACTATED RINGERS 1,000 ML IV PRN ×3 (03:16→20:46)
[2020-06-27] MEDS ORDERED: AZTREONAM INJ 1 GM VIAL ONE (03:32)
[2020-06-27] MEDS: AZTREONAM INJ 1 GM VIAL IV SCH ×2 (03:40→13:00)
--- NOTE | 2020-06-27 05:25 | PDOC H&P ---
History of Present Illness Admission Date/PCP: 06/27/20 01:19 JENNIFER NIÑO MD Patient complains of: Fever History of Present Illness: SHANI WALLACE is a 19 year old female who presented to the emergency room with acute fever. She admits developing an acute fever of 103 F on the afternoon of 06/26/2020. Her fever was accompanied by chills with rigors and was associated with tachycardia, malaise and ague. She took Tylenol at home prior to coming to the emergency room and her fever substantially improved by the time she arrived at the hospital. She denies other associated or accompanying signs and symptoms. She admits numerous prior similar episodes related to infections of her IV access lines. She has not identified any additional aggravating or ameliorating factors for her fever. In the emergency room she was noted to have a temperature of 100.4 F and an unremarkable laboratory evaluation. Clinically she was experiencing rigorous chills and appeared acutely ill. She was started on IV antibiotic therapy with Zyvox in the emergency room and subsequently admitted to the hospital for further evaluation and treatment. Past Medical History Cardiac Medical History: Denies: Coronary Artery Disease, Myocardial Infarction, Hypertension Pulmonary Medical History: Reports: Asthma - Childhood asthma, Pneumonia Denies: Bronchitis, Chronic Obstructive Pulmonary Disease (COPD) EENT Medical History: Denies: Cataracts, Ears - Hearing aids Neurological Medical History: Denies: Multiple Sclerosis, Seizures Endocrine Medical History: Reports: Hypothyroidism - Carolyn's Denies: Diabetes Mellitus Type 1, Hyperthyroidism Renal/ Medical History: Denies: Chronic Kidney Disease, Nephrolithiasis Malignancy Medical History: Reports: None GI Medical History: Reports: Crohn's Disease, Gastroesophageal Reflux Disease Denies: Cirrhosis, Hepatitis, Peptic Ulcer Disease, Ulcerative Colitis Musculoskeltal Medical History: 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 Denies: Gout Skin Medical History: Denies: Eczema, Psoriasis Psychiatric Medical History: Denies: Alcohol Dependency, Depression, Substance Abuse, Tobacco Dependency Traumatic Medical History: Reports: None Hematology: 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 Denies: Bleeding Tendencies Infectious Medical History: Reports: Clostridium Difficile Past Surgical History Past Surgical History: Reports: Cholecystectomy, Vascular Surgery - Numerous central venous access line placements, Other - G-tube and J-tube placement for gastroparesis, colonoscopies Social History Information Source: Patient Lives with: Parents Smoking Status: Never Smoker Electronic Cigarette use?: No Frequency of Alcohol Use: None Hx Recreational Drug Use: No Drugs: None Hx Prescription Drug Abuse: No - Advance Directive Resuscitation Status: Full Code Surrogate healthcare decision maker:: Shani Wallace (mother) Family History Family History: Hypertension, Other - Colonic polyposis Parental Family History Reviewed: Yes Children Family History Reviewed: No Sibling(s) Family History Reviewed.: Yes Medication/Allergy Home Medications: Dicyclomine HCl 20 ml GT BIDP PRN 02/13/19 Promethazine HCl [Phenergan 6.25 mg/5 ml Syrup] 40 mg JT Q6HP PRN 09/15/19 Sodium/Pot/Mag/Calc/Chlor/Acet [TPN Electrolytes II IV Soln] 20 ml IV ASDIR PRN 09/15/19 Tramadol HCl [Ultram] 50 mg PO BIDP PRN 01/30/20 Cetirizine HCl 10 ml GT DAILY 04/18/20 Diphenhydramine HCl [Benadryl Inj 50 mg/1 ml Vial] 25 mg IV BID 04/18/20 Hyoscyamine Sulfate 0.125 mg SL TIDP PRN 04/18/20 Lansoprazole [Prevacid 30 mg Odt Tablet] 30 mg PO BID 04/18/20 Levothyroxine Sodium [Tirosint-Kaelyn] 50 mcg PO DAILY 04/18/20 Mupirocin [Bactroban 2% Ointment 22 gm] 1 applic TP TID 04/18/20 Nystatin [Nystop] 1 applic TP TID 04/18/20 Ondansetron [Zofran Odt 4 mg Tablet] 4 mg SL Q8HP PRN 04/18/20 Sucralfate [Carafate Susp 1 gm/10 ml Udcup] 1 gm PO TID 04/18/20 Silver Nitrate Applicator [Silver Nitrate Applicator 10 Stick/Package] 1 applic TOP TID #2 packet 05/08/20 Ascorbic Acid 2,000 gm JT DAILY 05/18/20 Allergies/Adverse Reactions: cefoxitin Allergy (Verified 05/17/20 15:01) chlorhexidine [Chlorhexidine] Allergy (Verified 05/17/20 15:01) Urticaria erythromycin base Allergy (Verified 05/17/20 15:01) lactose [Lactose] Allergy (Verified 05/17/20 15:01) Urticaria lactulose Allergy (Verified 05/17/20 15:01) melatonin Allergy (Verified 05/17/20 15:01) metoclopramide Allergy (Verified 05/17/20 15:01) adhesive Adverse Reaction (Intermediate, Verified 05/17/20 15:01) morphine Adverse Reaction (Verified 05/17/20 15:01) vancomycin [Vancomycin] Adverse Reaction (Verified 05/17/20 15:01) Amy Syndrome silk tape Allergy (Uncoded 05/17/20 15:01) Review of Systems Constitutional: PRESENT: as per HPI, chills - With rigors, fever(s), other - Malaise, ague Eyes: ABSENT: visual disturbances, other - Eye pain Ears: ABSENT: hearing changes, other - Ear pain Nose, Mouth, and Throat: ABSENT: headache(s), sore throat Cardiovascular: PRESENT: as per HPI, other - Tachycardia. ABSENT: chest pain, palpitations Gastrointestinal: ABSENT: abdominal pain, constipation, diarrhea, nausea, vomiting Genitourinary: ABSENT: dysuria, hematuria Musculoskeletal: ABSENT: back pain, joint swelling Integumentary: ABSENT: pruritus, rash Neurological: ABSENT: confusion, convulsions, focal weakness, memory loss, sync ope Psychiatric: ABSENT: anxiety, depression Endocrine: ABSENT: cold intolerance, heat intolerance Hematologic/Lymphatic: ABSENT: easy bleeding, easy bruising Allergic/Immunologic: ABSENT: seasonal rhinorrhea Physical Exam Vital Signs: Temp Pulse Resp BP Pulse Ox 100.4 F 126 H 20 143/81 H 100 06/26/20 21:50 06/26/20 21:50 06/26/20 21:50 06/26/20 21:50 06/27/20 00:12 Intake & Output 06/25/20 06/26/20 06/27/20 23:59 23:59 23:59 Weight 56.699 kg General appearance: PRESENT: no acute distress, cooperative Head exam: PRESENT: atraumatic, normocephalic Eye exam: PRESENT: conjunctiva pink. ABSENT: conjunctival injection, scleral icterus Ear exam: PRESENT: normal external ear exam. ABSENT: bleeding, drainage Mouth exam: PRESENT: dry mucosa, neck supple Neck exam: ABSENT: thyromegaly, tracheal deviation Respiratory exam: PRESENT: clear to auscultation martine, symmetrical, unlabored Cardiovascular exam: PRESENT: RRR. ABSENT: clicks, gallop, rubs Pulses: PRESENT: normal radial pulses, normal dorsalis pedis pul Vascular exam: PRESENT: normal capillary refill, pallor GI/Abdominal exam: PRESENT: normal bowel sounds, soft, other - G-tube and J-tube are noted Rectal exam: PRESENT: deferred Extremities exam: ABSENT: joint swelling, pedal edema Musculoskeletal exam: ABSENT: deformity, dislocation Neurological exam: PRESENT: alert, oriented to person, oriented to place, oriented to time, oriented to situation, CN II-XII grossly intact. ABSENT: motor sensory deficit Psychiatric exam: PRESENT: appropriate affect, normal mood Skin exam: PRESENT: dry, intact, warm. ABSENT: jaundice, rash, urticaria Results Laboratory Results: 06/26/20 22:32 06/26/20 22:32 06/26/20 06/26/20 06/26/20 22:32 22:32 22:32 WBC 9.2 RBC 3.67 L Hgb 11.1 L Hct 32.1 L MCV 87 MCH 30.2 MCHC 34.6 RDW 15.5 H Plt Count 287 Seg Neutrophils % 86.1 H VBG pH VBG pCO2 VBG HCO3 VBG Base Excess Sodium 134.8 L Potassium 4.1 Chloride 98 Carbon Dioxide 27 Anion Gap 10 BUN 8 Creatinine 0.82 Est GFR ( Amer) > 60 Glucose 104 Lactic Acid Calcium 8.7 Total Bilirubin 0.5 AST 42 H Alkaline Phosphatase 116 Total Protein 8.0 Albumin 4.2 Serum HCG, Qual NEGATIVE Urine Color Urine Appearance Urine pH Ur Specific [place] Urine Protein Urine Glucose (UA) Urine Ketones Urine Blood Urine RBC (Auto) 06/26/20 06/26/20 06/26/20 22:32 22:32 22:32 WBC RBC Hgb Hct MCV MCH MCHC RDW Plt Count Seg Neutrophils % VBG pH 7.43 H VBG pCO2 38.4 VBG HCO3 25.1 VBG Base Excess 1.0 Sodium Potassium Chloride Carbon Dioxide Anion Gap BUN Creatinine Est GFR ( Amer) Glucose Lactic Acid 0.9 Calcium Total Bilirubin AST Alkaline Phosphatase Total Protein Albumin Serum HCG, Qual Urine Color STRAW Urine Appearance CLEAR Urine pH 9.0 Ur Specific [place] 1.004 Urine Protein NEGATIVE Urine Glucose (UA) NEGATIVE Urine Ketones NEGATIVE Urine Blood NEGATIVE Urine RBC (Auto) 1 Impressions: Chest X-Ray 06/26/20 21:50 IMPRESSION: Left lung base atelectasis. Assessment and Plan - Diagnosis (1) Fever and chills Is this a current diagnosis for this admission?: Yes (2) Crohn's disease Qualifiers: Gastrointestinal tract location: unspecified location Digestive disease complication type: other complication Qualified Code(s): K50.918 - Crohn's disease, unspecified, with other complication Is this a current diagnosis for this admission?: Yes (3) Gastroparesis Is this a current diagnosis for this admission?: Yes (4) Chronic anemia Is this a current diagnosis for this admission?: Yes - Plan Summary Summary: Patient will be admitted to the medical floor where she will receive routine supportive and symptomatic cares. She will be started on IV antibiotics using Zyvox and aztreonam empirically pending results of her blood cultures. She will receive Dilaudid 0.5 to 2 mg IV every 3 hours as needed for pain. She will receive Ativan 1 mg IV every 4 hours as needed for anxiety or restlessness. She will be continued on her usual TPN as soon as it can be arranged with dietary/pharmacy. A registered dietitian consultation will be obtained. A case management consultation will be obtained. CBCs, metabolic profiles and additional laboratory and/or radiographic evaluations will be obtained as appropriate. - Time Time Spent with patient: Less than 15 minutes Medications reviewed and adjusted accordingly: Yes Anticipated Discharge Disposition: Home with Home Health Anticipated Discharge Timeframe: Undetermined - Inpatient Certification Based on my medical assessment, after consideration of the patient's comorbidities, presenting symptoms, or acuity I expect that the services needed warrant INPATIENT care.: Yes I certify that my determination is in accordance with my understanding of Medicare's requirements for reasonable and necessary INPATIENT services [42 CFR 412.3e].: Yes Medical Necessity: Significant Comorbidiites Make Outpatient Treatment Too [place]is [place], Need Close Monitoring Due to Risk of Patient Decompensation, Need For IV Fluids, Need for Pain Control, Need for IV Antibiotics, Risk of Complication if Not Cared For in Hospital, Risk of Diagnosis Which Will Require Inpatient Eval/Care/Monitoring
[2020-06-27] MEDS: HEPARIN SOD (PORCINE) 5,000 UNIT/ML 1 ML VIAL SUBCUT SCH ×3 (06:17→22:20)
--- NOTE | 2020-06-27 08:28 | EKG REPORT ---
SEVERITY:- OTHERWISE NORMAL ECG - SINUS TACHYCARDIA : Confirmed by: Fredi Olmstead MD 27-Jun-2020 08:27:31
[2020-06-27] MEDS ORDERED: LINEZOLID 600 MG/300 ML RTUPB IV SCH (10:00)
[2020-06-27] MEDS: HYDROMORPHONE HCL INJ/PF 2 MG/ML AMPULE IV PRN ×3 (10:21→20:30)
[2020-06-27] MEDS: LINEZOLID 600 MG/300 ML RTUPB IV SCH ×2 (10:21→23:21)
[2020-06-27] MEDS: FAMOTIDINE INJ/PF 20 MG/2 ML SDV IV SCH ×2 (10:22→22:20)
[2020-06-27] MEDS: AZTREONAM 1 GM in DEXTROSE 5%-WATER 50 ML IV SCH ×2 (15:08→22:19)
[2020-06-27] MEDS: PROMETHAZINE HCL INJ 25 MG/1 ML VIAL IV PRN ×2 (15:28→20:30)
[2020-06-27] MEDS ORDERED: DICYCLOMINE HCL 20 MG TABLET NG PRN (22:00)
[2020-06-27] MEDS ORDERED: HYOSCYAMINE SULFATE 0.125 MG TABLET PO PRN (22:00)
[2020-06-27] MEDS ORDERED: ASCORBIC ACID 500 MG TABLET NG SCH (22:00)
[2020-06-27] MEDS: MUPIROCIN 2% OINTMENT 22 GM TP SCH ×2 (22:29→23:42)
[2020-06-27] MEDS: NYSTATIN TOPICAL POWDER 15 GM TP SCH (22:30)
[2020-06-27] MEDS: DIPHENHYDRAMINE HCL 50 MG/ML VIAL IV SCH (22:30)
[2020-06-27] MEDS ORDERED: MUPIROCIN 2% OINTMENT 22 GM ONE (23:21)
[2020-06-28] MEDS: HYDROMORPHONE HCL INJ/PF 2 MG/ML AMPULE IV PRN ×2 (01:14→05:12)
[2020-06-28] MEDS: PROMETHAZINE HCL INJ 25 MG/1 ML VIAL IV PRN ×5 (01:15→22:55)
[2020-06-28] MEDS: HEPARIN SOD (PORCINE) 5,000 UNIT/ML 1 ML VIAL SUBCUT SCH ×3 (05:08→21:11)
[2020-06-28] MEDS: AZTREONAM 1 GM in DEXTROSE 5%-WATER 50 ML IV SCH ×3 (05:08→21:13)
[2020-06-28] MEDS: LEVOTHYROXINE SODIUM 0.05 MG TABLET PO SCH ×2 (05:08→05:55)
[2020-06-28] MEDS: PANTOPRAZOLE SODIUM 40 MG PACKET.DR GT SCH ×3 (05:08→16:52)
[2020-06-28] MEDS: DEXTROSE 5%-LACTATED RINGERS 1,000 ML IV PRN ×3 (05:09→19:47)
[2020-06-28 05:54] LABS: HEMATOCRIT 24.9 % (36.0-47.0); MEAN CORPUSCULAR HEMOGLOBIN 30.2 pg (27.0-33.4); MEAN CORPUSCULAR HGB CONC 34.6 g/dL (32.0-36.0); MEAN CORPUSCULAR VOLUME 87 fl (80-97); PLATELET COUNT 244 10^3/uL (150-450); RED BLOOD COUNT 2.86 10^6/uL (3.72-5.28); RED CELL DISTRIBUTION WIDTH 15.2 % (11.5-14.0); WHITE BLOOD COUNT 5.6 10^3/uL (4.0-10.5)
[2020-06-28 06:11] LABS: ALBUMIN 3.1 g/dL (3.5-5.0); ALKALINE PHOSPHATASE 90 U/L (38-126); ANION GAP 8 (5-19); ASPARTATE AMINO TRANSFERASE 28 U/L (14-36); BILIRUBIN,DIRECT 0.3 mg/dL (0.0-0.4); BILIRUBIN,TOTAL 0.4 mg/dL (0.2-1.3); BLOOD UREA NITROGEN 4 mg/dL (7-20); CALCIUM 8.4 mg/dL (8.4-10.2); CARBON DIOXIDE 27 mmol/L (22-30); CHLORIDE 104 mmol/L (98-107); GLUCOSE 89 mg/dL (75-110); PHOSPHORUS 4.5 mg/dL (2.5-4.5); TOTAL PROTEIN 6.1 g/dL (6.3-8.2)
[2020-06-28 06:21] LABS: HEMOGLOBIN 8.6 g/dL (12.0-15.5)
[2020-06-28] MEDS ORDERED: LEVOTHYROXINE SODIUM INJ/PF 0.1 MG SDV ONE (06:43)
[2020-06-28] MEDS: LEVOTHYROXINE SODIUM INJ/PF 0.1 MG SDV IV SCH (06:45)
[2020-06-28 07:00] LABS: POTASSIUM 3.9 mmol/L (3.6-5.0)
[2020-06-28] MEDS ORDERED: VANCOMYCIN HCL 0 MG in DEXTROSE 5%-WATER 250 ML IV NR (08:15)
[2020-06-28] MEDS: DIPHENHYDRAMINE HCL 50 MG/ML VIAL IV SCH ×2 (09:31→18:01)
[2020-06-28] MEDS: FAMOTIDINE INJ/PF 20 MG/2 ML SDV IV SCH ×2 (09:32→21:11)
[2020-06-28] MEDS: ASCORBIC ACID 500 MG TABLET JT SCH (09:35)
[2020-06-28] MEDS: MUPIROCIN 2% OINTMENT 22 GM TP SCH ×3 (09:46→17:56)
[2020-06-28] MEDS: SUCRALFATE 1 GM TABLET NG SCH ×3 (10:01→17:55)
[2020-06-28] MEDS: NYSTATIN TOPICAL POWDER 15 GM TP SCH ×3 (10:02→17:56)
[2020-06-28] MEDS: SILVER NITRATE APPLICATOR 1 APPLIC STICK..EA. 10/PACKAGE TOP SCH ×3 (10:02→17:56)
--- NOTE | 2020-06-28 10:16 | PDOC PROGRESS REPORT ---
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 She started to experience fever of 101 1 day prior with associated generalized body malaise and joint pains. She denies any cough, chest pain, abdominal pain, diarrhea, bloody BM, urinary symptoms. In the ED she was noted to have a fever of 100.4. Blood cultures were drawn. She was then admitted for further work up. She was started on linezolid and aztreonam Her Luna catheter was last replaced April 27, 2020 an [facility]. She ahs been admitted several times in the past for Line associated infection April 2020 for candidemia treated with fluconazole. She was admitted again in May for a coagulase negative +ve blood culture treated with vanc and zosyn. ID was consulted both times. She was also positive for COVID back in April. D1 hospital stay. She was seen and examined at bedside. Complains of generalized malaise, no abdominal pain, no diarrhea. Started on zyvox and aztreonam. Dilaudid for pain. Awaiting blood cultures. Reason For Visit: FEVER Physical Exam Vital Signs: Temp Pulse Resp BP Pulse Ox 98.4 F 79 16 90/47 L 99 06/27/20 15:29 06/27/20 15:29 06/27/20 15:29 06/27/20 15:29 06/27/20 15:29 Intake & Output 06/26/20 06/27/20 06/28/20 06:59 06:59 06:59 Intake Total 1300 1300 Balance 1300 1300 Weight 65.9 kg 64.5 kg General appearance: PRESENT: no acute distress, cooperative Head exam: PRESENT: atraumatic, normocephalic Eye exam: PRESENT: EOMI, PERRLA Mouth exam: PRESENT: moist Neck exam: PRESENT: full ROM Respiratory exam: PRESENT: clear to auscultation martine, symmetrical, unlabored, other - Luna line in place Cardiovascular exam: PRESENT: RRR, +S1, +S2 Pulses: PRESENT: +2 pedal pulses bilateral Vascular exam: PRESENT: pallor GI/Abdominal exam: PRESENT: normal bowel sounds, soft, other - G tube and J tube. No redness, no discharge around insertion site. ABSENT: tenderness Extremities exam: PRESENT: full ROM. ABSENT: +2 edema Musculoskeletal exam: PRESENT: full ROM Neurological exam: PRESENT: alert, awake, oriented to person, oriented to place, oriented to time Psychiatric exam: PRESENT: anxious Results Laboratory Results: 06/26/20 22:32 06/26/20 22:32 06/26/20 06/26/20 06/26/20 22:32 22:32 22:32 WBC 9.2 RBC 3.67 L Hgb 11.1 L Hct 32.1 L MCV 87 MCH 30.2 MCHC 34.6 RDW 15.5 H Plt Count 287 Seg Neutrophils % 86.1 H VBG pH VBG pCO2 VBG HCO3 VBG Base Excess Sodium 134.8 L Potassium 4.1 Chloride 98 Carbon Dioxide 27 Anion Gap 10 BUN 8 Creatinine 0.82 Est GFR ( Amer) > 60 Glucose 104 Lactic Acid Calcium 8.7 Total Bilirubin 0.5 AST 42 H Alkaline Phosphatase 116 Total Protein 8.0 Albumin 4.2 Serum HCG, Qual NEGATIVE Urine Color Urine Appearance Urine pH Ur Specific [place] Urine Protein Urine Glucose (UA) Urine Ketones Urine Blood Urine RBC (Auto) 06/26/20 06/26/20 06/26/20 22:32 22:32 22:32 WBC RBC Hgb Hct MCV MCH MCHC RDW Plt Count Seg Neutrophils % VBG pH 7.43 H VBG pCO2 38.4 VBG HCO3 25.1 VBG Base Excess 1.0 Sodium Potassium Chloride Carbon Dioxide Anion Gap BUN Creatinine Est GFR ( Amer) Glucose Lactic Acid 0.9 Calcium Total Bilirubin AST Alkaline Phosphatase Total Protein Albumin Serum HCG, Qual Urine Color STRAW Urine Appearance CLEAR Urine pH 9.0 Ur Specific [place] 1.004 Urine Protein NEGATIVE Urine Glucose (UA) NEGATIVE Urine Ketones NEGATIVE Urine Blood NEGATIVE Urine RBC (Auto) 1 06/27/20 06/27/20 06/27/20 01:30 04:45 08:30 WBC RBC Hgb Hct MCV MCH MCHC RDW Plt Count Seg Neutrophils % VBG pH VBG pCO2 VBG HCO3 VBG Base Excess Sodium Potassium Chloride Carbon Dioxide Anion Gap BUN Creatinine Est GFR ( Amer) Glucose Lactic Acid 1.2 < 0.5 L 0.7 Calcium Total Bilirubin AST Alkaline Phosphatase Total Protein Albumin Serum HCG, Qual Urine Color Urine Appearance Urine pH Ur Specific [place] Urine Protein Urine Glucose (UA) Urine Ketones Urine Blood Urine RBC (Auto) Impressions: Chest X-Ray 06/26/20 21:50 IMPRESSION: Left lung base atelectasis. 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 fever 2/2 crohn's or again another line infection. suspicion for COVID low since she had it back in April - blood culture pending - currently on Zyvox and aztreonam - Will consult ID (2) Crohn's disease Qualifiers: Gastrointestinal tract location: unspecified location Digestive disease complication type: other complication Qualified Code(s): K50.918 - Crohn's disease, unspecified, with other complication Is this a current diagnosis for this admission?: Yes Plan: - was on Entyvio but has since been stopped for about >2 months due to hx of recurrent infection - on chronic TPN due to gastroparesis - has G tub and J tube - no bloody diarrhea, no abdominal pain - will monitor for flare (3) Central line complication Qualifiers: Encounter type: sequela Qualified Code(s): T82.9XXS - Unspecified complication of cardiac and vascular prosthetic device, implant and graft, sequela Is this a current diagnosis for this admission?: Yes Plan: - she has been admitted several times in the past at least 3 this year for line infection. Candidemia and coag negative staph - treated with multiple abx, fluconazole for candidemia - coming now with fever - luna catheter last replaced april 2020 at [place]. - awaiting blood cultures - currently on aztreonam and zyvox - will consult ID (4) Gastroparesis Is this a current diagnosis for this admission?: Yes Plan: - on chronic TPN - will resume - dietary consult (5) Abdominal pain Qualifiers: Abdominal location: generalized Qualified Code(s): R10.84 - Generalized abdominal pain Is this a current diagnosis for this admission?: Yes Plan: - chronic from crohn's - continue dilaudid and antiemetics - Plan Summary Summary: Patient will be admitted to the medical floor where she will receive routine supportive and symptomatic cares. She will be started on IV antibiotics using Zyvox and aztreonam empirically pending results of her blood cultures. She will receive Dilaudid 0.5 to 2 mg IV every 3 hours as needed for pain. She will receive Ativan 1 mg IV every 4 hours as needed for anxiety or restlessness. She will be continued on her usual TPN as soon as it can be arranged with dietary/pharmacy. A registered dietitian consultation will be obtained. A case management consultation will be obtained. CBCs, metabolic profiles and additional laboratory and/or radiographic evaluations will be obtained as appropriate. - Time Time Spent with patient: 25-34 minutes Anticipated Discharge Disposition: Home, Self Care Anticipated Discharge Timeframe: to be determined
[2020-06-28] MEDS: HYDROMORPHONE HCL 2 MG TABLET PO PRN ×4 (10:59→22:39)
[2020-06-28] MEDS ORDERED: DIPHENHYDRAMINE HCL 50 MG/ML VIAL IV ONE (12:09)
--- NOTE | 2020-06-28 13:01 | PDOC PROGRESS REPORT ---
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 She started to experience fever of 101 1 day prior with associated generalized body malaise and joint pains. She denies any cough, chest pain, abdominal pain, diarrhea, bloody BM, urinary symptoms. In the ED she was noted to have a fever of 100.4. Blood cultures were drawn. She was then admitted for further work up. She was started on linezolid and aztreonam Her Luna catheter was last replaced April 27, 2020 an [facility]. She ahs been admitted several times in the past for Line associated infection April 2020 for candidemia treated with fluconazole. She was admitted again in May for a coagulase negative +ve blood culture treated with vanc and zosyn. ID was consulted both times. She was also positive for COVID back in April. D1 hospital stay. She was seen and examined at bedside. Complains of generalized malaise, no abdominal pain, no diarrhea. Started on zyvox and aztreonam. Dilaudid for pain. Awaiting blood cultures. D2 hospital stay. She was seen and examined at bedside with her mom. According to her mom, she develops neck pain when she has fungal infections. The patient looks comfortable in bed however her mom states that she has pain all over. She denies any diarrhea, nausea/vomiting. She has been afebrile since admission. Blood Cx anaerobic 1 bottle grew gram positive cocci but I was later informed that it look like its yeast, micro said they would edit the prior preliminary report of gram positive. Reason For Visit: FEVER Physical Exam Vital Signs: Temp Pulse Resp BP Pulse Ox 97.8 F 88 18 107/65 100 06/28/20 11:26 06/28/20 11:26 06/28/20 03:06 06/28/20 11:26 06/28/20 11:26 Intake & Output 06/27/20 06/28/20 06/29/20 06:59 06:59 06:59 Intake Total 1300 3600 1000 Output Total 200 Balance 1300 3400 1000 Weight 65.9 kg 59.6 kg General appearance: PRESENT: no acute distress, cooperative Head exam: PRESENT: atraumatic, normocephalic Eye exam: PRESENT: EOMI, PERRLA Mouth exam: PRESENT: moist Neck exam: PRESENT: full ROM Respiratory exam: PRESENT: clear to auscultation martine, symmetrical, unlabored Cardiovascular exam: PRESENT: RRR, +S1, +S2 Pulses: PRESENT: +2 pedal pulses bilateral Vascular exam: PRESENT: other - Luna catheter left chest area, no surrounding erythema, no discharge. G tube access with dressing, dry , no erythema surro unding, no discharge. J tube no erythema, no discharge. GI/Abdominal exam: PRESENT: normal bowel sounds, soft, tenderness, other - G and J tube tube appearance as described. ABSENT: rebound Rectal exam: PRESENT: deferred Extremities exam: PRESENT: full ROM Musculoskeletal exam: PRESENT: full ROM Neurological exam: PRESENT: alert, awake, oriented to person, oriented to place, oriented to time Psychiatric exam: PRESENT: normal mood Results Laboratory Results: 06/28/20 05:30 06/28/20 05:30 06/28/20 06/28/20 05:30 05:30 WBC 5.6 RBC 2.86 L Hgb 8.6 L D Hct 24.9 L MCV 87 MCH 30.2 MCHC 34.6 RDW 15.2 H Plt Count 244 Sodium 138.6 Potassium 3.9 Chloride 104 Carbon Dioxide 27 Anion Gap 8 BUN 4 L Creatinine 0.70 Est GFR ( Amer) > 60 Glucose 89 Calcium 8.4 Phosphorus 4.5 Magnesium 1.7 Total Bilirubin 0.4 AST 28 Alkaline Phosphatase 90 Total Protein 6.1 L Albumin 3.1 L Impressions: Chest X-Ray 06/26/20 21:50 IMPRESSION: Left lung base atelectasis. 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 fever 2/2 crohn's or again another line infection. suspicion for COVID low since she had it back in April - blood culture pending. Was called earlier for a preliminary report of gram positive cocci in clusters but was called again saying it might be yeast. - currently on vanc and aztreonam, will continue this for today and await blood culture reports - Will consult ID (2) Crohn's disease Qualifiers: Gastrointestinal tract location: unspecified location Digestive disease complication type: other complication Qualified Code(s): K50.918 - Crohn's disease, unspecified, with other complication Is this a current diagnosis for this admission?: Yes Plan: - was on Entyvio but has since been stopped for about >2 months due to hx of recurrent infection - on chronic TPN due to gastroparesis - has G tube and J tube - no bloody diarrhea, no abdominal pain - will monitor for flare (3) Central line complication Qualifiers: Encounter type: sequela Qualified Code(s): T82.9XXS - Unspecified complication of cardiac and vascular prosthetic device, implant and graft, sequela Is this a current diagnosis for this admission?: Yes Plan: - she has been admitted several times in the past at least 3 this year for line infection. Candidemia and coag negative staph - treated with multiple abx, fluconazole for candidemia - coming now with fever - luna catheter last replaced april 2020 at [place]. - awaiting blood cultures - currently on aztreonam and vsnc - will consult ID (4) Gastroparesis Is this a current diagnosis for this admission?: Yes Plan: - on chronic TPN - will resume - dietary consult (5) Abdominal pain Qualifiers: Abdominal location: generalized Qualified Code(s): R10.84 - Generalized abdominal pain Is this a current diagnosis for this admission?: Yes Plan: - chronic from crohn's - continue dilaudid per J tube and antiemetics - Plan Summary Summary: Patient will be admitted to the medical floor where she will receive routine supportive and symptomatic cares. She will be started on IV antibiotics using Zyvox and aztreonam empirically pending results of her blood cultures. She will receive Dilaudid 0.5 to 2 mg IV every 3 hours as needed for pain. She will receive Ativan 1 mg IV every 4 hours as needed for anxiety or restlessness. She will be continued on her usual TPN as soon as it can be arranged with dietary/pharmacy. A registered dietitian consultation will be obtained. A case management consultation will be obtained. CBCs, metabolic profiles and additional laboratory and/or radiographic evaluations will be obtained as appropriate. - Time Time Spent with patient: 15-24 minutes Medications reviewed and adjusted accordingly: Yes Anticipated Discharge Disposition: Home, Self Care Anticipated Discharge Timeframe: to be determined
[2020-06-28] MEDS: VANCOMYCIN HCL 1,000 MG in DEXTROSE 5%-WATER 250 ML IV SCH ×2 (13:35→23:15)
[2020-06-28] MEDS: ACETAMINOPHEN SOLN 325 MG/10.15 ML UDCUP JT PRN ×2 (14:34→22:55)
[2020-06-28] MEDS ORDERED: DIPHENHYDRAMINE HCL 50 MG/ML VIAL ONE (22:37)
[2020-06-28] MEDS: DIPHENHYDRAMINE HCL 50 MG/ML VIAL IV PRN (22:39)
[2020-06-29] MEDS: ACETAMINOPHEN SOLN 325 MG/10.15 ML UDCUP JT PRN ×2 (04:16→09:04)
[2020-06-29] MEDS: DICYCLOMINE HCL 20 MG TABLET JT PRN ×2 (04:16→22:54)
[2020-06-29] MEDS: HYDROMORPHONE HCL 2 MG TABLET PO PRN ×5 (04:16→22:53)
[2020-06-29] MEDS: PROMETHAZINE HCL INJ 25 MG/1 ML VIAL IV PRN ×5 (04:26→22:53)
[2020-06-29] MEDS: HEPARIN SOD (PORCINE) 5,000 UNIT/ML 1 ML VIAL SUBCUT SCH ×3 (05:09→21:35)
[2020-06-29] MEDS: PANTOPRAZOLE SODIUM 40 MG PACKET.DR GT SCH ×2 (05:12→17:19)
[2020-06-29] MEDS: AZTREONAM 1 GM in DEXTROSE 5%-WATER 50 ML IV SCH ×3 (05:12→21:34)
[2020-06-29] MEDS: LEVOTHYROXINE SODIUM INJ/PF 0.1 MG SDV IV SCH (05:12)
[2020-06-29] MEDS: DEXTROSE 5%-LACTATED RINGERS 1,000 ML IV PRN ×2 (05:14→13:34)
[2020-06-29 05:56] LABS: HEMATOCRIT 26.4 % (36.0-47.0); HEMOGLOBIN 9.1 g/dL (12.0-15.5); MEAN CORPUSCULAR HEMOGLOBIN 30.1 pg (27.0-33.4); MEAN CORPUSCULAR HGB CONC 34.5 g/dL (32.0-36.0); MEAN CORPUSCULAR VOLUME 87 fl (80-97); PLATELET COUNT 275 10^3/uL (150-450); RED BLOOD COUNT 3.03 10^6/uL (3.72-5.28); RED CELL DISTRIBUTION WIDTH 15.4 % (11.5-14.0); WHITE BLOOD COUNT 5.1 10^3/uL (4.0-10.5)
[2020-06-29] MEDS: DIPHENHYDRAMINE HCL 50 MG/ML VIAL IV PRN ×2 (08:56→20:33)
[2020-06-29] MEDS: FAMOTIDINE INJ/PF 20 MG/2 ML SDV IV SCH ×2 (09:02→21:35)
[2020-06-29] MEDS: MUPIROCIN 2% OINTMENT 22 GM TP SCH ×3 (09:25→17:19)
[2020-06-29] MEDS: NYSTATIN TOPICAL POWDER 15 GM TP SCH ×3 (09:26→17:20)
[2020-06-29] MEDS: SUCRALFATE 1 GM TABLET NG SCH ×3 (09:26→17:19)
[2020-06-29] MEDS: SILVER NITRATE APPLICATOR 1 APPLIC STICK..EA. 10/PACKAGE TOP SCH ×3 (09:26→17:20)
[2020-06-29] MEDS: VANCOMYCIN HCL 1,000 MG in DEXTROSE 5%-WATER 250 ML IV SCH ×2 (10:52→22:52)
[2020-06-29] MEDS: ASCORBIC ACID 500 MG TABLET JT SCH (11:01)
[2020-06-29] MEDS ORDERED: DEXTROSE 50%-WATER SYRINGE 12.5 GM/25 ML DOSE IV PRN (13:00)
[2020-06-29] MEDS ORDERED: DEXTROSE 50%-WATER SYRINGE 25 GM/50 ML DOSE IV PRN (13:00)
[2020-06-29] MEDS ORDERED: DEXTROSE 40% GEL 15 GM TUBE PO PRN (13:00)
[2020-06-29] MEDS ORDERED: GLUCAGON,HUMAN RECOMB 1 MG INJ IM PRN (13:00)
[2020-06-29] MEDS ORDERED: DEXTROSE 10%-WATER 1,000 ML IV PRN (13:00)
[2020-06-29] MEDS ORDERED: DEXTROSE 40% GEL 15 GM TUBE X 2 PO PRN (13:00)
--- NOTE | 2020-06-29 15:40 | PDOC PROGRESS REPORT ---
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 She started to experience fever of 101 1 day prior with associated generalized body malaise and joint pains. She denies any cough, chest pain, abdominal pain, diarrhea, bloody BM, urinary symptoms. In the ED she was noted to have a fever of 100.4. Blood cultures were drawn. She was then admitted for further work up. She was started on linezolid and aztreonam Her Luna catheter was last replaced April 27, 2020 an [facility]. She ahs been admitted several times in the past for Line associated infection April 2020 for candidemia treated with fluconazole. She was admitted again in May for a coagulase negative +ve blood culture treated with vanc and zosyn. ID was consulted both times. She was also positive for COVID back in April. D1 hospital stay. She was seen and examined at bedside. Complains of generalized malaise, no abdominal pain, no diarrhea. Started on zyvox and aztreonam. Dilaudid for pain. Awaiting blood cultures. D2 hospital stay. She was seen and examined at bedside with her mom. According to her mom, she develops neck pain when she has fungal infections. The patient looks comfortable in bed however her mom states that she has pain all over. She denies any diarrhea, nausea/vomiting. She has been afebrile since admission. Blood Cx anaerobic 1 bottle grew gram positive cocci but I was later informed that it look like its yeast, micro said they would edit the prior preliminary report of gram positive. D3 Hospital stay 06/29/20. The patient was seen and examined at bedside. Her mother is at bedside who does most of the talking for her. Per her mother she has been having abdominal pain and ear pain. I examined her abdomen and besides voluntary guarding, no tenderness elicited, bowel sounds normoactive. The mother was also complaining that we have not restarted her TPN. I have ordered her TPN yesterday but the mother did not want it started because she is convinced she has a line infection. Her 1st blood culture results were drawn peripherally and are growing coagulase negative staph, these are not luna line draws. ID was consulted, awaiting recs. Blood culture drawn from the line was done today alt [facility] she has been on vancomycin and aztreonam so I am not sure if cultures will be accurate. Grossly, the Luna line looks ok with no redness or discharge, she is also not spiking fever and her white count is stable. Reason For Visit: FEVER Physical Exam Vital Signs: Temp Pulse Resp BP Pulse Ox 97.5 F 56 L 17 105/54 L 98 06/29/20 11:49 06/29/20 11:49 06/29/20 04:00 06/29/20 11:49 06/29/20 11:49 Intake & Output 06/28/20 06/29/20 06/30/20 06:59 06:59 06:59 Intake Total 3600 3750 1250 Output Total 200 Balance 3400 3750 1250 Weight 59.6 kg 59.2 kg 59.2 kg General appearance: PRESENT: no acute distress, cooperative Head exam: PRESENT: atraumatic, normocephalic Eye exam: PRESENT: EOMI, PERRLA Mouth exam: PRESENT: moist Neck exam: PRESENT: full ROM Results Laboratory Results: 06/29/20 05:24 06/28/20 05:30 06/29/20 05:24 WBC 5.1 RBC 3.03 L Hgb 9.1 L Hct 26.4 L MCV 87 MCH 30.1 MCHC 34.5 RDW 15.4 H Plt Count 275 06/26/20 22:32 Blood Blood Culture (PCR) - Final Staphylococcus Species Impressions: Chest X-Ray 06/26/20 21:50 IMPRESSION: Left lung base atelectasis. 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 fever 2/2 crohn's or again another line infection. suspicion for COVID low since she had it back in April - blood culture pending. Was called earlier for a preliminary report of gram positive cocci in clusters but was called again saying it might be yeast. - currently on vanc and aztreonam, will continue this for today and await blood culture reports - Will consult ID (2) Bacteremia Is this a current diagnosis for this admission?: Yes Plan: - Peripherally drawn blood cultures on the day of admission growing Staph species coagulase negative - Luna catheter last replaced April 2020 - Luna catheter itself looks OK no, erythema, swelling, tenderness - I don't see a clear indication to remove the line. she is not septic, she is afebrile, hemodynamically stable and the isolate is not stated as staph aureus. - repeat blood cultures from the line drawn although this is with abx on - will await ID recs - continue abx for today - surgery consult (3) Central line complication Qualifiers: Encounter type: sequela Qualified Code(s): T82.9XXS - Unspecified complication of cardiac and vascular prosthetic device, implant and graft, sequela Is this a current diagnosis for this admission?: Yes Plan: - she has been admitted several times in the past at least 3 this year for line infection. Candidemia and coag negative staph - treated with multiple abx, fluconazole for candidemia - coming now with fever - luna catheter last replaced april 2020 at [place]. - plan as discussed above (4) Crohn's disease Qualifiers: Gastrointestinal tract location: unspecified location Digestive disease complication type: other complication Qualified Code(s): K50.918 - Crohn's disease, unspecified, with other complication Is this a current diagnosis for this admission?: Yes Plan: - was on Entyvio but has since been stopped for about >2 months due to hx of recurrent infection - on chronic TPN due to gastroparesis - has G tube and J tube - no bloody diarrhea, no abdominal pain - will monitor for flare (5) Gastroparesis Is this a current diagnosis for this admission?: Yes Plan: - on chronic TPN - will resume - dietary consult (6) Abdominal pain Qualifiers: Abdominal location: generalized Qualified Code(s): R10.84 - Generalized abdominal pain Is this a current diagnosis for this admission?: Yes Plan: - chronic from crohn's - continue dilaudid PO per J tube and antiemetics - I have stopped her IV dilaudid. Would prefer not to give her IV pain medications due to risk of abuse. She tolerates the Dilaudid per J tube. She uses the same J tube when she gets tramadol at home so I don't see why the dilaudid tablet would be a problem. - Plan Summary Summary: Patient will be admitted to the medical floor where she will receive routine supportive and symptomatic cares. She will be started on IV antibiotics using Zyvox and aztreonam empirically pending results of her blood cultures. She will receive Dilaudid 0.5 to 2 mg IV every 3 hours as needed for pain. She will receive Ativan 1 mg IV every 4 hours as needed for anxiety or restlessness. She will be continued on her usual TPN as soon as it can be arranged with dietary/pharmacy. A registered dietitian consultation will be obtained. A case management consultation will be obtained. CBCs, metabolic profiles and additional laboratory and/or radiographic evaluations will be obtained as appropriate. - Time Time Spent with patient: 25-34 minutes Medications reviewed and adjusted accordingly: Yes Anticipated Discharge Disposition: Home, Self Care Anticipated Discharge Timeframe: to be determined
[2020-06-29] MEDS: INSULIN REG, HUMAN 100 UNIT/ML 3 ML VIAL (PYX) SUBCUT SCH (17:19)
[2020-06-29] MEDS ORDERED: AMINO ACIDS 5 %/DEXTROSE 20 % 1,000 ML IV PRN (18:00)
[2020-06-29 22:41] LABS: VANCOMYCIN,TROUGH 13.9 ug/mL (5.0-20.0)
[2020-06-30] MEDS: INSULIN REG, HUMAN 100 UNIT/ML 3 ML VIAL (PYX) SUBCUT SCH ×4 (00:46→18:03)
[2020-06-30] MEDS: AZTREONAM 1 GM in DEXTROSE 5%-WATER 50 ML IV SCH ×3 (05:48→22:04)
[2020-06-30] MEDS: LEVOTHYROXINE SODIUM INJ/PF 0.1 MG SDV IV SCH (05:50)
[2020-06-30] MEDS: PANTOPRAZOLE SODIUM 40 MG PACKET.DR GT SCH ×2 (05:50→19:05)
[2020-06-30] MEDS: HEPARIN SOD (PORCINE) 5,000 UNIT/ML 1 ML VIAL SUBCUT SCH ×3 (05:50→22:04)
[2020-06-30] MEDS: HYDROMORPHONE HCL 2 MG TABLET PO PRN (06:03)
[2020-06-30] MEDS: PROMETHAZINE HCL INJ 25 MG/1 ML VIAL IV PRN ×3 (06:03→20:36)
[2020-06-30 06:25] LABS: HEMATOCRIT 24.9 % (36.0-47.0); HEMOGLOBIN 8.6 g/dL (12.0-15.5); MEAN CORPUSCULAR HEMOGLOBIN 30.1 pg (27.0-33.4); MEAN CORPUSCULAR HGB CONC 34.6 g/dL (32.0-36.0); MEAN CORPUSCULAR VOLUME 87 fl (80-97); PLATELET COUNT 272 10^3/uL (150-450); RED BLOOD COUNT 2.86 10^6/uL (3.72-5.28); WHITE BLOOD COUNT 3.8 10^3/uL (4.0-10.5)
--- NOTE | 2020-06-30 10:49 | PDOC PROGRESS REPORT ---
Subjective Progress Note for:: 06/30/20 Subjective:: 19 year old female who presented to the emergency room with acute fever. She admits developing an acute fever of 103 F on the afternoon of 06/26/2020. Her fever was accompanied by chills with rigors and was associated with tachycardia, malaise and ague. She took Tylenol at home prior to coming to the emergency room and her fever substantially improved by the time she arrived at the hospital. She denies other associated or accompanying signs and symptoms. She admits numerous prior similar episodes related to infections of her IV access lines. She has not identified any additional aggravating or ameliorating factors for her fever. In the emergency room she was noted to have a temperature of 100.4 F and an unremarkable laboratory evaluation. Clinically she was experiencing rigorous chills and appeared acutely ill. She was started on IV antibiotic therapy with Zyvox in the emergency room and subsequently admitted to the hospital for further evaluation and treatment. 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 She started to experience fever of 101 1 day prior with associated generalized body malaise and joint pains. She denies any cough, chest pain, abdominal pain, diarrhea, bloody BM, urinary symptoms. In the ED she was noted to have a fever of 100.4. Blood cultures were drawn. She was then admitted for further work up. She was started on linezolid and aztreonam Her Luna catheter was last replaced April 27, 2020 an [facility]. She ahs been admitted several times in the past for Line associated infection April 2020 for candidemia treated with fluconazole. She was admitted again in May for a coagulase negative +ve blood culture treated with vanc and zosyn. ID was consulted both times. She was also positive for COVID back in April. D1 hospital stay. She was seen and examined at bedside. Complains of generalized malaise, no abdominal pain, no diarrhea. Started on zyvox and aztreonam. Dilaudid for pain. Awaiting blood cultures. 06/28-D2 hospital stay. She was seen and examined at bedside with her mom. According to her mom, she develops neck pain when she has fungal infections. The patient looks comfortable in bed however her mom states that she has pain all over. She denies any diarrhea, nausea/vomiting. She has been afebrile since admission. Blood Cx anaerobic 1 bottle grew gram positive cocci but I was later informed that it look like its yeast, micro said they would edit the prior preliminary report of gram positive. 06/29-D3 Hospital stay 06/29/20. The patient was seen and examined at bedside. Her mother is at bedside who does most of the talking for her. Per her mother she has been having abdominal pain and ear pain. I examined her abdomen and besides voluntary guarding, no tenderness elicited, bowel sounds normoactive. The mother was also complaining that we have not restarted her TPN. I have ordered her TPN yesterday but the mother did not want it started because she is convinced she has a line infection. Her 1st blood culture results were drawn peripherally and are growing coagulase negative staph, these are not luna line draws. ID was consulted, awaiting recs. Blood culture drawn from the line was done today although she has been on vancomycin and aztreonam so I am not sure if cultures will be accurate. Grossly, the Luna line looks ok with no redness or discharge, she is also not spiking fever and her white count is stable. 06/30/2020-patient is comfortably in the bed most of the information provided by the mother. Did not want TPN started by Luna. Family and patient thinks the catheter was infected. I spoke to Dr. Saleem he is going to come and look at the catheter. Family is requesting for IV pain medications. Patient will be moved out of the COVID unit. All the blood cultures came back staph epidermidis coagulase-negative bacteria. Reason For Visit: FEVER Physical Exam Vital Signs: Temp Pulse Resp BP Pulse Ox 97.7 F 57 L 17 111/50 L 98 06/30/20 09:20 06/30/20 09:20 06/30/20 09:20 06/30/20 09:20 06/30/20 09:20 Intake & Output 06/29/20 06/30/20 07/01/20 06:59 06:59 06:59 Intake Total 3750 3120 Output Total 400 Balance 3750 2720 Weight 59.2 kg 61.2 kg General appearance: PRESENT: cooperative, disheveled, mild distress, thin Head exam: PRESENT: atraumatic Eye exam: PRESENT: conjunctiva pale, PERRLA Ear exam: PRESENT: normal external ear exam Mouth exam: PRESENT: neck supple Neck exam: ABSENT: carotid bruit, JVD, lymphadenopathy, thyromegaly Respiratory exam: PRESENT: decreased breath sounds Cardiovascular exam: PRESENT: RRR. ABSENT: diastolic murmur, rubs, systolic murmur GI/Abdominal exam: PRESENT: other - J and G-tube in place. Rectal exam: PRESENT: deferred Extremities exam: PRESENT: full ROM. ABSENT: calf tenderness, clubbing, pedal edema Neurological exam: PRESENT: alert, awake, oriented to person, oriented to place, oriented to time, oriented to situation, CN II-XII grossly intact. ABSENT: motor sensory deficit Psychiatric exam: PRESENT: appropriate affect, normal mood. ABSENT: homicidal ideation, suicidal ideation Results Laboratory Results: 06/30/20 06:00 06/29/20 21:45 06/29/20 06/30/20 21:45 06:00 WBC 3.8 L RBC 2.86 L Hgb 8.6 L Hct 24.9 L MCV 87 MCH 30.1 MCHC 34.6 RDW 15.0 H Plt Count 272 Creatinine 0.65 Est GFR ( Amer) > 60 06/27/20 01:30 Blood Blood Culture - Final Staphylococcus Epidermidis 06/26/20 22:32 Blood Blood Culture (PCR) - Final Staphylococcus Species 06/26/20 22:32 Blood Blood Culture - Final Staphylococcus Epidermidis 06/29/20 09:22 Blood Blood Culture (PCR) - Final Staphylococcus Species Impressions: Chest X-Ray 06/26/20 21:50 IMPRESSION: Left lung base atelectasis. 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 fever 2/2 crohn's or again another line infection. suspicion for COVID low since she had it back in April - blood culture pending. Was called earlier for a preliminary report of gram positive cocci in clusters but was called again saying it might be yeast. - currently on vanc and aztreonam, will continue this for today and await blood culture reports - Will consult ID 06/28/2020-patient is presently on Vanco and aztreonam.. Blood cultures came back positive for staph epidermidis. Cultures from the catheter site pending. (2) Bacteremia Is this a current diagnosis for this admission?: Yes Plan: - Peripherally drawn blood cultures on the day of admission growing Staph species coagulase negative - Luna catheter last replaced April 2020 - Luna catheter itself looks OK no, erythema, swelling, tenderness - I don't see a clear indication to remove the line. she is not septic, she is afebrile, hemodynamically stable and the isolate is not stated as staph aureus. - repeat blood cultures from the line drawn although this is with abx on - will await ID recs - continue abx for today - surgery consult 06/30/2020-peripheral blood cultures came back staph epidermidis coagulase negative. Cultures from the Luna catheter site pending. Presently on vancomycin and azetronem (3) Central line complication Qualifiers: Encounter type: sequela Qualified Code(s): T82.9XXS - Unspecified complication of cardiac and vascular prosthetic device, implant and graft, sequela Is this a current diagnosis for this admission?: Yes Plan: - she has been admitted several times in the past at least 3 this year for line infection. Candidemia and coag negative staph - treated with multiple abx, fluconazole for candidemia - coming now with fever - luna catheter last replaced april 2020 at [place]. - plan as discussed above 06/30/2020-Case was discussed with Dr. Saleem. He is going to [place] look at the catheter. Cultures from the Luna catheter site pending. (4) Crohn's disease Qualifiers: Gastrointestinal tract location: unspecified location Digestive disease complication type: other complication Qualified Code(s): K50.918 - Crohn's disease, unspecified, with other complication Is this a current diagnosis for this admission?: Yes Plan: - was on Entyvio but has since been stopped for about >2 months due to hx of recurrent infection - on chronic TPN due to gastroparesis - has G tube and J tube - no bloody diarrhea, no abdominal pain - will monitor for flare 06/30/2020-patient used to be on antifever which was on hold for the last 2 months. Receiving TPN by Luna catheter. Because of the concerns about infection TPN is on hold. pt is presently on IV fluids. (5) Gastroparesis Is this a current diagnosis for this admission?: Yes Plan: - on chronic TPN - will resume - dietary consult (6) Abdominal pain Qualifiers: Abdominal location: generalized Qualified Code(s): R10.84 - Generalized abdominal pain Is this a current diagnosis for this admission?: Yes Plan: - chronic from crohn's - continue dilaudid PO per J tube and antiemetics - I have stopped her IV dilaudid. Would prefer not to give her IV pain medica tions due to risk of abuse. She tolerates the Dilaudid per J tube. She uses the same J tube when she gets tramadol at home so I don't see why the dilaudid tablet would be a problem. 06/30/2020-patient is continued to complain of abdominal pain. Pain scale is 8/10. Plan is to switch p.o. Dilaudid to IV from today. - Plan Summary Summary: Patient will be admitted to the medical floor where she will receive routine supportive and symptomatic cares. She will be started on IV antibiotics using Zyvox and aztreonam empirically pending results of her blood cultures. She will receive Dilaudid 0.5 to 2 mg IV every 3 hours as needed for pain. She will receive Ativan 1 mg IV every 4 hours as needed for anxiety or restlessness. She will be continued on her usual TPN as soon as it can be arranged with dietary/pharmacy. A registered dietitian consultation will be obtained. A case management consultation will be obtained. CBCs, metabolic profiles and a dditional laboratory and/or radiographic evaluations will be obtained as appropriate. - Time Anticipated Discharge Disposition: Home, Self Care Anticipated Discharge Timeframe: within 72 hours
[2020-06-30] MEDS: NYSTATIN TOPICAL POWDER 15 GM TP SCH ×3 (11:10→18:04)
[2020-06-30] MEDS: MUPIROCIN 2% OINTMENT 22 GM TP SCH ×4 (11:10→18:04)
[2020-06-30] MEDS: SILVER NITRATE APPLICATOR 1 APPLIC STICK..EA. 10/PACKAGE TOP SCH ×3 (11:11→18:05)
[2020-06-30] MEDS: ASCORBIC ACID 500 MG TABLET JT SCH (11:12)
[2020-06-30] MEDS: SUCRALFATE 1 GM TABLET NG SCH ×3 (11:21→18:01)
[2020-06-30] MEDS: FAMOTIDINE INJ/PF 20 MG/2 ML SDV IV SCH ×2 (11:22→22:04)
[2020-06-30] MEDS: DIPHENHYDRAMINE HCL 50 MG/ML VIAL IV PRN ×2 (11:23→22:04)
[2020-06-30] MEDS: HYDROMORPHONE HCL INJ/PF 2 MG/ML AMPULE IV PRN ×3 (11:25→20:36)
[2020-06-30] MEDS: VANCOMYCIN HCL 1,000 MG in DEXTROSE 5%-WATER 250 ML IV SCH ×2 (11:26→22:42)
--- NOTE | 2020-06-30 12:48 | PDOC CONSULTATION ---
Consultation Consult Date: 06/30/20 Provider Consulted: IVET SHAFFER Consult reason:: Rule out Luna catheter infection History of Present Illness Admission Date/PCP: 06/27/20 01:19 JENNIFER NIÑO MD History of Present Illness: GOLDY WALLACE is a 19 year old female, with Crohn's disease, chronic m alabsorption, on home TPN, positive COVID-19 test in March 2020, s/p left subclavian vein Luna catheter placement on April 29, 2020, admitted on June with a history of a 103.0 temperature home with tachycardia malaise, in the emergency room a temperature 100.4. She was started on IV ant ibiotics linezolid followed by vancomycin while in the hospital and she has been afebrile since then. Her white blood cell count is below 5 currently is 8.8 without bandemia, she has undergone multiple blood cultures all significant for Staphylococcus MSSA all drawn via peripheral vein. I have been consulted to rule out infection of her subclavian vein Luna catheter. Past Medical History Cardiac Medical History: Denies: Coronary Artery Disease, Myocardial Infarction, Hypertension Pulmonary Medical History: Reports: Asthma - Childhood asthma, Pneumonia Denies: Bronchitis, Chronic Obstructive Pulmonary Disease (COPD) EENT Medical History: Denies: Cataracts, Ears - Hearing aids Neurological Medical History: Denies: Multiple Sclerosis, Seizures Endocrine Medical History: Reports: Hypothyroidism - Carolyn's Denies: Diabetes Mellitus Type 1, Hyperthyroidism Renal/ Medical History: Denies: Chronic Kidney Disease, Nephrolithiasis Malignancy Medical History: Reports: None GI Medical History: Reports: Crohn's Disease, Gastroesophageal Reflux Disease Denies: Cirrhosis, Hepatitis, Peptic Ulcer Disease, Ulcerative Colitis Musculoskeltal Medical History: 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 Denies: Gout Skin Medical History: Denies: Eczema, Psoriasis Psychiatric Medical History: Denies: Alcohol Dependency, Depression, Substance Abuse, Tobacco Dependency Traumatic Medical History: Reports: None Hematology: 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 Denies: Bleeding Tendencies Infectious Medical History: Reports: Clostridium Difficile Past Surgical History Past Surgical History: Reports: Cholecystectomy, Vascular Surgery - Numerous central venous access line placements, Other - G-tube and J-tube placement for gastroparesis, colonoscopies Social History Lives with: Parents Smoking Status: Never Smoker Electronic Cigarette use?: No Frequency of Alcohol Use: None Hx Recreational Drug Use: No Drugs: None Hx Prescription Drug Abuse: No - Advance Directive Resuscitation Status: Full Code Family History Family History: Hypertension, Other - Colonic polyposis Parental Family History Reviewed: No Children Family History Reviewed: No Sibling(s) Family History Reviewed.: No Medication/Allergy Home Medications: Dicyclomine HCl 20 ml JT BIDP PRN 02/13/19 Promethazine HCl [Phenergan 6.25 mg/5 ml Syrup] 40 mg JT Q6HP PRN 09/15/19 Sodium/Pot/Mag/Calc/Chlor/Acet [TPN Electrolytes II IV Soln] 20 ml IV ASDIR PRN 09/15/19 Tramadol HCl [Ultram] 50 mg JT BIDP PRN 01/30/20 Cetirizine HCl 10 ml JT DAILY 04/18/20 Diphenhydramine HCl [Benadryl Inj 50 mg/1 ml Vial] 25 mg IV BID 04/18/20 Hyoscyamine Sulfate 0.125 mg SL TIDP PRN 04/18/20 Lansoprazole [Prevacid 30 mg Odt Tablet] 30 mg JT BID 04/18/20 Levothyroxine Sodium [Tirosint-Kaelyn] 50 mcg JT DAILY 04/18/20 Mupirocin [Bactroban 2% Ointment 22 gm] 1 applic TP TID 04/18/20 Nystatin [Nystop] 1 applic TP TID 04/18/20 Ondansetron [Zofran Odt 4 mg Tablet] 4 mg JT Q8HP PRN 04/18/20 Sucralfate [Carafate Susp 1 gm/10 ml Udcup] 1 gm JT TID 04/18/20 Silver Nitrate Applicator [Silver Nitrate Applicator 10 Stick/Package] 1 applic TOP TID #2 packet 05/08/20 Ascorbic Acid 2,000 gm JT DAILY 05/18/20 Allergies/Adverse Reactions: cefoxitin Allergy (Verified 05/17/20 15:01) chlorhexidine [Chlorhexidine] Allergy (Verified 05/17/20 15:01) Urticaria erythromycin base Allergy (Verified 05/17/20 15:01) lactose [Lactose] Allergy (Verified 05/17/20 15:01) Urticaria lactulose Allergy (Verified 05/17/20 15:01) melatonin Allergy (Verified 05/17/20 15:01) metoclopramide Allergy (Verified 05/17/20 15:01) adhesive Adverse Reaction (Intermediate, Verified 05/17/20 15:01) morphine Adverse Reaction (Verified 05/17/20 15:01) vancomycin [Vancomycin] Adverse Reaction (Verified 05/17/20 15:01) Amy Syndrome silk tape Allergy (Uncoded 05/17/20 15:01) Physical Exam Vital Signs: Temp Pulse Resp BP Pulse Ox 97.7 F 57 L 17 111/50 L 98 06/30/20 09:20 06/30/20 09:20 06/30/20 09:20 06/30/20 09:20 06/30/20 09:20 Intake & Output 06/29/20 06/30/20 07/01/20 06:59 06:59 06:59 Intake Total 3750 3120 250 Output Total 400 Balance 3750 2720 250 Weight 59.2 kg 61.2 kg General appearance: PRESENT: no acute distress, well-developed, well-nourished Head exam: PRESENT: atraumatic Eye exam: PRESENT: EOMI Mouth exam: PRESENT: neck supple Neck exam: PRESENT: full ROM Respiratory exam: PRESENT: clear to auscultation martine, other - Left upper chest = Luna catheter present, incision site pink and without erythema, drainage, tenderness, or edema Cardiovascular exam: PRESENT: RRR Musculoskeletal exam: PRESENT: full ROM Neurological exam: PRESENT: alert, oriented to person Psychiatric exam: PRESENT: appropriate affect Results Laboratory Results: 06/30/20 06:00 06/29/20 21:45 06/29/20 06/30/20 21:45 06:00 WBC 3.8 L RBC 2.86 L Hgb 8.6 L Hct 24.9 L MCV 87 MCH 30.1 MCHC 34.6 RDW 15.0 H Plt Count 272 Creatinine 0.65 Est GFR ( Amer) > 60 06/27/20 01:30 Blood Blood Culture - Final Staphylococcus Epidermidis 06/26/20 22:32 Blood Blood Culture (PCR) - Final Staphylococcus Species 06/26/20 22:32 Blood Blood Culture - Final Staphylococcus Epidermidis 06/29/20 09:22 Blood Blood Culture (PCR) - Final Staphylococcus Species Impressions: Chest X-Ray 06/26/20 21:50 IMPRESSION: Left lung base atelectasis. Assessment & Plan - Diagnosis (1) Acute febrile illness Is this a current diagnosis for this admission?: Yes (2) Bacteremia Is this a current diagnosis for this admission?: Yes (3) Crohn's disease Qualifiers: Gastrointestinal tract location: unspecified location Digestive disease complication type: other complication Qualified Code(s): K50.918 - Crohn's disease, unspecified, with other complication Is this a current diagnosis for this admission?: Yes (4) Fever and chills Is this a current diagnosis for this admission?: Yes (5) On total parenteral nutrition Is this a current diagnosis for this admission?: Yes - Plan Summary Plan Summary: Assessment: 19-year-old female with Crohn's disease, malabsorption, on chronic home TPN S/p placement of left subclavian vein Luna catheter on April 29, 2020 Patient admitted on June 26 because of fever 103.0 at home with tachycardia and malaise Blood culture via peripheral vein positive for Staphylococcus aureus MSSA Blood culture via Luna catheter x1 pending Physical examination of the Luna catheter insertion site and second extracted reveals no erythema, edema, drainage, or tenderness on palpation Plan: Based on above assessment, the Luna catheter does not appear to be infected. However, I would wait for the final result of the blood culture via Luna catheter to completely rule out an infection of this Luna catheter Should the blood culture via Luna catheter be positive, I would make any effort to keep this catheter and avoid its removal; rather, I would keep the patient on IV and then oral antibiotics in an attempt to save the catheter as she will need it home TPN for a very long time and the IV access options are obviously limited in these patients. I will sign off. Please call me back with questions
[2020-06-30] MEDS: DEXTROSE 5%-LACTATED RINGERS 1,000 ML IV PRN (13:44)
[2020-07-01] MEDS: INSULIN REG, HUMAN 100 UNIT/ML 3 ML VIAL (PYX) SUBCUT SCH ×4 (00:12→18:53)
[2020-07-01] MEDS: HYDROMORPHONE HCL INJ/PF 2 MG/ML AMPULE IV PRN ×6 (00:49→21:55)
[2020-07-01] MEDS: PROMETHAZINE HCL INJ 25 MG/1 ML VIAL IV PRN ×6 (00:49→21:55)
[2020-07-01] MEDS: AZTREONAM 1 GM in DEXTROSE 5%-WATER 50 ML IV SCH ×3 (05:06→21:47)
[2020-07-01] MEDS: HEPARIN SOD (PORCINE) 5,000 UNIT/ML 1 ML VIAL SUBCUT SCH ×3 (05:07→21:47)
[2020-07-01] MEDS: PANTOPRAZOLE SODIUM 40 MG PACKET.DR GT SCH ×2 (05:07→17:07)
--- NOTE | 2020-07-01 08:07 | Progress Note ---
Provider Note Provider Note: [facility] ID Telephone Advice Consultation Chart reviewed. Patient is a 19-year-old female with Crohn's Disease who had a gastrostomy and J tube placed. She also has a Luna catheter for TPN which was previously exchanged on 04/18 after she had Caroline tropicalis fungemia in March 2020 and then on 04/29 after CLABSI again. She was doing well until 06/26 that she started presenting fever, chills and came to the ED for evaluation. After taking Tylenol her fever resolved. She was started on linezolid then vancomycin. She has been tolerating it well. Vancomycin trough adequate. She was evaluated by surgery, per note no findings consistent with local infection of the catheter. ID consulted for recommendations. PMH: Crohn's Disease Gastroparesis Asthma Carolyn's Thyroiditis Pyloric Stenosis GERD C diff infection Caroline fungemia 03/2020 PSH: G tube J tube Cholecystectomy Allergies: cefoxitin Allergy (Verified 05/17/20 15:01) chlorhexidine [Chlorhexidine] Allergy (Verified 05/17/20 15:01) Urticaria erythromycin base Allergy (Verified 05/17/20 15:01) actose [Lactose] Allergy (Verified 05/17/20 15:01) Urticaria lactulose Allergy (Verified 05/17/20 15:01) melatonin Allergy (Verified 05/17/20 15:01) metoclopramide Allergy (Verified 05/17/20 15:01) adhesive Adverse Reaction (Intermediate, Verified 05/17/20 15:01) morphine Adverse Reaction (Verified 05/17/20 15:01) vancomycin [Vancomycin] Adverse Reaction (Verified 05/17/20 15:01) Amy Syndrome silk tape Allergy (Uncoded 05/17/20 15:01) Medications: Dicyclomine HCl 20 ml GT BIDP PRN 02/13/19 Promethazine HCl [Phenergan 6.25 mg/5 ml Syrup] 40 mg JT Q6HP PRN 09/15/19 Sodium/Pot/Mag/Calc/Chlor/Acet [TPN Electrolytes II IV Soln] 20 ml IV ASDIR PRN 09/15/19 Tramadol HCl [Ultram] 50 mg PO BIDP PRN 01/30/20 Cetirizine HCl 10 ml GT DAILY 04/18/20 Diphenhydramine HCl [Benadryl Inj 50 mg/1 ml Vial] 25 mg IV BID 04/18/20 Hyoscyamine Sulfate 0.125 mg SL TIDP PRN 04/18/20 Lansoprazole [Prevacid 30 mg Odt Tablet] 30 mg PO BID 04/18/20 Levothyroxine Sodium [Tirosint-Kaelyn] 50 mcg PO DAILY 04/18/20 Mupirocin [Bactroban 2% Ointment 22 gm] 1 applic TP TID 04/18/20 Nystatin [Nystop] 1 applic TP TID 04/18/20 Ondansetron [Zofran Odt 4 mg Tablet] 4 mg SL Q8HP PRN 04/18/20 Sucralfate [Carafate Susp 1 gm/10 ml Udcup] 1 gm PO TID 04/18/20 Ascorbic Acid 2,000 gm JT DAILY 05/18/20 Vital Signs: Temp Pulse Resp BP Pulse Ox 98.6 F 62 16 106/50 L 100 06/30/20 23:45 06/30/20 23:45 06/30/20 23:45 06/30/20 23:45 06/30/20 23:45 Intake & Output 06/30/20 07/01/20 07/02/20 06:59 06:59 06:59 Intake Total 3120 1000 Output Total 400 Balance 2720 1000 Weight 61.2 kg 61.2 kg Weight/Height Weight 61.2 kg Height 5 ft 5 in Laboratories: 06/30/20 06:00 06/29/20 21:45 MCV 87 fl (80-97) 06/30/20 06:00 MCH 30.1 pg (27.0-33.4) 06/30/20 06:00 MCHC 34.6 g/dL (32.0-36.0) 06/30/20 06:00 RDW 15.0 % (11.5-14.0) H 06/30/20 06:00 Seg Neutrophils % 86.1 % (42-78) H 06/26/20 22:32 VBG pH 7.43 (7.30-7.42) H 06/26/20 22:32 VBG pCO2 38.4 mmHg (35-63) 06/26/20 22:32 VBG HCO3 25.1 mmol/L (20-32) 06/26/20 22:32 VBG Base Excess 1.0 mmol/L 06/26/20 22:32 Chloride 104 mmol/L (98-107) 06/28/20 05:30 Carbon Dioxide 27 mmol/L (22-30) 06/28/20 05:30 Anion Gap 8 (5-19) 06/28/20 05:30 Est GFR ( Amer) > 60 (>60) 06/29/20 21:45 Glucose 89 mg/dL (75-110) 06/28/20 05:30 Lactic Acid 0.7 mmol/L (0.7-2.1) 06/27/20 08:30 Calcium 8.4 mg/dL (8.4-10.2) 06/28/20 05:30 Phosphorus 4.5 mg/dL (2.5-4.5) 06/28/20 05:30 Magnesium 1.7 mg/dL (1.6-2.3) 06/28/20 05:30 Total Bilirubin 0.4 mg/dL (0.2-1.3) 06/28/20 05:30 AST 28 U/L (14-36) 06/28/20 05:30 Alkaline Phosphatase 90 U/L (38-126) 06/28/20 05:30 Total Protein 6.1 g/dL (6.3-8.2) L 06/28/20 05:30 Albumin 3.1 g/dL (3.5-5.0) L 06/28/20 05:30 Serum HCG, Qual NEGATIVE (NEGATIVE) 06/26/20 22:32 Urine Color STRAW 06/26/20 22:32 Urine Appearance CLEAR 06/26/20 22:32 Urine pH 9.0 (5.0-9.0) 06/26/20 22:32 Ur Specific [place] 1.004 06/26/20 22:32 Urine Protein NEGATIVE mg/dL (NEGATIVE) 06/26/20 22:32 Urine Glucose (UA) NEGATIVE mg/dL (NEGATIVE) 06/26/20 22:32 Urine Ketones NEGATIVE mg/dL (NEGATIVE) 06/26/20 22:32 Urine Blood NEGATIVE (NEGATIVE) 06/26/20 22:32 Urine RBC (Auto) 1 /HPF 06/26/20 22:32 Microbiology: Blood cultures: 06/27/20 01:30 Blood Blood Culture - Final - peripheral MRSE Staphylococcus Epidermidis 06/26/20 22:32 Blood Blood Culture (PCR) - Final - peripheral MRSE Staphylococcus Species 06/26/20 22:32 Blood Blood Culture - Final - peripheral MRSE Staphylococcus Epidermidis 06/29/20 09:22 Blood Blood Culture (PCR) - Final - from catheter MRSE Staphylococcus Species Previous Blood cultures 05/05/20 MSSE 05/05 Staph capitis (peripheral) 05/05 Staph capitis (line) 05/07 Negative 05/17 Negative Radiology: Chest X-Ray 06/26/20 21:50 IMPRESSION: Left lung base atelectasis. Assessment and Recommendations: Patient evaluated for catheter related bacteremia. She was previously treated for Candidemia for 14 days with removal of catheter, then 14 other days for CoNS CLABSI with catheter exchange on 04/29. Due to her comorbidities and need for TPN she is at risk for CLABSI. Her blood cultures grew MRSE from both peripheral and the catheter. With CoNS, catheter can be salvaged with systemic antibiotics and lock therapy. Vancomycin is adequate with a trough 10-15. It should be administered through the catheter and if possible lock it with vancomycin for at least 4 hr max 12 hr. Please repeat blood cultures after 48 hr of adequate t herapy and can complete 14 days of therapy from negative blood cultures. If a decision is made to remove the catheter, 10 days of vancomycin should suffice. Please call if questions. Linn Krishnamurthy MD [facility] [phone]
[2020-07-01] MEDS: DIPHENHYDRAMINE HCL 50 MG/ML VIAL IV PRN ×2 (09:08→21:47)
[2020-07-01] MEDS: VANCOMYCIN HCL 1,000 MG in DEXTROSE 5%-WATER 250 ML IV SCH ×2 (09:37→22:45)
[2020-07-01] MEDS: MUPIROCIN 2% OINTMENT 22 GM TP SCH ×3 (10:52→18:52)
[2020-07-01] MEDS: FAMOTIDINE INJ/PF 20 MG/2 ML SDV IV SCH ×2 (10:53→21:47)
[2020-07-01] MEDS: SILVER NITRATE APPLICATOR 1 APPLIC STICK..EA. 10/PACKAGE TOP SCH ×3 (10:53→18:53)
[2020-07-01] MEDS: SUCRALFATE 1 GM TABLET NG SCH ×3 (10:53→18:52)
[2020-07-01] MEDS: ASCORBIC ACID 500 MG TABLET JT SCH (10:53)
[2020-07-01] MEDS: NYSTATIN TOPICAL POWDER 15 GM TP SCH ×3 (10:53→18:53)
--- NOTE | 2020-07-01 12:20 | PDOC PROGRESS REPORT ---
Subjective Progress Note for:: 07/01/20 Subjective:: 19 year old female who presented to the emergency room with acute fever. She admits developing an acute fever of 103 F on the afternoon of 06/26/2020. Her fever was accompanied by chills with rigors and was associated with tachycardia, malaise and ague. She took Tylenol at home prior to coming to the emergency room and her fever substantially improved by the time she arrived at the hospital. She denies other associated or accompanying signs and symptoms. She admits numerous prior similar episodes related to infections of her IV access lines. She has not identified any additional aggravating or ameliorating factors for her fever. In the emergency room she was noted to have a temperature of 100.4 F and an unremarkable laboratory evaluation. Clinically she was experiencing rigorous chills and appeared acutely ill. She was started on IV antibiotic therapy with Zyvox in the emergency room and subsequently admitted to the hospital for further evaluation and treatment. 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 She started to experience fever of 101 1 day prior with associated generalized body malaise and joint pains. She denies any cough, chest pain, abdominal pain, diarrhea, bloody BM, urinary symptoms. In the ED she was noted to have a fever of 100.4. Blood cultures were drawn. She was then admitted for further work up. She was started on linezolid and aztreonam Her Francisco catheter was last replaced April 27, 2020 an [facility]. She ahs been admitted several times in the past for Line associated infection April 2020 for candidemia treated with fluconazole. She was admitted again in May for a coagulase negative +ve blood culture treated with vanc and zosyn. ID was consulted both times. She was also positive for COVID back in April. D1 hospital stay. She was seen and examined at bedside. Complains of generalized malaise, no abdominal pain, no diarrhea. Started on zyvox and aztreonam. Dilaudid for pain. Awaiting blood cultures. 06/28-D2 hospital stay. She was seen and examined at bedside with her mom. According to her mom, she develops neck pain when she has fungal infections. The patient looks comfortable in bed however her mom states that she has pain all over. She denies any diarrhea, nausea/vomiting. She has been afebrile since admission. Blood Cx anaerobic 1 bottle grew gram positive cocci but I was later informed that it look like its yeast, micro said they would edit the prior preliminary report of gram positive. 06/29-D3 Hospital stay 06/29/20. The patient was seen and examined at bedside. Her mother is at bedside who does most of the talking for her. Per her mother she has been having abdominal pain and ear pain. I examined her abdomen and besides voluntary guarding, no tenderness elicited, bowel sounds normoactive. The mother was also complaining that we have not restarted her TPN. I have ordered her TPN yesterday but the mother did not want it started because she is convinced she has a line infection. Her 1st blood culture results were drawn peripherally and are growing coagulase negative staph, these are not francisco line draws. ID was consulted, awaiting recs. Blood culture drawn from the line was done today although she has been on vancomycin and aztreonam so I am not sure if cultures will be accurate. Grossly, the Francisco line looks ok with no redness or discharge, she is also not spiking fever and her white count is stable. 06/30/2020-patient is comfortably in the bed most of the information provided by the mother. Did not want TPN started by Francisco. Family and patient thinks the catheter was infected. I spoke to Dr. Saleem he is going to come and look at the catheter. Family is requesting for IV pain medications. Patient will be moved out of the COVID unit. All the blood cultures came back staph epidermidis coagulase-negative bacteria. 07/01/2020-patient is comfortably in the bed communicating well. Dr. John is recommending systemic antibiotic therapy and antibiotic lock. Cultures came back as staph epidermidis. Patient is afebrile. Receiving IV fluids. Not on TPN at this time. Reason For Visit: FEVER Physical Exam Vital Signs: Temp Pulse Resp BP Pulse Ox 98.6 F 62 16 106/50 L 100 09/09/20 10:00 06/30/20 23:45 06/30/20 23:45 06/30/20 23:45 06/30/20 23:45 Intake & Output 06/30/20 07/01/20 07/02/20 06:59 06:59 06:59 Intake Total 3120 1000 500 Output Total 400 Balance 2720 1000 500 Weight 61.2 kg 61.2 kg 61.2 kg General appearance: PRESENT: no acute distress, cooperative, thin Head exam: PRESENT: atraumatic Eye exam: PRESENT: conjunctiva pale, PERRLA Mouth exam: PRESENT: moist, tongue midline Neck exam: ABSENT: carotid bruit, JVD, lymphadenopathy, thyromegaly Cardiovascular exam: PRESENT: RRR. ABSENT: diastolic murmur, rubs, systolic murmur GI/Abdominal exam: PRESENT: other - J, G-tube in place. Rectal exam: PRESENT: deferred Extremities exam: PRESENT: full ROM. ABSENT: calf tenderness, clubbing, pedal edema Neurological exam: PRESENT: alert, awake, oriented to person, oriented to place, oriented to time, oriented to situation, CN II-XII grossly intact. ABSENT: motor sensory deficit Skin exam: PRESENT: other - Francisco catheter site looks clean. Results Laboratory Results: 06/30/20 06:00 06/29/20 21:45 06/29/20 09:22 Blood Blood Culture (PCR) - Final Staphylococcus Species 06/26/20 22:32 Blood Blood Culture (PCR) - Final Staphylococcus Species 06/26/20 22:32 Blood Blood Culture - Final Staphylococcus Epidermidis 06/27/20 01:30 Blood Blood Culture - Final Staphylococcus Epidermidis Impressions: Chest X-Ray 06/26/20 21:50 IMPRESSION: Left lung base atelectasis. 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 fever 2/2 crohn's or again another line infection. suspicion for COVID low since she had it back in April - blood culture pending. Was called earlier for a preliminary report of gram positive cocci in clusters but was called again saying it might be yeast. - currently on vanc and aztreonam, will continue this for today and await blood culture reports - Will consult ID 06/28/2020-patient is presently on Vanco and aztreonam.. Blood cultures came back positive for staph epidermidis. Cultures from the catheter site pending. 07/01/2020-cultures coming back positive for staph epidermidis. Dr. Krishnamurthy is recommending systemic antibiotic therapy and antibiotic lock. Plan is to implement the recommendations. (2) Bacteremia Is this a current diagnosis for this admission?: Yes Plan: - Peripherally drawn blood cultures on the day of admission growing Staph species coagulase negative - Francisco catheter last replaced April 2020 - Francisco catheter itself looks OK no, erythema, swelling, tenderness - I don't see a clear indication to remove the line. she is not septic, she is afebrile, hemodynamically stable and the isolate is not stated as staph aureus. - repeat blood cultures from the line drawn although this is with abx on - will await ID recs - continue abx for today - surgery consult 06/30/2020-peripheral blood cultures came back staph epidermidis coagulase negative. Cultures from the Francisco catheter site pending. Presently on vancomycin and azetronem 07/01/2020-management as per Dr. Krishnamurthy. (3) Central line complication Qualifiers: Encounter type: sequela Qualified Code(s): T82.9XXS - Unspecified complication of cardiac and vascular prosthetic device, implant and graft, sequela Is this a current diagnosis for this admission?: Yes Plan: - she has been admitted several times in the past at least 3 this year for line infection. Candidemia and coag negative staph - treated with multiple abx, fluconazole for candidemia - coming now with fever - francisco catheter last replaced april 2020 at [place]. - plan as discussed above 06/30/2020-Case was discussed with Dr. Saleem. He is going to [place] look at the catheter. Cultures from the Francisco catheter site pending. 07/01/2020-cultures from the Francisco catheter site looks like also growing staph epidermidis. (4) Crohn's disease Qualifiers: Gastrointestinal tract location: unspecified location Digestive disease complication type: other complication Qualified Code(s): K50.918 - Crohn's disease, unspecified, with other complication Is this a current diagnosis for this admission?: Yes Plan: - was on Entyvio but has since been stopped for about >2 months due to hx of recurrent infection - on chronic TPN due to gastroparesis - has G tube and J tube - no bloody diarrhea, no abdominal pain - will monitor for flare 06/30/2020-patient used to be on antifever which was on hold for the last 2 months. Receiving TPN by Francisco catheter. Because of the concerns about infection TPN is on hold. pt is presently on IV fluids. (5) Gastroparesis Is this a current diagnosis for this admission?: Yes Plan: - on chronic TPN - will resume - dietary consult (6) Abdominal pain Qualifiers: Abdominal location: generalized Qualified Code(s): R10.84 - Generalized abdominal pain Is this a current diagnosis for this admission?: Yes Plan: - chronic from crohn's - continue dilaudid PO per J tube and antiemetics - I have stopped her IV dilaudid. Would prefer not to give her IV pain medications due to risk of abuse. She tolerates the Dilaudid per J tube. She uses the same J tube when she gets tramadol at home so I don't see why the dilaudid tablet would be a problem. 06/30/2020-patient is continued to complain of abdominal pain. Pain scale is 8/10. Plan is to switch p.o. Dilaudid to IV from today. - Plan Summary Summary: Patient will be admitted to the medical floor where she will receive routine supportive and symptomatic cares. She will be started on IV antibiotics using Zyvox and aztreonam empirically pending results of her blood cultures. She will receive Dilaudid 0.5 to 2 mg IV every 3 hours as needed for pain. She will receive Ativan 1 mg IV every 4 hours as needed for anxiety or restlessness. She will be continued on her usual TPN as soon as it can be arranged with dietary/p harmacy. A registered dietitian consultation will be obtained. A case management consultation will be obtained. CBCs, metabolic profiles and additional laboratory and/or radiographic evaluations will be obtained as appropriate. - Time Anticipated Discharge Disposition: Home, Self Care Anticipated Discharge Timeframe: within 72 hours
[2020-07-01] MEDS: DEXTROSE 5%-LACTATED RINGERS 1,000 ML IV PRN ×2 (13:25→21:47)
--- NOTE | 2020-07-01 17:31 | PDOC PROGRESS REPORT ---
Subjective Progress Note for:: 07/01/20 Subjective:: comfortable Reason For Visit: FEVER Physical Exam Vital Signs: Temp Pulse Resp BP Pulse Ox 98.6 F 56 L 12 111/53 L 99 07/01/20 10:00 07/01/20 08:04 07/01/20 08:04 07/01/20 08:04 07/01/20 08:04 Intake & Output 06/30/20 07/01/20 07/02/20 06:59 06:59 06:59 Intake Total 3120 1000 1500 Output Total 400 Balance 2720 1000 1500 Weight 61.2 kg 61.2 kg 61.2 kg General appearance: PRESENT: no acute distress Respiratory exam: PRESENT: other - Luna catheter site = not tender Results Laboratory Results: 06/30/20 06:00 06/29/20 21:45 06/29/20 09:22 Blood Blood Culture (PCR) - Final Staphylococcus Species 06/26/20 22:32 Blood Blood Culture (PCR) - Final Staphylococcus Species 06/26/20 22:32 Blood Blood Culture - Final Staphylococcus Epidermidis 06/27/20 01:30 Blood Blood Culture - Final Staphylococcus Epidermidis Impressions: Chest X-Ray 06/26/20 21:50 IMPRESSION: Left lung base atelectasis. Assessment & Plan - Diagnosis (1) Acute febrile illness Is this a current diagnosis for this admission?: Yes (2) Bacteremia Is this a current diagnosis for this admission?: Yes (3) Crohn's disease Qualifiers: Gastrointestinal tract location: unspecified location Digestive disease complication type: other complication Qualified Code(s): K50.918 - Crohn's disease, unspecified, with other complication Is this a current diagnosis for this admission?: Yes (4) Fever and chills Is this a current diagnosis for this admission?: Yes (5) On total parenteral nutrition Is this a current diagnosis for this admission?: Yes - Time Anticipated Discharge Disposition: Home, Self Care Anticipated Discharge Timeframe: as per PCP - Plan Summary Plan Summary: Assessment: Status post Luna catheter placement in April Luna catheter blood culture growing MRSA Plan: In the attempt to save the Luna catheter, I agree with the use of vancomycin to be left within the catheter for about 12 hours. Again, recommendation is to try to salvage this Luna catheter as this patient's will require central venous line catheter placements lifetime and there is a risk that the central venous line will develop thrombi and could not be usable in the future. I will sign off. Please call us back with questions.
[2020-07-02] MEDS: DISPOSABLE IV SCH (00:27)
[2020-07-02] MEDS: VANCOMYCIN HCL IV SCH (00:27)
[2020-07-02] MEDS: HEPARIN SODIUM PORCINE IV SCH (00:27)
[2020-07-02] MEDS: [UNRECOGNIZED DRUG - OTHER] IV SCH (00:27)
[2020-07-02] MEDS: INSULIN REG, HUMAN 100 UNIT/ML 3 ML VIAL (PYX) SUBCUT SCH ×4 (01:16→19:41)
[2020-07-02] MEDS: HYDROMORPHONE HCL INJ/PF 2 MG/ML AMPULE IV PRN ×5 (02:19→20:40)
[2020-07-02] MEDS: ONDANSETRON HCL INJ/PF 4 MG/2 ML SDV IV PRN (02:19)
[2020-07-02] MEDS: AZTREONAM 1 GM in DEXTROSE 5%-WATER 50 ML IV SCH ×3 (06:38→22:04)
[2020-07-02] MEDS: PROMETHAZINE HCL INJ 25 MG/1 ML VIAL IV PRN ×4 (06:39→20:41)
[2020-07-02] MEDS: HEPARIN SOD (PORCINE) 5,000 UNIT/ML 1 ML VIAL SUBCUT SCH ×3 (06:39→22:04)
[2020-07-02] MEDS: PANTOPRAZOLE SODIUM 40 MG PACKET.DR GT SCH ×2 (06:52→18:38)
[2020-07-02 07:13] LABS: ABSOLUTE EOSINOPHILS # (AUTO) 0.5 10^3/uL (0.0-0.6); ABSOLUTE LYMPHOCYTES (AUTO) 1.5 10^3/uL (0.5-4.7); ABSOLUTE MONOCYTES (AUTO) 0.4 10^3/uL (0.1-1.4); ABSOLUTE NEUT (AUTO) 1.3 10^3/uL (1.7-8.2); BASOPHILS % (AUTO) 1.2 % (0-2); EOSINOPHILS % (AUTO) 12.6 % (0-6); HEMATOCRIT 27.5 % (36.0-47.0); HEMOGLOBIN 9.4 g/dL (12.0-15.5); LYMPHOCYTES % (AUTO) 40.8 % (13-45); MEAN CORPUSCULAR HEMOGLOBIN 29.7 pg (27.0-33.4); MEAN CORPUSCULAR HGB CONC 34.3 g/dL (32.0-36.0); MEAN CORPUSCULAR VOLUME 87 fl (80-97); MONOCYTES % (AUTO) 11.4 % (3-13); PLATELET COUNT 324 10^3/uL (150-450); RED BLOOD COUNT 3.18 10^6/uL (3.72-5.28); RED CELL DISTRIBUTION WIDTH 14.9 % (11.5-14.0); TOTAL CELLS COUNTED % (AUTO) 100 %; WHITE BLOOD COUNT 3.7 10^3/uL (4.0-10.5)
[2020-07-02] MEDS ORDERED: FAT EMULSIONS 250 ML IV SCH (10:00)
[2020-07-02] MEDS: DIPHENHYDRAMINE HCL 50 MG/ML VIAL IV PRN ×2 (10:06→20:39)
[2020-07-02] MEDS: FAMOTIDINE INJ/PF 20 MG/2 ML SDV IV SCH ×2 (10:06→22:05)
[2020-07-02] MEDS: VANCOMYCIN HCL 1,000 MG in DEXTROSE 5%-WATER 250 ML IV SCH ×2 (10:56→23:04)
--- NOTE | 2020-07-02 10:57 | PDOC PROGRESS REPORT ---
Subjective Progress Note for:: 07/02/20 Subjective:: 19 year old female who presented to the emergency room with acute fever. She admits developing an acute fever of 103 F on the afternoon of 06/26/2020. Her fever was accompanied by chills with rigors and was associated with tachycardia, malaise and ague. She took Tylenol at home prior to coming to the emergency room and her fever substantially improved by the time she arrived at the hospital. She denies other associated or accompanying signs and symptoms. She admits numerous prior similar episodes related to infections of her IV access lines. She has not identified any additional aggravating or ameliorating factors for her fever. In the emergency room she was noted to have a temperature of 100.4 F and an unremarkable laboratory evaluation. Clinically she was experiencing rigorous chills and appeared acutely ill. She was started on IV antibiotic therapy with Zyvox in the emergency room and subsequently admitted to the hospital for further evaluation and treatment. 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 She started to experience fever of 101 1 day prior with associated generalized body malaise and joint pains. She denies any cough, chest pain, abdominal pain, diarrhea, bloody BM, urinary symptoms. In the ED she was noted to have a fever of 100.4. Blood cultures were drawn. She was then admitted for further work up. She was started on linezolid and aztreonam Her Francisco catheter was last replaced April 27, 2020 an [facility]. She ahs been admitted several times in the past for Line associated infection April 2020 for candidemia treated with fluconazole. She was admitted again in May for a coagulase negative +ve blood culture treated with vanc and zosyn. ID was consulted both times. She was also positive for COVID back in April. D1 hospital stay. She was seen and examined at bedside. Complains of generalized malaise, no abdominal pain, no diarrhea. Started on zyvox and aztreonam. Dilaudid for pain. Awaiting blood cultures. 06/28-D2 hospital stay. She was seen and examined at bedside with her mom. According to her mom, she develops neck pain when she has fungal infections. The patient looks comfortable in bed however her mom states that she has pain all over. She denies any diarrhea, nausea/vomiting. She has been afebrile since admission. Blood Cx anaerobic 1 bottle grew gram positive cocci but I was later informed that it look like its yeast, micro said they would edit the prior preliminary report of gram positive. 06/29-D3 Hospital stay 06/29/20. The patient was seen and examined at bedside. Her mother is at bedside who does most of the talking for her. Per her mother she has been having abdominal pain and ear pain. I examined her abdomen and besides voluntary guarding, no tenderness elicited, bowel sounds normoactive. The mother was also complaining that we have not restarted her TPN. I have ordered her TPN yesterday but the mother did not want it started because she is convinced she has a line infection. Her 1st blood culture results were drawn peripherally and are growing coagulase negative staph, these are not francisco line draws. ID was consulted, awaiting recs. Blood culture drawn from the line was done today although she has been on vancomycin and aztreonam so I am not sure if cultures will be accurate. Grossly, the Francisco line looks ok with no redness or discharge, she is also not spiking fever and her white count is stable. 06/30/2020-patient is comfortably in the bed most of the information provided by the mother. Did not want TPN started by Francisco. Family and patient thinks the catheter was infected. I spoke to Dr. Saleem he is going to come and look at the catheter. Family is requesting for IV pain medications. Patient will be moved out of the COVID unit. All the blood cultures came back staph epidermidis coagulase-negative bacteria. 07/01/2020-patient is comfortably in the bed communicating well. Dr. Krishnamurthy is recommending systemic antibiotic therapy and antibiotic lock. Cultures came back as staph epidermidis. Patient is afebrile. Receiving IV fluids. Not on TPN at this time. 07/02/2020-no acute events in the last 24 hours. Cultures from the Francisco catheter site growing staph epidermidis. Patient is receiving azetranem, IV vancomycin via antibiotic lock on the nystatin. Complaining of neck pain. Family is requesting for CT neck. Reason For Visit: FEVER Physical Exam Vital Signs: Temp Pulse Resp BP Pulse Ox 97.9 F 66 16 99/50 L 94 07/02/20 08:14 07/02/20 07:34 07/02/20 07:34 07/02/20 07:34 07/02/20 07:34 Intake & Output 07/01/20 07/02/20 07/03/20 06:59 06:59 06:59 Intake Total 1000 4000 Balance 1000 4000 Weight 61.2 kg 61.2 kg General appearance: PRESENT: no acute distress, cooperative, thin Head exam: PRESENT: atraumatic Eye exam: PRESENT: PERRLA Mouth exam: PRESENT: moist, tongue midline Teeth exam: PRESENT: poor dentation Neck exam: ABSENT: carotid bruit, JVD, lymphadenopathy, thyromegaly Respiratory exam: PRESENT: decreased breath sounds Cardiovascular exam: PRESENT: RRR. ABSENT: diastolic murmur, rubs, systolic murmur GI/Abdominal exam: PRESENT: other - She has a G and J-tube. Rectal exam: PRESENT: deferred Extremities exam: PRESENT: full ROM. ABSENT: calf tenderness, clubbing, pedal edema Neurological exam: PRESENT: alert, awake, oriented to person, oriented to place, oriented to time, oriented to situation, CN II-XII grossly intact. ABSENT: motor sensory deficit Results Laboratory Results: 07/02/20 06:44 06/29/20 21:45 07/02/20 06:44 WBC 3.7 L RBC 3.18 L Hgb 9.4 L Hct 27.5 L MCV 87 MCH 29.7 MCHC 34.3 RDW 14.9 H Plt Count 324 Seg Neutrophils % 34.0 L 06/29/20 09:22 Blood Blood Culture (PCR) - Final Staphylococcus Species 06/29/20 09:22 Blood Blood Culture - Final Staphylococcus Epidermidis 06/26/20 22:32 Blood Blood Culture (PCR) - Final Staphylococcus Species 06/26/20 22:32 Blood Blood Culture - Final Staphylococcus Epidermidis Impressions: Chest X-Ray 06/26/20 21:50 IMPRESSION: Left lung base atelectasis. 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 fever 2/2 crohn's or again another line infection. suspicion for COVID low since she had it back in April - blood culture pending. Was called earlier for a preliminary report of gram positive cocci in clusters but was called again saying it might be yeast. - currently on vanc and aztreonam, will continue this for today and await blood culture reports - Will consult ID 06/28/2020-patient is presently on Vanco and aztreonam.. Blood cultures came back positive for staph epidermidis. Cultures from the catheter site pending. 07/01/2020-cultures coming back positive for staph epidermidis. Dr. Krishnamurthy is recommending systemic antibiotic therapy and antibiotic lock. Plan is to implement the recommendations. 07/02/20-cultures from the Francisco catheter growing staph epidermidis. Blood cu ltures also positive for staph epidermidis. Patient is going to receive vancomycin with antibiotic lock and adjust regimen. Afebrile. Complaining of neck pain will do the CT neck without contrast today. (2) Bacteremia Is this a current diagnosis for this admission?: Yes Plan: - Peripherally drawn blood cultures on the day of admission growing Staph species coagulase negative - Francisco catheter last replaced April 2020 - Francisco catheter itself looks OK no, erythema, swelling, tenderness - I don't see a clear indication to remove the line. she is not septic, she is afebrile, hemodynamically stable and the isolate is not stated as staph aureus. - repeat blood cultures from the line drawn although this is with abx on - will await ID recs - continue abx for today - surgery consult 06/30/2020-peripheral blood cultures came back staph epidermidis coagulase negative. Cultures from the Francisco catheter site pending. Presently on vancomycin and azetronem 07/01/2020-management as per Dr. Krishnamurthy. 07/02/2020-patient is receiving azetronem and to continue vancomycin via antibiotic lock. (3) Central line complication Qualifiers: Encounter type: sequela Qualified Code(s): T82.9XXS - Unspecified complication of cardiac and vascular prosthetic device, implant and graft, sequela Is this a current diagnosis for this admission?: Yes Plan: - she has been admitted several times in the past at least 3 this year for line infection. Candidemia and coag negative staph - treated with multiple abx, fluconazole for candidemia - coming now with fever - francisco catheter last replaced april 2020 at [place]. - plan as discussed above 06/30/2020-Case was discussed with Dr. Saleem. He is going to [place] look at the catheter. Cultures from the Francisco catheter site pending. 07/01/2020-cultures from the Francisco catheter site looks like also growing staph epidermidis. 07/02/2020-cultures from the Francisco catheter site is growing staph epidermidis. (4) Crohn's disease Qualifiers: Gastrointestinal tract location: unspecified location Digestive disease complication type: other complication Qualified Code(s): K50.918 - Crohn's disease, unspecified, with other complication Is this a current diagnosis for this admission?: Yes Plan: - was on Entyvio but has since been stopped for about >2 months due to hx of recurrent infection - on chronic TPN due to gastroparesis - has G tube and J tube - no bloody diarrhea, no abdominal pain - will monitor for flare 06/30/2020-patient used to be on antifever which was on hold for the last 2 months. Receiving TPN by Francisco catheter. Because of the concerns about infection TPN is on hold. pt is presently on IV fluids. (5) Gastroparesis Is this a current diagnosis for this admission?: Yes Plan: - on chronic TPN - will resume - dietary consult (6) Abdominal pain Qualifiers: Abdominal location: generalized Qualified Code(s): R10.84 - Generalized abdominal pain Is this a current diagnosis for this admission?: Yes Plan: - chronic from crohn's - continue dilaudid PO per J tube and antiemetics - I have stopped her IV dilaudid. Would prefer not to give her IV pain medications due to risk of abuse. She tolerates the Dilaudid per J tube. She uses the same J tube when she gets tramadol at home so I don't see why the dilaudid tablet would be a problem. 06/30/2020-patient is continued to complain of abdominal pain. Pain scale is 8/10. Plan is to switch p.o. Dilaudid to IV from today. - Plan Summary Summary: Patient will be admitted to the medical floor where she will receive routine supportive and symptomatic cares. She will be started on IV antibiotics using Zyvox and aztreonam empirically pending results of her blood cultures. She will receive Dilaudid 0.5 to 2 mg IV every 3 hours as needed for pain. She will receive Ativan 1 mg IV every 4 hours as needed for anxiety or restlessness. She will be continued on her usual TPN as soon as it can be arranged with dietary/pharmacy. A registered dietitian consultation will be obtained. A case management consultation will be obtained. CBCs, metabolic profiles and additional laboratory and/or radiographic evaluations will be obtained as appropriate. - Time Anticipated Discharge Disposition: Home, Self Care Anticipated Discharge Timeframe: within 72 hours
--- NOTE | 2020-07-02 11:58 | RADIOLOGY REPORT (SQ) ---
EXAM DESCRIPTION: CT CERVICAL SPINE WITHOUT IMAGES COMPLETED DATE/TIME: 07/02/2020 11:23 am REASON FOR STUDY: neck pain COMPARISON: None. TECHNIQUE: Axial images acquired through the cervical spine without intravenous contrast. Images re viewed with lung, soft tissue and bone windows. Reconstructed coronal and sagittal MPR images review ed. Images stored on PACS. All CT scanners at this facility use dose modulation, iterative reconstruction, and/or weight based d osing when appropriate to reduce radiation dose to as low as reasonably achievable (ALARA). [facility]: Dose Right [facility]: CareDose [facility]: Dose Right [facility]: Teradose 4D [facility]: CloudWork RADIATION DOSE: CT Rad equipment meets quality standard of care and radiation dose reduction techniq ues were employed. CTDIvol: 13.8 mGy. DLP: 346 mGy-cm. mGy. LIMITATIONS: None. FINDINGS: ALIGNMENT: Anatomic. MINERALIZATION: Normal. VERTEBRAL BODIES: No fractures or dislocation. DISCS: No significant disc disease. FACETS, LATERAL MASSES, POSTERIOR ELEMENTS: No fractures. No dislocation. No acute findings. HARDWARE: None in the spine. VISUALIZED RIBS: No fractures. LUNG APICES AND SOFT TISSUES: 10 mm part solid nodule in the right apex. OTHER: Left-sided port partially visualized. IMPRESSION: 1. No significant findings in the cervical spine. 2. Right upper lobe pulmonary nodule. TECHNICAL DOCUMENTATION: JOB ID: [id number] Quality ID # [id number]: Final reports with documentation of one or more dose reduction techniques (e.g., Au tomated exposure control, adjustment of the mA and/or kV according to patient size, use of iterative reconstruction technique) 2010 [employer]- All Rights Reserved Reading location - IP/workstation name: [email or web address]
[2020-07-02] MEDS: SUCRALFATE 1 GM TABLET NG SCH ×3 (13:09→19:40)
[2020-07-02] MEDS: NYSTATIN TOPICAL POWDER 15 GM TP SCH ×3 (13:09→19:42)
[2020-07-02] MEDS: MUPIROCIN 2% OINTMENT 22 GM TP SCH ×3 (13:09→19:41)
[2020-07-02] MEDS: SILVER NITRATE APPLICATOR 1 APPLIC STICK..EA. 10/PACKAGE TOP SCH ×2 (13:10→19:42)
[2020-07-02] MEDS: ASCORBIC ACID 500 MG TABLET JT SCH (13:11)
[2020-07-02] MEDS: DEXTROSE 5%-LACTATED RINGERS 1,000 ML IV PRN ×2 (13:52→20:41)
[2020-07-03] MEDS: INSULIN REG, HUMAN 100 UNIT/ML 3 ML VIAL (PYX) SUBCUT SCH ×4 (00:31→17:56)
[2020-07-03] MEDS: [UNRECOGNIZED DRUG - OTHER] IV SCH (00:38)
[2020-07-03] MEDS: DISPOSABLE IV SCH (00:38)
[2020-07-03] MEDS: VANCOMYCIN HCL IV SCH (00:38)
[2020-07-03] MEDS: HEPARIN SODIUM PORCINE IV SCH (00:38)
[2020-07-03] MEDS: HYDROMORPHONE HCL INJ/PF 2 MG/ML AMPULE IV PRN ×4 (00:43→21:24)
[2020-07-03] MEDS: ONDANSETRON HCL INJ/PF 4 MG/2 ML SDV IV PRN (00:43)
[2020-07-03] MEDS: PANTOPRAZOLE SODIUM 40 MG PACKET.DR GT SCH ×2 (05:25→16:15)
[2020-07-03] MEDS: HEPARIN SOD (PORCINE) 5,000 UNIT/ML 1 ML VIAL SUBCUT SCH ×3 (06:37→21:09)
[2020-07-03] MEDS: AZTREONAM 1 GM in DEXTROSE 5%-WATER 50 ML IV SCH ×3 (06:37→21:09)
[2020-07-03] MEDS: PROMETHAZINE HCL INJ 25 MG/1 ML VIAL IV PRN ×3 (10:56→21:24)
[2020-07-03] MEDS: DEXTROSE 5%-LACTATED RINGERS 1,000 ML IV PRN ×2 (10:57→18:37)
[2020-07-03] MEDS: FAMOTIDINE INJ/PF 20 MG/2 ML SDV IV SCH ×2 (10:59→21:09)
[2020-07-03] MEDS: MUPIROCIN 2% OINTMENT 22 GM TP SCH ×3 (11:00→17:06)
[2020-07-03] MEDS: SUCRALFATE 1 GM TABLET NG SCH ×3 (11:01→17:05)
[2020-07-03] MEDS: NYSTATIN TOPICAL POWDER 15 GM TP SCH ×3 (11:02→17:05)
[2020-07-03] MEDS: ASCORBIC ACID 500 MG TABLET JT SCH (11:09)
[2020-07-03] MEDS: SILVER NITRATE APPLICATOR 1 APPLIC STICK..EA. 10/PACKAGE TOP SCH ×3 (11:09→17:06)
[2020-07-03] MEDS: VANCOMYCIN HCL 1,000 MG in DEXTROSE 5%-WATER 250 ML IV SCH ×2 (11:10→23:41)
[2020-07-03] MEDS: DIPHENHYDRAMINE HCL 50 MG/ML VIAL IV PRN ×2 (11:21→22:25)
--- NOTE | 2020-07-03 11:45 | PDOC PROGRESS REPORT ---
Subjective Progress Note for:: 07/03/20 Subjective:: 19 year old female who presented to the emergency room with acute fever. She admits developing an acute fever of 103 F on the afternoon of 06/26/2020. Her fever was accompanied by chills with rigors and was associated with tachycardia, malaise and ague. She took Tylenol at home prior to coming to the emergency room and her fever substantially improved by the time she arrived at the hospital. She denies other associated or accompanying signs and symptoms. She admits numerous prior similar episodes related to infections of her IV access lines. She has not identified any additional aggravating or ameliorating factors for her fever. In the emergency room she was noted to have a temperature of 100.4 F and an unremarkable laboratory evaluation. Clinically she was experiencing rigorous chills and appeared acutely ill. She was started on IV antibiotic therapy with Zyvox in the emergency room and subsequently admitted to the hospital for further evaluation and treatment. 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 She started to experience fever of 101 1 day prior with associated generalized body malaise and joint pains. She denies any cough, chest pain, abdominal pain, diarrhea, bloody BM, urinary symptoms. In the ED she was noted to have a fever of 100.4. Blood cultures were drawn. She was then admitted for further work up. She was started on linezolid and aztreonam Her Francisco catheter was last replaced April 27, 2020 an [facility]. She ahs been admitted several times in the past for Line associated infection April 2020 for candidemia treated with fluconazole. She was admitted again in May for a coagulase negative +ve blood culture treated with vanc and zosyn. ID was consulted both times. She was also positive for COVID back in April. D1 hospital stay. She was seen and examined at bedside. Complains of generalized malaise, no abdominal pain, no diarrhea. Started on zyvox and aztreonam. Dilaudid for pain. Awaiting blood cultures. 06/28-D2 hospital stay. She was seen and examined at bedside with her mom. According to her mom, she develops neck pain when she has fungal infections. The patient looks comfortable in bed however her mom states that she has pain all over. She denies any diarrhea, nausea/vomiting. She has been afebrile since admission. Blood Cx anaerobic 1 bottle grew gram positive cocci but I was later informed that it look like its yeast, micro said they would edit the prior preliminary report of gram positive. 06/29-D3 Hospital stay 06/29/20. The patient was seen and examined at bedside. Her mother is at bedside who does most of the talking for her. Per her mother she has been having abdominal pain and ear pain. I examined her abdomen and besides voluntary guarding, no tenderness elicited, bowel sounds normoactive. The mother was also complaining that we have not restarted her TPN. I have ordered her TPN yesterday but the mother did not want it started because she is convinced she has a line infection. Her 1st blood culture results were drawn peripherally and are growing coagulase negative staph, these are not francisco line draws. ID was consulted, awaiting recs. Blood culture drawn from the line was done today although she has been on vancomycin and aztreonam so I am not sure if cultures will be accurate. Grossly, the Francisco line looks ok with no redness or discharge, she is also not spiking fever and her white count is stable. 06/30/2020-patient is comfortably in the bed most of the information provided by the mother. Did not want TPN started by Francisco. Family and patient thinks the catheter was infected. I spoke to Dr. Saleem he is going to come and look at the catheter. Family is requesting for IV pain medications. Patient will be moved out of the COVID unit. All the blood cultures came back staph epidermidis coagulase-negative bacteria. 07/01/2020-patient is comfortably in the bed communicating well. Dr. Krishnamurthy is recommending systemic antibiotic therapy and antibiotic lock. Cultures came back as staph epidermidis. Patient is afebrile. Receiving IV fluids. Not on TPN at this time. 07/02/2020-no acute events in the last 24 hours. Cultures from the Francisco catheter site growing staph epidermidis. Patient is receiving azetranem, IV vancomycin via antibiotic lock on the nystatin. Complaining of neck pain. Family is requesting for CT neck. 07/03/20-no acute events in the last 24 hours. Patient is receiving iv azetronem, IV vancomycin with antibiotic lock. Afebrile. Plan is to continue the present management at this time. Yesterday patient is complaining of chronic neck pain CT of the neck was done no acute pathology reported. Reason For Visit: FEVER Physical Exam Vital Signs: Temp Pulse Resp BP Pulse Ox 97.9 F 70 18 99/44 L 93 07/03/20 07:19 07/03/20 07:19 07/03/20 07:19 07/03/20 07:19 07/03/20 07:19 Intake & Output 07/02/20 07/03/20 07/04/20 06:59 06:59 06:59 Intake Total 4000 2677 576 Balance 4000 2677 576 Weight 61.2 kg 61.4 kg General appearance: PRESENT: no acute distress, cooperative, thin Head exam: PRESENT: atraumatic Eye exam: PRESENT: PERRLA Ear exam: PRESENT: normal external ear exam Mouth exam: PRESENT: neck supple Neck exam: ABSENT: carotid bruit, JVD, lymphadenopathy, thyromegaly Respiratory exam: PRESENT: clear to auscultation martine, other - Francisco catheter present on the left side of the chest.. ABSENT: rales, rhonchi, wheezes Cardiovascular exam: PRESENT: RRR. ABSENT: diastolic murmur, rubs, systolic murmur GI/Abdominal exam: PRESENT: normal bowel sounds, soft, other - G, j-tube present.. ABSENT: distended, guarding, mass, organolmegaly, rebound, tenderness Rectal exam: PRESENT: deferred Extremities exam: PRESENT: full ROM. ABSENT: calf tenderness, clubbing, pedal edema Neurological exam: PRESENT: alert, awake, oriented to person, oriented to place, oriented to time, oriented to situation, CN II-XII grossly intact. ABSENT: motor sensory deficit Psychiatric exam: PRESENT: appropriate affect, normal mood. ABSENT: homicidal ideation, suicidal ideation Results Laboratory Results: 07/02/20 06:44 06/29/20 21:45 06/29/20 09:22 Blood Blood Culture (PCR) - Final Staphylococcus Species 06/29/20 09:22 Blood Blood Culture - Final Staphylococcus Epidermidis Impressions: Chest X-Ray 06/26/20 21:50 IMPRESSION: Left lung base atelectasis. Cervical Spine CT 07/02/20 00:00 IMPRESSION: 1. No significant findings in the cervical spine. 2. Right upper lobe pulmonary nodule. 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 fever 2/2 crohn's or again another line infection. suspicion for COVID low since she had it back in April - blood culture pending. Was called earlier for a preliminary report of gram positive cocci in clusters but was called again saying it might be yeast. - currently on vanc and aztreonam, will continue this for today and await blood culture reports - Will consult ID 06/28/2020-patient is presently on Vanco and aztreonam.. Blood cultures came back positive for staph epidermidis. Cultures from the catheter site pending. 07/01/2020-cultures coming back positive for staph epidermidis. Dr. Krishnamurthy is recommending systemic antibiotic therapy and antibiotic lock. Plan is to implement the recommendations. 07/02/20-cultures from the Francisco catheter growing staph epidermidis. Blood cultures also positive for staph epidermidis. Patient is going to receive vancomycin with antibiotic lock and adjust regimen. Afebrile. Complaining of neck pain will do the CT neck without contrast today. 07/03/20-cultures continued to grow staph epidermidis. Presently on his atrium, IV vancomycin with antibiotic lock. ID on board. (2) Bacteremia Is this a current diagnosis for this admission?: Yes Plan: - Peripherally drawn blood cultures on the day of admission growing Staph species coagulase negative - Francisco catheter last replaced April 2020 - Francisco catheter itself looks OK no, erythema, swelling, tenderness - I don't see a clear indication to remove the line. she is not septic, she is afebrile, hemodynamically stable and the isolate is not stated as staph aureus. - repeat blood cultures from the line drawn although this is with abx on - will await ID recs - continue abx for today - surgery consult 06/30/2020-peripheral blood cultures came back staph epidermidis coagulase negative. Cultures from the Francisco catheter site pending. Presently on vancomycin and azetronem 07/01/2020-management as per Dr. Krishnamurthy. 07/02/2020-patient is receiving azetronem and to continue vancomycin via antibiotic lock. (3) Central line complication Qualifiers: Encounter type: sequela Qualified Code(s): T82.9XXS - Unspecified complication of cardiac and vascular prosthetic device, implant and graft, sequela Is this a current diagnosis for this admission?: Yes Plan: - she has been admitted several times in the past at least 3 this year for line infection. Candidemia and coag negative staph - treated with multiple abx, fluconazole for candidemia - coming now with fever - francisco catheter last replaced april 2020 at [place]. - plan as discussed above 06/30/2020-Case was discussed with Dr. Saleem. He is going to [place] look at the catheter. Cultures from the Francisco catheter site pending. 07/01/2020-cultures from the Francisco catheter site looks like also growing staph epidermidis. 07/02/2020-cultures from the Francisco catheter site is growing staph epidermidis. (4) Crohn's disease Qualifiers: Gastrointestinal tract location: unspecified location Digestive disease complication type: other complication Qualified Code(s): K50.918 - Crohn's disease, unspecified, with other complication Is this a current diagnosis for this admission?: Yes Plan: - was on Entyvio but has since been stopped for about >2 months due to hx of recurrent infection - on chronic TPN due to gastroparesis - has G tube and J tube - no bloody diarrhea, no abdominal pain - will monitor for flare 06/30/2020-patient used to be on antifever which was on hold for the last 2 mo nths. Receiving TPN by Francisco catheter. Because of the concerns about infection TPN is on hold. pt is presently on IV fluids. (5) Gastroparesis Is this a current diagnosis for this admission?: Yes Plan: - on chronic TPN - will resume - dietary consult (6) Abdominal pain Qualifiers: Abdominal location: generalized Qualified Code(s): R10.84 - Generalized abdominal pain Is this a current diagnosis for this admission?: Yes Plan: - chronic from crohn's - continue dilaudid PO per J tube and antiemetics - I have stopped her IV dilaudid. Would prefer not to give her IV pain medications due to risk of abuse. She tolerates the Dilaudid per J tube. She uses the same J tube when she gets tramadol at home so I don't see why the dilaudid tablet would be a problem. 06/30/2020-patient is continued to complain of abdominal pain. Pain scale is 8/10. Plan is to switch p.o. Dilaudid to IV from today. - Plan Summary Summary: Patient will be admitted to the medical floor where she will receive routine supportive and symptomatic cares. She will be started on IV antibiotics using Zyvox and aztreonam empirically pending results of her blood cultures. She will receive Dilaudid 0.5 to 2 mg IV every 3 hours as needed for pain. She will receive Ativan 1 mg IV every 4 hours as needed for anxiety or restlessness. She will be continued on her usual TPN as soon as it can be arranged with dietary/pharmacy. A registered dietitian consultation will be obtained. A case management consultation will be obtained. CBCs, metabolic profiles and additional laboratory and/or radiographic evaluations will be obtained as appropriate. - Time Anticipated Discharge Disposition: Home, Self Care Anticipated Discharge Timeframe: within 72 hours
[2020-07-04] MEDS: INSULIN REG, HUMAN 100 UNIT/ML 3 ML VIAL (PYX) SUBCUT SCH ×4 (00:29→17:09)
[2020-07-04] MEDS: PROMETHAZINE HCL INJ 25 MG/1 ML VIAL IV PRN ×3 (01:53→20:42)
[2020-07-04] MEDS: HYDROMORPHONE HCL INJ/PF 2 MG/ML AMPULE IV PRN ×5 (01:54→20:41)
[2020-07-04] MEDS: HEPARIN SODIUM PORCINE IV SCH (01:56)
[2020-07-04] MEDS: [UNRECOGNIZED DRUG - OTHER] IV SCH (01:56)
[2020-07-04] MEDS: VANCOMYCIN HCL IV SCH (01:56)
[2020-07-04] MEDS: DISPOSABLE IV SCH (01:56)
[2020-07-04] MEDS: DEXTROSE 5%-LACTATED RINGERS 1,000 ML IV PRN ×2 (05:56→18:26)
[2020-07-04] MEDS: HEPARIN SOD (PORCINE) 5,000 UNIT/ML 1 ML VIAL SUBCUT SCH ×3 (05:58→21:30)
[2020-07-04] MEDS: PANTOPRAZOLE SODIUM 40 MG PACKET.DR GT SCH ×2 (05:59→17:09)
[2020-07-04] MEDS: AZTREONAM 1 GM in DEXTROSE 5%-WATER 50 ML IV SCH (05:59)
[2020-07-04] MEDS: ONDANSETRON HCL INJ/PF 4 MG/2 ML SDV IV PRN ×3 (06:04→15:17)
[2020-07-04] MEDS: DIPHENHYDRAMINE HCL 50 MG/ML VIAL IV PRN ×2 (09:50→20:45)
[2020-07-04] MEDS: MUPIROCIN 2% OINTMENT 22 GM TP SCH ×3 (09:50→17:09)
[2020-07-04] MEDS: FAMOTIDINE INJ/PF 20 MG/2 ML SDV IV SCH ×2 (09:50→21:30)
[2020-07-04] MEDS: SUCRALFATE 1 GM TABLET NG SCH ×3 (09:51→17:09)
[2020-07-04] MEDS: SILVER NITRATE APPLICATOR 1 APPLIC STICK..EA. 10/PACKAGE TOP SCH ×3 (09:51→17:10)
[2020-07-04] MEDS: NYSTATIN TOPICAL POWDER 15 GM TP SCH ×3 (09:51→17:10)
[2020-07-04] MEDS: LEVOTHYROXINE SODIUM INJ/PF 0.1 MG SDV IV SCH (09:52)
[2020-07-04] MEDS: ASCORBIC ACID 500 MG TABLET JT SCH (10:31)
[2020-07-04] MEDS: VANCOMYCIN HCL 1,000 MG in DEXTROSE 5%-WATER 250 ML IV SCH ×2 (10:57→21:29)
--- NOTE | 2020-07-04 18:54 | PDOC PROGRESS REPORT ---
Subjective Progress Note for:: 07/04/20 Subjective:: The patient is a 19-year-old female, well-known to our service, with a past medical history significant for asthma, pneumonia, hypothyroidism, Crohn's disease, GERD, gastroparesis, arthritis, anemia, who receives TPN via central line at home and has been admitted to our facility x4 for fever and bacteremia since March of this year and was readmitted on 06/27/2020 with fever reportedly 103 at home. T-max this admission 100.4. Multiple blood cultures with staph epide rmidis. Patient was seen on morning rounds with her mother present. Patient was found resting in bed, comfortably, on room air. Despite all questions being directed directly to the patient and her being fully awake, making eye contact, and nodding her head in agreement, all questions were answered by her mother. Reportedly, the patient is having continued neck discomfort and headaches which they state are a common symptom when the patient is running fevers or acutely ill. Otherwise, there are no complaints or concerns today. They specifically deny fever, chills, chest pain, dyspnea, abdominal pain, nausea vomiting and diarrhea. They decline to start tube feeds. State they want to be certain that that cultures are clear prior to starting; mother attempts to educate me on the risks of infection r/t TPN. They further decline medication administration and TF/flushes via J-tube. They have no other questions or concerns at this time. Reason For Visit: FEVER Physical Exam Vital Signs: Temp Pulse Resp BP Pulse Ox 98.0 F 77 16 114/55 L 95 07/04/20 15:25 07/04/20 15:25 07/04/20 15:25 07/04/20 15:25 07/04/20 15:25 Intake & Output 07/03/20 07/04/20 07/05/20 06:59 06:59 06:59 Intake Total 2677 3327 1500 Balance 2677 3327 1500 Weight 61.4 kg 61.4 kg 61.4 kg General appearance: PRESENT: no acute distress, well-developed, well-nourished Head exam: PRESENT: atraumatic, normocephalic Eye exam: PRESENT: conjunctiva pink, EOMI, PERRLA. ABSENT: scleral icterus Ear exam: PRESENT: normal external ear exam Mouth exam: PRESENT: moist, tongue midline Neck exam: ABSENT: carotid bruit, JVD, lymphadenopathy, thyromegaly Respiratory exam: PRESENT: clear to auscultation martine. ABSENT: rales, rhonchi, wheezes Cardiovascular exam: PRESENT: RRR. ABSENT: diastolic murmur, rubs, systolic murmur Pulses: PRESENT: normal dorsalis pedis pul Vascular exam: PRESENT: normal capillary refill GI/Abdominal exam: PRESENT: normal bowel sounds, soft. ABSENT: distended, guarding, mass, organolmegaly, rebound, tenderness Rectal exam: PRESENT: deferred Extremities exam: PRESENT: full ROM. ABSENT: calf tenderness, clubbing, pedal edema Neurological exam: PRESENT: alert, awake, oriented to person, oriented to place, oriented to time, oriented to situation, CN II-XII grossly intact. ABSENT: motor sensory deficit Psychiatric exam: PRESENT: appropriate affect, normal mood. ABSENT: homicidal ideation, suicidal ideation Skin exam: PRESENT: dry, intact, warm. ABSENT: cyanosis, rash Results Laboratory Results: 07/02/20 06:44 06/29/20 21:45 06/29/20 08:50 Blood Blood Culture - Final NO GROWTH IN 5 DAYS Impressions: Chest X-Ray 06/26/20 21:50 IMPRESSION: Left lung base atelectasis. Cervical Spine CT 07/02/20 00:00 IMPRESSION: 1. No significant findings in the cervical spine. 2. Right upper lobe pulmonary nodule. Assessment and Plan - Diagnosis (1) Central line complication Qualifiers: Encounter type: sequela Qualified Code(s): T82.9XXS - Unspecified complication of cardiac and vascular prosthetic device, implant and graft, sequela Is this a current diagnosis for this admission?: Yes Plan: Initial blood cultures (06/26-06/27) show staph epidermidis in 1 bottle each set. Repeat cultures (06/29) staph epidermidis in 1 of 4 bottles. Infectious disease was consulted; Dr. Krishnamurthy recommends catheter salvage with vancomycin and Vanco lock. Course of treatment 14 days upon negative blood cultures. Surgery was consulted; further evaluation, the line is not acutely infected and conservative management with trial of line salvage is reasonable. We will repeat blood cultures in the morning to determine clearance. Continue vancomycin. (2) Bacteremia Is this a current diagnosis for this admission?: Yes Plan: Initial blood cultures (06/26-06/27) show staph epidermidis in 1 bottle each set. Repeat cultures (06/29) staph epidermidis in 1 of 4 bottles. We will repeat blood cultures in the morning to determine clearance. (3) Acute febrile illness Is this a current diagnosis for this admission?: Yes Plan: Secondary #1. Reportedly fever 103 at home with generalized malaise TMax 100.4 at time of admission; has been afebrile since. Management as above. (4) Abdominal pain Qualifiers: Abdominal location: generalized Qualified Code(s): R10.84 - Generalized abdominal pain Is this a current diagnosis for this admission?: Yes Plan: Chronic from Crohn's Currently receiving IV Dilaudid. Patient and mother currently declining use of J-tube for medication administration. We will need to begin weaning IV Dilaudid as there is significant concern regarding development of dependence/tolerance resulting in abuse potential. Patient would also benefit from pain management referral. Will consult [facility] for assistance. (5) Crohn's disease Qualifiers: Gastrointestinal tract location: unspecified location Digestive disease complication type: other complication Qualified Code(s): K50.918 - Crohn's disease, unspecified, with other complication Is this a current diagnosis for this admission?: Yes Plan: - was on Entyvio but has since been stopped for about >2 months due to hx of recurrent infection - on chronic TPN due to gastroparesis - has G tube and J tube Patient and mother are currently declining all means of nutrition; p.o. vs. TF vs. TPN (6) Gastroparesis Is this a current diagnosis for this admission?: Yes Plan: Continue Protonix and Pepcid via IV. Not on Reglan. Bentyl and Levsin prn. Continues to decline medications and food via GI tract. - Plan Summary Summary: -Discharge planning is consulted to evaluate for needs; 4 admissions beginning late March (37 of the last 70 days). Patient's mother insists on remaining at bedside 15/05 during admission. Possible unsafe vs homeless status? -Have also requested records from admission to [facility] in Jul 2019; looking to find collaborating labs/tests/imaging to validate the severity of patient's illness. It is concerning that a 19 y/o receives 100% nutrition via TPN. -Consider mental health consultation r/t co-dependence/depression in chronic illness - Time Time Spent with patient: 35 or more minutes Medications reviewed and adjusted accordingly: Yes Anticipated Discharge Disposition: Home with Home Health Anticipated Discharge Timeframe: >72 hrs
[2020-07-05] MEDS ORDERED: DIPHENHYDRAMINE HCL 50 MG/ML VIAL IV ONE (01:00)
[2020-07-05] MEDS: DEXTROSE 5%-LACTATED RINGERS 1,000 ML IV PRN ×4 (01:29→22:27)
[2020-07-05] MEDS: HYDROMORPHONE HCL INJ/PF 2 MG/ML AMPULE IV PRN ×5 (01:35→22:21)
[2020-07-05] MEDS: PROMETHAZINE HCL INJ 25 MG/1 ML VIAL IV PRN ×4 (01:36→22:20)
[2020-07-05] MEDS: INSULIN REG, HUMAN 100 UNIT/ML 3 ML VIAL (PYX) SUBCUT SCH ×4 (03:58→17:22)
[2020-07-05] MEDS: VANCOMYCIN HCL IV SCH ×2 (04:25→23:45)
[2020-07-05] MEDS: DISPOSABLE IV SCH ×2 (04:25→23:45)
[2020-07-05] MEDS: HEPARIN SODIUM PORCINE IV SCH ×2 (04:25→23:45)
[2020-07-05] MEDS: [UNRECOGNIZED DRUG - OTHER] IV SCH ×2 (04:25→23:45)
[2020-07-05 06:33] LABS: HEMATOCRIT 28.4 % (36.0-47.0); MEAN CORPUSCULAR HGB CONC 35.2 g/dL (32.0-36.0); MEAN CORPUSCULAR VOLUME 85 fl (80-97); PLATELET COUNT 314 10^3/uL (150-450); RED BLOOD COUNT 3.33 10^6/uL (3.72-5.28); WHITE BLOOD COUNT 3.7 10^3/uL (4.0-10.5)
[2020-07-05 07:11] LABS: ANION GAP 9 (5-19); BLOOD UREA NITROGEN 2 mg/dL (7-20); CALCIUM 8.7 mg/dL (8.4-10.2); CARBON DIOXIDE 30 mmol/L (22-30); CHLORIDE 103 mmol/L (98-107); GLUCOSE 74 mg/dL (75-110)
[2020-07-05] MEDS: HEPARIN SOD (PORCINE) 5,000 UNIT/ML 1 ML VIAL SUBCUT SCH ×3 (07:34→21:29)
[2020-07-05] MEDS: ONDANSETRON HCL INJ/PF 4 MG/2 ML SDV IV PRN (07:35)
[2020-07-05] MEDS: PANTOPRAZOLE SODIUM 40 MG PACKET.DR GT SCH ×2 (07:47→17:21)
[2020-07-05] MEDS: DIPHENHYDRAMINE HCL 50 MG/ML VIAL IV PRN ×2 (10:11→21:29)
[2020-07-05] MEDS: LEVOTHYROXINE SODIUM INJ/PF 0.1 MG SDV IV SCH (10:11)
[2020-07-05] MEDS: VANCOMYCIN HCL 1,000 MG in DEXTROSE 5%-WATER 250 ML IV SCH ×2 (10:12→22:22)
[2020-07-05] MEDS: FAMOTIDINE INJ/PF 20 MG/2 ML SDV IV SCH ×2 (10:12→21:29)
[2020-07-05] MEDS: SUCRALFATE 1 GM TABLET NG SCH ×3 (10:27→17:21)
[2020-07-05] MEDS: MUPIROCIN 2% OINTMENT 22 GM TP SCH ×3 (10:27→17:21)
[2020-07-05] MEDS: ASCORBIC ACID 500 MG TABLET JT SCH (10:27)
[2020-07-05] MEDS: SILVER NITRATE APPLICATOR 1 APPLIC STICK..EA. 10/PACKAGE TOP SCH ×3 (10:27→17:22)
[2020-07-05 10:31] LABS: VANCOMYCIN,TROUGH 20.5 ug/mL (5.0-20.0)
[2020-07-05] MEDS ORDERED: CYCLOBENZAPRINE HCL 10 MG TABLET GT PRN (18:21)
--- NOTE | 2020-07-05 18:31 | PDOC PROGRESS REPORT ---
Subjective Progress Note for:: 07/05/20 Subjective:: The patient is a 19-year-old female, well-known to our service, with a past medical history significant for asthma, pneumonia, hypothyroidism, Crohn's disease, GERD, gastroparesis, arthritis, anemia, who receives TPN via central line at home and has been admitted to our facility x4 for fever and bacteremia since March of this year and was readmitted on 06/27/2020 with fever reportedly 103 at home. T-max this admission 100.4. Multiple blood cultures with staph epide rmidis. Patient was seen on morning rounds with her mother present. Patient was found resting in bed, comfortably, on room air. Mother continues to answer all questions for the patient, even when they are dirrected directly to the patient. When it is clear that I am looking to patient for answers, the patient first looks at her mother, then will start to answer, however, mother interrupts to c omplete the response. Today, I stated that I was directing all questions to the patient and that as she was awake and oriented, all decision-making would be ultimately up to her. Despite this, the mother continue to direct the conversation and patient care. Reportedly patient continues to complain of neck and jaw discomfort. They are agreeable to trial of muscle relaxant today. When asked about using her J or G- tube for medications or feedings, mother states that they have not been clear to use this and that all nutrition and medication should be through her line. I asked about obtaining records from her other doctors in order to better understand her GI health to which they were initially agreeable, however, upon being presented with records releases for [facility] the patient has recently been admitted, the mother became quite agitated and stated that she would discuss this with her daughter prior to signing these forms. She was again reminded that it was her daughter's right sign the forms, however, the patient/daughter simply look to her mother for guidance. When asked about starting TPN, mother again declines stating that they do not feel comfortable initiating tube feeds until the line has been declared clean. They are informed that the most recent blood cultures have no growth at 24 hours, however, mother states that this is not long enough to for them to feel comfortable starting tube feeds. They continue to deny fever, chills, chest pain, dyspnea, abdominal pain, nausea vomiting and diarrhea. They again decline to start tube feeds and TPN. Discussed w/ nursing staff who have witnessed similar behavior and have concerns about the relationship, as well as, the mother's continued involvement in directing/managing nursing care. Reason For Visit: FEVER Physical Exam Vital Signs: Temp Pulse Resp BP Pulse Ox 97.5 F 59 L 12 109/53 L 100 07/05/20 16:01 07/05/20 16:01 07/05/20 16:01 07/05/20 16:01 07/05/20 16:01 Intake & Output 07/04/20 07/05/20 07/06/20 06:59 06:59 06:59 Intake Total 3327 3001 2500 Balance 3327 3001 2500 Weight 61.4 kg 59.5 kg General appearance: PRESENT: no acute distress, well-developed, well-nourished. ABSENT: cooperative Head exam: PRESENT: atraumatic, normocephalic Eye exam: PRESENT: conjunctiva pink, EOMI, PERRLA. ABSENT: scleral icterus Mouth exam: PRESENT: moist, tongue midline Respiratory exam: PRESENT: clear to auscultation martine, symmetrical, unlabored. ABSENT: rales, rhonchi, wheezes Cardiovascular exam: PRESENT: RRR. ABSENT: diastolic murmur, rubs, systolic murmur Vascular exam: PRESENT: normal capillary refill Extremities exam: PRESENT: full ROM. ABSENT: calf tenderness, clubbing, pedal edema Musculoskeletal exam: PRESENT: ambulatory Neurological exam: PRESENT: alert, awake, oriented to person, oriented to place, oriented to time, oriented to situation, CN II-XII grossly intact. ABSENT: motor sensory deficit Psychiatric exam: PRESENT: flat affect, normal mood. ABSENT: homicidal ideation, suicidal ideation Skin exam: PRESENT: dry, intact, warm. ABSENT: cyanosis, rash Results Laboratory Results: 07/05/20 05:05 07/05/20 09:52 07/05/20 07/05/20 07/05/20 05:05 05:05 09:52 WBC 3.7 L RBC 3.33 L Hgb 10.0 L Hct 28.4 L MCV 85 MCH 30.0 MCHC 35.2 RDW 15.0 H Plt Count 314 Sodium 142.2 Potassium 4.0 Chloride 103 Carbon Dioxide 30 Anion Gap 9 BUN 2 L Creatinine 0.76 0.69 Est GFR ( Amer) > 60 > 60 Glucose 74 L Calcium 8.7 Impressions: Chest X-Ray 06/26/20 21:50 IMPRESSION: Left lung base atelectasis. Cervical Spine CT 07/02/20 00:00 IMPRESSION: 1. No significant findings in the cervical spine. 2. Right upper lobe pulmonary nodule. Assessment and Plan - Diagnosis (1) Central line complication Qualifiers: Encounter type: sequela Qualified Code(s): T82.9XXS - Unspecified complication of cardiac and vascular prosthetic device, implant and graft, sequela Is this a current diagnosis for this admission?: Yes Plan: Initial blood cultures (06/26-06/27) show staph epidermidis in 1 bottle each set. Repeat cultures (06/29) staph epidermidis in 1 of 4 bottles. Repeat cultures (07/04) No Growth at 24 hrs. Infectious disease was consulted; Dr. Krishnamurthy recommends catheter salvage with vancomycin and Vanco lock. Course of treatment 14 days upon negative blood cultures. Surgery was consulted; further evaluation, the line is not acutely infected and conservative management with trial of line salvage is reasonable. We will repeat blood cultures in the morning to determine clearance. Continue vancomycin. (2) Bacteremia Is this a current diagnosis for this admission?: Yes Plan: Initial blood cultures (06/26-06/27) show staph epidermidis in 1 bottle each set. Repeat cultures (06/29) staph epidermidis in 1 of 4 bottles. Repeat cultures (07/04) NGTD Antibiotics as above (3) Acute febrile illness Is this a current diagnosis for this admission?: Yes Plan: Secondary #1. Reportedly fever 103 at home with generalized malaise TMax 100.4 at time of admission; has been afebrile since. Management as above. (4) Abdominal pain Qualifiers: Abdominal location: generalized Qualified Code(s): R10.84 - Generalized abdominal pain Is this a current diagnosis for this admission?: Yes Plan: Chronic from Crohn's Currently receiving IV Dilaudid; dose reduction today. Patient and mother currently declining use of G or J-tube for medication administration. We will need to begin weaning IV Dilaudid as there is significant concern regarding development of dependence/tolerance resulting in abuse potential. Patient would also benefit from pain management referral. I have consulted [facility] for assistance. (5) Crohn's disease Qualifiers: Gastrointestinal tract location: unspecified location Digestive disease complication type: other complication Qualified Code(s): K50.918 - Crohn's dis ease, unspecified, with other complication Is this a current diagnosis for this admission?: Yes Plan: - was on Entyvio but has since been stopped for about >2 months due to hx of recurrent infection - on chronic TPN due to gastroparesis - has G tube and J tube Patient and mother are currently declining all means of nutrition; p.o. vs. TF vs. TPN Patient and mother further declining records release from [facility] and [facility] where the patient has recently been admitted. Initially stated that we could receive records from Dr. Stein, her jigmaker (and reportedly the provider who is managing her TPN). However, mother would not allow for signing of that records release either today . I called [facility] to asked to speak with the GI provider conveyor console operator with his service. Unfortunately, none conveyor console operator today. However, the transfer center was able to see that the patient had cancelled their last 4 appointments and was last seen by Dr. Stein in April 2019. Will reattempt Dr. Stein's office tomorrow. 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 (6) Gastroparesis Is this a current diagnosis for this admission?: Yes Plan: Continue Protonix and Pepcid via IV. Not on Reglan. Bentyl and Levsin prn. Continues to decline medications and food via GI tract. - Plan Summary Summary: -Discharge planning is consulted to evaluate for needs; 4 admissions beginning late March (37 of the last 70 days). Patient's mother insists on remaining at bedside 15/05 during admission. Possible unsafe vs homeless status? Spoke with Stephanie; asked that she reach out to the [employer] and the TPN infusion company to verify who the prescribing provider is. -Have also requested records from tertiary facilities; looking to find collaborating labs/tests/imaging to validate the severity of patient's illness. It is concerning that a 19 y/o receives 100% nutrition via TPN. Patient and mother further declining records release from [facility] and [facility] where the patient has recently been admitted. Initially stated that we could receive records from Dr. Stein, her jigmaker (and reportedly the provider who is managing her TPN). However, mother would not allow for signing of that records release either today. I called [facility] to asked to speak with the GI provider conveyor console operator with his service. Unfortunately, none conveyor console operator today. However, the transfer center was able to see that the patient had cancelled their last 4 appointments and was last seen by Dr. Stein in April 2019. Will reattempt Dr. Stein's office tomorrow. -Per discharge planning's recommendations; have initiated an APS report. -Consider mental health consultation r/t co-dependence/depression in chronic illness - Time Time Spent with patient: 35 or more minutes Medications reviewed and adjusted accordingly: Yes Anticipated Discharge Disposition: Home with Home Health Anticipated Discharge Timeframe: >72 hrs
[2020-07-05] MEDS ORDERED: VANCOMYCIN HCL 1,000 MG in DEXTROSE 5%-WATER 250 ML IV SCH (22:00)
[2020-07-06] MEDS: INSULIN REG, HUMAN 100 UNIT/ML 3 ML VIAL (PYX) SUBCUT SCH ×4 (00:09→20:15)
[2020-07-06] MEDS: ONDANSETRON HCL INJ/PF 4 MG/2 ML SDV IV PRN (03:23)
[2020-07-06] MEDS: HYDROMORPHONE HCL INJ/PF 2 MG/ML AMPULE IV PRN ×3 (03:24→15:18)
[2020-07-06] MEDS: PANTOPRAZOLE SODIUM 40 MG PACKET.DR GT SCH ×2 (06:39→20:14)
[2020-07-06] MEDS: HEPARIN SOD (PORCINE) 5,000 UNIT/ML 1 ML VIAL SUBCUT SCH ×3 (06:42→23:45)
[2020-07-06] MEDS: DIPHENHYDRAMINE HCL 50 MG/ML VIAL IV PRN ×2 (09:24→23:00)
[2020-07-06] MEDS: PROMETHAZINE HCL INJ 25 MG/1 ML VIAL IV PRN ×2 (09:24→15:17)
[2020-07-06] MEDS: LEVOTHYROXINE SODIUM INJ/PF 0.1 MG SDV IV SCH (09:34)
[2020-07-06] MEDS: VANCOMYCIN HCL 1,000 MG in DEXTROSE 5%-WATER 250 ML IV SCH ×2 (09:38→23:28)
[2020-07-06] MEDS: FAMOTIDINE INJ/PF 20 MG/2 ML SDV IV SCH (09:39)
[2020-07-06] MEDS: SUCRALFATE 1 GM TABLET NG SCH ×3 (09:39→20:15)
[2020-07-06] MEDS: MUPIROCIN 2% OINTMENT 22 GM TP SCH ×3 (09:39→20:14)
[2020-07-06] MEDS: SILVER NITRATE APPLICATOR 1 APPLIC STICK..EA. 10/PACKAGE TOP SCH ×3 (09:39→20:15)
[2020-07-06] MEDS: ASCORBIC ACID 500 MG TABLET JT SCH (09:40)
--- NOTE | 2020-07-06 12:27 | PDOC CONSULTATION ---
Consultation Consult Date: 07/06/20 Provider Consulted: MCKINLEY SANTILLAN Consult reason:: Pain Management History of Present Illness Admission Date/PCP: 06/27/20 01:19 JENNIFER NIÑO MD History of Present Illness: GOLDY WALLACE is a 19 year old female that presented to the ER on 07/05/2020 for recurrent fevers and bacteremia since March of 2020. Mother notes that most recently her daughter was having fevers and a general sense of not feeling well for several days in which she then decided to bring her to [facility] for evaluation. PMH: Chron's, EDH, POTS, gastroparesis, asthma, pneumonia, hypothyroidism, GERD, arthritis, and anemia. Upon admission blood cultures were done in which they are currently awaiting results and was put on IV vancomycin at this time. Does have G/J tube in place however mother notes that the tube is causing some difficulty and they are refusing for the tube to be used during this admission. Currently working closely w/ GI and her PCM to manage Latoya's in outpatient al priscila w/ all other medication conditions. Current chronic pain medication dosing is Tramadol 50 mg BID at home and notes that most days she will only take 1 pill and use the second pill only for days in which the pain is severe. Does note that she is having some increased pain while in the hospital and is currently taking Dilaudid 1-2 mg Q 4 hours. Mother again speaking for patient notes that she is trying to take less of the Dilaudid as she like to wean her IV dosing prior to discharge. Mother states today that they her and the patient were unaware that pain management had been consulted and that she would speak w/ her daughter later in the day to see if she agreed w/ consult. Patient was awake during my visit however did not add anything to the conversation and did not make eye contact. Mother states that they are waiting to speak w/ patient advocacy regarding the lack of informed consent during recent hospital stay. Past Medical History Cardiac Medical History: Denies: Coronary Artery Disease, Myocardial Infarction, Hypertension Cardiac History Note: POTS Pulmonary Medical History: Reports: Asthma - Childhood asthma, Pneumonia Denies: Bronchitis, Chronic Obstructive Pulmonary Disease (COPD) EENT Medical History: Denies: Cataracts, Ears - Hearing aids Neurological Medical History: Denies: Multiple Sclerosis, Seizures Endocrine Medical History: Reports: Hypothyroidism - Carolyn's Denies: Diabetes Mellitus Type 1, Hyperthyroidism Renal/ Medical History: Denies: Chronic Kidney Disease, Nephrolithiasis Malignancy Medical History: Reports: None GI Medical History: Reports: Crohn's Disease, Gastroesophageal Reflux Disease Denies: Cirrhosis, Hepatitis, Peptic Ulcer Disease, Ulcerative Colitis Musculoskeltal Medical History: 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 Denies: Gout Skin Medical History: Denies: Eczema, Psoriasis Psychiatric Medical History: Denies: Alcohol Dependency, Depression, Substance Abuse, Tobacco Dependency Traumatic Medical History: Reports: None Hematology: 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 Denies: Bleeding Tendencies Infectious Medical History: Reports: Clostridium Difficile Past Surgical History Past Surgical History: Reports: Cholecystectomy, Vascular Surgery - Numerous central venous access line placements, Other - G-tube and J-tube placement for gastroparesis, colonoscopies Social History Information Source: Patient, Relative - Mother present at bedside Lives with: Parents Smoking Status: Never Smoker Electronic Cigarette use?: No Frequency of Alcohol Use: None Hx Recreational Drug Use: No Drugs: None Hx Prescription Drug Abuse: No - Advance Directive Resuscitation Status: Full Code Family History Family History: Hypertension, Other - Colonic polyposis Parental Family History Reviewed: No Children Family History Reviewed: NA Sibling(s) Family History Reviewed.: NA Medication/Allergy Home Medications: Dicyclomine HCl 20 ml JT BIDP PRN 02/13/19 Promethazine HCl [Phenergan 6.25 mg/5 ml Syrup] 40 mg JT Q6HP PRN 09/15/19 Sodium/Pot/Mag/Calc/Chlor/Acet [TPN Electrolytes II IV Soln] 20 ml IV ASDIR PRN 09/15/19 Tramadol HCl [Ultram] 50 mg JT BIDP PRN 01/30/20 Cetirizine HCl 10 ml JT DAILY 04/18/20 Diphenhydramine HCl [Benadryl Inj 50 mg/1 ml Vial] 25 mg IV BID 04/18/20 Hyoscyamine Sulfate 0.125 mg SL TIDP PRN 04/18/20 Lansoprazole [Prevacid 30 mg Odt Tablet] 30 mg JT BID 04/18/20 Levothyroxine Sodium [Tirosint-Kaelyn] 50 mcg JT DAILY 04/18/20 Mupirocin [Bactroban 2% Ointment 22 gm] 1 applic TP TID 04/18/20 Nystatin [Nystop] 1 applic TP TID 04/18/20 Ondansetron [Zofran Odt 4 mg Tablet] 4 mg JT Q8HP PRN 04/18/20 Sucralfate [Carafate Susp 1 gm/10 ml Udcup] 1 gm JT TID 04/18/20 Silver Nitrate Applicator [Silver Nitrate Applicator 10 Stick/Package] 1 applic TOP TID #2 packet 05/08/20 Ascorbic Acid 2,000 gm JT DAILY 05/18/20 Allergies/Adverse Reactions: cefoxitin Allergy (Verified 05/17/20 15:01) chlorhexidine [Chlorhexidine] Allergy (Verified 05/17/20 15:01) Urticaria erythromycin base Allergy (Verified 05/17/20 15:01) lactose [Lactose] Allergy (Verified 05/17/20 15:01) Urticaria lactulose Allergy (Verified 05/17/20 15:01) melatonin Allergy (Verified 05/17/20 15:01) metoclopramide Allergy (Verified 05/17/20 15:01) adhesive Adverse Reaction (Intermediate, Verified 05/17/20 15:01) morphine Adverse Reaction (Verified 05/17/20 15:01) vancomycin [Vancomycin] Adverse Reaction (Verified 05/17/20 15:01) Amy Syndrome silk tape Allergy (Uncoded 05/17/20 15:01) Review of Systems Constitutional: PRESENT: as per HPI Physical Exam Vital Signs: Temp Pulse Resp BP Pulse Ox 97.6 F 62 14 110/58 L 98 07/06/20 07:38 07/06/20 07:38 07/06/20 07:38 07/06/20 07:38 07/06/20 07:38 Intake & Output 07/05/20 07/06/20 07/07/20 06:59 06:59 06:59 Intake Total 3001 3836 250 Balance 3001 3836 250 Weight 59.5 kg 59.2 kg General appearance: PRESENT: no acute distress Head exam: PRESENT: normocephalic Respiratory exam: PRESENT: unlabored Neurological exam: PRESENT: alert Additional comments: patient sleeping for first part of visit. pt did awake but deferred all question and comments to mother. DId make eye contact during visit but did not address questions. Results Laboratory Results: 07/05/20 05:05 07/05/20 09:52 Impressions: Chest X-Ray 06/26/20 21:50 IMPRESSION: Left lung base atelectasis. Cervical Spine CT 07/02/20 00:00 IMPRESSION: 1. No significant findings in the cervical spine. 2. Right upper lobe pulmonary nodule. Assessment & Plan - Diagnosis (1) Chronic pain syndrome Is this a current diagnosis for this admission?: Yes Plan: 1. Mother and daughter refuse further pain management consult. 2. If they would like pain management consult in the future would be happy to assist 3. Recommend that they continue w/ GI and PCM for chronic management.
[2020-07-06] MEDS: DEXTROSE 5%-LACTATED RINGERS 1,000 ML IV PRN ×3 (15:25→23:01)
[2020-07-06] MEDS ORDERED: DIPHENHYDRAMINE HCL 25 MG/10 ML UDC JT PRN (20:04)
[2020-07-06] MEDS ORDERED: ONDANSETRON 4 MG TAB.RAPDIS JT PRN (20:05)
--- NOTE | 2020-07-06 20:22 | PDOC PROGRESS REPORT ---
Subjective Progress Note for:: 07/06/20 Subjective:: The patient is a 19-year-old female, well-known to our service, with a past medical history significant for asthma, pneumonia, hypothyroidism, Crohn's disease, GERD, gastroparesis, arthritis, anemia, who receives TPN via central line at home and has been admitted to our facility x4 for fever and bacteremia since March of this year and was readmitted on 06/27/2020 with fever reportedly 103 at home. T-max this admission 100.4. Multiple blood cultures with staph epide rmidis. Patient was seen on morning rounds with her mother present; accompanied by patient advocacy. Patient was found resting in bed, comfortably, on room air. Mother continues to answer all questions for the patient, even when they are directed directly to the patient. Toward end of discuss, patient did begin to participate in discussion and actually advised her mother to allow her [the south ent] to talk which was encouraging. Patient reported continued back and neck discomfort, however, notes that this is slightly improved today. She denies fever, chills, chest pain, dyspnea, abdominal pain, nausea vomiting and diarrhea. Reviewed with patient and mother the current plan: Today I spoke with the patient's primary heavy mobile equipment repairer, Dr. Stein. He confirms that the patient is active with his practice. Last visit was telemetry visit in December. She is receiving Entyvio infusions through their practice. (Dr. Stein did disclose to me, not shared with patient/mother, that there is a "interesting family dynamic w/ elements of attention seeking.") Discussed with Dr. Stein, the patient and mother's report that we should not be using the J-tube. Dr. Stein approves J-tube for medication use. He advises that the patient may experience some discomfort, for which tramadol has been prescribed, but that continuing to use the J-tube would be ideal. Patient and mother are informed that other than her IV antibiotic, we will resume her home medication and pain medication regiments via J-tube route. Spoke with the patient's PCP, Melida Guevara, at [facility] [place]. She has been the patient's primary care provider x2 years. She states that she has been providing TPN x1.5 years. Patient and mother are advised that Ananth Paola is aware of the patient's current admission status and line infection. (Ms. Guevara disclosed to me, not shared with patient/mother, that the patient was previously followed by [facility] and then [facility]. 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 Ms. Guevara states that she has made multiple attempts to arrange for the patient to be seen by pain management service and is appreciative of the consultation that was placed. She is also appreciative of the APS report that was initiated). Patient and mother were also made aware that after discussing with the hospital social work job titles team, it was determined that an APS report was warranted to ensure that the patient had a safe home living situation. They are advised that her blood cultures remain negative at 48 hours and that it was likely that we would begin making arrangements for the patient to discharge home to complete her antibiotic treatment there. Discharge is anticipated within the next 48 to 72 hours. Reason For Visit: FEVER Physical Exam Vital Signs: Temp Pulse Resp BP Pulse Ox 98.1 F 81 16 105/56 L 99 07/06/20 16:18 07/06/20 16:18 07/06/20 16:18 07/06/20 16:18 07/06/20 16:18 Intake & Output 07/05/20 07/06/20 07/07/20 06:59 06:59 06:59 Intake Total 3001 4836 250 Balance 3001 4836 250 Weight 59.5 kg 59.2 kg 59.9 kg General appearance: PRESENT: no acute distress, well-developed, well-nourished Head exam: PRESENT: atraumatic, normocephalic Eye exam: PRESENT: conjunctiva pink, EOMI, PERRLA. ABSENT: scleral icterus Mouth exam: PRESENT: moist, tongue midline Respiratory exam: PRESENT: symmetrical, unlabored Extremities exam: PRESENT: full ROM. ABSENT: calf tenderness, clubbing, pedal edema Neurological exam: PRESENT: alert, awake, oriented to person, oriented to place, oriented to time, oriented to situation, CN II-XII grossly intact. ABSENT: motor sensory deficit Psychiatric exam: PRESENT: appropriate affect, normal mood. ABSENT: homicidal ideation, suicidal ideation Skin exam: PRESENT: dry, intact, warm. ABSENT: cyanosis, rash Results Laboratory Results: 07/05/20 05:05 07/05/20 09:52 Impressions: Chest X-Ray 06/26/20 21:50 IMPRESSION: Left lung base atelectasis. Cervical Spine CT 07/02/20 00:00 IMPRESSION: 1. No significant findings in the cervical spine. 2. Right upper lobe pulmonary nodule. Assessment and Plan - Diagnosis (1) Central line complication Qualifiers: Encounter type: sequela Qualified Code(s): T82.9XXS - Unspecified complication of cardiac and vascular prosthetic device, implant and graft, s equela Is this a current diagnosis for this admission?: Yes Plan: Initial blood cultures (06/26-06/27) show staph epidermidis in 1 bottle each set. Repeat cultures (06/29) staph epidermidis in 1 of 4 bottles. Repeat cultures (07/04) No Growth at 48 hrs. Infectious disease was consulted; Dr. Krishnamurthy recommends catheter salvage with vancomycin and Vanco lock. Course of treatment 14 days upon negative blood cultures. Surgery was consulted; further evaluation, the line is not acutely infected and conservative management with trial of line salvage is reasonable. We will repeat blood cultures in the morning to determine clearance. Continue vancomycin. (2) Bacteremia Is this a current diagnosis for this admission?: Yes Plan: Initial blood cultures (06/26-06/27) show staph epidermidis in 1 bottle each set. Repeat cultures (06/29) staph epidermidis in 1 of 4 bottles. Repeat cultures (07/04) NGTD Antibiotics as above (3) Acute febrile illness Is this a current diagnosis for this admission?: Yes Plan: Secondary #1. Reportedly fever 103 at home with generalized malaise TMax 100.4 at time of admission; has been afebrile since. Management as above. (4) Abdominal pain Qualifiers: Abdominal location: generalized Qualified Code(s): R10.84 - Generalized abdominal pain Is this a current diagnosis for this admission?: Yes Plan: Chronic from Crohn's Pain management consultation was placed; unfortunately declined by the patient's mother. Greatly appreciate Andra Adithya' time today. I have discontinued IV narcotics. Have resumed tramadol by J-tube route, as was recommended by gastroenterology. (5) Crohn's disease Qualifiers: Gastrointestinal tract location: unspecified location Digestive disease complication type: other complication Qualified Code(s): K50.918 - Crohn's disease, unspecified, with other complication Is this a current diagnosis for this admission?: Yes Plan: - was on Entyvio but has since been stopped for about >2 months due to hx of recurrent infection - on chronic TPN due to gastroparesis - has G tube and J tube Patient and mother are currently declining all means of nutrition; p.o. vs. TF vs. TPN Spoke with patient's primary heavy mobile equipment repairer, Dr. Stein. He approves G- tube for medication use. All medications, other than her IV vancomycin, are transitioned to G-tube route. Follow-up as previously scheduled. (6) Gastroparesis Is this a current diagnosis for this admission?: Yes Plan: Resume home medication regiment via J-tube. Bentyl and Levsin prn. - Time Time Spent with patient: 35 or more minutes Medications reviewed and adjusted accordingly: Yes Anticipated Discharge Disposition: Home with Home Health Anticipated Discharge Timeframe: within 72 hours
[2020-07-06] MEDS: TRAMADOL HCL 50 MG TABLET JT PRN (20:52)
[2020-07-06] MEDS ORDERED: DICYCLOMINE HCL 20 MG TABLET ONE (23:04)
[2020-07-06] MEDS: CETIRIZINE 10 MG TABLET JT SCH (23:10)
[2020-07-06] MEDS: DICYCLOMINE HCL 20 MG TABLET JT PRN (23:28)
[2020-07-07] MEDS: INSULIN REG, HUMAN 100 UNIT/ML 3 ML VIAL (PYX) SUBCUT SCH ×4 (01:32→18:51)
[2020-07-07] MEDS: [UNRECOGNIZED DRUG - OTHER] IV SCH (01:33)
[2020-07-07] MEDS: VANCOMYCIN HCL IV SCH (01:33)
[2020-07-07] MEDS: HEPARIN SODIUM PORCINE IV SCH (01:33)
[2020-07-07] MEDS: DISPOSABLE IV SCH (01:33)
[2020-07-07] MEDS: PANTOPRAZOLE SODIUM 40 MG PACKET.DR GT SCH ×2 (05:52→16:18)
[2020-07-07] MEDS: HEPARIN SOD (PORCINE) 5,000 UNIT/ML 1 ML VIAL SUBCUT SCH ×3 (05:53→22:06)
[2020-07-07] MEDS: TRAMADOL HCL 50 MG TABLET JT PRN ×3 (07:54→21:58)
[2020-07-07] MEDS: PROMETHAZINE HCL 6.25 MG/5 ML SYRUP 60 ML JT PRN ×3 (08:46→21:59)
[2020-07-07] MEDS: DIPHENHYDRAMINE HCL 50 MG/ML VIAL IV PRN ×2 (08:47→20:27)
[2020-07-07] MEDS: MUPIROCIN 2% OINTMENT 22 GM TP SCH ×3 (09:16→18:50)
[2020-07-07] MEDS: SUCRALFATE 1 GM TABLET NG SCH ×3 (09:17→18:50)
[2020-07-07] MEDS: ASCORBIC ACID 500 MG TABLET JT SCH (09:17)
[2020-07-07] MEDS: CETIRIZINE 10 MG TABLET JT SCH (09:17)
[2020-07-07] MEDS: SILVER NITRATE APPLICATOR 1 APPLIC STICK..EA. 10/PACKAGE TOP SCH ×3 (09:17→18:51)
[2020-07-07] MEDS: VANCOMYCIN HCL 1,000 MG in DEXTROSE 5%-WATER 250 ML IV SCH ×2 (09:19→21:57)
--- NOTE | 2020-07-07 12:15 | PDOC DISCHARGE SUMMARY ---
Impression - Admit/DC Date/PCP Admission Date/Primary Care Provider: 06/27/20 01:19 JENNIFER NIÑO MD Discharge Date: 07/07/20 - Additional Information Resuscitation Status: Full Code Discharge Diet: Other (Comments) - TPN Discharge Activity: Activity As Tolerated Referrals: JENNIFER NIÑO MD [Primary Care Provider] - Follow up as needed (DR PINTO WILL CON TACT THE PATIENT WITH A FOLLOW UP APPT.) Prescriptions: Vancomycin HCl [Vancocin Inj 1000 mg Vial] 1,000 mg IV Q12 12 Days #24 each Vancomycin HCl [Vancocin Inj 500 mg Vial] 7.5 mg IV DAILY@0000 5 Days #10 ea Home Medications: Dicyclomine HCl 20 ml JT BIDP PRN 02/13/19 Promethazine HCl [Phenergan 6.25 mg/5 ml Syrup] 40 mg JT Q6HP PRN 09/15/19 Sodium/Pot/Mag/Calc/Chlor/Acet [TPN Electrolytes II IV Soln] 20 ml IV ASDIR PRN 09/15/19 Tramadol HCl [Ultram] 50 mg JT BIDP PRN 01/30/20 Cetirizine HCl 10 ml JT DAILY 04/18/20 Diphenhydramine HCl [Benadryl Inj 50 mg/1 ml Vial] 25 mg IV BID 04/18/20 Hyoscyamine Sulfate 0.125 mg SL TIDP PRN 04/18/20 Lansoprazole [Prevacid 30 mg Odt Tablet] 30 mg JT BID 04/18/20 Levothyroxine Sodium [Tirosint-Kaelyn] 50 mcg JT DAILY 04/18/20 Mupirocin [Bactroban 2% Ointment 22 gm] 1 applic TP TID 04/18/20 Nystatin [Nystop] 1 applic TP TID 04/18/20 Ondansetron [Zofran Odt 4 mg Tablet] 4 mg JT Q8HP PRN 04/18/20 Sucralfate [Carafate Susp 1 gm/10 ml Udcup] 1 gm JT TID 04/18/20 Silver Nitrate Applicator [Silver Nitrate Applicator 10 Stick/Package] 1 applic TOP TID #2 packet 05/08/20 Ascorbic Acid 2,000 gm JT DAILY 05/18/20 Tramadol HCl [Ultram 50 mg Tablet] 50 mg JT Q6HP PRN tablet 07/07/20 Vancomycin HCl [Vancocin Inj 1000 mg Vial] 1,000 mg IV Q12 12 Days #24 each 07/07/20 Vancomycin HCl [Vancocin Inj 500 mg Vial] 7.5 mg IV DAILY@0000 5 Days #10 ea 07/07/20 History of Present Illiness History of Present Illness: GOLDY WALLACE is a 19 year old female who presented to the emergency room with acute fever. She admits developing an acute fever of 103 F on the afternoon of 06/26/2020. Her fever was accompanied by chills with rigors and was associated with tachycardia, malaise and ague. She took Tylenol at home prior to coming to the emergency room and her fever substantially improved by the time she arrived at the hospital. She denies other associated or accompanying signs and symptoms. She admits numerous prior similar episodes related to infections of her IV access lines. She has not identified any additional aggravating or ameliorating factors for her fever. In the emergency room she was noted to have a temperature of 100.4 F and an unremarkable laboratory evaluation. Clinically she was experiencing rigorous chills and appeared acutely ill. She was started on IV antibiotic therapy with Zyvox in the emergency room and subsequently admitted to the hospital for further evaluation and treatment. Hospital Course Hospital Course: (1) Central line complication Qualifiers: Encounter type: sequela Qualified Code(s): T82.9XXS - Unspecified complication of cardiac and vascular prosthetic device, implant and graft, sequela Is this a current diagnosis for this admission?: Yes Plan: Initial blood cultures (06/26-06/27) show staph epidermidis in 1 bottle each set. Repeat cultures (06/29) staph epidermidis in 1 of 4 bottles. Repeat cultures (07/04) No Growth at 48 hrs. Infectious disease was consulted; Dr. Krishnamurthy recommends catheter salvage with vancomycin and Vanco lock. Course of treatment 14 days upon negative blood cultures. Surgery was consulted; further evaluation, the line is not acutely infected and conservative management with trial of line salvage is reasonable. We will repeat blood cultures in the morning to determine clearance. Continue vancomycin. (2) Bacteremia Is this a current diagnosis for this admission?: Yes Plan: Initial blood cultures (06/26-06/27) show staph epidermidis in 1 bottle each set. Repeat cultures (06/29) staph epidermidis in 1 of 4 bottles. Repeat cultures (07/04) NGTD Antibiotics as above (3) Acute febrile illness Is this a current diagnosis for this admission?: Yes Plan: Secondary #1. Reportedly fever 103 at home with generalized malaise TMax 100.4 at time of admission; has been afebrile since. Management as above. (4) Abdominal pain Qualifiers: Abdominal location: generalized Qualified Code(s): R10.84 - Generalized ab dominal pain Is this a current diagnosis for this admission?: Yes Plan: Chronic from Crohn's Pain management consultation was placed; unfortunately declined by the patient's mother. Greatly appreciate Ms. Andra Haji' time today. I have discontinued IV narcotics. Have resumed tramadol by J-tube route, as was recommended by gastroenterology. (5) Crohn's disease Qualifiers: Gastrointestinal tract location: unspecified location Digestive disease complication type: other complication Qualified Code(s): K50.918 - Crohn's disease, unspecified, with other complication Is this a current diagnosis for this admission?: Yes Plan: - was on Entyvio but has since been stopped for about >2 months due to hx of recurrent infection - on chronic TPN due to gastroparesis - has G tube and J tube Patient and mother are currently declining all means of nutrition; p.o. vs. TF vs. TPN Spoke with patient's primary analytical data scientist, Dr. Stein. He approves G- tube for medication use. All medications, other than her IV vancomycin, are transitioned to G-tube route. Follow-up as previously scheduled. (6) Gastroparesis Is this a current diagnosis for this admission?: Yes Plan: Resume home medication regiment via J-tube. Bentyl and Levsin prn. Physical Exam Vital Signs: Temp Pulse Resp BP Pulse Ox 98.1 F 75 16 118/64 100 07/07/20 08:34 07/07/20 08:20 07/07/20 08:20 07/07/20 08:20 07/07/20 08:20 Intake & Output 07/06/20 07/07/20 07/08/20 06:59 06:59 06:59 Intake Total 4836 2270 250 Balance 4836 2270 250 Weight 59.2 kg 59.9 kg General appearance: PRESENT: thin Head exam: PRESENT: atraumatic, normocephalic Respiratory exam: PRESENT: clear to auscultation martine, symmetrical, unlabored. ABSENT: rales, rhonchi, tachypnea, wheezes Cardiovascular exam: PRESENT: RRR, +S1, +S2 GI/Abdominal exam: PRESENT: soft, other - Gastrojejunostomy tube in place. ABSENT: tenderness Skin exam: PRESENT: pallor Results Laboratory Results: WBC 3.7 10^3/uL (4.0-10.5) L 07/05/20 05:05 RBC 3.33 10^6/uL (3.72-5.28) L 07/05/20 05:05 Hgb 10.0 g/dL (12.0-15.5) L 07/05/20 05:05 Hct 28.4 % (36.0-47.0) L 07/05/20 05:05 MCV 85 fl (80-97) 07/05/20 05:05 MCH 30.0 pg (27.0-33.4) 07/05/20 05:05 MCHC 35.2 g/dL (32.0-36.0) 07/05/20 05:05 RDW 15.0 % (11.5-14.0) H 07/05/20 05:05 Plt Count 314 10^3/uL (150-450) 07/05/20 05:05 Lymph % (Auto) 40.8 % (13-45) 07/02/20 06:44 [place] % (Auto) 11.4 % (3-13) 07/02/20 06:44 Eos % (Auto) 12.6 % (0-6) H 07/02/20 06:44 Baso % (Auto) 1.2 % (0-2) 07/02/20 06:44 Absolute Neuts (auto) 1.3 10^3/uL (1.7-8.2) L 07/02/20 06:44 Absolute Lymphs (auto) 1.5 10^3/uL (0.5-4.7) 07/02/20 06:44 Absolute Monos (auto) 0.4 10^3/uL (0.1-1.4) 07/02/20 06:44 Absolute Eos (auto) 0.5 10^3/uL (0.0-0.6) 07/02/20 06:44 Absolute Basos (auto) 0.0 10^3/uL (0.0-0.2) 07/02/20 06:44 Seg Neutrophils % 34.0 % (42-78) L 07/02/20 06:44 PT 13.2 SEC (11.4-15.4) 06/26/20 22:32 INR 0.98 06/26/20 22:32 VBG pH 7.43 (7.30-7.42) H 06/26/20 22:32 VBG pCO2 38.4 mmHg (35-63) 06/26/20 22:32 VBG HCO3 25.1 mmol/L (20-32) 06/26/20 22:32 VBG Base Excess 1.0 mmol/L 06/26/20 22:32 Sodium 142.2 mmol/L (137-145) 07/05/20 05:05 Potassium 4.0 mmol/L (3.6-5.0) 07/05/20 05:05 Chloride 103 mmol/L (98-107) 07/05/20 05:05 Carbon Dioxide 30 mmol/L (22-30) 07/05/20 05:05 Anion Gap 9 (5-19) 07/05/20 05:05 BUN 2 mg/dL (7-20) L 07/05/20 05:05 Creatinine 0.69 mg/dL (0.52-1.25) 07/05/20 09:52 Est GFR ( Amer) > 60 (>60) 07/05/20 09:52 Est GFR (MDRD) Non-Af > 60 (>60) 07/05/20 09:52 Glucose 74 mg/dL (75-110) L 07/05/20 05:05 POC Glucose 100 mg/dL (70-110) 07/07/20 06:06 Lactic Acid 0.7 mmol/L (0.7-2.1) 06/27/20 08:30 Calcium 8.7 mg/dL (8.4-10.2) 07/05/20 05:05 Phosphorus 4.5 mg/dL (2.5-4.5) 06/28/20 05:30 Magnesium 1.7 mg/dL (1.6-2.3) 06/28/20 05:30 Total Bilirubin 0.4 mg/dL (0.2-1.3) 06/28/20 05:30 Direct Bilirubin 0.3 mg/dL (0.0-0.4) 06/28/20 05:30 Neonat Total Bilirubin Not Reportable 06/28/20 05:30 Neonat Direct Bilirubin Not Reportable 06/28/20 05:30 Neonat Indirect Bili Not Reportable 06/28/20 05:30 AST 28 U/L (14-36) 06/28/20 05:30 ALT 17 U/L (<35) 06/28/20 05:30 Alkaline Phosphatase 90 U/L (38-126) 06/28/20 05:30 Total Protein 6.1 g/dL (6.3-8.2) L 06/28/20 05:30 Albumin 3.1 g/dL (3.5-5.0) L 06/28/20 05:30 Serum HCG, Qual NEGATIVE (NEGATIVE) 06/26/20 22:32 Urine Color STRAW 06/26/20 22:32 Urine Appearance CLEAR 06/26/20 22:32 Urine pH 9.0 (5.0-9.0) 06/26/20 22:32 Ur Specific [place] 1.004 06/26/20 22:32 Urine Protein NEGATIVE mg/dL (NEGATIVE) 06/26/20 22:32 Urine Glucose (UA) NEGATIVE mg/dL (NEGATIVE) 06/26/20 22:32 Urine Ketones NEGATIVE mg/dL (NEGATIVE) 06/26/20 22:32 Urine Blood NEGATIVE (NEGATIVE) 06/26/20 22:32 Urine Nitrite (Reflex) NEGATIVE (NEGATIVE) 06/26/20 22:32 Urine Bilirubin NEGATIVE (NEGATIVE) 06/26/20 22:32 Urine Urobilinogen NEGATIVE mg/dL (<2.0) 06/26/20 22:32 Leukocyte Esterase Rfl NEGATIVE (NEGATIVE) 06/26/20 22:32 Urine RBC (Auto) 1 /HPF 06/26/20 22:32 Urine WBC (Reflex) < 1 /HPF 06/26/20 22:32 Squamous Epi Cells Auto <1 /HPF 06/26/20 22:32 Urine Mucus (Auto) RARE /LPF 06/26/20 22:32 Urine Ascorbic Acid 20 (NEGATIVE) H 06/26/20 22:32 Time Trough Drawn 0952 13/20 09:52 Vancomycin Trough 20.5 ug/mL (5.0-20.0) H 07/05/20 09:52 Impressions: Chest X-Ray 06/26/20 21:50 IMPRESSION: Left lung base atelectasis. Cervical Spine CT 07/02/20 00:00 IMPRESSION: 1. No significant findings in the cervical spine. 2. Right upper lobe pulmonary nodule. Plan Health Concerns: Line infection with attempt to salvage the line Plan of Treatment: Continue TPN at home. Vancomycin through July 18. Vancomycin lock for 6 hours in each lumen Goals: Successful salvage of dual lumen PICC line Time Spent: Greater than 30 Minutes Stroke Is this a Stroke Patient?: No Acute Heart Failure Is this a Heart Failure Patient?: No
[2020-07-07 19:58] VITALS: BP 103/54
[2020-07-07 20:47] LABS: VANCOMYCIN,TROUGH 17.6 ug/mL (5.0-20.0)
== END 2020-07-07 22:25 | disposition home health service (06) | DRG 315 ==
LOC: ER 21:25 → EH 06-27 01:19 → 3S 06-27 02:53 → 3N 06-27 11:57 → 4W 06-30 13:00 → 4S 07-03 22:39
PROVIDERS: ADMIT Emergency Medicine; ATTEND Hospitalist
DX: T80.211A Bloodstream infection due to central venous catheter, initial encounter (principal); K50.90 Crohn's disease, unspecified, without complications; Q79.60 Ehlers-Danlos syndrome, unspecified; J98.11 Atelectasis; B95.7 Other staphylococcus as the cause of diseases classified elsewhere; E06.3 Autoimmune thyroiditis; K31.84 Gastroparesis; D53.9 Nutritional anemia, unspecified; M54.2 Cervicalgia; Z93.4 Other artificial openings of gastrointestinal tract status; Z93.1 Gastrostomy status; Z88.1 Allergy status to other antibiotic agents; Z88.5 Allergy status to narcotic agent; Z88.8 Allergy status to other drugs, medicaments and biological substances; Z91.048 Other nonmedicinal substance allergy status
CPT/HCPCS: 36415; 71045; 72125; 80048; 80053; 80202; 81001; 82565; 82803; 82962; 83605; 83735; 84100; 84703; 85025; 85027; 85610; 87040; 87077; 87150; 87186; 93005; 93010; 96361; 96374; 96375; 99291; J0780; J1170; J1200; J1644; J2020; J2405; J2550; J3370; J3490; J7030; J7060; J7121; S0028; S0119

== ENCOUNTER → 2020-08-27 | Outpatient (CLI) | payer MEDICAID ==
[~2020-08-27] MED LIST changes: -ACETAMINOPHEN 325 MG TABLET PO PRN; -CEFAZOLIN 1 GM/D5W RTU 1 GM/50 ML RTUPB IV PRN; +CEFAZOLIN 2 GM/D5W RTU 2 GM/50 ML RTUPB IV PRN; -CLINDAMYCIN 600 MG/D5W RTU 600 MG/50 ML RTUPB IV PRN; +RINGERS SOLUTION,LACTATED 1,000 ML IV PRN
[2020-08-27 10:35] VITALS: BP 111/89
== END ==
LOC: OD 09:55 → EDSTATUS 08-31 12:00
PROVIDERS: ATTEND Surgery
DX: Z01.812 Encounter for preprocedural laboratory examination (principal); Z01.818 Encounter for other preprocedural examination; Z20.828 Contact with and (suspected) exposure to other viral communicable diseases; K50.90 Crohn's disease, unspecified, without complications; K90.9 Intestinal malabsorption, unspecified; Z78.9 Other specified health status
CPT/HCPCS: 87635; C9803